=== PATIENT | female | born 1930 | race Caucasian/White ===

== ENCOUNTER → 2016-05-12 | Outpatient (CLI) | payer OTHER, BC ==
[~2016-05-12] MED LIST: ZCRUNK; [UNRECOGNIZED DRUG - CODE]
--- NOTE | 2016-05-12 15:36 | DIAGNOSTIC IMAGING REPORT ---
LEG LENGTH STUDY CLINICAL HISTORY: Gait disturbance. FINDINGS: 5 radiographs of the pelvis and lower extremities from a leg length examination are presented. Correlation is made with radiographs of the knees dated 06/12/2011. The skeletal structures are osteopenic. No fracture is identified in the bony pelvis or the lower extremities. The right lower extremity measures 89.1 cm and the left lower extremity measures 91.3 cm as measured from the femoral head to the tibial plafond. Advanced arthritic change is present in the hips, left greater than right. Advanced arthritic change is also seen in the knees. Heterotopic bone is again noted lateral to the distal left femoral metaphysis. The overlying soft tissues are within normal limits. Lumbosacral spondylosis is partially imaged. A surgical clip is present in the left calf. IMPRESSION: 1. The left lower extremity measures 2.2 cm longer than the right lower extremity. 2. Osteopenia and arthritic change as above. Electronically signed by: Jeffery Syed M.D. 05/12/2016 3:34 PM Dictated Date/Time: 05/12/2016 3:31 PM
== END | disposition home or self-care (01) ==
LOC: C.RADBC 14:53
PROVIDERS: ATTEND Internal Medicine Geriatric Medicine
DX: R26.9 Unspecified abnormalities of gait and mobility (principal); M85.80 Other specified disorders of bone density and structure, unspecified site; M21.70 Unequal limb length (acquired), unspecified site

== ENCOUNTER → 2016-12-11 | Outpatient (CLI) | payer OTHER, BC ==
[2016-12-11 13:44] LABS: BASO % 0.4 %; BASO ABS # 0.02 K/uL (0-0.2); COMPLETE YES; EOS % 3.3 %; HEMATOCRIT 38.6 % (37-47); IG% 0.4 %; MEAN CELL VOLUME 100.8 fL (80-100); MEAN CORPUSCULAR HEMOGLOBIN 32.4 pg (25-34); MEAN CORPUSCULAR HGB CONC 32.1 g/dl (32-36); MONO % 11.7 %; NEUT % 42.2 %; PLATELET COUNT 283 K/uL (130-400); RED BLOOD COUNT 3.83 M/uL (4.2-5.4); WHITE BLOOD COUNT 5.48 K/uL (4.8-10.8)
[2016-12-11 14:14] LABS: ALT/SGPT 20 U/L (12-78); AST/SGOT 18 U/L (15-37); BLOOD UREA NITROGEN 30 mg/dl (7-18); BUN/CREATININE RATIO 37.5 (10-20); CARBON DIOXIDE 29 mmol/L (21-32); CHLORIDE 105 mmol/L (98-107); CHOLESTEROL 148 mg/dl (0-200); CREATININE 0.81 mg/dl (0.60-1.20); GLUCOSE 86 mg/dl (70-99); POTASSIUM 4.4 mmol/L (3.5-5.1); SODIUM 138 mmol/L (136-145)
[2016-12-11 14:25] LABS: ALB/GLOB RATIO 1.1 (0.9-2); ALKALINE PHOSPHATASE 63 U/L (45-117); CHOLESTEROL/HDL RATIO 2.3; HDL CHOLESTEROL 63 mg/dl; LDL CHOLESTEROL CALCULATED 64 mg/dl; TRIGLYCERIDES 104 mg/dl (0-150); VERY LOW DENSITY LIPOPROT CALC 21 mg/dl
[2016-12-12 08:03] LABS: ESTIMATED AVERAGE GLUCOSE 114 mg/dl; HA1C FLAG Normal (Normal)
== END | disposition home or self-care (01) ==
LOC: C.LABBC 10:31
PROVIDERS: ATTEND Internal Medicine Geriatric Medicine
DX: I10 Essential (primary) hypertension (principal); M48.00 Spinal stenosis, site unspecified; R73.9 Hyperglycemia, unspecified; I25.10 Atherosclerotic heart disease of native coronary artery without angina pectoris; E78.5 Hyperlipidemia, unspecified; E55.9 Vitamin D deficiency, unspecified

== ENCOUNTER → 2017-02-27 | Outpatient (CLI) | payer OTHER, BC ==
[~2017-02-27] MED LIST changes: +ASPI81TA28 PO; +ATOR-24 PO; +FESO4TAB PO; +NITR100C43 PO; +VITA200C5 PO
[2017-02-27 12:38] LABS: URINE APPEARANCE CLEAR (CLEAR); URINE BILIRUBIN NEG (NEG); URINE COLOR YELLOW; URINE EPITHELIAL CELL AUTO >30 /lpf (0-5); URINE NITRITE NEG (NEG); URINE SPECIFIC GRAVITY 1.023 (1.000-1.030); UROBILINOGEN NEG (NEG); ZZUR CULT IF INDIC CLEAN CATCH NO
[2017-02-27 12:42] LABS: MANUAL MICROSCOPIC REQUIRED? NO; REVIEW REQ? NO
== END | disposition home or self-care (01) ==
LOC: C.LAB 12:03
PROVIDERS: ATTEND Internal Medicine Geriatric Medicine
DX: R32 Unspecified urinary incontinence (principal)

== ENCOUNTER 2017-02-28 10:09 | Inpatient (IN) | payer OTHER, BC ==
[~2017-02-28] VITALS: Ht 167.6 cm; Wt 77.1 kg
[~2017-02-28 10:09] MED LIST changes: -ASPI81TA28 PO; -ATOR-24 PO; -FESO4TAB PO; -NITR100C43 PO; -VITA200C5 PO
[2017-02-28] MEDS ORDERED: SODIUM CHLORIDE 0.9% 500ML 500 ML IV STA ×2 (10:27→12:07)
[2017-02-28] MEDS ORDERED: ACETAMINOPHEN 500 MG TAB PO STA (10:27)
--- NOTE | 2017-02-28 10:34 | EMERGENCY ROOM VISIT NOTE ---
History Report prepared by Miguel Angel: Guilherme Madrid Under the Supervision of: Dr. Montana Blackman M.D. First contact with patient: 10:10 Chief Complaint: FALL Stated Complaint: FALL History of Present Illness The patient is an 86 year old white female with a past medical history of CABGx3 , HLD, spinal stenosis, CAD who presents to the ED after a fall that occurred last evening. Patient was using the restroom, stood up, became lightheaded, and fell forward to her knees. She notes she fell twice and hit her head both times. The patient did not use her arms to brace herself. She started Macrobid yesterday for a UTI. The patient has had two doses, both taken with food. Positive nausea and lightheadedness since the start of the medication, chronic thigh pain. Negative felling warm, palpitations, LOC, numbness, weakness, alcohol use, tobacco use, blood thinners other than aspirin. Source of History: patient Onset: last evening Position: other (global) Quality: other (fall) Timing: resolved Associated Symptoms: + nausea, No LOC, No weakness, No numbness Note: Associated symptoms: lightheadedness, chronic thigh pain, hitting head Negative: feeling warm, palpitations Review of Systems See HPI for pertinent positives and negatives. A total of ten systems were reviewed and were otherwise negative. Past Medical & Surgical Medical Problems: (1) CAD (coronary artery disease) (2) HLD (hyperlipidemia) (3) severe leukocytosis, UTI, frequent falls (4) Spinal stenosis Surgical Problems: (1) S/P CABG x 3 Family History Diabetes mellitus Heart disease Social History Smoking Status: Never Smoker Smokeless Tobacco Use: No Alcohol Use: none Marital Status: Housing Status: lives with significant other Occupation Status: retired Current/Historical Medications Scheduled Aspirin (Aspirin Ec), 81 MG PO DAILY Atorvastatin (Lipitor), 40 MG PO DAILY Fesoterodine Fumarate (Toviaz), 4.5 MG PO BID Nitrofurantoin Macrocrystal (Nitrofurantoin), 100 MG PO BID Vitamin E (Vitamin E), 1 CAP PO DAILY Allergies Coded Allergies: Ciprofloxacin (Verified Allergy, Unknown, UNKNOWN, 07/19/12) Ezetimibe (Verified Allergy, Unknown, UNKNOWN, 07/19/12) Penicillins (Verified Allergy, Unknown, 07/19/12) Simvastatin (Verified Allergy, Unknown, UNKNOWN, 07/19/12) Codeine (Verified Adverse Reaction, Mild, GI SYMPTOMS, 02/28/17) Physical Exam Vital Signs Date Time Temp Pulse Resp B/P (MAP) Pulse Ox O2 Delivery O2 Flow Rate FiO2 02/28/17 13:07 98 Room Air 02/28/17 12:49 75 16 137/53 98 Room Air 02/28/17 11:08 74 18 97/70 94 Room Air 02/28/17 10:44 75 18 142/118 93 Room Air 02/28/17 10:35 88 02/28/17 10:20 36.5 76 20 130/99 97 Room Air Physical Exam GENERAL: Awake, alert, well-appearing, NAD HENT: Normocephalic, atraumatic. EYES: Normal conjunctiva. Sclera non-icteric. NECK: Supple. No nuchal rigidity. FROM. RESPIRATORY: CTAB, no rhonchi, wheezing, crackles CARDIAC: RRR, no MRG ABDOMEN: Soft, NTND, BS+ MSK: No chest wall TTP, no LE edema. LLE is shorter than RLE, neurovascularly intact, mild hip pain without obvious deformity. NEURO: GCS 15, A&O x3, follows commands, 4/5 in LE, 5/5 in UE SKIN: No rash or jaundice noted. Medical Decision & Procedures ER Provider Diagnostic Interpretation: Radiology results as stated below per my review and radiologist interpretation: PELVIS ONE VIEW, LEFT HIP 2 VIEWS HISTORY: Left hip pain. s/p fall, L leg short COMPARISON: Leg length study 05/22/2016. FINDINGS: No acute fracture or dislocation within the pelvis or hips. Severe osteoarthritis within the left hip with lepy-mf-idom articulation. This remains unchanged. There is mild superior migration of the left femoral head due to the severe osteoarthritis. This likely accounts for the apparent left leg shortening. The bones are osteopenic. Mild osteoarthritis within the right hip. Soft tissues are unremarkable. No radiopaque foreign bodies. IMPRESSION: No acute fracture or dislocation within the pelvis or hips. No change in the severe left hip osteoarthritis. This likely accounts for the apparent left leg shortening. Electronically signed by: Ramakrishna Oswald M.D. 02/28/2017 11:28 AM Dictated Date/Time: 02/28/2017 11:[address] CT DOSE: 1451.75 mGy.cm HISTORY: s/p fall TECHNIQUE: Multiaxial CT images of the head were performed without the use of intravenous contrast. Automated exposure control was utilized for this study. A dose lowering technique was utilized adhering to the principles of ALARA. Comparison: Brain MRI 04/02/2014. Findings: The paranasal sinuses and mastoid air cells are clear. The calvarium and skull base are intact. There is no mass, hematoma, midline shift, acute infarct. White matter hypodensity is nonspecific but suggestive of microvascular ischemic change. The ventricles and sulci demonstrate mild age-related involutional changes. Impression: No acute intracranial abnormality. Atrophy and microvascular ischemic changes. Electronically signed by: Ramakrishna Oswald M.D. 02/28/2017 11:46 AM Dictated Date/Time: 02/28/2017 11:43 AM CHEST ONE VIEW PORTABLE HISTORY: Fall. Left-sided chest pain. COMPARISON: Chest 10/17/2013. FINDINGS: The heart remains mildly enlarged. There are postoperative changes. Linear density at the left midlung zone are similar to the prior study and likely represent scarring or atelectasis. The lungs are otherwise clear. Poststernotomy changes. No pleural effusions. No pneumothorax. IMPRESSION: No significant change compared to the prior study. No acute process. Electronically signed by: Ramakrishna Oswald M.D. 02/28/2017 11:29 AM Dictated Date/Time: 02/28/2017 11:[address] DOSE: HISTORY: Neck pain. s/p fall TECHNIQUE: Multiaxial CT images of the cervical spine were performed and reformatted in the sagittal and coronal plane without the use of contrast. A dose lowering technique was utilized adhering to the principles of ALARA. COMPARISON: None. FINDINGS: No fractures. No subluxation. Prevertebral soft tissues and the C1-C2 interval are intact. No pneumothorax. Mild disc space narrowing at C3-C4 and moderate to space narrowing at C5-C6 and C6-C7. The left C3-C4 facets are fused. Slight reversal of the normal lordotic curvature. IMPRESSION: No fractures within the cervical spine. Electronically signed by: Ramakrishna Oswald M.D. 02/28/2017 11:52 AM Dictated Date/Time: 02/28/2017 11:48 AM Laboratory Results 02/28/17 10:40 Red Blood Count 3.88, Mean Corpuscular Volume 100.5, Mean Corpuscular Hemoglobin 33.0, Mean Corpuscular Hemoglobin Concent 32.8, Mean Platelet Volume 10.5, Neutrophils (%) (Auto) 89.8, Lymphocytes (%) (Auto) 4.5, Monocytes (%) ( Auto) 4.9, Eosinophils (%) (Auto) 0.2, Basophils (%) (Auto) 0.2, Neutrophils # ( Auto) 19.96, Lymphocytes # (Auto) 1.00, Monocytes # (Auto) 1.10, Eosinophils # ( Auto) 0.05, Basophils # (Auto) 0.04 02/28/17 10:40 Test 02/28/17 10:40 White Blood Count 22.23 K/uL (4.8-10.8) Red Blood Count 3.88 M/uL (4.2-5.4) Hemoglobin 12.8 g/dL (12.0-16.0) Hematocrit 39.0 % (37-47) Mean Corpuscular Volume 100.5 fL (80-100) Mean Corpuscular Hemoglobin 33.0 pg (25-34) Mean Corpuscular Hemoglobin Concent 32.8 g/dl (32-36) Platelet Count 247 K/uL (130-400) Mean Platelet Volume 10.5 fL (7.4-10.4) Neutrophils (%) (Auto) 89.8 % Lymphocytes (%) (Auto) 4.5 % Monocytes (%) (Auto) 4.9 % Eosinophils (%) (Auto) 0.2 % Basophils (%) (Auto) 0.2 % Neutrophils # (Auto) 19.96 K/uL (1.4-6.5) Lymphocytes # (Auto) 1.00 K/uL (1.2-3.4) Monocytes # (Auto) 1.10 K/uL (0.11-0.59) Eosinophils # (Auto) 0.05 K/uL (0-0.5) Basophils # (Auto) 0.04 K/uL (0-0.2) RDW Standard Deviation 46.7 fL (36.4-46.3) RDW Coefficient of Variation 12.8 % (11.5-14.5) Immature Granulocyte % (Auto) 0.4 % Immature Granulocyte # (Auto) 0.08 K/uL (0.00-0.02) Erythrocyte Sedimentation Rate 34 mm/hr (0-21) Prothrombin Time 10.5 SECONDS (9.0-12.0) Prothromb Time International Ratio 1.0 (0.9-1.1) Activated Partial Thromboplast Time 28.2 SECONDS (21.0-31.0) Partial Thromboplastin Ratio 1.1 Anion Gap 6.0 mmol/L (3-11) Est Creatinine Clear Calc Drug Dose 55.5 ml/min Estimated GFR () 76.8 Estimated GFR (Non- 66.2 BUN/Creatinine Ratio 32.0 (10-20) Calcium Level 9.3 mg/dl (8.5-10.1) Total Bilirubin 1.7 mg/dl (0.2-1) Direct Bilirubin 0.3 mg/dl (0-0.2) Aspartate Amino Transf (AST/SGOT) 17 U/L (15-37) Alanine Aminotransferase (ALT/SGPT) 20 U/L (12-78) Alkaline Phosphatase 69 U/L (45-117) Troponin I < 0.015 ng/ml (0-0.045) C-Reactive Protein 2.78 mg/dl (0-0.29) Total Protein 7.7 gm/dl (6.4-8.2) Albumin 3.8 gm/dl (3.4-5.0) Lipase 132 U/L (73-393) Procalcitonin 0.11 ng/ml (0-0.5) Laboratory results reviewed by me Medications Administered Medications (Trade) Dose Ordered Sig/Jj Route Start Time Stop Time Status Last Admin Dose Admin Acetaminophen (Tylenol Tab) 1,000 mg NOW STAT PO 02/28/17 10:27 02/28/17 10:30 DC 02/28/17 11:02 1,000 MG Sodium Chloride 500 ml @ 500 mls/hr Q1H STAT IV 02/28/17 10:27 02/28/17 11:26 DC 02/28/17 11:03 500 MLS/HR Ceftriaxone Sodium (Rocephin Inj) 1 gm NOW ONCE IV 02/28/17 12:30 02/28/17 12:31 DC 02/28/17 12:30 1 GM Sodium Chloride 500 ml @ 500 mls/hr Q1H STAT IV 02/28/17 12:07 02/28/17 13:06 DC 02/28/17 12:07 500 MLS/HR ECG Indication: weakness Rate (beats per minute): 77 Rhythm: sinus rhythm Findings: 1st degree AV block, T-wave inversion (Lateral), left axis deviation , other (Prolonged KS interval, no other STS or TWI) ED Course 1019: The patient was evaluated in room B05. A complete history and physical exam was performed. 1248: Upon reexamination, the patient was feeling better. I discussed the test results and treatment plan with her. The patient will be evaluated for further management. 1253: I discussed the patient's case with Dr. Billy, [facility] Hospitalist. The patient will be evaluated for further management and care. Medical Decision The patient is an 86 year old white female with a past medical history of CABGx3 , HLD, spinal stenosis, CAD who presents to the ED after a fall that occurred last evening. Etiologies such as metabolic, infection, hypo/hyperglycemia, electrolyte abnormalities, cardiac sources, intracerebral event, toxicologic, neurologic, as well as others were entertained. Patient was seen and evaluated the bedside. Patient states that she had 2 falls in the middle of last night. Patient is unsure as to whether not she hit her head and is unsure as to whether not she had any LOC. Patient does take a baby aspirin but no other blood thinning medications. Patient is complaining of some thigh pain in her left leg is noticeably shortened however the thigh pain is chronic. Patient does not have any neuro deficits. Patient states she was recently seen yesterday which she was treated for UTI. Of note patient states that her dizziness described as lightheadedness and not vertiginous symptoms and that this was positional. Patient did have blood work that was completed along with a urinalysis, chest x-ray, CT of the head and neck, and left hip films. Patient did have a white blood cell count of 22,000. Given this and the recent treatment for UTI with the patient was suitable for outpatient treatment. EKG TWI laterally. No EKGs for comparison but does have prior CABG. Neg trop. Furthermore, given the patient's 2 episodes of falling and history of CABG in the setting of dehydration would be harris continue to hydrate her and to monitor and consider any syncope workup. Patient was told of all findings. I did speak with the admitting physician agreed to admit the patient for further follow-up and treatment. Head Trauma GCS Score: 15 Medication Reconcilliation Current Medication List: was personally reviewed by me Blood Pressure Screening Patient's blood pressure: Elevated blood pressure Monitored by Hospitalist. Consults Time Called: 1233 Consulting Physician: Dr. Billy, [facility] Hospitalist Returned Call: [phone] I discussed the patient's case with Dr. Billy [facility] Hospitalist. The patient will be evaluated for further management and care. Impression Primary Impression: UTI (urinary tract infection) Additional Impression: Fall Scribe Attestation The scribe's documentation has been prepared under my direction and personally reviewed by me in its entirety. I confirm that the note above accurately reflects all work, treatment, procedures, and medical decision making performed by me. Departure Information Dispostion Being Evaluated By Hospitalist Referrals Ankit Anthony M.D. (PCP) Patient Instructions My [facility] Problem Qualifiers Primary Impression: UTI (urinary tract infection) Urinary tract infection type: acute cystitis Hematuria presence: without hematuria Qualified Codes: N30.00 - Acute cystitis without hematuria Additional Impression: Fall Encounter type: initial encounter Qualified Codes: W19.XXXA - Unspecified fall, initial encounter
[2017-02-28 10:54] LABS: BASO % 0.2 %; BASO ABS # 0.04 K/uL (0-0.2); COMPLETE YES; EOS % 0.2 %; IG% 0.4 %; LYMPH % 4.5 %; MEAN CELL VOLUME 100.5 fL (80-100); MEAN CORPUSCULAR HGB CONC 32.8 g/dl (32-36); MEAN PLATELET VOLUME 10.5 fL (7.4-10.4); MONO % 4.9 %; NEUT % 89.8 %; PLATELET COUNT 247 K/uL (130-400); RED BLOOD COUNT 3.88 M/uL (4.2-5.4); WHITE BLOOD COUNT 22.23 K/uL (4.8-10.8)
[2017-02-28] MEDS ORDERED: VITA200C5 PO (11:06)
[2017-02-28] MEDS ORDERED: FESO4TAB PO (11:06)
[2017-02-28] MEDS ORDERED: ATOR-24 PO (11:06)
[2017-02-28] MEDS ORDERED: ASPI81TA28 PO (11:06)
[2017-02-28] MEDS ORDERED: NITR100C43 PO (11:06)
[2017-02-28 11:19] LABS: ALT/SGPT 20 U/L (12-78); AST/SGOT 17 U/L (15-37); BLOOD UREA NITROGEN 26 mg/dl (7-18); CALCIUM 9.3 mg/dl (8.5-10.1); CARBON DIOXIDE 29 mmol/L (21-32); CHLORIDE 102 mmol/L (98-107); CREATININE 0.81 mg/dl (0.60-1.20); GLUCOSE 146 mg/dl (70-99); POTASSIUM 3.5 mmol/L (3.5-5.1); SODIUM 137 mmol/L (136-145)
[2017-02-28 11:22] LABS: PARTIAL THROMBOPLASTIN RATIO 1.1; PROTHROMBIN TIME (PATIENT) 10.5 SECONDS (9.0-12.0)
[2017-02-28 11:24] LABS: ALKALINE PHOSPHATASE 69 U/L (45-117)
--- NOTE | 2017-02-28 11:29 | DIAGNOSTIC IMAGING REPORT ---
PELVIS ONE VIEW, LEFT HIP 2 VIEWS HISTORY: Left hip pain. s/p fall, L leg short COMPARISON: Leg length study 05/22/2016. FINDINGS: No acute fracture or dislocation within the pelvis or hips. Severe osteoarthritis within the left hip with oyfz-ag-hcma articulation. This remains unchanged. There is mild superior migration of the left femoral head due to the severe osteoarthritis. This likely accounts for the apparent left leg shortening. The bones are osteopenic. Mild osteoarthritis within the right hip. Soft tissues are unremarkable. No radiopaque foreign bodies. IMPRESSION: No acute fracture or dislocation within the pelvis or hips. No change in the severe left hip osteoarthritis. This likely accounts for the apparent left leg shortening. Electronically signed by: Ramakrishna Oswald M.D. 02/28/2017 11:28 AM Dictated Date/Time: 02/28/2017 11:25 AM
--- NOTE | 2017-02-28 11:31 | DIAGNOSTIC IMAGING REPORT ---
CHEST ONE VIEW PORTABLE HISTORY: Fall. Left-sided chest pain. COMPARISON: Chest 10/17/2013. FINDINGS: The heart remains mildly enlarged. There are postoperative changes. Linear density at the left midlung zone are similar to the prior study and likely represent scarring or atelectasis. The lungs are otherwise clear. Poststernotomy changes. No pleural effusions. No pneumothorax. IMPRESSION: No significant change compared to the prior study. No acute process. Electronically signed by: Ramakrishna Oswald M.D. 02/28/2017 11:29 AM Dictated Date/Time: 02/28/2017 11:28 AM
--- NOTE | 2017-02-28 11:47 | DIAGNOSTIC IMAGING REPORT ---
HEAD CT NONCONTRAST CT DOSE: 1451.75 mGy.cm HISTORY: s/p fall TECHNIQUE: Multiaxial CT images of the head were performed without the use of intravenous contrast. Automated exposure control was utilized for this study. A dose lowering technique was utilized adhering to the principles of ALARA. Comparison: Brain MRI 04/02/2014. Findings: The paranasal sinuses and mastoid air cells are clear. The calvarium and skull base are intact. There is no mass, hematoma, midline shift, acute infarct. White matter hypodensity is nonspecific but suggestive of microvascular ischemic change. The ventricles and sulci demonstrate mild age-related involutional changes. Impression: No acute intracranial abnormality. Atrophy and microvascular ischemic changes. Electronically signed by: Ramakrishna Oswald M.D. 02/28/2017 11:46 AM Dictated Date/Time: 02/28/2017 11:43 AM
--- NOTE | 2017-02-28 11:53 | DIAGNOSTIC IMAGING REPORT ---
CERVICAL SPINE CT CT DOSE: HISTORY: Neck pain. s/p fall TECHNIQUE: Multiaxial CT images of the cervical spine were performed and reformatted in the sagittal and coronal plane without the use of contrast. A dose lowering technique was utilized adhering to the principles of ALARA. COMPARISON: None. FINDINGS: No fractures. No subluxation. Prevertebral soft tissues and the C1-C2 interval are intact. No pneumothorax. Mild disc space narrowing at C3-C4 and moderate to space narrowing at C5-C6 and C6-C7. The left C3-C4 facets are fused. Slight reversal of the normal lordotic curvature. IMPRESSION: No fractures within the cervical spine. Electronically signed by: Ramakrishna Oswald M.D. 02/28/2017 11:52 AM Dictated Date/Time: 02/28/2017 11:48 AM
[2017-02-28] MEDS ORDERED: CEFTRIAXONE SOD INJ 1 GM ADDVIAL IV ONE (12:30)
[2017-02-28 13:07] VITALS: O2SAT 98; Ht 167.6 cm; Wt 77.1 kg
[2017-02-28] MEDS ORDERED: PANTOprazole SOD 40 MG TAB PO STA (13:14)
[2017-02-28] MEDS ORDERED: POLYETHYLENE (MIRALAX) 17 GM PACK PO PRN (13:15)
[2017-02-28] MEDS ORDERED: ACETAMINOPHEN 325 MG TAB PO PRN (13:15)
[2017-02-28] MEDS ORDERED: ALUMINUM/MAGNESIUM/SIMETH (MAALOX MAX) 30 ML UDC PO PRN (13:15)
[2017-02-28] MEDS ORDERED: MAGNESIUM HYDROXIDE SUSP 30 ML UDC PO PRN (13:15)
[2017-02-28] MEDS ORDERED: ZOLPIDEM TARTRATE 5 MG TAB PO PRN (13:15)
[2017-02-28] MEDS ORDERED: ONDANSETRON INJ 2 MG/ML 2 ML VIAL IV PRN (13:15)
--- NOTE | 2017-02-28 13:34 | History and Physical ---
History & Physical Date of Service Feb 28, 2017. History & Physical severe leukocytosis, UTI, frequent falls, [id number]
--- NOTE | 2017-02-28 14:34 | HISTORY & PHYSICAL EXAMINATION ---
DATE OF ADMISSION: 02/28/2017 This is level 3 inpatient admission, 35 minutes. CHIEF COMPLAINT: Generalized weakness, UTI and frequent falls. HISTORY OF PRESENT ILLNESS: An 86-year-old white female with a significant past medical history of dyslipidemia, CAD, CABG, spinal stenosis, coming to the hospital Emergency Department because of the above chief complaint. The medical information was obtained from patient herself and 2 daughters at the bedside. One of the daughter is a clinical laboratory manager. The patient has vertigos for couple months, seems getting worse. She lives with daughters and son-in-law at home, But, she has nobody taking her at because children are working. She has frequent falls here and there and hit in her body. Therefore, usually happened when she has up and walk and she was feeling dizziness and falls. Sometimes hit head, but yesterday had a fall, denied hitting head. There was mild tender and skin red from the fall yesterday in the right shoulder. Local mild tenderness. No limited range of motion. Denied feeling palpitations or chest pain before or during the fall. There was no loss of conscious during the fall yesterday. She was seen by primary care physician and was found to have UTI. Urine culture is pending. She was getting antibiotics Macrobid for the UTI. Reports some nauseations and lightheadedness after starting this medication. The patient denied fever or chills. Denied cough, sputum, shortness of breath. Denied chest pain, palpitation, lower extremity swelling. Denied nausea, vomiting, abdominal pain, diarrhea or constipation. She did report some urgency and pain when she has urination. Denied hematuria. Denied facial droop, slurry speeches or local weakness, but positive for generalized weakness. Denies skin bluish. Denies skin rashes. PAST MEDICAL HISTORY: Like I mentioned in the above include UTI, dyslipidemia, CAD, CABG. FAMILY HISTORY: Include diabetes and heart disease. SOCIAL HISTORY: Never smoked. Denied alcohol abuse disorder, denied illicit drug abuse. MEDICATIONS: Currently taking include Zocor and solifenacin. ALLERGIES: ALLERGY TO CODEINE, CIPRO, EZETIMIBE, PENICILLIN AND SIMVASTATIN. REVIEW OF SYSTEMS: Please see HPI, otherwise 14 points organ system review were negative. PHYSICAL EXAMINATION: VITAL SIGNS: Temperature is 36.5, pulse 76, respiration rate 20, blood pressure 130/99. Pulse ox 97% in room air. GENERAL: The patient is a white female, pleasant, lips are very dry. Awake, alert and orientated. No acute distress. HEENT: Conjunctivae no injection. Sclerae nonicterus. NECK: Supple, no nuchal rigidity. There was no limited range of motion. CHEST AND LUNGS: Clear to auscultations. No wheezing, rhonchi, or crackles. Rib cages bilaterally has no local tenderness. HEART: Regular rhythm S1, S2; no murmur, gallop or rubs. ABDOMEN: Soft, nontender. Bowel sound was positive. EXTREMITIES: Bilateral CVA was nontender. MUSCULOSKELETAL: Right anterior shoulder, skin mild red, there was minimal tender. No limited range of motion. No deformities. SPINE: T-spine, L-spine and T-spine has no tender. Left hip mild pain. NEUROLOGIC: Cranial nerves II-XII was intact. There was no local deficits. No slurry speeches. SKIN: No rashes. LABORATORY STUDIES: WBC 22, hemoglobin 12, platelets 247. IMAGING STUDIES: Include cervical spine has no fracture identified. Chest x-ray, no significant changes and no acute process. Head CT studies, no acute intracranial abnormalities. Hip x-ray in the left side there was no acute fracture or dislocations, but there was severe left hip osteoarthritis. EKG was done in the Emergency Room which shows sinus rhythm with first degree AV block. There were no obvious ST-T wave changes. ASSESSMENT AND PLAN: An 86-year-old white female with the conditions see below: 1. Urinary tract infection, failed outpatient treatment, may need to rule out pyelo. 2. Severe leukocytosis. Will need to check lactase to rule out sepsis. Currently, no obvious tachycardia or mental status changes. Blood pressure is stable. 3. Frequent falls and dizziness. Need to rule out arrhythmia and orthostatic hypotension. 4. Vertigo is getting worse recently. 5. History of coronary artery disease, coronary artery bypass grafting and dyslipidemia. 6. Left hip severe arthritis. 7. Significant frequent fall, possible deconditioning. PLAN: We will keep patient as admission because of severe leukocytosis and UTI, need to rule out pyelo or sepsis. Has ordered ESR, CRP, procalcitonin level and lactase level. ED started Rocephin, will continue, urine culture in PCP's office need to be followed up, blood culture was sent. We will check orthostatic hypotension and give IV fluid because of obvious dehydration and very dry lips. May consider medication for vertigo or further evaluation for the vertigo , Possibly need to do MRI, if need for further evaluation of vertigo and frequent falls. but patient has pacer , not able to do MRI Because of differential diagnosis include arrhythmia, I will put the patient in tele floor. Follow up leukocytosis. For the history of CAD, CABG, and dyslipidemia, will continue current medication. I will order PT, OT evaluation and treatment and disease case manager consultation. GI and DVT prophylaxis is ordered. Discussed with patient and 2 daughters at the bedside, updated the patient's condition and answered all the questions, patient want to be do not resuscitation. LEOLA
[2017-02-28 14:45] LABS: URINE APPEARANCE CLEAR (CLEAR); URINE BILIRUBIN NEG (NEG); URINE COLOR DK YELLOW; URINE EPITHELIAL CELL AUTO >30 /lpf (0-5); URINE NITRITE NEG (NEG); URINE SPECIFIC GRAVITY 1.021 (1.000-1.030); UROBILINOGEN NEG (NEG); ZZURINE CULT IF INDIC CATH NO
[2017-02-28 14:51] LABS: MANUAL MICROSCOPIC REQUIRED? NO; REVIEW REQ? YES
[2017-02-28 14:59] LABS: URINE MUCUS PRESENT (NONE PRSENT)
[2017-02-28 15:52] VITALS: BP 126/64; PULSE 63; TEMP 36.7; O2SAT 90
[2017-02-28 16:00] VITALS: O2SAT 92
[2017-02-28] MEDS: SODIUM CHLORIDE 0.9% 1000ML 1,000 ML IV SCH ×2 (16:09→23:49)
[2017-02-28] MEDS: ENOXAPARIN 40 MG/0.4 ML SYR SC SCH (17:57)
[2017-02-28] MEDS: MECLIZINE HCL 12.5 MG TAB PO SCH ×2 (17:58→21:25)
[2017-02-28 20:26] VITALS: BP 123/58; PULSE 72; TEMP 36.8; O2SAT 91
[2017-03-01] VITALS (10 sets, daily range): BP systolic 113–169; BP diastolic 54–81; PULSE 49–88; TEMP 36.5–37.4; O2SAT 90–96
[2017-03-01 05:29] LABS: BASO % 0.2 %; BASO ABS # 0.03 K/uL (0-0.2); COMPLETE YES; EOS % 7.7 %; HEMATOCRIT 34.4 % (37-47); IG% 0.2 %; LYMPH % 19.7 %; MEAN CELL VOLUME 101.5 fL (80-100); MEAN CORPUSCULAR HEMOGLOBIN 33.3 pg (25-34); MEAN CORPUSCULAR HGB CONC 32.8 g/dl (32-36); MEAN PLATELET VOLUME 10.3 fL (7.4-10.4); MONO % 6.2 %; PLATELET COUNT 217 K/uL (130-400); RED BLOOD COUNT 3.39 M/uL (4.2-5.4); WHITE BLOOD COUNT 12.66 K/uL (4.8-10.8)
[2017-03-01 06:04] LABS: BUN/CREATININE RATIO 25.4 (10-20); CALCIUM 8.9 mg/dl (8.5-10.1); CREATININE 0.81 mg/dl (0.60-1.20); POTASSIUM 3.4 mmol/L (3.5-5.1)
[2017-03-01 06:06] LABS: ALB/GLOB RATIO 0.9 (0.9-2)
[2017-03-01] MEDS: SODIUM CHLORIDE 0.9% 1000ML 1,000 ML IV SCH (08:57)
[2017-03-01] MEDS: ASPIRIN 81 MG ECTAB PO SCH (08:58)
[2017-03-01] MEDS: MECLIZINE HCL 12.5 MG TAB PO SCH ×3 (08:58→21:22)
[2017-03-01] MEDS: ATORVASTATIN 40 MG TAB PO SCH (08:58)
[2017-03-01] MEDS: TOCOPHERYL, DL-ALPHA 100 INTERUNIT CAP PO SCH (08:58)
[2017-03-01] MEDS: PANTOprazole SOD 40 MG TAB PO SCH (09:04)
[2017-03-01] MEDS ORDERED: LOPERAMIDE HCL 2 MG CAP PO PRN (11:00)
[2017-03-01] MEDS ORDERED: CEFTRIAXONE SOD INJ 2,000 MG in DEXTROSE 5% 50ML 50 ML IV SCH (12:00)
[2017-03-01] MEDS: CEFTRIAXONE SOD INJ 1,000 MG in DEXTROSE 5% 50ML 50 ML IV SCH (12:18)
[2017-03-01] MEDS: LACTOBACILLUS ACIDOPHILUS (FLORANEX) TAB PO SCH ×2 (12:18→17:07)
--- NOTE | 2017-03-01 12:54 | Medical Student: [facility] ---
Med Student Progress Note Date of Service Mar 01, 2017. Subjective Pt evaluation today including: conversation w/ patient, physical exam, chart review, lab review, review of studies, review of inpatient medication list Voiding: no voiding problems 86 year old female with history of dyslipidemia, CAD, CABg and questionable vertigo presenting by request of primary care physician after presenting for repeated falls and being found to have a UTI. On arrival, patient's WBC was 22, she had signs of dehydration on exam and possible 1st degree AV node block on EKG though difficult to appreciate due to artifact. She described her falls as a dizziness that was different from vertigo symptoms and felt more like a lightheadedness. She had one episode where she recalls LOC, this was an unwitnessed event. CT head and chest x-ray were unremarkable. Review of Systems Constitutional: No fever, No chills, No weakness Respiratory: No cough, No shortness of breath Cardiac: No chest pain, No edema, No palpitations Abdomen: No pain, No nausea, No vomiting, No diarrhea Female : No dysuria, No urinary frequency, No hematuria, No incontinence Skin: No rash Objective Vital Signs Date Time Temp Pulse Resp B/P (MAP) Pulse Ox O2 Delivery O2 Flow Rate FiO2 03/01/17 12:01 90 Room Air 03/01/17 11:07 36.9 53 18 144/63 (90) 96 Room Air 03/01/17 08:02 36.8 54 16 135/59 (84) 90 03/01/17 08:00 90 Room Air 03/01/17 05:09 37.4 76 18 127/64 (85) 90 Room Air 79 127/68 (87) 85 113/65 (81) 03/01/17 04:00 Room Air 03/01/17 00:22 36.8 66 18 127/54 (78) 92 Room Air 03/01/17 00:00 Room Air 02/28/17 20:26 36.8 72 20 123/58 (79) 91 Room Air 02/28/17 20:18 Room Air 02/28/17 16:00 92 Room Air 02/28/17 15:52 36.7 63 20 126/64 (84) 90 Room Air 02/28/17 14:37 67 16 123/57 94 Room Air 02/28/17 13:46 74 16 109/44 94 Room Air 02/28/17 13:07 98 Room Air 02/28/17 12:49 75 16 137/53 98 Room Air Physical Exam General Appearance: WD/WN, no apparent distress Eyes: bilateral eyes normal inspection ENT: hearing grossly normal, pharynx normal Neck: no JVD Respiratory/Chest: chest non-tender, lungs clear, normal breath sounds, no respiratory distress, no accessory muscle use Cardiovascular: regular rate, rhythm, no edema, no gallop, no JVD, + systolic murmur (2/6 LINDA heard at RUSB) Abdomen: normal bowel sounds, non tender, soft, no organomegaly, no pulsatile mass Extremities: normal range of motion, non-tender, normal inspection, no pedal edema, no calf tenderness Neurologic/Psychiatric: alert, normal mood/affect, oriented x 3 (oriented to person, place, but not time) Skin: no rash Laboratory Results Last 24 Hours Test 02/28/17 13:47 02/28/17 15:30 03/01/17 05:18 Urine Color DK YELLOW Urine Appearance CLEAR Urine pH 5.0 Urine Specific [place] 1.021 Urine Protein NEG Urine Glucose (UA) NEG Urine Ketones 1+ Urine Occult Blood NEG Urine Nitrite NEG Urine Bilirubin NEG Urine Urobilinogen NEG Urine Leukocyte Esterase NEG Urine WBC (Auto) 1-5 /hpf Urine RBC (Auto) 0-4 /hpf Urine Hyaline Casts (Auto) 0 /lpf Urine Epithelial Cells (Auto) >30 /lpf Urine Bacteria (Auto) NEG Urine Renal Epithelial Cells /lpf Urine Mucus PRESENT Lactic Acid Level 1.2 mmol/L White Blood Count 12.66 K/uL Red Blood Count 3.39 M/uL Hemoglobin 11.3 g/dL Hematocrit 34.4 % Mean Corpuscular Volume 101.5 fL Mean Corpuscular Hemoglobin 33.3 pg Mean Corpuscular Hemoglobin Concent 32.8 g/dl Platelet Count 217 K/uL Mean Platelet Volume 10.3 fL Neutrophils (%) (Auto) 66.0 % Lymphocytes (%) (Auto) 19.7 % Monocytes (%) (Auto) 6.2 % Eosinophils (%) (Auto) 7.7 % Basophils (%) (Auto) 0.2 % Neutrophils # (Auto) 8.35 K/uL Lymphocytes # (Auto) 2.50 K/uL Monocytes # (Auto) 0.78 K/uL Eosinophils # (Auto) 0.97 K/uL Basophils # (Auto) 0.03 K/uL RDW Standard Deviation 47.0 fL RDW Coefficient of Variation 12.9 % Immature Granulocyte % (Auto) 0.2 % Immature Granulocyte # (Auto) 0.03 K/uL Sodium Level 136 mmol/L Potassium Level 3.4 mmol/L Chloride Level 104 mmol/L Carbon Dioxide Level 25 mmol/L Anion Gap 7.0 mmol/L Blood Urea Nitrogen 21 mg/dl Creatinine 0.81 mg/dl Est Creatinine Clear Calc Drug Dose 55.5 ml/min Estimated GFR () 76.8 Estimated GFR (Non- 66.2 BUN/Creatinine Ratio 25.4 Random Glucose 95 mg/dl Calcium Level 8.9 mg/dl Magnesium Level 2.0 mg/dl Total Bilirubin 1.5 mg/dl Direct Bilirubin 0.3 mg/dl Aspartate Amino Transf (AST/SGOT) 19 U/L Alanine Aminotransferase (ALT/SGPT) 18 U/L Alkaline Phosphatase 52 U/L Total Protein 6.5 gm/dl Albumin 3.1 gm/dl Globulin 3.4 gm/dl Albumin/Globulin Ratio 0.9 Medications Current Inpatient Medications Medications (Trade) Dose Ordered Sig/Jj Route Start Time Stop Time Status Last Admin Dose Admin Enoxaparin Sodium (Lovenox Inj) 40 mg Q24H SC 02/28/17 18:00 03/30/17 17:59 02/28/17 17:57 40 MG Acetaminophen (Tylenol Tab) 650 mg Q4H PRN PO 02/28/17 13:15 03/30/17 13:14 Al Hydrox/Mg Hydrox/Simethicone (Maalox Max Susp) 15 ml Q4H PRN PO 02/28/17 13:15 03/30/17 13:14 Magnesium Hydroxide (Milk Of Magnesia Susp) 30 ml Q12H PRN PO 02/28/17 13:15 03/30/17 13:14 Zolpidem Tartrate (Ambien Tab) 5 mg HSZ PRN PO 02/28/17 13:15 03/30/17 13:14 Ondansetron HCl (Zofran Inj) 4 mg Q6H PRN IV 02/28/17 13:15 03/30/17 13:14 Polyethylene (Miralax Powder Packet) 17 gm DAILY PRN PO 02/28/17 13:15 03/30/17 13:14 Pantoprazole Sodium (Protonix Tab) 40 mg QAM PO 03/01/17 09:00 03/31/17 08:59 03/01/17 09:04 40 MG Aspirin (Ecotrin Tab) 81 mg DAILY PO 03/01/17 09:00 03/31/17 08:59 03/01/17 08:58 81 MG Atorvastatin Calcium (Lipitor Tab) 40 mg DAILY PO 03/01/17 09:00 03/31/17 08:59 03/01/17 08:58 40 MG Miscellaneous Information (Order Awaiting Action) 1 ea QS N/A 02/28/17 16:00 03/30/17 15:59 sd-[id number]-[id number] Acetate (Vitamin E Cap) 200 interunit DAILY PO 03/01/17 09:00 03/31/17 08:59 03/01/17 08:58 200 INTERUNIT Meclizine HCl (Antivert Tab) 12.5 mg TID PO 02/28/17 14:00 03/30/17 13:59 03/01/17 08:58 12.5 MG Lactobacillus Acidophilus (Floranex Tab) 4 tab TIDM PO 03/01/17 12:00 03/31/17 11:59 03/01/17 12:18 4 TAB Loperamide HCl (Imodium Cap) 2 mg TID PRN PO 03/01/17 11:00 03/31/17 10:59 Ceftriaxone Sodium 1000 mg/ Dextrose 60 ml @ 100 mls/hr Q24H IV 03/01/17 11:00 03/11/17 10:59 03/01/17 12:18 100 MLS/HR Assessment and Plan Problems Fall UTI (urinary tract infection) CAD (coronary artery disease) HLD (hyperlipidemia) Spinal stenosis Assessment and Plan: Assessment: 86 year old female presenting with presyncopal and syncopal episodes and a UTI diagnosed by PCP. No known cause for the syncopal episodes, no dysrhythmia seen on EKG. Orthostatics have been normal. Plan: 1. Falls: Appear to by presyncopal. Could be due to orthostasis not seen in hospital with dehydration being a factor. Recommend echo to rule out cardiac abnormalities. Recommend repeat EKG. 2. Dehydration: Improved on IVF. Discontinue IVF. 3. UTI: Continue Rocephin. WBC has decreased from 22 to 12. Afebrile. Mild right flank pain. Low suspicion of pyelonephritis due to lack of fever, abdominal symptoms, severity of flank pain and general well appearance. 4. DVT prophylaxis: Continue Lovenox. 5. Diarrhea: Give Loperamide and Probiotic. Disposition: Patient will be discharged home likely tomorrow after r/o of cardiac involvement as stated above and one more day of IV abx. Continued [facility] stay due to: multiple IV medications needed Discharge planning: home
--- NOTE | 2017-03-01 13:59 | Progress Note ---
Subjective Date of Service: Mar 01, 2017. Subjective Pt evaluation today including: conversation w/ patient, conversation w/ family (daughter), physical exam, lab review, review of inpatient medication list Pain: denies pain PO Intake: adequate Voiding: no voiding problems reviewed labs, WBC down to 12 from 22 urine culture with no real growth, blood cultures no growth patient feeling well, had a loose stool but otherwise okay no pain, no dyspnea, no chest pain, no nausea no fevers described her "vertigo" as a light headed feeling in the night that goes away if she waits to get up and ambulate Problem List Medical Problems: (1) Fall Status: Acute (2) UTI (urinary tract infection) Status: Acute Review of Systems Abdomen: + diarrhea All Other Systems: Reviewed and Negative Medications Current Inpatient Medications Medications (Trade) Dose Ordered Sig/Jj Route Start Time Stop Time Status Last Admin Dose Admin Enoxaparin Sodium (Lovenox Inj) 40 mg Q24H SC 02/28/17 18:00 03/30/17 17:59 02/28/17 17:57 40 MG Acetaminophen (Tylenol Tab) 650 mg Q4H PRN PO 02/28/17 13:15 03/30/17 13:14 Al Hydrox/Mg Hydrox/Simethicone (Maalox Max Susp) 15 ml Q4H PRN PO 02/28/17 13:15 03/30/17 13:14 Magnesium Hydroxide (Milk Of Magnesia Susp) 30 ml Q12H PRN PO 02/28/17 13:15 03/30/17 13:14 Zolpidem Tartrate (Ambien Tab) 5 mg HSZ PRN PO 02/28/17 13:15 03/30/17 13:14 Ondansetron HCl (Zofran Inj) 4 mg Q6H PRN IV 02/28/17 13:15 03/30/17 13:14 Polyethylene (Miralax Powder Packet) 17 gm DAILY PRN PO 02/28/17 13:15 03/30/17 13:14 Pantoprazole Sodium (Protonix Tab) 40 mg QAM PO 03/01/17 09:00 03/31/17 08:59 03/01/17 09:04 40 MG Aspirin (Ecotrin Tab) 81 mg DAILY PO 03/01/17 09:00 03/31/17 08:59 03/01/17 08:58 81 MG Atorvastatin Calcium (Lipitor Tab) 40 mg DAILY PO 03/01/17 09:00 03/31/17 08:59 03/01/17 08:58 40 MG Miscellaneous Information (Order Awaiting Action) 1 ea QS N/A 02/28/17 16:00 03/30/17 15:59 ds-Uulka-Zwwmsmrkvi Acetate (Vitamin E Cap) 200 interunit DAILY PO 03/01/17 09:00 03/31/17 08:59 03/01/17 08:58 200 INTERUNIT Meclizine HCl (Antivert Tab) 12.5 mg TID PO 02/28/17 14:00 03/30/17 13:59 03/01/17 08:58 12.5 MG Lactobacillus Acidophilus (Floranex Tab) 4 tab TIDM PO 03/01/17 12:00 03/31/17 11:59 03/01/17 12:18 4 TAB Loperamide HCl (Imodium Cap) 2 mg TID PRN PO 03/01/17 11:00 03/31/17 10:59 Ceftriaxone Sodium 1000 mg/ Dextrose 60 ml @ 100 mls/hr Q24H IV 03/01/17 11:00 03/11/17 10:59 03/01/17 12:18 100 MLS/HR Objective Vital Signs Date Time Temp Pulse Resp B/P (MAP) Pulse Ox O2 Delivery O2 Flow Rate FiO2 03/01/17 12:01 90 Room Air 03/01/17 11:07 36.9 53 18 144/63 (90) 96 Room Air 03/01/17 08:02 36.8 54 16 135/59 (84) 90 03/01/17 08:00 90 Room Air 03/01/17 05:09 37.4 76 18 127/64 (85) 90 Room Air 79 127/68 (87) 85 113/65 (81) 03/01/17 04:00 Room Air 03/01/17 00:22 36.8 66 18 127/54 (78) 92 Room Air 03/01/17 00:00 Room Air 02/28/17 20:26 36.8 72 20 123/58 (79) 91 Room Air 02/28/17 20:18 Room Air 02/28/17 16:00 92 Room Air 02/28/17 15:52 36.7 63 20 126/64 (84) 90 Room Air 02/28/17 14:37 67 16 123/57 94 Room Air 02/28/17 13:46 74 16 109/44 94 Room Air Physical Exam General Appearance: WD/WN, no apparent distress Eyes: normal inspection, EOMI, sclerae normal ENT: normal ENT inspection, hearing grossly normal, pharynx normal Neck: supple, no adenopathy, no JVD, trachea midline Respiratory/Chest: chest non-tender, lungs clear, normal breath sounds, no respiratory distress, no accessory muscle use Cardiovascular: regular rate, rhythm, no edema, no gallop, no JVD, no murmur Abdomen: normal bowel sounds, non tender, soft, no organomegaly Extremities: normal range of motion, non-tender, normal inspection, no pedal edema, no calf tenderness, pelvis stable 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, no motor/sensory deficits, alert, normal mood/affect, oriented x 3 Skin: normal color, warm/dry, no rash Lymphatic: no adenopathy Laboratory Results Last 24 Hours Test 02/28/17 13:47 02/28/17 15:30 03/01/17 05:18 Urine Color DK YELLOW Urine Appearance CLEAR Urine pH 5.0 Urine Specific [place] 1.021 Urine Protein NEG Urine Glucose (UA) NEG Urine Ketones 1+ Urine Occult Blood NEG Urine Nitrite NEG Urine Bilirubin NEG Urine Urobilinogen NEG Urine Leukocyte Esterase NEG Urine WBC (Auto) 1-5 /hpf Urine RBC (Auto) 0-4 /hpf Urine Hyaline Casts (Auto) 0 /lpf Urine Epithelial Cells (Auto) >30 /lpf Urine Bacteria (Auto) NEG Urine Renal Epithelial Cells /lpf Urine Mucus PRESENT Lactic Acid Level 1.2 mmol/L White Blood Count 12.66 K/uL Red Blood Count 3.39 M/uL Hemoglobin 11.3 g/dL Hematocrit 34.4 % Mean Corpuscular Volume 101.5 fL Mean Corpuscular Hemoglobin 33.3 pg Mean Corpuscular Hemoglobin Concent 32.8 g/dl Platelet Count 217 K/uL Mean Platelet Volume 10.3 fL Neutrophils (%) (Auto) 66.0 % Lymphocytes (%) (Auto) 19.7 % Monocytes (%) (Auto) 6.2 % Eosinophils (%) (Auto) 7.7 % Basophils (%) (Auto) 0.2 % Neutrophils # (Auto) 8.35 K/uL Lymphocytes # (Auto) 2.50 K/uL Monocytes # (Auto) 0.78 K/uL Eosinophils # (Auto) 0.97 K/uL Basophils # (Auto) 0.03 K/uL RDW Standard Deviation 47.0 fL RDW Coefficient of Variation 12.9 % Immature Granulocyte % (Auto) 0.2 % Immature Granulocyte # (Auto) 0.03 K/uL Sodium Level 136 mmol/L Potassium Level 3.4 mmol/L Chloride Level 104 mmol/L Carbon Dioxide Level 25 mmol/L Anion Gap 7.0 mmol/L Blood Urea Nitrogen 21 mg/dl Creatinine 0.81 mg/dl Est Creatinine Clear Calc Drug Dose 55.5 ml/min Estimated GFR () 76.8 Estimated GFR (Non- 66.2 BUN/Creatinine Ratio 25.4 Random Glucose 95 mg/dl Calcium Level 8.9 mg/dl Magnesium Level 2.0 mg/dl Total Bilirubin 1.5 mg/dl Direct Bilirubin 0.3 mg/dl Aspartate Amino Transf (AST/SGOT) 19 U/L Alanine Aminotransferase (ALT/SGPT) 18 U/L Alkaline Phosphatase 52 U/L Total Protein 6.5 gm/dl Albumin 3.1 gm/dl Globulin 3.4 gm/dl Albumin/Globulin Ratio 0.9 Assessment and Plan 86 yo female who presented with fevers and possible UTI, right flank pain, weakness and light headedness - UTI POA, no sepsis: patient feeling better with IV fluids and Rocephin urinating a lot, will stop fluids afebrile, vitals stable, WBC from 22k to 12k on abx no growth on culture thus far doubt pyelonephritis, no flank pain, no real systemic symptoms treat for 7-10 days, convert to PO tomorrow - Loose stools: one BM today, typically she is regular or even constipated could be from abx check culture, C diff, add Lactobacillus and can use Imodium PRN - Dehydration: resolved, stop IV fluids, drinking well today - Light headedness: resolved today, described like orthostatic changes when she is at home normal orthostatic vitals today - DVT prophylaxis: Lovenox DNR plan: convert to PO antibiotics tomorrow, PT/OT evaluations, possibly home tomorrow Continued [facility] stay due to: multiple IV medications needed Discharge planning: home
[2017-03-01] MEDS: ENOXAPARIN 40 MG/0.4 ML SYR SC SCH (19:34)
[2017-03-01 22:10] LABS: URINE APPEARANCE CLEAR (CLEAR); URINE BILIRUBIN NEG (NEG); URINE COLOR YELLOW; URINE EPITHELIAL CELL AUTO 20-30 /lpf (0-5); URINE NITRITE NEG (NEG); URINE PH 5.5 (4.5-7.5); URINE SPECIFIC GRAVITY 1.012 (1.000-1.030); UROBILINOGEN NEG (NEG); ZZUR CULT IF INDIC CLEAN CATCH NO
[2017-03-01 22:13] LABS: MANUAL MICROSCOPIC REQUIRED? NO; REVIEW REQ? NO
[2017-03-02 00:18] VITALS: BP 168/74; PULSE 52; TEMP 36.4; O2SAT 92
[2017-03-02 03:56] VITALS: BP 161/66; PULSE 48; TEMP 36.5; O2SAT 93
[2017-03-02 07:20] VITALS: BP 176/74; PULSE 52; TEMP 36.9; O2SAT 93
[2017-03-02] MEDS: TOCOPHERYL, DL-ALPHA 100 INTERUNIT CAP PO SCH (07:44)
[2017-03-02] MEDS: MECLIZINE HCL 12.5 MG TAB PO SCH ×2 (07:44→13:42)
[2017-03-02] MEDS: ASPIRIN 81 MG ECTAB PO SCH (07:44)
[2017-03-02] MEDS: ATORVASTATIN 40 MG TAB PO SCH (07:44)
[2017-03-02] MEDS: LACTOBACILLUS ACIDOPHILUS (FLORANEX) TAB PO SCH ×2 (07:44→11:42)
[2017-03-02] MEDS: PANTOprazole SOD 40 MG TAB PO SCH (07:44)
[2017-03-02 08:30] LABS: BASO % 0.5 %; BASO ABS # 0.04 K/uL (0-0.2); COMPLETE YES; EOS % 15.7 %; HEMATOCRIT 38.5 % (37-47); IG% 0.1 %; LYMPH % 29.6 %; LYMPH ABS # 2.32 K/uL (1.2-3.4); MEAN CORPUSCULAR HEMOGLOBIN 33.3 pg (25-34); MEAN PLATELET VOLUME 10.5 fL (7.4-10.4); MONO % 10.3 %; NEUT % 43.8 %; PLATELET COUNT 243 K/uL (130-400); RED BLOOD COUNT 3.81 M/uL (4.2-5.4); WHITE BLOOD COUNT 7.85 K/uL (4.8-10.8)
[2017-03-02 08:50] LABS: BUN/CREATININE RATIO 25.1 (10-20); CALCIUM 9.5 mg/dl (8.5-10.1); CREATININE 0.81 mg/dl (0.60-1.20); POTASSIUM 3.8 mmol/L (3.5-5.1)
[2017-03-02] MEDS ORDERED: CEFTRIAXONE SOD INJ 1,000 MG in DEXTROSE 5% 50ML 50 ML IV SCH (09:00)
[2017-03-02] MEDS ORDERED: LCTX PO (09:57)
[2017-03-02] MEDS ORDERED: ANT25 PO (09:57)
[2017-03-02] MEDS ORDERED: CEPH500C PO (09:57)
--- NOTE | 2017-03-02 10:07 | Discharge Instructions ---
Discharge Instructions Date of Service Mar 02, 2017. Admission Reason for Admission: Severe Leukocytosis, Uti, Frequent Falls Discharge Discharge Diagnosis / Problem: UTI, no sepsis, dehydration, ambulatory dysfunction Discharge Goals Goal(s): Improve function, Increase independence Activity Recommendations Activity Level: Assistance Required Therapies: Physical Therapy, Occupational Therapy Lifting Limitations: none Exercise/Sports Limitations: as tolerated Shower/Bathe: no limitations . Additional Information Patient informed of condition: Yes Advance Directives: Yes DNR: Yes Level of Care: Acute Rehab Communicable Disease: No Prognosis: Stable Oxygen at (LPM): no Brennan Catheter: No Instructions / Follow-Up Instructions / Follow-Up Medications: - KEFLEX: complete 10 more doses for treatment of UTI, no growth on culture so unclear as to what bacteria caused the infection - MECLIZINE: take as needed for dizziness up to three times a day - LACTOBACILLUS: probiotic to help prevent any further diarrhea UTI without sepsis: on presentation, had a leukocytosis of 22k, right flank pain , increased urinary frequency and she was dehydrated responded well to fluids and Rocephin, WBC down to 8k, afebrile, vitals stable no signs of pyelonephritis treat for 7 days total, convert to Keflex Dehydration: resolved with IV fluids, eating and drinking well Loose stools: only one episode, could not get C diff or stool culture because she was unable to provide a sample, doubt any serious etiology since symptoms resolved Light headedness: ongoing issue, described as light headed, trouble gaining balance, mostly with positional changes, her orthostatic vitals were normal OT recommended rehab and patient agreed FOLLOW UP - physician at [facility] this week - Dr. Anthony one week after d/c from [facility] Current Hospital Diet Patient's current hospital diet: AHA Diet (Heart Healthy) Discharge Diet Recommended Diet: AHA Diet (Heart Healthy) Pending Studies Studies pending at discharge: no Physician Orders On Transfer POLST Discussion: Not Applicable Laboratory Results Hemoglobin A1c Test 12/11/16 10:46 Range/Units Estimated Average Glucose 114 mg/dl Hemoglobin A1c 5.6 4.5-5.6 % Lipid Panel Test 12/11/16 10:46 Range/Units Triglycerides Level 104 0-150 mg/dl Cholesterol Level 148 0-200 mg/dl HDL Cholesterol 63 mg/dl Cholesterol/HDL Ratio 2.3 LDL Cholesterol, Calculated 64 mg/dl Medical Emergencies . Who to Call and When: Medical Emergencies: If at any time you feel your situation is an emergency, please call 911 immediately. . Non-Emergent Contact Non-Emergency issues call your: Primary Care Provider Call Non-Emergent contact if: you have any medication questions . . "Provider Documentation" section prepared by Sandip Singer. . Core Measure Problem Core Measures: None [place] Drug Monitoring Program Search Results: no issues identified
[2017-03-02 10:22] VITALS: BP 176/74; PULSE 52; TEMP 36.9; O2SAT 93
[2017-03-02] MEDS: CEFTRIAXONE SOD INJ 1,000 MG in DEXTROSE 5% 50ML 50 ML IV SCH (11:00)
--- NOTE | 2017-03-02 14:42 | Discharge Summary ---
Discharge Summary Date of Service Mar 02, 2017. Discharge Summary Admission Date: Feb 28, 2017 at 13:20 Discharge Date: Mar 02, 2017 Discharge Disposition: Rehab Principal Diagnosis: UTI Problems/Secondary Diagnoses: Dizziness, light headedness Bradycardia Procedures: none Consultations: none Medication Reconciliation New Medications: Cephalexin Monohydrate (Keflex) 500 Mg Cap 1 CAP PO BID for 5 Days, #10 CAP Lactobacillus Acidophilus (Floranex) 1 Tab Tab 4 TAB PO TIDM for 5 Days, #60 TAB Meclizine HCl (Meclizine HCl) 25 Mg Tab 12.5 MG PO TID PRN for Dizziness or Vertigo, #30 TAB 2 Refills Continued Medications: Aspirin (Aspirin Ec) 81 Mg Tab 81 MG PO DAILY Atorvastatin (Lipitor) 40 Mg Tab 40 MG PO DAILY, TAB Fesoterodine Fumarate (Toviaz) 4 Mg Tab 4.5 MG PO BID, TAB 3 Refills Vitamin E (Vitamin E) 200 Unit Cap 1 CAP PO DAILY Discontinued Medications: Nitrofurantoin Macrocrystal (Nitrofurantoin) 100 Mg Cap 100 MG PO BID Discharge Exam Patient reports feeling much better, her dizziness/light headed symptoms improved, nearly gone. OT recommended rehab, she and her daughter agree with this plan. Reviewed telemetry, sinus rhythm or sinus bradycardia with occasional PAC's, HR mostly in the 50-60's. Did drop to high 30's once while she was sleeping. Also , there was a very brief 5 beat run of SVT, not atrial fibrillation, that occurred overnight. Reviewed the rest of tele monitoring, no sustained episodes of SVT or atrial fibrillation. discussed with patient and her daughters, explained that a brief 5 beat run of SVT would not explain her symptoms. Also, there would not be any medication to add since her resting HR is in the 50's majority of the time. suggested they talk with PCP about getting a 30 day event recorder, they agreed with this plan. she felt ready to go to rehab, eating well, no further loose stools after single episode yesterday morning Review of Systems: Constitutional: + weakness, No fever, No chills, No sweats, No weight loss, No fatigue, No problem reported Eyes: No worsening of vision, No eye pain, No redness, No discharge, No diplopia, No problem reported ENT: No hearing loss, No unusual epistaxis, No nasal symptoms, No sore throat, No tinnitus, No dental problems, No trouble swallowing, No problem reported Respiratory: No cough, No sputum, No wheezing, No shortness of breath, No dyspnea on exertion, No dyspnea at rest, No hemoptysis, No problem reported Cardiovascular: No chest pain, No orthopnea, No PND, No edema, No claudication, No palpitations, No problem reported Abdomen: No pain, No nausea, No vomiting, No diarrhea, No constipation, No GI bleeding, No problem reported Musculoskeletal: No joint pain, No muscle pain, No swelling, No calf pain, No problem reported Genitourinary - Female: No dysuria, No urinary frequency, No urinary urgency , No urinary incontinence, No urinary retention, No hematuria Neurologic: + weakness, + balance problems, No memory loss, No paralysis, No numbness/tingling, No vertigo, No problem reported Psychiatric: No depression symptoms, No anhedonism, No anxiety, No insomnia , No substance abuse, No problem reported Endocrine: No fatigue, No excessive thirst, No excessive urination, No problem reported Hematologic / Lymphatic: No abnormal bleeding/bruising, No clotting problems , No swollen lymph nodes, No night sweats, No problem reported Integumentary: No rash, No itch, No new/changing skin lesions, No color change, No bleeding, No problem reported Physical Exam: General Appearance: WD/WN, no apparent distress Eyes: normal inspection, EOMI, sclerae normal ENT: normal ENT inspection, hearing grossly normal, pharynx normal Neck: supple, no adenopathy, no JVD, trachea midline Respiratory/Chest: chest non-tender, lungs clear, normal breath sounds, no respiratory distress, no accessory muscle use Cardiovascular: no edema, no gallop, no JVD, normal peripheral pulses, + bradycardia, + systolic murmur (very soft) Abdomen / GI: normal bowel sounds, non tender, soft, no organomegaly Extremities: normal inspection, no calf tenderness, normal capillary refill , no pedal edema, normal range of motion, pelvis stable 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, no motor/sensory deficits , alert, normal mood/affect, normal reflexes, oriented x 3 Skin: normal color, warm/dry, no rash Lymphatic: no adenopathy Hospital Course 86 yo female who presented with fevers and possible UTI, right flank pain, weakness and light headedness - UTI POA, no sepsis: patient feeling better with IV fluids and Rocephin urinating a lot yesterday, stopped fluids afebrile, vitals stable, WBC from 22k to 12k and today is 8k no growth on urine or blood cultures doubt pyelonephritis, no flank pain, no real systemic symptoms treat for 7 days total, convert to Keflex 500mg PO BID x 5 more days then stop - Loose stools: one BM that was loose yesterday, typically she is regular or even constipated could be from abx no further episodes, will give probiotics while on antibiotics - Dehydration: resolved, stop IV fluids, drinking well yesterday and today - Light headedness: resolved today, described like orthostatic changes when she is at home normal orthostatic vitals no true syncope described on telemetry, she is mostly sinus or sinus ruben with PAC's one very brief 5 beat run of SVT while sleeping, no other episodes discussed with patient and her daughters about possible 30 day event recorder , will talk with Dr. Anthony reviewed prior records, had an echo in 2014 that showed normal EF, mild aortic sclerosis but no stenosis - DVT prophylaxis: Lovenox DNR plan: d/c to [facility] today Total Time Spent: Greater than 30 minutes This includes examination of the patient, discharge planning, medication reconciliation, and communication with other providers. Discharge Instructions Please refer to the electronic Patient Visit Report (Discharge Instructions) for additional information. Follow-Up Dr. Anthony in one week physician at [facility] Additional Copies To Ankit Anthony M.D.; [facility]
== END 2017-03-02 13:48 | DRG 690 ==
LOC: EDBD 10:09 → C.EDB 10:10 → C.MED 13:20 → ENRESERV 14:31
PROVIDERS: ADMIT Hospitalist; ATTEND Internal Medicine
DX: N39.0 Urinary tract infection, site not specified (principal); E78.5 Hyperlipidemia, unspecified; I25.10 Atherosclerotic heart disease of native coronary artery without angina pectoris; D72.829 Elevated white blood cell count, unspecified; R29.6 Repeated falls; R42 Dizziness and giddiness; Z95.1 Presence of aortocoronary bypass graft; M16.12 Unilateral primary osteoarthritis, left hip; Z82.49 Family history of ischemic heart disease and other diseases of the circulatory system; Z83.3 Family history of diabetes mellitus; E86.0 Dehydration; Z66 Do not resuscitate; R00.1 Bradycardia, unspecified; Z79.82 Long term (current) use of aspirin

== ENCOUNTER 2017-04-09 19:09 | Inpatient (IN) | payer OTHER, BC ==
[~2017-04-09] VITALS: Ht 167.6 cm; Wt 76.4 kg
[~2017-04-09 19:09] MED LIST changes: +ANT25 PO; +ASPI81TA28 PO; +ATOR-24 PO; +FESO4TAB PO; +LCTX PO; +VITA200C5 PO; -ZCRUNK; -[UNRECOGNIZED DRUG - CODE]
--- NOTE | 2017-04-09 19:23 | EMERGENCY ROOM VISIT NOTE ---
History Report prepared by Miguel Angel: Deidra Zaldivar Under the Supervision of: Dr. Saran Romero M.D. First contact with patient: 19:14 Chief Complaint: ALTERED MENTAL STATUS Stated Complaint: AMS History of Present Illness The patient is a 86 year old female who presents to the Emergency Room with complaints of a worsening altered mental status. She was brought to the ED via BLS. Nursing reports the patient was recently discharged from the hospital to [facility] on Macrobid after being treated for a UTI. She was sent home from [facility] approximately 1 week ago. Since she has been home, family reports she hasn't been "acting like herself". Her daughter found her to be especially confused this evening and called EMS. The patient was incontinent of urine in the field. She denies any abdominal pain but complains of some upper back pain. 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 A total of 10 systems reviewed and were otherwise negative. Past Medical & Surgical Medical Problems: (1) CAD (coronary artery disease) (2) Encephalopathy acute (3) HLD (hyperlipidemia) (4) severe leukocytosis, UTI, frequent falls (5) Spinal stenosis Surgical Problems: (1) S/P CABG x 3 Family History Diabetes mellitus Heart disease Social History Smoking Status: Never Smoker Alcohol Use: none Drug Use: none Marital Status: Housing Status: lives with family Occupation Status: retired Current/Historical Medications Scheduled Aspirin (Aspirin Ec), 81 MG PO DAILY Cholecalciferol (Vitamin D3), 2,000 INTER.UNIT PO BID Fesoterodine Fumarate (Toviaz), 4.5 MG PO BID Allergies Coded Allergies: Ciprofloxacin (Verified Allergy, Unknown, UNKNOWN, 04/09/17) Ezetimibe (Verified Allergy, Unknown, UNKNOWN, 04/09/17) Penicillins (Verified Allergy, Unknown, 04/09/17) Simvastatin (Verified Allergy, Unknown, UNKNOWN, 04/09/17) Codeine (Verified Adverse Reaction, Mild, GI SYMPTOMS, 04/09/17) Physical Exam Vital Signs Date Time Temp Pulse Resp B/P (MAP) Pulse Ox O2 Delivery O2 Flow Rate FiO2 04/09/17 20:53 79 04/09/17 20:49 84 18 130/58 94 Room Air 04/09/17 19:14 36.7 79 20 165/95 92 Room Air Physical Exam GENERAL: Patient is a healthy-appearing well-nourished 86 year old female HEAD: Normocephalic atraumatic EYES: Ocular movements intact pupils equal and react to light OROPHARYNX mucous membranes are moist no exudates present no erythema or edema present NECK: Supple no nuchal rigidity CHEST: Good equal expansion LUNGS: Clear and equal to auscultation CARDIAC: Normal S1 and S2 ABDOMEN: Soft nontender no guarding BACK: No CVA tenderness EXTREMITIES: No pain upon palpation normal muscle strength in all groups no clubbing cyanosis or edema NEURO: Patient is following commands and answering questions appropriately. She is confused to time. Alert and oriented x3 Cranial Nerves 2-12 grossly intact Medical Decision & Procedures ER Provider Diagnostic Interpretation: Radiology results as stated below per my review and radiologist interpretation: CT OF THE HEAD WITHOUT CONTRAST CLINICAL HISTORY: Altered mental status. COMPARISON STUDY: MRI of the brain April 02, [address] February 28, 2017. CT DOSE: 614.27 mGy.cm TECHNIQUE: Helical axial images of the head were obtained without IV contrast. Automated exposure control was utilized for the study. A dose lowering technique was utilized adhering to the principles of ALARA. FINDINGS: No acute intracranial hemorrhage, midline shift or mass effect is present. Ventricular dilatation is unchanged and likely due to atrophy. The basilar cisterns are patent. There are no extra axial collections. Extensive white matter hypodensity suggests small vessel disease. There is bilateral basal ganglia calcification. There are no findings to suggest acute dural sinus thrombosis or acute territorial infarct. There are no significant calvarial abnormalities. IMPRESSION: No acute intracranial findings. No significant change since previous exams. Electronically signed by: Michael Saeed M.D. 04/09/2017 8:10 PM CHEST ONE VIEW PORTABLE CLINICAL HISTORY: Shortness of breath. COMPARISON STUDY: Chest radiograph February 28, 2017. FINDINGS: There are median sternotomy wires and clips from bypass grafting. Moderate cardiomegaly is unchanged. No evidence for pulmonary edema. No consolidation is evident. No pneumothorax or pleural effusion is noted. Linear left midlung opacity is suggestive of atelectasis or scarring. The appearance of the chest is unchanged. IMPRESSION: No acute cardiopulmonary findings. No change since previous exam. Electronically signed by: Michael Saeed M.D. 04/09/2017 8:25 PM Laboratory Results 04/09/17 15:20 Red Blood Count 3.98, Mean Corpuscular Volume 99.7, Mean Corpuscular Hemoglobin 33.7, Mean Corpuscular Hemoglobin Concent 33.8, Mean Platelet Volume 11.0, Neutrophils (%) (Auto) 85.1, Lymphocytes (%) (Auto) 9.6, Monocytes (%) (Auto) 4.4, Eosinophils (%) (Auto) 0.4, Basophils (%) (Auto) 0.1, Neutrophils # (Auto) 15.14, Lymphocytes # (Auto) 1.70, Monocytes # (Auto) 0.78, Eosinophils # (Auto) 0.08, Basophils # (Auto) 0.02 04/09/17 15:20 Test 04/09/17 15:20 04/09/17 15:30 04/09/17 19:20 04/09/17 19:34 White Blood Count 17.79 K/uL (4.8-10.8) Red Blood Count 3.98 M/uL (4.2-5.4) Hemoglobin 13.4 g/dL (12.0-16.0) Hematocrit 39.7 % (37-47) Mean Corpuscular Volume 99.7 fL (80-100) Mean Corpuscular Hemoglobin 33.7 pg (25-34) Mean Corpuscular Hemoglobin Concent 33.8 g/dl (32-36) Platelet Count 249 K/uL (130-400) Mean Platelet Volume 11.0 fL (7.4-10.4) Neutrophils (%) (Auto) 85.1 % Lymphocytes (%) (Auto) 9.6 % Monocytes (%) (Auto) 4.4 % Eosinophils (%) (Auto) 0.4 % Basophils (%) (Auto) 0.1 % Neutrophils # (Auto) 15.14 K/uL (1.4-6.5) Lymphocytes # (Auto) 1.70 K/uL (1.2-3.4) Monocytes # (Auto) 0.78 K/uL (0.11-0.59) Eosinophils # (Auto) 0.08 K/uL (0-0.5) Basophils # (Auto) 0.02 K/uL (0-0.2) RDW Standard Deviation 46.6 fL (36.4-46.3) RDW Coefficient of Variation 12.7 % (11.5-14.5) Immature Granulocyte % (Auto) 0.4 % Immature Granulocyte # (Auto) 0.07 K/uL (0.00-0.02) Anion Gap 7.0 mmol/L (3-11) Est Creatinine Clear Calc Drug Dose 52.7 ml/min Estimated GFR () 75.6 Estimated GFR (Non- 65.3 BUN/Creatinine Ratio 27.9 (10-20) Calcium Level 9.7 mg/dl (8.5-10.1) Total Bilirubin 1.2 mg/dl (0.2-1) Direct Bilirubin 0.3 mg/dl (0-0.2) Aspartate Amino Transf (AST/SGOT) 25 U/L (15-37) Alanine Aminotransferase (ALT/SGPT) 25 U/L (12-78) Alkaline Phosphatase 67 U/L (45-117) Total Creatine Kinase 62 U/L (26-192) Creatine Kinase MB 1.0 ng/ml (0.5-3.6) Creatine Kinase MB Ratio 1.6 (0-3.0) Troponin I < 0.015 ng/ml (0-0.045) Pro-B-Type Natriuretic Peptide 732 pg/ml (0-1800) Total Protein 7.8 gm/dl (6.4-8.2) Albumin 4.1 gm/dl (3.4-5.0) Thyroid Stimulating Hormone (TSH) 1.090 uIu/ml (0.300-4.500) Influenza Type A (RT-PCR) Neg for Influ A (NEG) Influenza Type A Antigen Neg for Influ A (NEG) Influenza Type B Antigen Neg for Influ B (NEG) Influenza Type B (RT-PCR) Neg for Influ B (NEG) Urine Color YELLOW Urine Appearance CLEAR (CLEAR) Urine pH 7.0 (4.5-7.5) Urine Specific [place] 1.010 (1.000-1.030) Urine Protein NEG (NEG) Urine Glucose (UA) NEG (NEG) Urine Ketones NEG (NEG) Urine Occult Blood NEG (NEG) Urine Nitrite NEG (NEG) Urine Bilirubin NEG (NEG) Urine Urobilinogen NEG (NEG) Urine Leukocyte Esterase NEG (NEG) Bedside Glucose 97 mg/dl (70-90) Labs reviewed by ED physician. Medications Administered Medications (Trade) Dose Ordered Sig/Jj Route Start Time Stop Time Status Last Admin Dose Admin Albuterol Sulfate (Ventolin 0.5% 2.5MG/0.5ML Neb) 2.5 mg NOW STAT INH 04/09/17 19:24 04/09/17 19:28 DC 04/09/17 19:44 2.5 MG Albuterol Sulfate (Ventolin 0.5% 2.5MG/0.5ML Neb) 2.5 mg NOW STAT INH 04/09/17 20:43 04/09/17 20:44 DC 04/09/17 20:49 2.5 MG Methylprednisolone Sodium Succinate (Solu-Medrol IV) 60 mg NOW STAT IV 04/09/17 20:43 04/09/17 20:44 DC 04/09/17 20:49 60 MG ECG Indication: altered mental status Rate (beats per minute): 70 Rhythm: sinus rhythm Findings: 1st degree AV block, no acute ischemic change, no ectopy ED Course 1914: Past medical records reviewed. The patient was evaluated in room B6. A complete history and physical examination was performed. 1923: Albuterol Sulfate 2.5 mg INH. 2014: I reevaluated the patient. She is resting comfortably. I discussed my recommendation she remain in the hospital for further evaluation and management and she and her family verbalized complete understanding and agreement. 2042: Solu-Medrol 60 mg IV, Aluterol Sulfate 2.5 mg INH. 2044: I discussed the patients case with Dr. Cadena, [facility] Hospitalist. The patient will be further evaluated. Medical Decision Prior records/ancillary studies reviewed and summarized above. Nursing notes reviewed. The patient's history was concerning for altered mental status. Differential diagnosis: Etiologies such as metabolic, infection, hypoglycemia, electrolyte abnormalities , cardiac sources, intracerebral event, toxicologic, neurologic, as well as others were entertained. This is an 86-year-old female who presents emergency department complaining of incontinence an altered mental status. The patient is slightly hypoxic upon arrival therefore she was given breathing treatments lung with Solu-Medrol. She does have an elevation in her white blood count cell count however I do not have a clear source of infection. For this reason the patient did have blood cultures obtained. The patient has had multiple falls over the past several days at home and her family is uncomfortable with taking her home. I did discuss the case with the hospitalist service who agreed to admit the patient. Patient family were in agreement with treatment plan. Medication Reconcilliation Current Medication List: was personally reviewed by me Blood Pressure Screening Patient's blood pressure: Elevated blood pressure Blood pressure disposition: Referred to PCP Consults Time Called: 2040 Consulting Physician: Dr. Cadena [facility] Hospitalist Returned Call: 2044 I discussed the patients case with Dr. Cadena [facility] Hospitalist. The patient will be further evaluated. Impression Primary Impression: Hypoxia Additional Impressions: Altered mental status Confusion Scribe Attestation The scribe's documentation has been prepared under my direction and personally reviewed by me in its entirety. I confirm that the note above accurately reflects all work, treatment, procedures, and medical decision making performed by me. Departure Information Dispostion Still a Patient Referrals Ankit Anthony M.D. (PCP) Patient Instructions My [facility] Problem Qualifiers Additional Impressions: Altered mental status Altered mental status type: unspecified Qualified Codes: R41.82 - Altered mental status, unspecified
[2017-04-09] MEDS ORDERED: ALBUTEROL 0.5% NEB SOLN 2.5 MG/0.5 ML VIAL INH STA ×2 (19:24→20:43)
[2017-04-09 19:41] LABS: BASO % 0.1 %; BASO ABS # 0.02 K/uL (0-0.2); EOS % 0.4 %; EOS ABS # 0.08 K/uL (0-0.5); HEMATOCRIT 39.7 % (37-47); HEMOGLOBIN 13.4 g/dL (12.0-16.0); IG# 0.07 K/uL (0.00-0.02); LYMPH % 9.6 %; MEAN CELL VOLUME 99.7 fL (80-100); MEAN CORPUSCULAR HEMOGLOBIN 33.7 pg (25-34); MEAN CORPUSCULAR HGB CONC 33.8 g/dl (32-36); MONO % 4.4 %; MONO ABS # 0.78 K/uL (0.11-0.59); NEUT % 85.1 %; NEUT ABS # 15.14 K/uL (1.4-6.5); PLATELET COUNT 249 K/uL (130-400); RED CELL DISTRIBUTION WIDTH CV 12.7 % (11.5-14.5); RED CELL DISTRIBUTION WIDTH SD 46.6 fL (36.4-46.3); WHITE BLOOD COUNT 17.79 K/uL (4.8-10.8)
[2017-04-09 19:53] LABS: ALBUMIN 4.1 gm/dl (3.4-5.0); ALT/SGPT 25 U/L (12-78); AST/SGOT 25 U/L (15-37); BLOOD UREA NITROGEN 23 mg/dl (7-18); CALCIUM 9.7 mg/dl (8.5-10.1); CARBON DIOXIDE 29 mmol/L (21-32); CREATININE 0.82 mg/dl (0.60-1.20); GLUCOSE 102 mg/dl (70-99); POTASSIUM 4.3 mmol/L (3.5-5.1); SODIUM 135 mmol/L (136-145)
[2017-04-09 20:03] LABS: ALKALINE PHOSPHATASE 67 U/L (45-117); TOTAL PROTEIN 7.8 gm/dl (6.4-8.2)
[2017-04-09] MEDS ORDERED: CHOL2000 PO (20:12)
--- NOTE | 2017-04-09 20:12 | DIAGNOSTIC IMAGING REPORT ---
CT OF THE HEAD WITHOUT CONTRAST CLINICAL HISTORY: Altered mental status. COMPARISON STUDY: MRI of the brain April 02, [address] February 28, 2017. CT DOSE: 614.27 mGy.cm TECHNIQUE: Helical axial images of the head were obtained without IV contrast. Automated exposure control was utilized for the study. A dose lowering technique was utilized adhering to the principles of ALARA. FINDINGS: No acute intracranial hemorrhage, midline shift or mass effect is present. Ventricular dilatation is unchanged and likely due to atrophy. The basilar cisterns are patent. There are no extra axial collections. Extensive white matter hypodensity suggests small vessel disease. There is bilateral basal ganglia calcification. There are no findings to suggest acute dural sinus thrombosis or acute territorial infarct. There are no significant calvarial abnormalities. IMPRESSION: No acute intracranial findings. No significant change since previous exams. Electronically signed by: Michael Saeed M.D. 04/09/2017 8:10 PM Dictated Date/Time: 04/09/2017 8:02 PM
[2017-04-09 20:21] LABS: INFLUENZA B ANTIGEN Neg for Influ B (NEG)
--- NOTE | 2017-04-09 20:26 | DIAGNOSTIC IMAGING REPORT ---
CHEST ONE VIEW PORTABLE CLINICAL HISTORY: Shortness of breath. COMPARISON STUDY: Chest radiograph February 28, 2017. FINDINGS: There are median sternotomy wires and clips from bypass grafting. Moderate cardiomegaly is unchanged. No evidence for pulmonary edema. No consolidation is evident. No pneumothorax or pleural effusion is noted. Linear left midlung opacity is suggestive of atelectasis or scarring. The appearance of the chest is unchanged. IMPRESSION: No acute cardiopulmonary findings. No change since previous exam. Electronically signed by: Michael Saeed M.D. 04/09/2017 8:25 PM Dictated Date/Time: 04/09/2017 8:23 PM
[2017-04-09] MEDS ORDERED: METHYLPREDNISOLONE 125 MG VIAL IV STA (20:43)
[2017-04-09 20:56] LABS: INFLUENZA A PCR Neg for Influ A (NEG); INFLUENZA B PCR Neg for Influ B (NEG)
[2017-04-09] MEDS ORDERED: OPTIRAY 320 IV PRN (21:00)
--- NOTE | 2017-04-09 21:53 | DIAGNOSTIC IMAGING REPORT ---
CT ANGIOGRAPHY OF THE CHEST, PULMONARY EMBOLUS PROTOCOL CLINICAL HISTORY: Hypoxia. COMPARISON STUDY: Chest radiograph performed earlier today and February 28, 2017. TECHNIQUE: Following IV administration of 101 mL of [id number]-[id number], helical axial images of the chest were obtained utilizing the pulmonary embolus protocol. Maximal intensity projections and sagittal and coronal reformats were viewed on an independent 3D workstation. IV contrast was administered without complication. A dose lowering technique was utilized adhering to the principles of ALARA. CT DOSE: 270.91 mGy.cm FINDINGS: No pulmonary emboli are identified. The patient is status post median sternotomy and bypass grafting. The heart is moderately enlarged. There is extensive coronary artery calcification. There is no pericardial effusion. No enlarged thoracic lymph nodes are present. Central airways are patent. There is no consolidation to suggest pneumonia. Upper lobe opacity suggest atelectasis or scarring. Scattered groundglass and linear opacities suggest atelectasis or scarring. No pneumothorax or pleural effusion is present. No suspicious lesions are identified within the bony thorax. Upper abdomen is unremarkable. IMPRESSION: 1. No pulmonary emboli identified. 2. No acute intrathoracic findings. 3. Moderate cardiomegaly and extensive coronary artery calcification status post median sternotomy and bypass grafting. Electronically signed by: Michael Saeed M.D. 04/09/2017 9:52 PM Dictated Date/Time: 04/09/2017 9:45 PM
[2017-04-09] MEDS ORDERED: ACETAMINOPHEN 325 MG TAB PO PRN (22:45)
[2017-04-09] MEDS ORDERED: ONDANSETRON INJ 2 MG/ML 2 ML VIAL IV PRN (22:45)
[2017-04-09] MEDS ORDERED: ALUMINUM/MAGNESIUM/SIMETH (MAALOX MAX) 30 ML UDC PO PRN (22:45)
[2017-04-09] MEDS ORDERED: MAGNESIUM HYDROXIDE SUSP 30 ML UDC PO PRN (22:45)
[2017-04-09] MEDS ORDERED: POLYETHYLENE (MIRALAX) 17 GM PACK PO PRN (22:45)
--- NOTE | 2017-04-09 23:57 | History and Physical ---
History & Physical Date & Time of Service: Apr 09, 2017 at 23:56 Chief Complaint: [facility] Primary Care Physician: Ankit Anthony M.D. History of Present Illness 86 yo F h/o CAD s/p CABG (15 yrs ago) Spinal Stenosis. recently discharged from [facility] x2 wks after being admitted 02/28 -03/02 to [facility] for UTI and h/o falls. She has home for 2 wks with home health, pt/ot. According to patient's daughter, 3 days ago, patient started saying things that were "not right" and appeared more confused and progressed since then. Today, she put on her sock on top of her shoe for example. She also reports urinary frequency, urgency without hematuria/dysuria. Temp of 100. Daughter presumed cause was a recurrence of UTI and started Macrobid from previous prescription one dose night before arrival and one this morning. They subsequently called Dr. Recio office 5:30pm and later decided to call an ambulance. Patient's family also reports increased SOB on exertion last night,but denies cp, palpitation cough congestion denies NICOLE n/v, diarrhea numbness weakness, tingling. She does report runny nose. In the ED patient was reportedly hypoxic down to 89%. She was given IV Solu- medrol 60 mg, Albuterol neb treatment. Oxygenation improved. She did not require supplemental oxygen. CBC has white ct elevated of 17.79. CMP, TSH unremarkable. Flu swab negative. CXR, CT Head, CT for PE unremarkable. Blood cx' s pending Past Medical/Surgical History Medical Problems: (1) CAD (coronary artery disease) Status: Chronic (2) HLD (hyperlipidemia) Status: Chronic (3) Spinal stenosis Status: Chronic Surgical Problems: (1) S/P CABG x 3 Status: Resolved Family History Diabetes mellitus Heart disease F: MS age 71 Social History Smoking Status: Never Smoker Alcohol Use: daily 1 glass of wine Drug Use: none Marital Status: Occupational Status: retired Multi-Drug Resistant Organisms History of MDRO: No Allergies Coded Allergies: Ciprofloxacin (Verified Allergy, Unknown, UNKNOWN, 04/09/17) Ezetimibe (Verified Allergy, Unknown, UNKNOWN, 04/09/17) Penicillins (Verified Allergy, Unknown, 04/09/17) Simvastatin (Verified Allergy, Unknown, UNKNOWN, 04/09/17) Codeine (Verified Adverse Reaction, Mild, GI SYMPTOMS, 04/09/17) Home Medications Scheduled Aspirin (Aspirin Ec), 81 MG PO DAILY Cholecalciferol (Vitamin D3), 2,000 INTER.UNIT PO BID Fesoterodine Fumarate (Toviaz), 4.5 MG PO BID Review of Systems Constitutional: No fever, No weakness ENT: + nasal symptoms, No sore throat Respiratory: No cough, No shortness of breath Cardiovascular: No chest pain, No edema, No palpitations Abdomen: No pain, No nausea, No vomiting Genitourinary - Female: + urinary frequency, + urinary urgency, + urinary incontinence Neurologic: + weakness, No numbness/tingling Integumentary: No rash, No itch Physical Exam Vital Signs Date Time Temp Pulse Resp B/P (MAP) Pulse Ox O2 Delivery O2 Flow Rate FiO2 04/09/17 23:00 78 18 131/61 93 Room Air 04/09/17 20:53 79 04/09/17 20:49 84 18 130/58 94 Room Air 04/09/17 19:14 36.7 79 20 165/95 92 Room Air GENERAL: no distress, non-toxic EYE EXAM: normal conjunctiva, PERRL and EOM's grossly intact OROPHARYNX: no exudate, no erythema, lips, buccal mucosa, and tongue normal and mucous membranes are moist NECK: supple, no nuchal rigidity, no adenopathy, non-tender LUNGS: Clear to auscultation. Normal chest wall mechanics HEART: no murmurs, S1 normal and S2 normal ABDOMEN: abdomen soft, non-tender, normo-active bowel sounds, no masses, no rebound or guarding. SKIN: no rashes and no bruising LOWER EXTREMITIES: No pitting edema. NEURO EXAM: AO x1 to Person Only cranial nerves II-XII intact, normal speech, no gross weakness of arms. Diagnostics Laboratory Results Results Past 24 Hours Test 04/09/17 15:20 04/09/17 15:30 04/09/17 19:20 04/09/17 19:34 Range/Units White Blood Count 17.79 4.8-10.8 K/uL Red Blood Count 3.98 4.2-5.4 M/uL Hemoglobin 13.4 12.0-16.0 g/dL Hematocrit 39.7 37-47 % Mean Corpuscular Volume 99.7 80-100 fL Mean Corpuscular Hemoglobin 33.7 25-34 pg Mean Corpuscular Hemoglobin Concent 33.8 32-36 g/dl Platelet Count 249 130-400 K/uL Mean Platelet Volume 11.0 7.4-10.4 fL Neutrophils (%) (Auto) 85.1 % Lymphocytes (%) (Auto) 9.6 % Monocytes (%) (Auto) 4.4 % Eosinophils (%) (Auto) 0.4 % Basophils (%) (Auto) 0.1 % Neutrophils # (Auto) 15.14 1.4-6.5 K/uL Lymphocytes # (Auto) 1.70 1.2-3.4 K/uL Monocytes # (Auto) 0.78 0.11-0.59 K/uL Eosinophils # (Auto) 0.08 0-0.5 K/uL Basophils # (Auto) 0.02 0-0.2 K/uL RDW Standard Deviation 46.6 36.4-46.3 fL RDW Coefficient of Variation 12.7 11.5-14.5 % Immature Granulocyte % (Auto) 0.4 % Immature Granulocyte # (Auto) 0.07 0.00-0.02 K/uL Sodium Level 135 136-145 mmol/L Potassium Level 4.3 3.5-5.1 mmol/L Chloride Level 99 98-107 mmol/L Carbon Dioxide Level 29 21-32 mmol/L Anion Gap 7.0 3-11 mmol/L Blood Urea Nitrogen 23 7-18 mg/dl Creatinine 0.82 0.60-1.20 mg/dl Est Creatinine Clear Calc Drug Dose 52.7 ml/min Estimated GFR () 75.6 Estimated GFR (Non- 65.3 BUN/Creatinine Ratio 27.9 10-20 Random Glucose 102 70-99 mg/dl Calcium Level 9.7 8.5-10.1 mg/dl Total Bilirubin 1.2 0.2-1 mg/dl Direct Bilirubin 0.3 0-0.2 mg/dl Aspartate Amino Transf (AST/SGOT) 25 15-37 U/L Alanine Aminotransferase (ALT/SGPT) 25 12-78 U/L Alkaline Phosphatase 67 45-117 U/L Total Creatine Kinase 62 26-192 U/L Creatine Kinase MB 1.0 0.5-3.6 ng/ml Creatine Kinase MB Ratio 1.6 0-3.0 Troponin I < 0.015 0-0.045 ng/ml Pro-B-Type Natriuretic Peptide 732 0-1800 pg/ml Total Protein 7.8 6.4-8.2 gm/dl Albumin 4.1 3.4-5.0 gm/dl Thyroid Stimulating Hormone (TSH) 1.090 0.300-4.500 uIu/ml Influenza Type A (RT-PCR) Neg for Influ A NEG Influenza Type A Antigen Neg for Influ A NEG Influenza Type B Antigen Neg for Influ B NEG Influenza Type B (RT-PCR) Neg for Influ B NEG Urine Color YELLOW Urine Appearance CLEAR CLEAR Urine pH 7.0 4.5-7.5 Urine Specific [place]ison 1.010 1.000-1.030 Urine Protein NEG NEG Urine Glucose (UA) NEG NEG Urine Ketones NEG NEG Urine Occult Blood NEG NEG Urine Nitrite NEG NEG Urine Bilirubin NEG NEG Urine Urobilinogen NEG NEG Urine Leukocyte Esterase NEG NEG Bedside Glucose 97 70-90 mg/dl Microbiology Results 04/09/17 Blood Culture, Received Pending 04/09/17 Blood Culture, Received Pending Diagnostic Radiology CHEST ONE VIEW PORTABLE CLINICAL HISTORY: Shortness of breath. COMPARISON STUDY: Chest radiograph February 28, 2017. FINDINGS: There are median sternotomy wires and clips from bypass grafting. Moderate cardiomegaly is unchanged. No evidence for pulmonary edema. No consolidation is evident. No pneumothorax or pleural effusion is noted. Linear left midlung opacity is suggestive of atelectasis or scarring. The appearance of the chest is unchanged. CT OF THE HEAD WITHOUT CONTRAST CLINICAL HISTORY: Altered mental status. COMPARISON STUDY: MRI of the brain April 02, [address] February 28, 2017. CT DOSE: 614.27 mGy.cm TECHNIQUE: Helical axial images of the head were obtained without IV contrast. Automated exposure control was utilized for the study. A dose lowering technique was utilized adhering to the principles of ALARA. FINDINGS: No acute intracranial hemorrhage, midline shift or mass effect is present. Ventricular dilatation is unchanged and likely due to atrophy. The basilar cisterns are patent. There are no extra axial collections. Extensive white matter hypodensity suggests small vessel disease. There is bilateral basal ganglia calcification. There are no findings to suggest acute dural sinus thrombosis or acute territorial infarct. There are no significant calvarial abnormalities. IMPRESSION: No acute intracranial findings. No significant change since previous exams. IMPRESSION: No acute cardiopulmonary findings. No change since previous exam. CT ANGIOGRAPHY OF THE CHEST, PULMONARY EMBOLUS PROTOCOL CLINICAL HISTORY: Hypoxia. COMPARISON STUDY: Chest radiograph performed earlier today and February 28, 2017. TECHNIQUE: Following IV administration of 101 mL of Optiray-320, helical axial images of the chest were obtained utilizing the pulmonary embolus protocol. Maximal intensity projections and sagittal and coronal reformats were viewed on an independent 3D workstation. IV contrast was administered without complication. A dose lowering technique was utilized adhering to the principles of ALARA. CT DOSE: 270.91 mGy.cm FINDINGS: No pulmonary emboli are identified. The patient is status post median sternotomy and bypass grafting. The heart is moderately enlarged. There is extensive coronary artery calcification. There is no pericardial effusion. No enlarged thoracic lymph nodes are present. Central airways are patent. There is no consolidation to suggest pneumonia. Upper lobe opacity suggest atelectasis or scarring. Scattered groundglass and linear opacities suggest atelectasis or scarring. No pneumothorax or pleural effusion is present. No suspicious lesions are identified within the bony thorax. Upper abdomen is unremarkable. IMPRESSION: 1. No pulmonary emboli identified. 2. No acute intrathoracic findings. 3. Moderate cardiomegaly and extensive coronary artery calcification status post median sternotomy and bypass grafting. CXR normal EKG Sinus rhythm, 1st degree AV block Impression Assessment and Plan 86 yo F h/o CAD s/p CABG (15 yrs ago) Spinal Stenosis recently admitted for UTI with subsequent rehab at [facility], p/w Acute Encephalopathy afebrile, mildly hypoxic (89%) on arrival , with a leukocytosis negative UA, CXR, CTA, and CT Head Acute Encephalopathy possible dehydration in the setting of urinary frequency though would not explain leukocytosis source of leukocytosis unclear. no recent steroids. no obvious source of infection. Neg. CXR, Neg. UA TSH wnl, Electrolytes, LFT's, Glucose unremarkable Start IV NS 100 mls/hr Repeat CBC BMP, LFT in AM F/u Blood Cx's H/o CAD s/p CABG ASA, Atorvastatin DVT Prophylaxis Heparin SQ Disposition Admit to Med/Surg Code Status Full Resuscitation Resident Physician Supervision Note: I was present with Dr. Odell during the history and exam. I discussed the case with the resident and agree with the findings and plan as documented in the note. Any exceptions or clarifications are listed here: 86 y/o F Hx CAD, HPL - with acute change in mental status beginning approximately 3 days prior - recent admission for UTI and unsteady gait - may have persistent dysuria. The pt has luekocytosis on arrival without a temp or focus of infection. OE Disoriented, elderly female in no distress S1,2 R CTA NT, ND No CCE P: We will provide IVF overnight, monitor for fevers and recheck her CBC AM May need to consider an MRI brain if there is no improvement - exam is nonfocal Blood cultures obtained - rapid flu is neg - hold antibiotics for now Documented By: Wisam Cadena Level of Care Med/Surg Resuscitation Status FULL RESUSCITATION VTE Prophylaxis VTE Risk Assessment Done? Y/N: Yes Risk Level: Moderate Given or contraindicated: Unfractionated heparin SQ Social Service Consult Receiving Home Health Note Total Time: Critical Care 30 - 74 minutes
[2017-04-10 00:29] VITALS: BP 146/61; PULSE 79; TEMP 37.1; O2SAT 92; Ht 167.6 cm; Wt 76.4 kg
[2017-04-10] MEDS: SODIUM CHLORIDE 0.9% 1000ML 1,000 ML IV SCH ×3 (04:46→23:37)
[2017-04-10] MEDS: HEPARIN SOD 5000 UNIT/0.5 ML CARP SQ SCH ×2 (05:30→18:05)
[2017-04-10 06:39] LABS: BASO % 0.1 %; BASO ABS # 0.01 K/uL (0-0.2); HEMATOCRIT 37.7 % (37-47); HEMOGLOBIN 12.6 g/dL (12.0-16.0); IG# 0.02 K/uL (0.00-0.02); LYMPH % 9.8 %; LYMPH ABS # 1.08 K/uL (1.2-3.4); MEAN CORPUSCULAR HEMOGLOBIN 33.4 pg (25-34); MEAN CORPUSCULAR HGB CONC 33.4 g/dl (32-36); MEAN PLATELET VOLUME 10.7 fL (7.4-10.4); MONO % 0.6 %; MONO ABS # 0.07 K/uL (0.11-0.59); NEUT % 89.3 %; NEUT ABS # 9.79 K/uL (1.4-6.5); PLATELET COUNT 237 K/uL (130-400); RED CELL DISTRIBUTION WIDTH SD 47.2 fL (36.4-46.3); WHITE BLOOD COUNT 10.97 K/uL (4.8-10.8)
[2017-04-10 07:18] LABS: ALBUMIN 3.4 gm/dl (3.4-5.0); CALCIUM 9.1 mg/dl (8.5-10.1); CREATININE 0.71 mg/dl (0.60-1.20); POTASSIUM 3.9 mmol/L (3.5-5.1); TOTAL PROTEIN 7.3 gm/dl (6.4-8.2)
[2017-04-10 07:29] VITALS: BP 123/60; PULSE 77; TEMP 36.4; O2SAT 95
[2017-04-10] MEDS: ATORVASTATIN 10 MG TAB PO SCH (07:52)
[2017-04-10] MEDS: ASPIRIN 81 MG ECTAB PO SCH (07:52)
[2017-04-10 08:00] VITALS: O2SAT 95
--- NOTE | 2017-04-10 13:59 | Family Medicine Progress Note ---
Progress Note Date of Service Apr 10, 2017. Subjective Pt evaluation today including: conversation w/ patient, physical exam, chart review, lab review, review of inpatient medication list Pain: No pain reported PO Intake: Tolerating PO intake Voiding: incontinence Ms. Echevarria reports she feels well today. She states she feels as though she just emerged from a fog, and states she had felt disoriented, and as though " everyone was against her." She denies chest pain, headaches, n/v, shortness of breath, fever, chills, dysuria, abdominal pain. She denies any falls whilst she was discharged home. She does report urinary frequency and incontinence, but states this has been long-standing and is not new for her. Constitutional: No fever, No chills Respiratory: No cough, No sputum, No wheezing, No shortness of breath, No dyspnea on exertion, No dyspnea at rest Cardiovascular: No chest pain, No edema, No palpitations Abdomen: No pain, No nausea, No vomiting, No diarrhea Female : + urinary frequency, + incontinence, No dysuria, No hematuria All Other Systems: Reviewed and Negative Medications Current Inpatient Medications Medications (Trade) Dose Ordered Sig/Jj Route Start Time Stop Time Status Last Admin Dose Admin Ioversol (Optiray 320) 100 ml UD PRN IV 04/09/17 21:00 04/13/17 20:59 Acetaminophen (Tylenol Tab) 650 mg Q4H PRN PO 04/09/17 22:45 05/09/17 22:44 Al Hydrox/Mg Hydrox/Simethicone (Maalox Max Susp) 15 ml Q4H PRN PO 04/09/17 22:45 05/09/17 22:44 Magnesium Hydroxide (Milk Of Magnesia Susp) 30 ml Q6H PRN PO 04/09/17 22:45 05/09/17 22:44 Polyethylene (Miralax Powder Packet) 17 gm DAILY PRN PO 04/09/17 22:45 05/09/17 22:44 Ondansetron HCl (Zofran Inj) 4 mg Q6H PRN IV 04/09/17 22:45 05/09/17 22:44 Heparin Sodium (Porcine) (Heparin Sq 5000 Unit/0.5ml) 5,000 unit Q12H SQ 04/10/17 06:00 2/5/18 05:59 04/10/17 05:30 5,000 UNIT Aspirin (Ecotrin Tab) 81 mg DAILY PO 04/10/17 09:00 05/10/17 08:59 04/10/17 07:52 81 MG Miscellaneous Information (Order Awaiting Action) 1 ea QS N/A 04/10/17 08:00 05/10/17 07:59 Sodium Chloride 1,000 ml @ 100 mls/hr Q10H IV 04/09/17 23:15 05/09/17 23:14 04/10/17 11:42 100 MLS/HR Atorvastatin Calcium (Lipitor Tab) 10 mg QAM PO 04/10/17 09:00 05/10/17 08:59 04/10/17 07:52 10 MG Objective Vital Signs Date Time Temp Pulse Resp B/P (MAP) Pulse Ox O2 Delivery O2 Flow Rate FiO2 04/10/17 08:00 95 Room Air 04/10/17 07:29 36.4 77 18 123/60 (81) 95 Room Air 04/10/17 00:29 37.1 79 16 146/61 92 Room Air 04/09/17 23:55 82 18 134/62 94 04/09/17 23:00 78 18 131/61 93 Room Air 04/09/17 20:53 79 04/09/17 20:49 84 18 130/58 94 Room Air 04/09/17 19:14 36.7 79 20 165/95 92 Room Air Physical Exam General Appearance: WD/WN, no apparent distress ENT: normal ENT inspection, hearing grossly normal, pharynx normal Respiratory/Chest: chest non-tender, lungs clear, normal breath sounds, no respiratory distress, no accessory muscle use Cardiovascular: regular rate, rhythm, no edema, no gallop, no JVD, no murmur Abdomen: normal bowel sounds, non tender, soft, no organomegaly, no pulsatile mass Extremities: normal range of motion, non-tender, normal inspection, no pedal edema, no calf tenderness 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, no motor/sensory deficits, alert, normal mood/affect, oriented x 3 Skin: normal color, warm/dry, no rash Laboratory Results Last 24 Hours Test 04/09/17 15:20 04/09/17 15:30 04/09/17 19:20 04/09/17 19:34 White Blood Count 17.79 K/uL Red Blood Count 3.98 M/uL Hemoglobin 13.4 g/dL Hematocrit 39.7 % Mean Corpuscular Volume 99.7 fL Mean Corpuscular Hemoglobin 33.7 pg Mean Corpuscular Hemoglobin Concent 33.8 g/dl Platelet Count 249 K/uL Mean Platelet Volume 11.0 fL Neutrophils (%) (Auto) 85.1 % Lymphocytes (%) (Auto) 9.6 % Monocytes (%) (Auto) 4.4 % Eosinophils (%) (Auto) 0.4 % Basophils (%) (Auto) 0.1 % Neutrophils # (Auto) 15.14 K/uL Lymphocytes # (Auto) 1.70 K/uL Monocytes # (Auto) 0.78 K/uL Eosinophils # (Auto) 0.08 K/uL Basophils # (Auto) 0.02 K/uL RDW Standard Deviation 46.6 fL RDW Coefficient of Variation 12.7 % Immature Granulocyte % (Auto) 0.4 % Immature Granulocyte # (Auto) 0.07 K/uL Sodium Level 135 mmol/L Potassium Level 4.3 mmol/L Chloride Level 99 mmol/L Carbon Dioxide Level 29 mmol/L Anion Gap 7.0 mmol/L Blood Urea Nitrogen 23 mg/dl Creatinine 0.82 mg/dl Est Creatinine Clear Calc Drug Dose 52.7 ml/min Estimated GFR () 75.6 Estimated GFR (Non- 65.3 BUN/Creatinine Ratio 27.9 Random Glucose 102 mg/dl Calcium Level 9.7 mg/dl Total Bilirubin 1.2 mg/dl Direct Bilirubin 0.3 mg/dl Aspartate Amino Transf (AST/SGOT) 25 U/L Alanine Aminotransferase (ALT/SGPT) 25 U/L Alkaline Phosphatase 67 U/L Total Creatine Kinase 62 U/L Creatine Kinase MB 1.0 ng/ml Creatine Kinase MB Ratio 1.6 Troponin I < 0.015 ng/ml Pro-B-Type Natriuretic Peptide 732 pg/ml Total Protein 7.8 gm/dl Albumin 4.1 gm/dl Thyroid Stimulating Hormone (TSH) 1.090 uIu/ml Influenza Type A (RT-PCR) Neg for Influ A Influenza Type A Antigen Neg for Influ A Influenza Type B Antigen Neg for Influ B Influenza Type B (RT-PCR) Neg for Influ B Urine Color YELLOW Urine Appearance CLEAR Urine pH 7.0 Urine Specific Nimitz 1.010 Urine Protein NEG Urine Glucose (UA) NEG Urine Ketones NEG Urine Occult Blood NEG Urine Nitrite NEG Urine Bilirubin NEG Urine Urobilinogen NEG Urine Leukocyte Esterase NEG Bedside Glucose 97 mg/dl Test 04/10/17 06:02 White Blood Count 10.97 K/uL Red Blood Count 3.77 M/uL Hemoglobin 12.6 g/dL Hematocrit 37.7 % Mean Corpuscular Volume 100.0 fL Mean Corpuscular Hemoglobin 33.4 pg Mean Corpuscular Hemoglobin Concent 33.4 g/dl Platelet Count 237 K/uL Mean Platelet Volume 10.7 fL Neutrophils (%) (Auto) 89.3 % Lymphocytes (%) (Auto) 9.8 % Monocytes (%) (Auto) 0.6 % Eosinophils (%) (Auto) 0.0 % Basophils (%) (Auto) 0.1 % Neutrophils # (Auto) 9.79 K/uL Lymphocytes # (Auto) 1.08 K/uL Monocytes # (Auto) 0.07 K/uL Eosinophils # (Auto) 0.00 K/uL Basophils # (Auto) 0.01 K/uL RDW Standard Deviation 47.2 fL RDW Coefficient of Variation 13.0 % Immature Granulocyte % (Auto) 0.2 % Immature Granulocyte # (Auto) 0.02 K/uL Sodium Level 138 mmol/L Potassium Level 3.9 mmol/L Chloride Level 105 mmol/L Carbon Dioxide Level 26 mmol/L Anion Gap 7.0 mmol/L Blood Urea Nitrogen 18 mg/dl Creatinine 0.71 mg/dl Est Creatinine Clear Calc Drug Dose 60.5 ml/min Estimated GFR () 90.0 Estimated GFR (Non- 77.7 BUN/Creatinine Ratio 25.0 Random Glucose 168 mg/dl Calcium Level 9.1 mg/dl Total Bilirubin 1.1 mg/dl Direct Bilirubin 0.2 mg/dl Aspartate Amino Transf (AST/SGOT) 16 U/L Alanine Aminotransferase (ALT/SGPT) 20 U/L Alkaline Phosphatase 57 U/L Total Protein 7.3 gm/dl Albumin 3.4 gm/dl Assessment and Plan Ms. Echevarria is a 86 year old female with a history of CAD s/p CABG (15 yrs ago), spinal stenosis recently admitted to [facility] for a UTI with subsequent rehab at [facility] who presented with altered mental status and was found to be mildly hypoxic (89%) on arrival , with leukocytosis, but negative UA, CXR, CTA, and CT Head AMS - resolved - WCC 17 yesterday, decreased to 10 today - source of leukocytosis unclear - no obvious source of infection, negative CXR , no localizing symptoms, normal physical exam - possibly secondary to UTI/dehydration and UA was falsely negative due to partial treatment with macrobid? - continue macrobid 100mg BID for 5 days - discussed w/daughter who states patient does not like to drink fluids as she is incontinent and subsequently gets dehydrated - TSH, CMP, glucose unremarkable - blood cultures pending - decrease fluids to 75 mls/hr - repeat CBC and BMP in AM CAD s/p CABG - continue aspirin and atorvastatin Code: Full DVT Prophylaxis: SQ Heparin Disposition: likely d/c tomorrow Resident Tracking Resident Involvement: Resident Care Provided Care Provided: Adult [facility] History Resident Physician Supervision Note: I was present with Dr. Osorio during the history and exam. I discussed the case with the resident and agree with the findings and plan as documented in the note. Any exceptions or clarifications are listed here. Pt resting in chair at bedside. Awake, alert and oriented x 3 and conversational about recent and remote events without difficulty. Presently without complaints of urinary discomfort, abd pain, n/v/d/c, chest pain, shortness of breath, headache. General Appearance: WD/WN, no apparent distress Eye Exam: bilateral eye PERRL, bilateral eye EOMI Respiratory: chest non-tender, lungs clear, normal breath sounds, no respiratory distress Cardiovascular: normal peripheral pulses, regular rate, rhythm, no murmur Gastrointestinal: normal bowel sounds, non tender, soft, no organomegaly Neurologic/Psychiatric: alert, normal mood/affect, oriented x 3 Assessment/Plan 86 y/o female h/o CAD s/p CABG w/ recent UTI presented with altered mental status Delirium likely 2/2 urinary tract infection - without abn UA though has been on macrobid - complete course of macrobid at present. Recheck labs in AM. Monitor for mental status and f/u BCx. Gentle hydration. CAD s/p CABG - continue ASA, atorvastatin
[2017-04-10 15:49] VITALS: BP 124/63; PULSE 58; TEMP 36.5; O2SAT 95
[2017-04-10] MEDS ORDERED: NURSING VERBAL MED ORDER ONE (20:30)
[2017-04-10] MEDS: NITROFURANTOIN MONOHYDRATE 100 MG CAP PO SCH (20:32)
[2017-04-10 23:24] VITALS: BP 155/73; PULSE 50; TEMP 36.7; O2SAT 94
[2017-04-11] MEDS: HEPARIN SOD 5000 UNIT/0.5 ML CARP SQ SCH (06:00)
[2017-04-11 06:18] LABS: BASO % 0.2 %; BASO ABS # 0.02 K/uL (0-0.2); EOS % 1.6 %; EOS ABS # 0.17 K/uL (0-0.5); HEMATOCRIT 33.7 % (37-47); HEMOGLOBIN 11.1 g/dL (12.0-16.0); IG# 0.02 K/uL (0.00-0.02); LYMPH % 33.2 %; LYMPH ABS # 3.45 K/uL (1.2-3.4); MEAN CELL VOLUME 100.6 fL (80-100); MEAN CORPUSCULAR HEMOGLOBIN 33.1 pg (25-34); MEAN CORPUSCULAR HGB CONC 32.9 g/dl (32-36); MEAN PLATELET VOLUME 10.8 fL (7.4-10.4); MONO % 8.4 %; MONO ABS # 0.87 K/uL (0.11-0.59); NEUT % 56.4 %; NEUT ABS # 5.85 K/uL (1.4-6.5); PLATELET COUNT 214 K/uL (130-400); RED CELL DISTRIBUTION WIDTH CV 13.1 % (11.5-14.5); RED CELL DISTRIBUTION WIDTH SD 47.9 fL (36.4-46.3); WHITE BLOOD COUNT 10.38 K/uL (4.8-10.8)
[2017-04-11 06:50] LABS: CALCIUM 8.4 mg/dl (8.5-10.1); CREATININE 0.65 mg/dl (0.60-1.20); POTASSIUM 3.4 mmol/L (3.5-5.1)
[2017-04-11 06:55] VITALS: BP 144/77; PULSE 51; TEMP 36.4; O2SAT 93
[2017-04-11] MEDS: ATORVASTATIN 10 MG TAB PO SCH (08:57)
[2017-04-11] MEDS: NITROFURANTOIN MONOHYDRATE 100 MG CAP PO SCH (08:57)
[2017-04-11] MEDS: ASPIRIN 81 MG ECTAB PO SCH (08:57)
[2017-04-11] MEDS ORDERED: MCRB100 PO (12:07)
--- NOTE | 2017-04-11 12:24 | Discharge Instructions ---
Discharge Instructions Date of Service Apr 11, 2017. Admission Reason for Admission: Encephalopathy Acute Discharge Discharge Diagnosis / Problem: Urinary Tract Infection Discharge Goals Goal(s): Decrease discomfort, Increase independence Activity Recommendations Activity Limitations: resume your previous activity . Instructions / Follow-Up Instructions / Follow-Up You were admitted to [facility] due to generally feeling unwell and confused. While you were here, your white count was elevated, which generally indicates an infection. We were unable, however, to find a source of infection as your physical examination, chest x-ray, urine and CT scan of your brain were all normal. It is likely then, that your symptoms were due to a urinary tract infection which had already been partially treated at home with antibiotics (resulting in a normal urine analysis here) and we recommend you take the macrobid for 5 more days to finish the course of the antibiotics. You were also treated with IV fluids and we recommend you increase your fluid intake while at home. The general rule is to try and drink 1/2 to 1 ounce of fluid for each pound you weigh, so in your case, we recommend drinking between 3 -4 liters a day. Try and drink more water than other fluids, as drinks such as tea and coffee have a weak diuretic effect, which means they can make you urinate more often and lose water. You were steady whilst walking but we do recommend you follow up with outpatient PT to help regain your strength after your hospital stays. If you have any fever, chills, nausea, vomiting, or feel weak and unsteady again , we recommend you seek medical attention. Current Hospital Diet Patient's current hospital diet: Regular Diet, AHA Diet (Heart Healthy) Discharge Diet Recommended Diet: Regular Diet, AHA Diet (Heart Healthy) Pending Studies Studies pending at discharge: no Medical Emergencies . Who to Call and When: Medical Emergencies: If at any time you feel your situation is an emergency, please call 911 immediately. . Non-Emergent Contact Non-Emergency issues call your: Primary Care Provider . . "Provider Documentation" section prepared by Adilson Osorio. . VTE Core Measure Inpt VTE Proph given/why not?: Unfractionated heparin SQ
[2017-04-11 13:37] VITALS: BP 144/77; PULSE 51; TEMP 36.4; O2SAT 93
--- NOTE | 2017-04-11 14:25 | Discharge Summary ---
Discharge Summary Date of Service Apr 11, 2017. Discharge Summary Admission Date: Apr 09, 2017 at 22:54 Discharge Date: Apr 11, 2017 Discharge Disposition: Home Principal Diagnosis: UTI Procedures: CHEST ONE VIEW PORTABLE CLINICAL HISTORY: Shortness of breath. COMPARISON STUDY: Chest radiograph February 28, 2017. FINDINGS: There are median sternotomy wires and clips from bypass grafting. Moderate cardiomegaly is unchanged. No evidence for pulmonary edema. No consolidation is evident. No pneumothorax or pleural effusion is noted. Linear left midlung opacity is suggestive of atelectasis or scarring. The appearance of the chest is unchanged. IMPRESSION: No acute cardiopulmonary findings. No change since previous exam. CT OF THE HEAD WITHOUT CONTRAST CLINICAL HISTORY: Altered mental status. COMPARISON STUDY: MRI of the brain April 02, [address] February 28, 2017. CT DOSE: 614.27 mGy.cm TECHNIQUE: Helical axial images of the head were obtained without IV contrast. Automated exposure control was utilized for the study. A dose lowering technique was utilized adhering to the principles of ALARA. FINDINGS: No acute intracranial hemorrhage, midline shift or mass effect is present. Ventricular dilatation is unchanged and likely due to atrophy. The basilar cisterns are patent. There are no extra axial collections. Extensive white matter hypodensity suggests small vessel disease. There is bilateral basal ganglia calcification. There are no findings to suggest acute dural sinus thrombosis or acute territorial infarct. There are no significant calvarial abnormalities. IMPRESSION: No acute intracranial findings. No significant change since previous exams. CT ANGIOGRAPHY OF THE CHEST, PULMONARY EMBOLUS PROTOCOL CLINICAL HISTORY: Hypoxia. COMPARISON STUDY: Chest radiograph performed earlier today and February 28, 2017. TECHNIQUE: Following IV administration of 101 mL of Optiray-320, helical axial images of the chest were obtained utilizing the pulmonary embolus protocol. Maximal intensity projections and sagittal and coronal reformats were viewed on an independent 3D workstation. IV contrast was administered without complication. A dose lowering technique was utilized adhering to the principles of ALARA. CT DOSE: 270.91 mGy.cm FINDINGS: No pulmonary emboli are identified. The patient is status post median sternotomy and bypass grafting. The heart is moderately enlarged. There is extensive coronary artery calcification. There is no pericardial effusion. No enlarged thoracic lymph nodes are present. Central airways are patent. There is no consolidation to suggest pneumonia. Upper lobe opacity suggest atelectasis or scarring. Scattered groundglass and linear opacities suggest atelectasis or scarring. No pneumothorax or pleural effusion is present. No suspicious lesions are identified within the bony thorax. Upper abdomen is unremarkable. IMPRESSION: 1. No pulmonary emboli identified. 2. No acute intrathoracic findings. 3. Moderate cardiomegaly and extensive coronary artery calcification status post median sternotomy and bypass grafting. Medication Reconciliation New Medications: Nitrofurantoin Monohyd Macrocr (Nitrofurantoin Monohydrat) 100 Mg Cap 100 MG PO BID for 5 Days, #10 CAP Continued Medications: Aspirin (Aspirin Ec) 81 Mg Tab 81 MG PO DAILY Cholecalciferol (Vitamin D3) 2,000 Unit Cap 2000 INTER.UNIT PO BID for 90 Days, CAP 3 Refills Fesoterodine Fumarate (Toviaz) 4 Mg Tab 4.5 MG PO BID, TAB 3 Refills Discharge Exam Ms. Echevarria reports she feels well. She denies chest pain, fever, chills, nausea, vomiting, or abdominal pain. She reports her urinary symptoms have been present for a number of years and that she has discussed this with both her primary care doctor and computer specialist. She has tried a number of medications and reports the best results with toviaz, but still finds her urinary incontinence debilitating. She states she feels steady on her feet, denies dizziness or lightheadedness and is agreeable to discharge. Review of Systems: Constitutional: No fever, No chills Respiratory: No cough, No sputum, No wheezing, No shortness of breath Cardiovascular: No chest pain, No edema Abdomen: No pain, No nausea, No vomiting, No diarrhea, No constipation Genitourinary - Female: + urinary frequency, + urinary incontinence Physical Exam: General Appearance: WD/WN, no apparent distress Respiratory/Chest: chest non-tender, lungs clear, normal breath sounds, no respiratory distress, no accessory muscle use Cardiovascular: regular rate, rhythm, no edema, no gallop, no JVD, no murmur , normal peripheral pulses Abdomen / GI: normal bowel sounds, non tender, soft, no organomegaly, no pulsatile mass Extremities: normal inspection, no calf tenderness, normal capillary refill , no pedal edema Neurologic/Psychiatric: alert, normal mood/affect, oriented x 3 Hospital Course Ms. Echevarria is a 86 year old female with a history of CAD s/p CABG (15 yrs ago), spinal stenosis recently admitted to [facility] for a UTI with subsequent rehab at [facility] who presented with altered mental status and was found to be mildly hypoxic (89%) on arrival. Altered Mental Status - resolved, negative CT brain - WCC 17 on admission, normal at 10.3 on discharge - source of leukocytosis unclear - no obvious source of infection, negative blood cultures, negative CXR, no localizing symptoms, normal physical exam - TSH, CMP, glucose unremarkable - possibly secondary to UTI/dehydration and UA was falsely negative due to partial treatment with macrobid? - continue macrobid 100mg BID for 5 days - discussed w/daughter who states patient does not like to drink fluids as she is incontinent and subsequently gets dehydrated - she will follow up with an urologist for management of her incontinence CAD - continue regular medication regimen - aspirin and atorvastatin Total Time Spent: Less than 30 minutes This includes examination of the patient, discharge planning, medication reconciliation, and communication with other providers. Discharge Instructions Please refer to the electronic Patient Visit Report (Discharge Instructions) for additional information. Additional Copies To Ankit Anthony M.D. Resident Tracking Resident Involvement: Resident Care Provided Care Provided: Adult Hospital Medicine History Resident Physician Supervision Note: I was present with Dr. Osorio during the history and exam. I discussed the case with the resident and agree with the findings and plan as documented in the note. Any exceptions or clarifications are listed here. Pt resting comfortably in bed. AAOx3. Reports has not been hydrating well at home 2/2 urinary incontinence and has similar admissions for this in the past. Reports no f/c, n/v, NICOLE, vision changes, CP/SOB, paliptations. 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 dehydration - without abn UA though has been on macrobid - complete course of macrobid. Strongly encourage good hydration at home CAD s/p CABG - continue ASA, atorvastatin
== END 2017-04-11 14:35 | disposition home or self-care (01) | DRG 689 ==
LOC: EDBD 19:09 → C.EDB 19:10 → C.MS2W 22:54 → ENRESERV 23:24
PROVIDERS: ADMIT Internal Medicine; ATTEND Family Medicine
DX: N39.0 Urinary tract infection, site not specified (principal); G93.40 Encephalopathy, unspecified; E86.0 Dehydration; I25.10 Atherosclerotic heart disease of native coronary artery without angina pectoris; E78.5 Hyperlipidemia, unspecified; Z79.82 Long term (current) use of aspirin; Z79.899 Other long term (current) drug therapy; Z88.0 Allergy status to penicillin; Z88.1 Allergy status to other antibiotic agents; Z95.1 Presence of aortocoronary bypass graft

== ENCOUNTER → 2017-06-07 | Outpatient (CLI) | payer OTHER, BC ==
[~2017-06-07] MED LIST changes: -ANT25 PO; -ATOR-24 PO; +CHOL2000 PO; -LCTX PO; +MCRB100 PO; -VITA200C5 PO
== END | disposition home or self-care (01) ==
LOC: C.LABOUTLO 14:30
PROVIDERS: ATTEND Internal Medicine Geriatric Medicine
DX: N39.0 Urinary tract infection, site not specified (principal)

== ENCOUNTER → 2017-07-27 | Outpatient (CLI) | payer OTHER, BC ==
[2017-07-27 09:39] LABS: BASO % 0.6 %; BASO ABS # 0.04 K/uL (0-0.2); EOS % 4.9 %; EOS ABS # 0.33 K/uL (0-0.5); HEMATOCRIT 36.5 % (37-47); HEMOGLOBIN 11.8 g/dL (12.0-16.0); IG# 0.01 K/uL (0.00-0.02); LYMPH % 44.6 %; LYMPH ABS # 3.03 K/uL (1.2-3.4); MEAN CELL VOLUME 99.5 fL (80-100); MEAN CORPUSCULAR HEMOGLOBIN 32.2 pg (25-34); MEAN CORPUSCULAR HGB CONC 32.3 g/dl (32-36); MEAN PLATELET VOLUME 10.4 fL (7.4-10.4); MONO % 12.2 %; MONO ABS # 0.83 K/uL (0.11-0.59); NEUT % 37.6 %; NEUT ABS # 2.56 K/uL (1.4-6.5); PLATELET COUNT 252 K/uL (130-400); RED CELL DISTRIBUTION WIDTH CV 13.1 % (11.5-14.5); RED CELL DISTRIBUTION WIDTH SD 47.7 fL (36.4-46.3)
[2017-07-27 10:00] LABS: ALBUMIN 3.3 gm/dl (3.4-5.0); ALT/SGPT 21 U/L (12-78); AST/SGOT 19 U/L (15-37); BLOOD UREA NITROGEN 23 mg/dl (7-18); CALCIUM 8.8 mg/dl (8.5-10.1); CARBON DIOXIDE 29 mmol/L (21-32); CREATININE 0.79 mg/dl (0.60-1.20); GLUCOSE 83 mg/dl (70-99); POTASSIUM 4.3 mmol/L (3.5-5.1); SODIUM 140 mmol/L (136-145)
[2017-07-27 10:11] LABS: ALKALINE PHOSPHATASE 64 U/L (45-117); CHOLESTEROL 124 mg/dl (0-200); LDL CHOLESTEROL CALCULATED 48 mg/dl; TOTAL PROTEIN 6.3 gm/dl (6.4-8.2)
== END | disposition home or self-care (01) ==
LOC: C.LABOUTLO 09:12
PROVIDERS: ATTEND Internal Medicine Geriatric Medicine
DX: I10 Essential (primary) hypertension (principal); R73.9 Hyperglycemia, unspecified; R15.9 Full incontinence of feces; R32 Unspecified urinary incontinence; E78.5 Hyperlipidemia, unspecified; I25.10 Atherosclerotic heart disease of native coronary artery without angina pectoris; I47.1 Supraventricular tachycardia

== ENCOUNTER → 2017-10-31 | Outpatient (CLI) | payer OTHER, BC ==
[~2017-10-31] MED LIST changes: +ACET-1256 PO; +ATOR10TA82 PO; +IBUP-1050 PO; +NITR-5 PO; +NRV5 PO; +NTRGSL/4 UT; +PRMVC PV; +PSYL48.59 PO; +SENN1TAB86 PO
== END | disposition home or self-care (01) ==
LOC: C.LABOUTLO 10:37
PROVIDERS: ATTEND Physician Assistant Medical
DX: R41.0 Disorientation, unspecified (principal)

== ENCOUNTER 2017-11-02 09:36 | Emergency (ER) | payer OTHER, BC ==
[~2017-11-02] VITALS: Ht 165.1 cm; Wt 87.0 kg
[~2017-11-02 09:36] MED LIST changes: -ACET-1256 PO; -ATOR10TA82 PO; -IBUP-1050 PO; -NITR-5 PO; -NRV5 PO; -NTRGSL/4 UT; -PRMVC PV; -PSYL48.59 PO; -SENN1TAB86 PO
[2017-11-02 09:42] VITALS: TEMP 36.5; Ht 165.1 cm; Wt 87.0 kg
--- NOTE | 2017-11-02 10:15 | DIAGNOSTIC IMAGING REPORT ---
(CHEST) THORAX WITHOUT CT DOSE: 266.54 mGy.cm HISTORY: Trauma fall, right chest pain, poss fx or contusion TECHNIQUE: Multiaxial CT images of the chest were performed without contrast. A dose lowering technique was utilized adhering to the principles of ALARA. COMPARISON: 04/09/2017 FINDINGS: Prior median sternotomy. Lungs are clear. No acute bony abnormality. Degenerative change of the thoracic spine. IMPRESSION: Chronic and postoperative change. No acute process. The above report was generated using voice recognition software. It may contain grammatical, syntax or spelling errors. Electronically signed by: Lawrence Goldsmith M.D. 11/02/2017 10:14 AM Dictated Date/Time: 11/02/2017 10:10 AM
[2017-11-02 11:37] VITALS: BP 162/75; PULSE 46; O2SAT 96
--- NOTE | 2017-11-02 13:56 | EMERGENCY ROOM VISIT NOTE ---
History Report prepared by Miguel Angel: Joanna Powell Under the Supervision of: Dr. Jeffery Mera M.D. First contact with patient: 09:38 Stated Complaint: FALL/ R SIDE PAIN, ELROFT History of Present Illness The patient is a 86 year old female who presents to the Emergency Room with complaints of an episode of a fall that occurred two hours ago. The patient states that she felt normal last night and this morning. The patient notes that she tripped and fell, but did not pass out, although she does not remember much about the episode. The patient denies hitting her head. She notes that she has not walked since the fall this morning. The patient complains of pain on her right chest that she rates as a 5/10 in severity. The patient also complains of left hip pain, although she notes that this is a chronic issue. The patient denies having a headache, head pain, dizziness, neck pain, and bruising across her chest. The patient states that right after she fell the pain was exacerbated with movement, but movement no longer increases the pain. The patient notes that she takes Aspirin and is currently taking an antibiotic for a UTI. The patient notes that she had a triple bypass. Source of History: patient Onset: Two hours ago Position: chest (right) Symptom Intensity: 5/10 severity Timing: other (episode) Modifying Factors (Worsening): movement Associated Symptoms: No headache, No neck pain Note: The patient complains of right hip pain. The patient denies bruising on her chest. Review of Systems See HPI for pertinent positives & negatives. A total of 10 systems reviewed and were otherwise negative. Past Medical & Surgical Medical Problems: (1) CAD (coronary artery disease) (2) Encephalopathy acute (3) HLD (hyperlipidemia) (4) severe leukocytosis, UTI, frequent falls (5) Spinal stenosis Surgical Problems: (1) S/P CABG x 3 Family History Diabetes mellitus Heart disease Social History Smoking Status: Never Smoker Alcohol Use: none Drug Use: none Marital Status: Housing Status: lives with family Occupation Status: retired Current/Historical Medications Scheduled Aspirin (Aspirin Ec), 81 MG PO DAILY Cholecalciferol (Vitamin D3), 2,000 INTER.UNIT PO BID Fesoterodine Fumarate (Toviaz), 4.5 MG PO BID Allergies Coded Allergies: Ciprofloxacin (Verified Allergy, Unknown, UNKNOWN, 11/02/17) Ezetimibe (Verified Allergy, Unknown, UNKNOWN, 11/02/17) Penicillins (Verified Allergy, Unknown, 11/02/17) Simvastatin (Verified Allergy, Unknown, UNKNOWN, 11/02/17) Codeine (Verified Adverse Reaction, Mild, GI SYMPTOMS, 11/02/17) Physical Exam Vital Signs Date Time Temp Pulse Resp B/P (MAP) Pulse Ox O2 Delivery O2 Flow Rate FiO2 11/02/17 11:37 46 16 162/75 96 11/02/17 11:14 46 16 162/75 96 Room Air 11/02/17 09:55 56 11/02/17 09:42 36.5 73 18 168/68 95 Room Air Physical Exam GENERAL: Patient is in no acute distress. HEENT: No acute trauma, normocephalic atraumatic, mucous membranes moist, no nasal congestion, no scleral icterus. No scalp hematoma. NECK: No stridor, no adenopathy, no meningismus, trachea is midline. Non-tender cervical spine. CHEST: Tender to the right anterior chest wall, no contusions seen. LUNGS: Clear to auscultation bilaterally, no wheeze, no rhonchi, breath sounds equal. HEART: Somewhat irregular rhythm. 2/6 systolic murmur, normal rate. ABDOMEN: Soft, nontender, bowel sounds positive, no hernias, no peritonitis. EXTREMITIES: No cyanosis or edema, full range of motion of all the joints without pain or difficulty, no signs for acute trauma. NEUROLOGIC: Oriented x 3, no acute motor or sensory deficits, no focal weakness. SKIN: No rash, no jaundice, no diaphoresis. Medical Decision & Procedures ER Provider Diagnostic Interpretation: Radiology results as stated below per my review and radiologist interpretation: (CHEST) THORAX WITHOUT CT DOSE: 266.54 mGy.cm HISTORY: Trauma fall, right chest pain, poss fx or contusion TECHNIQUE: Multiaxial CT images of the chest were performed without contrast. A dose lowering technique was utilized adhering to the principles of ALARA. COMPARISON: 04/09/2017 FINDINGS: Prior median sternotomy. Lungs are clear. No acute bony abnormality. Degenerative change of the thoracic spine. IMPRESSION: Chronic and postoperative change. No acute process. The above report was generated using voice recognition software. It may contain grammatical, syntax or spelling errors. Electronically signed by: Lawrence Goldsmith M.D. 11/02/2017 10:14 AM Dictated Date/Time: 11/02/2017 10:10 AM ECG Per My Interpretation Indication: chest pain Rate (beats per minute): 57 Rhythm: sinus bradycardia Findings: other (sinus arrhythmia, LVH present, baseline artifact) ED Course 0939: The patient was evaluated in room B04B. A complete history and physical exam was performed. 1042: Reevaluated the patient. Discussed results and discharge instructions: She verbalized understanding and agreement. The patient is ready for discharge. Medical Decision Differential diagnoses include: chest wall contusion, pulmonary contusion, rib fraction, liver injury, infection, dehydration, head or neck trauma. Patient presents to the ED after falling. She complains of right sided chest pain. On exam, there was no chest wall contusion noted. The lungs were clear. No evidence for injury to the head or neck. No evidence for acute injury to the extremities. The abdomen was soft and nontender. EKG shows a sinus rhythm, no acute ischemic change. Chest CT does not show evidence for rib fracture, pulmonary contusion or pneumothorax. The patient likely has contused the chest wall from her trip and fall. She was reassured. She is being discharged home. Medication Reconcilliation Current Medication List: was personally reviewed by me Blood Pressure Screening Patient's blood pressure: Elevated blood pressure Blood pressure disposition: Referred to PCP Impression Primary Impression: Contusion of right chest wall Additional Impression: Fall Scribe Attestation The scribe's documentation has been prepared under my direction and personally reviewed by me in its entirety. I confirm that the note above accurately reflects all work, treatment, procedures, and medical decision making performed by me. Departure Information Dispostion Home / Self-Care [facility]errals [facility] Forms HOME CARE DOCUMENTATION FORM, IMPORTANT VISIT INFORMATION Problem Qualifiers
[2017-11-03] MEDS ORDERED: IBUP-1050 PO ×2 (13:08)
[2017-11-03] MEDS ORDERED: SENN1TAB86 PO (13:08)
[2017-11-03] MEDS ORDERED: PRMVC PV (13:08)
[2017-11-03] MEDS ORDERED: ATOR10TA82 PO (13:08)
[2017-11-03] MEDS ORDERED: NTRGSL/4 UT (13:08)
[2017-11-03] MEDS ORDERED: NITR-5 PO (13:08)
[2017-11-03] MEDS ORDERED: PSYL48.59 PO (13:08)
[2017-11-03] MEDS ORDERED: ACET-1256 PO ×2 (13:08)
[2017-11-03] MEDS ORDERED: FESO4TAB PO (13:10)
== END 2017-11-02 11:40 | disposition home or self-care (01) ==
LOC: EDBD 09:36 → C.EDB 09:37
DX: S20.211A Contusion of right front wall of thorax, initial encounter (principal); W01.0XXA Fall on same level from slipping, tripping and stumbling without subsequent striking against object, initial encounter; I25.10 Atherosclerotic heart disease of native coronary artery without angina pectoris; E78.5 Hyperlipidemia, unspecified; Z87.440 Personal history of urinary (tract) infections; M48.00 Spinal stenosis, site unspecified; Z79.2 Long term (current) use of antibiotics; Z79.82 Long term (current) use of aspirin; Z79.899 Other long term (current) drug therapy; Z88.1 Allergy status to other antibiotic agents; Z88.0 Allergy status to penicillin; Z88.5 Allergy status to narcotic agent; Z88.8 Allergy status to other drugs, medicaments and biological substances

== ENCOUNTER 2017-11-03 12:32 | Inpatient (IN) | payer OTHER, BC ==
[~2017-11-03] VITALS: Ht 172.7 cm; Wt 91.5 kg
[~2017-11-03 12:32] MED LIST changes: -MCRB100 PO
[2017-11-03 12:35] VITALS: Ht 172.7 cm; Wt 91.5 kg
[2017-11-03] MEDS ORDERED: SODIUM CHLORIDE 0.9% 1000ML 500 ML IV ONE ×2 (12:42)
--- NOTE | 2017-11-03 12:52 | EMERGENCY ROOM VISIT NOTE ---
History Report prepared by Miguel Angel: Enmanuel Khan Under the Supervision of: Dr. Lakesha Garcia D.O. First contact with patient: 12:35 Stated Complaint: AMS/ [facility] History of Present Illness HPI is limited due to altered mental status. The patient is a 86 year old female who presents to the Emergency Room with complaints of constant UTI symptoms since yesterday. Nurse states the patient was diagnosed with a UTI yesterday at the ER and placed on Macrobid. Patient does not know if she has a history of UTIs. Patient states her urine color/odor has been "stronger". She adds that she is probably not drinking as much water as she should. Patient states she has back pain but denies it being any worse than usual. Patient is from [facility]. Patient denies fevers, chills, abdominal pain, nausea, and bowel symptoms. Source of History: patient, nursing staff History Limited By: AMS Onset: Yesterday Position: other (Urethra) Timing: constant Associated Symptoms: + back pain, + urinary symptoms, No fevers, No chills, No nausea, No abdominal pain Review of Systems See HPI for pertinent positives & negatives. A total of 10 systems reviewed and were otherwise negative. Past Medical & Surgical Medical Problems: (1) CAD (coronary artery disease) (2) Encephalopathy acute (3) HLD (hyperlipidemia) (4) severe leukocytosis, UTI, frequent falls (5) Spinal stenosis Surgical Problems: (1) S/P CABG x 3 Family History Diabetes mellitus Heart disease Social History Smoking Status: Never Smoker Alcohol Use: none Drug Use: none Marital Status: Housing Status: lives with family Occupation Status: retired Current/Historical Medications Scheduled Acetaminophen (Tylenol), 1,000 MG PO DAILY Aspirin (Aspirin Ec), 81 MG PO DAILY Atorvastatin (Lipitor), 10 MG PO DAILY Cholecalciferol (Vitamin D3), 2,000 INTER.UNIT PO BID Estrogens, Conjugated (Premarin), 0.5 GM PV 2XWK Fesoterodine Fumarate (Toviaz), 4 MG PO BID Ibuprofen (Advil), 600 MG PO QAM Nitrofurantoin Monohyd Macrocr (Macrobid), 100 MG PO BID Nitroglycerin (Nitrostat), 0.4 MG UT PRN Psyllium (Metamucil), 1 TSP PO DIRECTED Scheduled PRN Acetaminophen (Tylenol), 1,000 MG PO TID PRN for Pain Ibuprofen (Advil), 400 MG PO QPM PRN for Pain Sennosides-Docusate Sodium (Sennalax-S), 1 TAB PO HS PRN for Constipation Allergies Coded Allergies: Ciprofloxacin (Verified Allergy, Unknown, UNKNOWN, 11/02/17) Ezetimibe (Verified Allergy, Unknown, UNKNOWN, 11/02/17) Penicillins (Verified Allergy, Unknown, 11/02/17) Simvastatin (Verified Allergy, Unknown, UNKNOWN, 11/02/17) Codeine (Verified Adverse Reaction, Mild, GI SYMPTOMS, 11/02/17) Physical Exam Vital Signs Date Time Temp Pulse Resp B/P (MAP) Pulse Ox O2 Delivery O2 Flow Rate FiO2 11/03/17 16:58 68 11/03/17 16:41 70 18 178/77 94 Room Air 11/03/17 15:30 64 18 155/60 94 Room Air 11/03/17 14:30 65 18 172/65 94 Room Air 11/03/17 12:43 68 11/03/17 12:35 37.0 70 18 164/74 98 Room Air 11/03/17 12:35 98 Room Air Physical Exam GENERAL: alert, well appearing, well nourished, no distress, non-toxic EYE EXAM: normal conjunctiva, PERRL and EOM's grossly intact OROPHARYNX: no exudate, no erythema, lips, buccal mucosa, and tongue normal and mucous membranes are moist NECK: supple, no nuchal rigidity, no adenopathy, non-tender LUNGS: Clear to auscultation. Normal chest wall mechanics HEART: no murmurs, S1 normal and S2 normal ABDOMEN: abdomen soft, non-tender, normo-active bowel sounds, no masses, no rebound or guarding. BACK: Back is symmetrical on inspection and there is no deformity, no midline tenderness, no CVA tenderness. SKIN: no rashes and no bruising UPPER EXTREMITIES: upper extremities are grossly normal. LOWER EXTREMITIES: No pitting edema. NEURO EXAM: Patient confused to person, place, time, and event. No focal deficits. Normal speech, no gross weakness of arms, no gross weakness of legs. Medical Decision & Procedures ER Provider Diagnostic Interpretation: Radiology results have been interpreted by the radiologist and reviewed by me. HEAD WITHOUT CONTRAST (CT) CT DOSE: 1647.89 mGycm HISTORY: Mental status change change in MS TECHNIQUE: Multiaxial CT images of the head were performed without the use of intravenous contrast. A dose lowering technique was utilized adhering to the principles of ALARA. Comparison: 04/09/2017 Findings: The paranasal sinuses and mastoid air cells are clear. The calvarium and skull base are intact. The ventricles and sulci are within normal limits. There is no mass, hematoma, midline shift, or acute infarct. Moderate chronic small vessel change throughout both cerebral hemispheres. Mild age-related atrophy. Impression: Age-related change. No acute process. The above report was generated using voice recognition software. It may contain grammatical, syntax or spelling errors. Electronically signed by: Lawrence Goldsmith M.D. 11/03/2017 2:17 PM CHEST ONE VIEW PORTABLE CLINICAL HISTORY: Sepsis dyspnea COMPARISON STUDY: 04/09/2017 FINDINGS: Mild cardia megaly. Prior median sternotomy. Lungs are clear. Diaphragms are smooth. IMPRESSION: No acute process. The above report was generated using voice recognition software. It may contain grammatical, syntax or spelling errors. Electronically signed by: Lawrence Goldsmith M.D. 11/03/2017 1:20 PM Laboratory Results Test 11/03/17 12:40 11/03/17 13:13 11/03/17 13:50 Immature Granulocyte % (Auto) 0.1 % White Blood Count 12.70 K/uL (4.8-10.8) Red Blood Count 3.86 M/uL (4.2-5.4) Hemoglobin 12.7 g/dL (12.0-16.0) Hematocrit 38.9 % (37-47) Mean Corpuscular Volume 100.8 fL (80-100) Mean Corpuscular Hemoglobin 32.9 pg (25-34) Mean Corpuscular Hemoglobin Concent 32.6 g/dl (32-36) Platelet Count 246 K/uL (130-400) Mean Platelet Volume 10.5 fL (7.4-10.4) Neutrophils (%) (Auto) 72.3 % Lymphocytes (%) (Auto) 17.3 % Monocytes (%) (Auto) 8.7 % Eosinophils (%) (Auto) 1.4 % Basophils (%) (Auto) 0.2 % Neutrophils # (Auto) 9.18 K/uL (1.4-6.5) Lymphocytes # (Auto) 2.20 K/uL (1.2-3.4) Monocytes # (Auto) 1.11 K/uL (0.11-0.59) Eosinophils # (Auto) 0.18 K/uL (0-0.5) Basophils # (Auto) 0.02 K/uL (0-0.2) Immature Granulocyte # (Auto) 0.01 K/uL (0.00-0.02) Prothrombin Time 10.0 SECONDS (9.0-12.0) Prothromb Time International Ratio 1.0 (0.9-1.1) Activated Partial Thromboplast Time 26.8 SECONDS (21.0-31.0) Partial Thromboplastin Ratio 1.0 Magnesium Level 2.3 mg/dl (1.8-2.4) Total Bilirubin 1.2 mg/dl (0.2-1) Aspartate Amino Transf (AST/SGOT) 25 U/L (15-37) Alanine Aminotransferase (ALT/SGPT) 23 U/L (12-78) Alkaline Phosphatase 59 U/L (45-117) Troponin I < 0.015 ng/ml (0-0.045) Total Protein 7.7 gm/dl (6.4-8.2) Albumin 4.0 gm/dl (3.4-5.0) Globulin 3.7 gm/dl (2.5-4.0) Albumin/Globulin Ratio 1.1 (0.9-2) Thyroid Stimulating Hormone (TSH) 1.370 uIu/ml (0.300-4.500) Bedside Lactic Acid Venous 0.94 mmol/L (0.90-1.70) Urine Color YELLOW Urine Appearance CLEAR (CLEAR) Urine pH 5.0 (4.5-7.5) Urine Specific [place] 1.019 (1.000-1.030) Urine Protein NEG (NEG) Urine Glucose (UA) NEG (NEG) Urine Ketones NEG (NEG) Urine Occult Blood NEG (NEG) Urine Nitrite NEG (NEG) Urine Bilirubin NEG (NEG) Urine Urobilinogen NEG (NEG) Urine Leukocyte Esterase NEG (NEG) Urine WBC (Auto) 0 /hpf (0-5) Urine RBC (Auto) 0-4 /hpf (0-4) Urine Hyaline Casts (Auto) 1-5 /lpf (0-5) Urine Epithelial Cells (Auto) 0-5 /lpf (0-5) Urine Bacteria (Auto) NEG (NEG) Laboratory results per my review. Medications Administered Medications (Trade) Dose Ordered Sig/Jj Route Start Time Stop Time Status Last Admin Dose Admin Sodium Chloride 500 ml @ 999 mls/hr Q31M ONCE IV 11/03/17 12:42 11/03/17 13:12 DC 11/03/17 13:42 999 MLS/HR Sodium Chloride 500 ml @ 999 mls/hr Q31M ONCE IV 11/03/17 12:42 11/03/17 13:12 DC 11/03/17 13:42 999 MLS/HR Ceftriaxone Sodium (Rocephin Inj) 1 gm NOW STAT IV 11/03/17 13:24 11/03/17 13:25 DC 11/03/17 13:37 1 GM Acetaminophen (Tylenol Tab) 650 mg Q4H PRN PO 11/03/17 17:30 12/03/17 17:29 11/04/17 01:38 650 MG Sodium Chloride 1,000 ml @ 100 mls/hr Q10H IV 11/03/17 17:30 12/03/17 17:29 11/05/17 01:19 100 MLS/HR Acetaminophen (Tylenol Tab) 1,000 mg TID PRN PO 11/03/17 17:30 12/03/17 17:29 11/04/17 16:18 1,000 MG ECG Per My Interpretation Indication: weakness Rate (beats per minute): 64 Rhythm: sinus rhythm Findings: 1st degree AV block, T-wave inversion (1 and AVL), other (Normal QRS and QTc; flattened t-waves in precordial leads) Comparison ECG Date: 11/02/17 Change: no significant change ED Course 1238: The patient was evaluated in room B10. A complete history and physical exam was performed. 1242: Sodium Chloride 500 ml @ 999 mls/hr IV and Sodium Chloride 500 ml @ 999 mls/hr IV 1324: Rocephin Inj 1gm IV 1449: I reevaluated the patient and updated her on her findings. 1515: Ioversol 125ml IV 1520: Upon reevaluation, the patient will be further evaluated. I discussed the findings and the treatment plan with the patient. She expresses agreement and understanding. I spoke with Dr. Lala of the [facility] Hospitalist Service. She will be evaluated for further management. Medical Decision Differential diagnosis: Etiologies such as metabolic, infection, hypo/hyperglycemia, electrolyte abnormalities, cardiac sources, intracerebral event, toxicologic, neurologic, as well as others were entertained. Pt here well appearing but very confused compared to her baseline. Concern for possible evolving infection given recent outpt diagnosis of UTI. UA here clean but possibly partially treated. No fever. Mild leukocytosis. VS stable throughout. Pt improved with IVF and possible component of dehydration. Pt covered with IV rocephin given prior urine cultures. No evidence of bacteremia at this time. CT performed to r/o obstructive pathology and in head to r/o neuro cause of AMS. Both reassuring. Medication Reconcilliation Current Medication List: was personally reviewed by me Blood Pressure Screening Patient's blood pressure: Elevated blood pressure Referred to hospitalist. Consults Time Called: 1500 Consulting Physician: Dr. Lala - [facility] [place] [facility] [place] Returned Call: [phone] I reviewed the patient's case with Dr. Lala. She will evaluate the patient for further management. Impression Primary Impression: Altered mental status Additional Impressions: Dehydration UTI (urinary tract infection) Scribe Attestation The scribe's documentation has been prepared under my direction and personally reviewed by me in its entirety. I confirm that the note above accurately reflects all work, treatment, procedures, and medical decision making performed by me. Departure Information Dispostion Being Evaluated By Hospitalist Referrals [place] (PCP) Forms HOME CARE DOCUMENTATION FORM, IMPORTANT VISIT INFORMATION Patient Instructions My [facility] Health Problem Qualifiers Primary Impression: Altered mental status Altered mental status type: disorientation Qualified Codes: R41.0 - Disorientation, unspecified Additional Impressions: UTI (urinary tract infection) Urinary tract infection type: acute cystitis Hematuria presence: without hematuria Qualified Codes: N30.00 - Acute cystitis without hematuria
[2017-11-03 12:58] LABS: BASO % 0.2 %; BASO ABS # 0.02 K/uL (0-0.2); EOS % 1.4 %; EOS ABS # 0.18 K/uL (0-0.5); HEMATOCRIT 38.9 % (37-47); HEMOGLOBIN 12.7 g/dL (12.0-16.0); IG# 0.01 K/uL (0.00-0.02); LYMPH % 17.3 %; MEAN CELL VOLUME 100.8 fL (80-100); MEAN CORPUSCULAR HEMOGLOBIN 32.9 pg (25-34); MEAN CORPUSCULAR HGB CONC 32.6 g/dl (32-36); MEAN PLATELET VOLUME 10.5 fL (7.4-10.4); MONO % 8.7 %; MONO ABS # 1.11 K/uL (0.11-0.59); NEUT % 72.3 %; NEUT ABS # 9.18 K/uL (1.4-6.5); PLATELET COUNT 246 K/uL (130-400); RED CELL DISTRIBUTION WIDTH CV 13.6 % (11.5-14.5); RED CELL DISTRIBUTION WIDTH SD 50.3 fL (36.4-46.3)
[2017-11-03] MEDS ORDERED: NITR-5 PO (13:08)
[2017-11-03] MEDS ORDERED: SENN1TAB86 PO (13:08)
[2017-11-03] MEDS ORDERED: PRMVC PV (13:08)
[2017-11-03] MEDS ORDERED: PSYL48.59 PO (13:08)
[2017-11-03] MEDS ORDERED: ATOR10TA82 PO (13:08)
[2017-11-03] MEDS ORDERED: NTRGSL/4 UT (13:08)
[2017-11-03] MEDS ORDERED: ACET-1256 PO ×2 (13:08)
[2017-11-03] MEDS ORDERED: IBUP-1050 PO ×2 (13:08)
[2017-11-03] MEDS ORDERED: FESO4TAB PO (13:10)
[2017-11-03 13:15] LABS: PTT PATIENT 26.8 SECONDS (21.0-31.0)
--- NOTE | 2017-11-03 13:21 | DIAGNOSTIC IMAGING REPORT ---
CHEST ONE VIEW PORTABLE CLINICAL HISTORY: Sepsis dyspnea COMPARISON STUDY: 04/09/2017 FINDINGS: Mild cardia megaly. Prior median sternotomy. Lungs are clear. Diaphragms are smooth. IMPRESSION: No acute process. The above report was generated using voice recognition software. It may contain grammatical, syntax or spelling errors. Electronically signed by: Lawrence Goldsmith M.D. 11/03/2017 1:20 PM Dictated Date/Time: 11/03/2017 1:18 PM
[2017-11-03] MEDS ORDERED: CEFTRIAXONE SOD INJ 1 GM ADDVIAL IV STA (13:24)
[2017-11-03 13:27] LABS: ALKALINE PHOSPHATASE 59 U/L (45-117); ALT/SGPT 23 U/L (12-78); AST/SGOT 25 U/L (15-37); BLOOD UREA NITROGEN 28 mg/dl (7-18); CALCIUM 9.4 mg/dl (8.5-10.1); CARBON DIOXIDE 30 mmol/L (21-32); CREATININE 0.87 mg/dl (0.60-1.20); GLUCOSE 94 mg/dl (70-99); POTASSIUM 3.9 mmol/L (3.5-5.1); SODIUM 138 mmol/L (136-145); TOTAL PROTEIN 7.7 gm/dl (6.4-8.2)
--- NOTE | 2017-11-03 14:18 | DIAGNOSTIC IMAGING REPORT ---
HEAD WITHOUT CONTRAST (CT) CT DOSE: 1647.89 mGycm HISTORY: Mental status change change in MS TECHNIQUE: Multiaxial CT images of the head were performed without the use of intravenous contrast. A dose lowering technique was utilized adhering to the principles of ALARA. Comparison: 04/09/2017 Findings: The paranasal sinuses and mastoid air cells are clear. The calvarium and skull base are intact. The ventricles and sulci are within normal limits. There is no mass, hematoma, midline shift, or acute infarct. Moderate chronic small vessel change throughout both cerebral hemispheres. Mild age-related atrophy. Impression: Age-related change. No acute process. The above report was generated using voice recognition software. It may contain grammatical, syntax or spelling errors. Electronically signed by: Lawrence Goldsmith M.D. 11/03/2017 2:17 PM Dictated Date/Time: 11/03/2017 2:14 PM
[2017-11-03] MEDS ORDERED: OPTIRAY 320 IV PRN (15:15)
--- NOTE | 2017-11-03 16:05 | DIAGNOSTIC IMAGING REPORT ---
ABDOMEN AND PELVIS CT WITH IV CONTRAST CT DOSE: 536.40 mGy.cm HISTORY: Acute urinary tract infection with lower abdominal pain. recent UTI TECHNIQUE: Multiaxial CT images of the abdomen and pelvis were performed following the use of intravenous contrast. A dose lowering technique was utilized adhering to the principles of ALARA. COMPARISON STUDY: CT chest 11/02/2017. FINDINGS: Subsegmental groundglass and linear consolidative opacities about the lung bases have progressed from comparison suggesting atelectasis. Mild bibasilar bronchial wall thickening. No pneumatosis or pneumoperitoneum. Prior median sternotomy. Imaged inferior cardiac chambers are enlarged. Coronary arterial calcifications noted. Cholelithiasis with mild gallbladder distention. No CT evidence of acute cholecystitis. No intrahepatic or extrahepatic biliary ductal dilation identified. Liver appears unremarkable. No focal hepatic mass lesions. The spleen, pancreas and adrenal glands are unremarkable. 3.1 cm cyst of the interpolar right kidney. No ureteral calculi or obstructive uropathy. Ureters and bladder are unremarkable. Pessary is noted within the vagina. Prior hysterectomy. No adnexal mass lesion. Moderate atherosclerosis of the aorta without aneurysm. IVC appears unremarkable. Patent portal vein. There are no pathologically enlarged lymph nodes identified. Small sliding-type hiatal hernia. No bowel obstruction or focal bowel wall thickening. Colonic diverticulosis without diverticulitis. Terminal ileum appears unremarkable. The appendix is not definitively seen. No secondary signs of acute appendicitis. No ascites or mesenteric inflammatory change. Diastases recti with tiny fat filled periumbilical hernia. The breast parenchyma and soft tissues appear unremarkable. Moderate atrophy of the gluteal and paraspinal musculature. Demineralized appearance of the bones. Multilevel facet arthropathy. 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 Multilevel spondylitic spurring with severe intervertebral disc space narrowing at L5-S1. Multilevel facet arthrosis. IMPRESSION: 1. No acute intra-abdominal or intrapelvic abnormality identified. 2. Cholelithiasis without CT evidence of acute cholecystitis. 3. Colonic diverticulosis without diverticulitis. 4. No bowel obstruction or focal bowel wall thickening. 5. Additional findings as above. Electronically signed by: Johnathan Schultz M.D. 11/03/2017 4:04 PM Dictated Date/Time: 11/03/2017 3:53 PM
[2017-11-03] MEDS ORDERED: DOCUSATE SODIUM/SENNA 50/8.6MG TAB PO PRN (17:30)
[2017-11-03] MEDS ORDERED: ACETAMINOPHEN 325 MG TAB PO PRN (17:30)
[2017-11-03] MEDS ORDERED: POLYETHYLENE (MIRALAX) 17 GM PACK PO PRN (17:30)
[2017-11-03 19:10] VITALS: BP 176/74; PULSE 76; TEMP 37.1; O2SAT 92
[2017-11-03] MEDS: SODIUM CHLORIDE 0.9% 1000ML 1,000 ML IV SCH (19:33)
--- NOTE | 2017-11-03 19:42 | History and Physical ---
History & Physical Date & Time of Service: Nov 03, 2017 at 18:21 Chief Complaint: [facility]/ [facility] Primary Care Physician: Chavo History of Present Illness Source: patient, family Patient is an 86 yo F resident of [facility] who presents to the ED today with altered mental status. Daughter is present in the room with the patient. Patient had been in the ED yesterday after a fall for thoracic pain which she states has resolved. At that visit she and ED staff report she was perfectly lucid. She reports that after returning to [facility] from the ED yesterday, she was very tired and did not even recall eating dinner or breakfast today as she felt she was so tired. Of note, she has a history of recurrent UTIs and felt symptomatic 3 days ago. A culture was sent which did not strongly indicate UTI, however she was treated with Macrobid and has received 2 days of treatment. She also has a h/o bowel incontinence and has been taking immodium to prevent the incontinence while on macrobid. She cannot recall the last time she had a bowel movement. History is limited by mental status. Daughter states she has been having several bouts of confusion noticeable starting around October 06, and are usually associated with urinary symptoms. PMH/PSH is significant for "triple bypass" ~10 years ago, appendectomy as child , overactive bladder, bowel incontinence, osteoarthritis (essentially WCB 2/2 severe knee damage), HTN (previously treated with lisinopril and losartan but currently not treated) Past Medical/Surgical History Medical Problems: (1) Altered mental status (2) CAD (coronary artery disease) (3) Confusion (4) Contusion of right chest wall (5) Contusion of right chest wall (6) Encephalopathy acute (7) Fall (8) Fall (9) Fall (10) HLD (hyperlipidemia) (11) Hypoxia (12) severe leukocytosis, UTI, frequent falls (13) Spinal stenosis (14) UTI (urinary tract infection) Surgical Problems: (1) S/P CABG x 3 Family History Diabetes mellitus Heart disease Social History Smoking Status: Never Smoker Drug Use: none Marital Status: Occupational Status: retired Allergies Coded Allergies: Ciprofloxacin (Verified Allergy, Unknown, UNKNOWN, 11/02/17) Ezetimibe (Verified Allergy, Unknown, UNKNOWN, 11/02/17) Penicillins (Verified Allergy, Unknown, 11/02/17) Simvastatin (Verified Allergy, Unknown, UNKNOWN, 11/02/17) Codeine (Verified Adverse Reaction, Mild, GI SYMPTOMS, 11/02/17) Home Medications Scheduled Acetaminophen (Tylenol), 1,000 MG PO DAILY Aspirin (Aspirin Ec), 81 MG PO DAILY Atorvastatin (Lipitor), 10 MG PO DAILY Cholecalciferol (Vitamin D3), 2,000 INTER.UNIT PO BID Estrogens, Conjugated (Premarin), 0.5 GM PV 2XWK Fesoterodine Fumarate (Toviaz), 4 MG PO BID Ibuprofen (Advil), 600 MG PO QAM Nitrofurantoin Monohyd Macrocr (Macrobid), 100 MG PO BID Nitroglycerin (Nitrostat), 0.4 MG UT PRN Psyllium (Metamucil), 1 TSP PO DIRECTED Scheduled PRN Acetaminophen (Tylenol), 1,000 MG PO TID PRN for Pain Ibuprofen (Advil), 400 MG PO QPM PRN for Pain Sennosides-Docusate Sodium (Sennalax-S), 1 TAB PO HS PRN for Constipation Review of Systems Constitutional: No fever, No chills ENT: No hearing loss, No sore throat Respiratory: No cough, No sputum, No wheezing, No shortness of breath, No dyspnea on exertion, No dyspnea at rest Cardiovascular: No chest pain Abdomen: + constipation, No pain, No nausea, No vomiting, No GI bleeding Musculoskeletal: + joint pain (chrnoic), + swelling (pedal edema) Genitourinary - Female: No dysuria, No urinary frequency, No urinary urgency Neurologic: + memory loss, No weakness, No numbness/tingling, No vertigo, No balance problems Psychiatric: No depression symptoms, No anhedonism, No anxiety Endocrine: + fatigue Integumentary: No rash, No itch, No new/changing skin lesions Physical Exam Vital Signs Date Time Temp Pulse Resp B/P (MAP) Pulse Ox O2 Delivery O2 Flow Rate FiO2 11/03/17 16:58 68 11/03/17 16:41 70 18 178/77 94 Room Air 11/03/17 15:30 64 18 155/60 94 Room Air 11/03/17 14:30 65 18 172/65 94 Room Air 11/03/17 12:43 68 11/03/17 12:35 37.0 70 18 164/74 98 Room Air 11/03/17 12:35 98 Room Air General Appearance: WD/WN, no apparent distress Head: normocephalic Eyes: PERRL, EOMI, sclerae normal ENT: normal ENT inspection, hearing grossly normal, pharynx normal Neck: no adenopathy, thyroid normal, no JVD, no carotid bruits, trachea midline Respiratory/Chest: chest non-tender, lungs clear, normal breath sounds, no respiratory distress, no accessory muscle use Cardiovascular: no murmur, normal peripheral pulses, + bradycardia Abdomen/GI: normal bowel sounds, non tender, soft Back: normal inspection, no CVA tenderness Extremities/Musculoskelatal: normal inspection, no calf tenderness, + pedal edema (1-2+ bilaterally) Neurologic/Psych: no motor/sensory deficits, alert, normal mood/affect, + disoriented (oriented to self and place, not to time) Skin: normal color, warm/dry, no rash Diagnostics Laboratory Results Results Past 24 Hours Test 11/03/17 12:40 11/03/17 13:13 11/03/17 13:50 Range/Units White Blood Count 12.70 4.8-10.8 K/uL Red Blood Count 3.86 4.2-5.4 M/uL Hemoglobin 12.7 12.0-16.0 g/dL Hematocrit 38.9 37-47 % Mean Corpuscular Volume 100.8 80-100 fL Mean Corpuscular Hemoglobin 32.9 25-34 pg Mean Corpuscular Hemoglobin Concent 32.6 32-36 g/dl Platelet Count 246 130-400 K/uL Mean Platelet Volume 10.5 7.4-10.4 fL Neutrophils (%) (Auto) 72.3 % Lymphocytes (%) (Auto) 17.3 % Monocytes (%) (Auto) 8.7 % Eosinophils (%) (Auto) 1.4 % Basophils (%) (Auto) 0.2 % Neutrophils # (Auto) 9.18 1.4-6.5 K/uL Lymphocytes # (Auto) 2.20 1.2-3.4 K/uL Monocytes # (Auto) 1.11 0.11-0.59 K/uL Eosinophils # (Auto) 0.18 0-0.5 K/uL Basophils # (Auto) 0.02 0-0.2 K/uL RDW Standard Deviation 50.3 36.4-46.3 fL RDW Coefficient of Variation 13.6 11.5-14.5 % Immature Granulocyte % (Auto) 0.1 % Immature Granulocyte # (Auto) 0.01 0.00-0.02 K/uL Prothrombin Time 10.0 9.0-12.0 SECONDS Prothromb Time International Ratio 1.0 0.9-1.1 Activated Partial Thromboplast Time 26.8 21.0-31.0 SECONDS Partial Thromboplastin Ratio 1.0 Sodium Level 138 136-145 mmol/L Potassium Level 3.9 3.5-5.1 mmol/L Chloride Level 103 98-107 mmol/L Carbon Dioxide Level 30 21-32 mmol/L Anion Gap 5.0 3-11 mmol/L Blood Urea Nitrogen 28 7-18 mg/dl Creatinine 0.87 0.60-1.20 mg/dl Est Creatinine Clear Calc Drug Dose 55.9 ml/min Estimated GFR () 70.4 Estimated GFR (Non- 60.7 BUN/Creatinine Ratio 31.8 10-20 Random Glucose 94 70-99 mg/dl Calcium Level 9.4 8.5-10.1 mg/dl Magnesium Level 2.3 1.8-2.4 mg/dl Total Bilirubin 1.2 0.2-1 mg/dl Aspartate Amino Transf (AST/SGOT) 25 15-37 U/L Alanine Aminotransferase (ALT/SGPT) 23 12-78 U/L Alkaline Phosphatase 59 45-117 U/L Troponin I < 0.015 0-0.045 ng/ml Total Protein 7.7 6.4-8.2 gm/dl Albumin 4.0 3.4-5.0 gm/dl Globulin 3.7 2.5-4.0 gm/dl Albumin/Globulin Ratio 1.1 0.9-2 Thyroid Stimulating Hormone (TSH) 1.370 0.300-4.500 uIu/ml Bedside Lactic Acid Venous 0.94 0.90-1.70 mmol/L Urine Color YELLOW Urine Appearance CLEAR CLEAR Urine pH 5.0 4.5-7.5 Urine Specific Vanderbilt 1.019 1.000-1.030 Urine Protein NEG NEG Urine Glucose (UA) NEG NEG Urine Ketones NEG NEG Urine Occult Blood NEG NEG Urine Nitrite NEG NEG Urine Bilirubin NEG NEG Urine Urobilinogen NEG NEG Urine Leukocyte Esterase NEG NEG Urine WBC (Auto) 0 0-5 /hpf Urine RBC (Auto) 0-4 0-4 /hpf Urine Hyaline Casts (Auto) 1-5 0-5 /lpf Urine Epithelial Cells (Auto) 0-5 0-5 /lpf Urine Bacteria (Auto) NEG NEG Microbiology Results 11/03/17 Blood Culture, Received Pending 11/03/17 Blood Culture, Received Pending Diagnostic Radiology CHEST ONE VIEW PORTABLE CLINICAL HISTORY: Sepsis dyspnea COMPARISON STUDY: 04/09/2017 FINDINGS: Mild cardia megaly. Prior median sternotomy. Lungs are clear. Diaphragms are smooth. IMPRESSION: No acute process. HEAD WITHOUT CONTRAST (CT) CT DOSE: 1647.89 mGycm HISTORY: Mental status change change in [place] TECHNIQUE: Multiaxial CT images of the head were performed without the use of intravenous contrast. A dose lowering technique was utilized adhering to the principles of ALARA. Comparison: 04/09/2017 Findings: The paranasal sinuses and mastoid air cells are clear. The calvarium and skull base are intact. The ventricles and sulci are within normal limits. There is no mass, hematoma, midline shift, or acute infarct. Moderate chronic small vessel change throughout both cerebral hemispheres. Mild age-related atrophy. Impression: Age-related change. No acute process. ABDOMEN AND PELVIS CT WITH IV CONTRAST CT DOSE: 536.40 mGy.cm HISTORY: Acute urinary tract infection with lower abdominal pain. recent UTI TECHNIQUE: Multiaxial CT images of the abdomen and pelvis were performed following the use of intravenous contrast. A dose lowering technique was utilized adhering to the principles of ALARA. COMPARISON STUDY: CT chest 11/02/2017. FINDINGS: Subsegmental groundglass and linear consolidative opacities about the lung bases have progressed from comparison suggesting atelectasis. Mild bibasilar bronchial wall thickening. No pneumatosis or pneumoperitoneum. Prior median sternotomy. Imaged inferior cardiac chambers are enlarged. Coronary arterial calcifications noted. Cholelithiasis with mild gallbladder distention. No CT evidence of acute cholecystitis. No intrahepatic or extrahepatic biliary ductal dilation identified. Liver appears unremarkable. No focal hepatic mass lesions. The spleen, pancreas and adrenal glands are unremarkable. 3.1 cm cyst of the interpolar right kidney. No ureteral calculi or obstructive uropathy. Ureters and bladder are unremarkable. Pessary is noted within the vagina. Prior hysterectomy. No adnexal mass lesion. Moderate atherosclerosis of the aorta without aneurysm. IVC appears unremarkable. Patent portal vein. There are no pathologically enlarged lymph nodes identified. Small sliding-type hiatal hernia. No bowel obstruction or focal bowel wall thickening. Colonic diverticulosis without diverticulitis. Terminal ileum appears unremarkable. The appendix is not definitively seen. No secondary signs of acute appendicitis. No ascites or mesenteric inflammatory change. Diastases recti with tiny fat filled periumbilical hernia. The breast parenchyma and soft tissues appear unremarkable. Moderate atrophy of the gluteal and paraspinal musculature. Demineralized appearance of the bones. Multilevel facet arthropathy. 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 Multilevel spondylitic spurring with severe intervertebral disc space narrowing at L5-S1. Multilevel facet arthrosis. IMPRESSION: 1. No acute intra-abdominal or intrapelvic abnormality identified. 2. Cholelithiasis without CT evidence of acute cholecystitis. 3. Colonic diverticulosis without diverticulitis. 4. No bowel obstruction or focal bowel wall thickening. 5. Additional findings as above. Impression Assessment and Plan 86yo F resident of [facility] with PMH significant for CVD s/p stenting 10 years ago, osteoarthritis, HTN who presents with a 24 hour history of altered mental status. Metabolic Encephalopathy - Multifactorial - r/o sepsis. Dehydration/ constipation. ?med side effect - Supportive care R/oSepsis - Elevated WBC but No fever. No obvious source of infection. -check cultures -IV rocephin. Dehydration -mIVF at 100ml/hr Constipation -miralax BID until bowel movement -will change antibiotic for presumed UTI UTI -Culture not convincing, patient treated with macrobid x 3 days -UA today not indicative of UTI in setting of macrobid -possible that macrobid in setting of dehydration did not react well with patient -Rocephin 1G daily CVD -Continue atorvastatin, ASA OA -Treat pain with tylenol HTN -Previously treated with lisinopril (led to dizziness) and losartan (was told to stop when she started using toviaz) -Continue to monitor -Consider hydralazine in setting of bradycardia -Outpatient management by PCP recommended Code: DNR DVTP: heparin Dispo: med/surg, hopeful discharge tomorrow Resuscitation Status VTE Prophylaxis Will order VTE Prophylaxis: Yes Social Service Consult Lives in Personal Care Resident Tracking Resident Involvement: Resident Care Provided Care Provided: Adult Hospital Medicine Reviewed: Pt Seen/Exam by Me History 86y/o F brought to ED from [facility] for change in mental status. She was seen in ED while she was completely coherent and was evaluated for fall. Recently also given rx of macrobid for ?UTI Constitutional: acknowledges: other (lethargic and confused - unable to give any history), denies: fever General Appearance: no apparent distress Respiratory: lungs clear, no respiratory distress Cardiovascular: regular rate, rhythm Neurologic/Psychiatric: other (lethargic and confused) Skin Characteristics: warm/dry Assessment/Plan Resident Physician Supervision Note: I independently interviewed and examined the patient and verified the suero history and physical, reviewed labs and image studies, discussed the case with the resident Dr. Amin and agree with the findings and care plan.
[2017-11-03] MEDS: POLYETHYLENE (MIRALAX) 17 GM PACK PO SCH (20:24)
[2017-11-03] MEDS: HEPARIN SOD 5000 UNIT/0.5 ML CARP SQ SCH (20:33)
[2017-11-03 22:39] VITALS: BP 159/66; PULSE 69; TEMP 37.3; O2SAT 92
[2017-11-04] MEDS: SODIUM CHLORIDE 0.9% 1000ML 1,000 ML IV SCH ×2 (06:30→16:20)
[2017-11-04 06:31] VITALS: BP 167/73; PULSE 60; TEMP 37.3; O2SAT 90
--- NOTE | 2017-11-04 06:49 | Clinical Documentation Query ---
CLINICAL DOCUMENTATION QUERY Dr. PARKS, In your clinical opinion is this patient being managed for: ( x ) Toxic /metabolic encephalopathy ( ) Not Agree ( ) Other explanation of clinical findings (No explanation is considered a No Response) ( ) Unable to determine ( ) Need to Discuss (Phone CDS or qliq) (No discussion is considered a No Response) The medical record reflects the following clinical findings, treatment, and risk factors. Clinical Indicators: 86 yo female presenting with altered mental status and suspected UTI. Per ER note, pt is normally not confused. H/P suggests altered mental status questionably related to macrobid use/dehydration/constipation. Treatment:IV fluid boluses then continuous, IV rocephin, pending blood cultures Risk Factors: age, possible UTI, dehydration, medication adverse effect Please clarify and document your clinical opinion in the progress notes and discharge summary. Terms such as "probable", "suspected", "likely", "questionable", "possible", or "still to be ruled out" are acceptable. IF IN AGREEMENT, YOU MUST DOCUMENT ABOVE DIAGNOSTIC STATEMENT IN DAILY PROGRESS NOTES AND DISCHARGE SUMMARY. This document is not part of the patient's record. Thank You, uRbi Cook, RN [phone]
[2017-11-04 07:10] LABS: HEMATOCRIT 34.5 % (37-47); HEMOGLOBIN 11.2 g/dL (12.0-16.0); MEAN CORPUSCULAR HEMOGLOBIN 32.5 pg (25-34); MEAN CORPUSCULAR HGB CONC 32.5 g/dl (32-36); MEAN PLATELET VOLUME 10.1 fL (7.4-10.4); PLATELET COUNT 219 K/uL (130-400); RED CELL DISTRIBUTION WIDTH CV 13.3 % (11.5-14.5); RED CELL DISTRIBUTION WIDTH SD 48.5 fL (36.4-46.3); WHITE BLOOD COUNT 9.38 K/uL (4.8-10.8)
[2017-11-04 07:45] LABS: CALCIUM 8.5 mg/dl (8.5-10.1); CREATININE 0.58 mg/dl (0.60-1.20); POTASSIUM 3.9 mmol/L (3.5-5.1)
[2017-11-04] MEDS: ATORVASTATIN 10 MG TAB PO SCH (08:12)
[2017-11-04] MEDS: ACETAMINOPHEN 500 MG TAB PO PRN ×2 (08:12→16:18)
[2017-11-04] MEDS: ASPIRIN 81 MG ECTAB PO SCH (08:12)
[2017-11-04] MEDS: POLYETHYLENE (MIRALAX) 17 GM PACK PO SCH ×2 (08:12→20:00)
[2017-11-04] MEDS: HEPARIN SOD 5000 UNIT/0.5 ML CARP SQ SCH ×2 (08:19→20:42)
[2017-11-04] MEDS ORDERED: SOD PHOSPHATE/SOD BIPHOSPHATE ENEMA 132 ML BTL PR STA (10:43)
[2017-11-04] MEDS ORDERED: VANCOMYCIN CONSULT ACTIVE PRN ×2 (11:30)
[2017-11-04] MEDS ORDERED: VANCOMYCIN IV 2,250 MG in SODIUM CHLORIDE 0.9% 500ML 500 ML IV ONE (12:00)
--- NOTE | 2017-11-04 12:23 | Pharmacy Progress Note ---
Pharmacy Abx Initial Consult Date of Service Nov 04, 2017. Pharmacy Dosing Scope Date of Consult: 11/04/17 Consultation requested by: Leatha Amin Pharmacy is consulted to initiate Vancomycin IV dosing therapy, order appropriate labs and adjust drug dose/frequency. Objective Height (Feet): 5 Height (Inches): 8.00 Weight (Kilograms): 91.500 Vital Signs (Past 12Hrs) Vital Signs Past 12 Hours Date Time Temp Pulse Resp B/P (MAP) Pulse Ox O2 Delivery O2 Flow Rate FiO2 11/04/17 09:41 Room Air 11/04/17 08:20 Room Air 11/04/17 06:31 37.3 60 17 167/73 (104) 90 Room Air Lab Results (24Hrs) Laboratory Tests (24 Hours) Test 11/03/17 12:40 11/04/17 06:51 White Blood Count 12.70 K/uL (4.8-10.8) H 9.38 K/uL (4.8-10.8) Red Blood Count 3.86 M/uL (4.2-5.4) L Hemoglobin 12.7 g/dL (12.0-16.0) Hematocrit 38.9 % (37-47) Mean Corpuscular Volume 100.8 fL (80-100) H Mean Corpuscular Hemoglobin 32.9 pg (25-34) Mean Corpuscular Hemoglobin Concent 32.6 g/dl (32-36) Platelet Count 246 K/uL (130-400) Mean Platelet Volume 10.5 fL (7.4-10.4) H Neutrophils (%) (Auto) 72.3 % Lymphocytes (%) (Auto) 17.3 % Monocytes (%) (Auto) 8.7 % Eosinophils (%) (Auto) 1.4 % Basophils (%) (Auto) 0.2 % Neutrophils # (Auto) 9.18 K/uL (1.4-6.5) H Lymphocytes # (Auto) 2.20 K/uL (1.2-3.4) Monocytes # (Auto) 1.11 K/uL (0.11-0.59) H Eosinophils # (Auto) 0.18 K/uL (0-0.5) Basophils # (Auto) 0.02 K/uL (0-0.2) Micro Results Date/Time Source Procedure Growth Status 11/03/17 13:11 Blood Blood Culture - Preliminary Gram Positive Cocci Resulted 11/03/17 12:40 Blood Blood Culture Pending Received Risk Factors for Resistance * Resident in a snf or extended-care facility * Of note, patient was on macrobid prior to admission. H&P reports recurrent UTIs, therefore patient may have been prescribed other antibiotics in the past 90 days but I was unable to find any upon review of available records. Assessment & Plan Assessment 86 year old female admitted with altered mental status and urinary tract infection. Patient was started on ceftriaxone IV. UA not impressive but may have been influenced by treatment with macrobid. Pharmacy was consulted to dose vancomycin IV after 04/06 BC reported gram positive cocci. Plan Vancomycin IV * Loading dose: 2250 mg (25 mg/kg) * Maintenance dose: 1250 mg IV (14 mg/kg) every 14 hours * Scr of 0.58 mg/dL with baseline ~0.8 mg/dL. Estimated vancomycin half life 9.4 -12.8 hours. * Goal trough level for possible bacteremia : 15 to 20 mcg/mL * Trough level ordered for 11/06/17 Pharmacy will continue to follow and will adjust dose/frequency as necessary. Thank you.
[2017-11-04] MEDS: CEFTRIAXONE SOD INJ 1 GM in DEXTROSE 5% ADD-VANTAGE 50ML 50 ML IV SCH (13:46)
--- NOTE | 2017-11-04 15:44 | Family Medicine Progress Note ---
Progress Note Date of Service Nov 04, 2017. 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 Constitutional: No fever, No chills Respiratory: No cough, No wheezing, No shortness of breath Cardiovascular: No chest pain Abdomen: + constipation, No pain, No nausea, No vomiting, No diarrhea Musculoskeletal: + joint pain Neurologic: + memory loss Additional Comments: ROS limited by mental status Medications Current Inpatient Medications Medications (Trade) Dose Ordered Sig/Jj Route Start Time Stop Time Status Last Admin Dose Admin Ioversol (Optiray 320) 125 ml UD PRN IV 11/03/17 15:15 11/07/17 15:14 Acetaminophen (Tylenol Tab) 650 mg Q4H PRN PO 11/03/17 17:30 12/03/17 17:29 11/04/17 01:38 650 MG Polyethylene (Miralax Powder Packet) 17 gm DAILY PRN PO 11/03/17 17:30 12/03/17 17:29 Heparin Sodium (Porcine) (Heparin Sq 5000 Unit/0.5ml) 5,000 unit Q12H SQ 11/03/17 21:00 12/03/17 17:29 11/04/17 08:19 5,000 UNIT Sodium Chloride 1,000 ml @ 100 mls/hr Q10H IV 11/03/17 17:30 12/03/17 17:29 11/04/17 06:30 100 MLS/HR Polyethylene (Miralax Powder Packet) 17 gm BID PO 11/03/17 20:00 12/03/17 19:59 11/04/17 08:12 17 GM Ceftriaxone Sodium 1 gm/ Dextrose 50 ml @ 100 mls/hr Q24H IV 11/04/17 14:00 11/12/17 14:29 11/04/17 13:46 100 MLS/HR Acetaminophen (Tylenol Tab) 1,000 mg TID PRN PO 11/03/17 17:30 12/03/17 17:29 11/04/17 08:12 1,000 MG Aspirin (Ecotrin Tab) 81 mg DAILY PO 11/04/17 08:00 12/04/17 08:59 11/04/17 08:12 81 MG Atorvastatin Calcium (Lipitor Tab) 10 mg DAILY PO 11/04/17 08:00 12/04/17 08:59 11/04/17 08:12 10 MG Senna/Docusate Sodium (Senokot S Tab) 1 tab HS PRN PO 11/03/17 17:30 12/03/17 17:29 Vancomycin HCl 1250 mg/Sodium Chloride 275 ml @ 125 mls/hr Q14H IV 11/05/17 00:00 11/18/17 11:59 Vancomycin HCl (Consult) 1 ea UD PRN N/A 11/04/17 11:30 12/04/17 11:29 Objective Vital Signs Date Time Temp Pulse Resp B/P (MAP) Pulse Ox O2 Delivery O2 Flow Rate FiO2 11/04/17 09:41 Room Air 11/04/17 08:20 Room Air 11/04/17 06:31 37.3 60 17 167/73 (104) 90 Room Air 11/04/17 00:00 Room Air 11/03/17 22:39 37.3 69 19 159/66 (97) 92 Room Air 11/03/17 19:10 37.1 76 18 176/74 92 Room Air 11/03/17 18:14 98 16 165/72 98 Room Air 11/03/17 16:58 68 11/03/17 16:41 70 18 178/77 94 Room Air Physical Exam General Appearance: WD/WN, no apparent distress Eyes: PERRL, EOMI ENT: hearing grossly normal Neck: no adenopathy Respiratory/Chest: chest non-tender, lungs clear, normal breath sounds, no respiratory distress, no accessory muscle use Cardiovascular: regular rate, rhythm, no edema, no murmur Abdomen: normal bowel sounds, non tender, soft Extremities: non-tender, no calf tenderness, + pedal edema (1-2+ bilaterally, dependent) Neurologic/Psychiatric: no motor/sensory deficits, normal mood/affect, + disoriented (x 3. Patient improved to orientation of person and hospital later in day) Skin: warm/dry, no rash Laboratory Results Last Resulted 11/04/17 06:51 Last Resulted 11/04/17 06:51 Assessment and Plan Patient is an 86yo F PMH significant for CVD s/p stenting 10 years ago, osteoarthritis, HTN who presents with a 24 hour history of altered mental status. Metabolic Encephalopathy - Multifactorial - r/o sepsis. Dehydration/ constipation. ?med side effect - Supportive care Probable Sepsis -Blood cx: 1 pos for gram pos, started on Vanc -WBC count down to normal. No fever. -check cultures -IV rocephin. Dehydration -mIVF at 100ml/hr Constipation -miralax BID until bowel movement -will change antibiotic for presumed UTI UTI -Culture not convincing, patient treated with macrobid x 3 days -UA today not indicative of UTI in setting of macrobid -possible that macrobid in setting of dehydration did not react well with patient -Rocephin 1G daily CVD -Continue atorvastatin, ASA OA/Chronic Back pain -Treat pain with tylenol HTN -Previously treated with lisinopril (led to dizziness) and losartan (was told to stop when she started using toviaz) -Continue to monitor -Consider hydralazine in setting of bradycardia -Outpatient management by PCP recommended Code: DNR DVTP: heparin Dispo: med/surg Resident Tracking Resident Involvement: Resident Care Provided Care Provided: Adult Hospital Medicine Reviewed: Pt Seen/Exam by Me History more alert today. Constitutional: denies: fever Respiratory: negative: short of breath Cardiovascular: denies chest pain General Appearance: no apparent distress Respiratory: lungs clear, no respiratory distress Cardiovascular: regular rate, rhythm Gastrointestinal: soft Neurologic/Psychiatric: alert, other (oriented x 3 but unable to remember a lot of events. ) Skin Characteristics: warm/dry Assessment/Plan Resident Physician Supervision Note: I independently interviewed and examined the patient and verified the suero history and physical, reviewed labs and image studies, discussed the case with the resident Dr. Amin and agree with the findings and care plan.
[2017-11-04 15:54] VITALS: BP 159/67; PULSE 74; TEMP 36.3; O2SAT 94
[2017-11-04] MEDS ORDERED: VANCOMYCIN TROUGH ONE (17:30)
[2017-11-04 23:18] VITALS: BP 159/72; PULSE 67; TEMP 36.4; O2SAT 91
[2017-11-05] MEDS ORDERED: VANCOMYCIN IV 1,250 MG in SODIUM CHLORIDE 0.9% 250ML 250 ML IV SCH ×2
[2017-11-05] MEDS: SODIUM CHLORIDE 0.9% 1000ML 1,000 ML IV SCH ×2 (01:19→12:01)
[2017-11-05 07:17] VITALS: BP 179/81; PULSE 68; TEMP 36.4; O2SAT 92
[2017-11-05 07:41] LABS: HEMATOCRIT 32.6 % (37-47); HEMOGLOBIN 10.7 g/dL (12.0-16.0); MEAN CORPUSCULAR HEMOGLOBIN 32.8 pg (25-34); MEAN CORPUSCULAR HGB CONC 32.8 g/dl (32-36); MEAN PLATELET VOLUME 10.3 fL (7.4-10.4); PLATELET COUNT 212 K/uL (130-400); RED CELL DISTRIBUTION WIDTH CV 13.1 % (11.5-14.5); RED CELL DISTRIBUTION WIDTH SD 47.9 fL (36.4-46.3); WHITE BLOOD COUNT 9.86 K/uL (4.8-10.8)
[2017-11-05] MEDS: ATORVASTATIN 10 MG TAB PO SCH (07:58)
[2017-11-05] MEDS: ASPIRIN 81 MG ECTAB PO SCH (07:58)
[2017-11-05] MEDS: POLYETHYLENE (MIRALAX) 17 GM PACK PO SCH ×2 (07:59→20:00)
[2017-11-05] MEDS: HEPARIN SOD 5000 UNIT/0.5 ML CARP SQ SCH ×2 (08:00→21:28)
[2017-11-05 08:07] LABS: CREATININE 0.59 mg/dl (0.60-1.20)
[2017-11-05] MEDS: CEFTRIAXONE SOD INJ 1 GM in DEXTROSE 5% ADD-VANTAGE 50ML 50 ML IV SCH (13:44)
[2017-11-05 15:26] VITALS: BP 174/77; PULSE 62; TEMP 36.4; O2SAT 93
[2017-11-05] MEDS: ACETAMINOPHEN 500 MG TAB PO PRN (16:44)
--- NOTE | 2017-11-05 19:37 | Family Medicine Progress Note ---
Progress Note Date of Service Nov 05, 2017. Subjective Pt evaluation today including: conversation w/ patient, conversation w/ family , physical exam, chart review, review of studies Pain: Denies pain PO Intake: Tolerating well Voiding: voiding difficulty Pt is pleasant, but remains disoriented. Does not appear to understand why she is in hospital. Has no complaints today. Constitutional: No fever, No chills Respiratory: No cough, No shortness of breath Cardiovascular: No chest pain Musculoskeletal: + joint pain (chronic back) Female : No dysuria All Other Systems: Reviewed and Negative Medications Current Inpatient Medications Medications (Trade) Dose Ordered Sig/Jj Route Start Time Stop Time Status Last Admin Dose Admin Ioversol (Optiray 320) 125 ml UD PRN IV 11/03/17 15:15 11/07/17 15:14 Acetaminophen (Tylenol Tab) 650 mg Q4H PRN PO 11/03/17 17:30 12/03/17 17:29 11/04/17 01:38 650 MG Polyethylene (Miralax Powder Packet) 17 gm DAILY PRN PO 11/03/17 17:30 12/03/17 17:29 Heparin Sodium (Porcine) (Heparin Sq 5000 Unit/0.5ml) 5,000 unit Q12H SQ 11/03/17 21:00 12/03/17 17:29 11/05/17 08:00 5,000 UNIT Polyethylene (Miralax Powder Packet) 17 gm BID PO 11/03/17 20:00 12/03/17 19:59 11/05/17 07:59 17 GM Ceftriaxone Sodium 1 gm/ Dextrose 50 ml @ 100 mls/hr Q24H IV 11/04/17 14:00 11/12/17 14:29 11/05/17 13:44 100 MLS/HR Acetaminophen (Tylenol Tab) 1,000 mg TID PRN PO 11/03/17 17:30 12/03/17 17:29 11/05/17 16:44 1,000 MG Aspirin (Ecotrin Tab) 81 mg DAILY PO 11/04/17 08:00 12/04/17 08:59 11/05/17 07:58 81 MG Atorvastatin Calcium (Lipitor Tab) 10 mg DAILY PO 11/04/17 08:00 12/04/17 08:59 11/05/17 07:58 10 MG Senna/Docusate Sodium (Senokot S Tab) 1 tab HS PRN PO 11/03/17 17:30 12/03/17 17:29 Objective Vital Signs Date Time Temp Pulse Resp B/P (MAP) Pulse Ox O2 Delivery O2 Flow Rate FiO2 11/05/17 15:26 36.4 62 18 174/77 (109) 93 Room Air 11/05/17 08:00 Room Air 11/05/17 07:17 36.4 68 18 179/81 (113) 92 Room Air 11/05/17 00:00 Room Air 11/04/17 23:18 36.4 67 20 159/72 (101) 91 Room Air 11/04/17 19:50 Room Air Physical Exam General Appearance: WD/WN, no apparent distress Eyes: EOMI ENT: hearing grossly normal Neck: no carotid bruits, trachea midline Respiratory/Chest: lungs clear, normal breath sounds, no respiratory distress, no accessory muscle use Cardiovascular: regular rate, rhythm, no murmur Abdomen: non tender, soft Extremities: non-tender, + pedal edema (1-2+bilat) Neurologic/Psychiatric: + disoriented (oriented to self) Skin: normal color Laboratory Results Last Resulted 11/05/17 07:06 Last Resulted 11/04/17 06:51 11/05/17 07:06 Assessment and Plan Patient is an 86yo F PMH significant for CVD s/p stenting 10 years ago, osteoarthritis, HTN who presented with a 24 hour history of altered mental status. Metabolic Encephalopathy - Multifactorial - ruled out sepsis. Dehydration/ constipation. ?med side effect - Supportive care One positive blood culture - likely contaminant -Blood cx: 1 pos for gram pos, started on Vanc. 2nd culture negative, DCd vancomycin -WBC normal. No fever. -IV rocephin. Dehydration -resolved with fluids - IVF discontinued today Constipation - resolved. -miralax BID -Recommend she continue bowel regimen on DC to prevent constipation in future UTI -Culture not convincing, patient treated with macrobid x 3 days -UA today not indicative of UTI in setting of macrobid -possible that macrobid in setting of dehydration did not react well with patient -Rocephin 1G daily CVD -Continue atorvastatin, ASA OA/Chronic Back pain -Treat pain with tylenol HTN -Previously treated with lisinopril (led to dizziness) and losartan (was told to stop when she started using toviaz) -Continue to monitor -Consider hydralazine prn in setting of bradycardia -Outpatient management by PCP recommended Code: DNR DVTP: heparin Dispo: med/surg. Patient originally cleared to return to [facility], however has had increased requirements from nursing staff. [facility] placement. Resident Tracking Resident Involvement: Resident Care Provided Care Provided: Adult Hospital Medicine Reviewed: Pt Seen/Exam by Me History continues to be more alert Constitutional: denies: fever Respiratory: negative: short of breath Cardiovascular: denies chest pain General Appearance: no apparent distress Respiratory: lungs clear, no respiratory distress Cardiovascular: regular rate, rhythm Neurologic/Psychiatric: alert, oriented x 3 Skin Characteristics: warm/dry Assessment/Plan Resident Physician Supervision Note: I independently interviewed and examined the patient and verified the suero history and physical, reviewed labs and image studies, discussed the case with the resident Dr. Amin and agree with the findings and care plan.
[2017-11-05 23:46] VITALS: BP 202/86; PULSE 77; TEMP 36.8; O2SAT 92
[2017-11-06 00:12] VITALS: BP 190/84; PULSE 69
[2017-11-06 06:37] LABS: CREATININE 0.57 mg/dl (0.60-1.20)
[2017-11-06 07:09] VITALS: BP_SYST 193; BP_SYST 199; BP_DIAS 82; BP_DIAS 91; PULSE 79; TEMP 37; O2SAT 90
[2017-11-06] MEDS: POLYETHYLENE (MIRALAX) 17 GM PACK PO SCH (07:49)
[2017-11-06 08:00] VITALS: O2SAT 90
--- NOTE | 2017-11-06 08:12 | Family Medicine Progress Note ---
Progress Note Date of Service Nov 06, 2017. Medications Current Inpatient Medications Medications (Trade) Dose Ordered Sig/Jj Route Start Time Stop Time Status Last Admin Dose Admin Ioversol (Optiray 320) 125 ml UD PRN IV 11/03/17 15:15 11/07/17 15:14 Acetaminophen (Tylenol Tab) 650 mg Q4H PRN PO 11/03/17 17:30 12/03/17 17:29 11/04/17 01:38 650 MG Polyethylene (Miralax Powder Packet) 17 gm DAILY PRN PO 11/03/17 17:30 12/03/17 17:29 Heparin Sodium (Porcine) (Heparin Sq 5000 Unit/0.5ml) 5,000 unit Q12H SQ 11/03/17 21:00 12/03/17 17:29 11/05/17 21:28 5,000 UNIT Polyethylene (Miralax Powder Packet) 17 gm BID PO 11/03/17 20:00 12/03/17 19:59 11/05/17 07:59 17 GM Ceftriaxone Sodium 1 gm/ Dextrose 50 ml @ 100 mls/hr Q24H IV 11/04/17 14:00 11/12/17 14:29 11/05/17 13:44 100 MLS/HR Acetaminophen (Tylenol Tab) 1,000 mg TID PRN PO 11/03/17 17:30 12/03/17 17:29 11/05/17 16:44 1,000 MG Aspirin (Ecotrin Tab) 81 mg DAILY PO 11/04/17 08:00 12/04/17 08:59 11/05/17 07:58 81 MG Atorvastatin Calcium (Lipitor Tab) 10 mg DAILY PO 11/04/17 08:00 12/04/17 08:59 11/05/17 07:58 10 MG Senna/Docusate Sodium (Senokot S Tab) 1 tab HS PRN PO 11/03/17 17:30 12/03/17 17:29 Objective Vital Signs Date Time Temp Pulse Resp B/P (MAP) Pulse Ox O2 Delivery O2 Flow Rate FiO2 11/06/17 08:00 90 Room Air 11/06/17 07:09 37.0 79 20 193/82 (119) 90 Room Air 199/91 (127) 11/06/17 00:12 69 190/84 (119) 11/06/17 00:00 Room Air 11/05/17 23:46 36.8 77 20 202/86 (124) 92 Room Air 11/05/17 15:26 36.4 62 18 174/77 (109) 93 Room Air Laboratory Results 11/06/17 06:08 Test 11/06/17 06:08 Est Creatinine Clear Calc Drug Dose 85.4 ml/min Estimated GFR () 98.0 Estimated GFR (Non- 84.5 Resident Tracking Resident Involvement: Resident Care Provided Care Provided: Adult Hospital Medicine (inpatient)
[2017-11-06] MEDS: ASPIRIN 81 MG ECTAB PO SCH (09:07)
[2017-11-06] MEDS: ATORVASTATIN 10 MG TAB PO SCH (09:07)
[2017-11-06] MEDS: HEPARIN SOD 5000 UNIT/0.5 ML CARP SQ SCH (09:09)
[2017-11-06] MEDS ORDERED: AMLODIPINE BESYLATE 5 MG TAB PO ONE (10:30)
[2017-11-06] MEDS ORDERED: NRV5 PO (10:59)
--- NOTE | 2017-11-06 11:27 | Discharge Instructions ---
Discharge Instructions Date of Service Nov 06, 2017. Admission Reason for Admission: Altered Mental Status; Dehydration Discharge Discharge Diagnosis / Problem: Altered mental status, metabolic encephalopathy Discharge Goals Goal(s): Improve function, Increase independence, Improve disease control Activity Recommendations Activity Level: Assistance Required . Additional Information Patient informed of condition: Yes (Though has some residual confusion.) Advance Directives: Yes DNR: Yes Level of Care: Skilled Communicable Disease: No Prognosis: Improving Brennan Catheter: Yes (Can be removed at your discretion) Instructions / Follow-Up Instructions / Follow-Up Patient was admitted for change in her mental status. This was thought to be related to combination of dehydration and constipation. Both have resolved. She remains confused at the time of her discharge, with a question of how much of this is acute versus chronic. Requiring increasing support compared to her previous baseline. Regarding her Brennan catheter, it was placed during the time of her initial evaluation. This can be removed at the discretion of the [facility] staff, as it does not appear she has a urinary tract infection present. Otherwise, her home medications remained roughly the same. She was started on amlodipine 5 mg p.o. daily. We would recommend this be titrated up to provide better control of her hypertension. Please see full discharge summary for further discussion. Current Hospital Diet Patient's current hospital diet: AHA Diet (Heart Healthy) Discharge Diet Recommended Diet: AHA Diet (Heart Healthy) Pending Studies Studies pending at discharge: no Medical Emergencies . Who to Call and When: Medical Emergencies: If at any time you feel your situation is an emergency, please call 911 immediately. . Non-Emergent Contact Non-Emergency issues call your: Primary Care Provider . Core Measure Problem Core Measures: None
[2017-11-06 11:30] VITALS: BP 199/91; PULSE 79; TEMP 37; O2SAT 90
--- NOTE | 2017-11-06 11:30 | Discharge Summary ---
Discharge Summary Date of Service Nov 06, 2017. Discharge Summary Admission Date: Nov 03, 2017 at 17:36 Discharge Date: Nov 06, 2017 Discharge Disposition: Rehab Principal Diagnosis: Metabolic encephalopathy Problems/Secondary Diagnoses: Dehydration Constipation Hypertension Procedures: Single view chest x-ray on 03 November 2017 IMPRESSION: No acute process. CT of head without contrast on 03 November 2017 Impression: Age-related change. No acute process CT of abdomen and pelvis with IV contrast on 03 November 2017 IMPRESSION: 1. No acute intra-abdominal or intrapelvic abnormality identified. 2. Cholelithiasis without CT evidence of acute cholecystitis. 3. Colonic diverticulosis without diverticulitis. 4. No bowel obstruction or focal bowel wall thickening. 5. Additional findings as above. Consultations: None Medication Reconciliation New Medications: Amlodipine Besylate (Amlodipine Besylate) 5 Mg Tab 5 MG PO QAM for 30 Days, #30 TAB 0 Refills Continued Medications: Acetaminophen (Tylenol) 500 Mg Tab 1000 MG PO DAILY Acetaminophen (Tylenol) 500 Mg Tab 1000 MG PO TID PRN for Pain Aspirin (Aspirin Ec) 81 Mg Tab 81 MG PO DAILY Atorvastatin (Lipitor) 10 Mg Tab 10 MG PO DAILY Cholecalciferol (Vitamin D3) 2,000 Unit Cap 2000 INTER.UNIT PO BID Estrogens, Conjugated (Premarin) 14 Appln/30 Gm Cr 0.5 GM PV 2XWK Fesoterodine Fumarate (Toviaz) 4 Mg Tab 4 MG PO BID Ibuprofen (Advil) 200 Mg Tab 600 MG PO QAM Ibuprofen (Advil) 200 Mg Tab 400 MG PO QPM PRN for Pain Nitroglycerin (Nitrostat) 0.4 Mg Tab 0.4 MG UT PRN Psyllium (Metamucil) 48.57 % Pow 1 TSP PO DIRECTED MIX IN 8 OZ OF BEVERAGE 1 OR 2 TIMES DAILY NEEDED FOR BOWEL MOVEMENTS Sennosides-Docusate Sodium (Sennalax-S) 1 Tab Tab 1 TAB PO HS PRN for Constipation Discontinued Medications: Nitrofurantoin Monohyd Macrocr (Macrobid) 100 Mg Cap 100 MG PO BID Discharge Exam Unable to obtain review of systems due to disorientation General Appearance: Awake, answers questions mostly with "I do not know" but does remember her daughter coming to visit her yesterday. Oriented to self only. Not oriented to birthday, location ("[place]"), or why she is here. CV: +S1S2 RRR, no murmur. Pulm: Clear to auscultation throughout. Abdomen: +BS, soft, non-tender, non-distended. Extremities: Trace bilateral pedal edema or calf tenderness. Moving all extremities naturally and easily. Neuro: Responds to commands. Hospital Course HPI at time of admission on Nov 03, 2017 at 18:21 Patient is an 86 yo F resident of [facility] who presents to the ED today with altered mental status. Daughter is present in the room with the patient. Patient had been in the ED yesterday after a fall for thoracic pain which she states has resolved. At that visit she and ED staff report she was perfectly lucid. She reports that after returning to [facility] from the ED yesterday, she was very tired and did not even recall eating dinner or breakfast today as she felt she was so tired. Of note, she has a history of recurrent UTIs and felt symptomatic 3 days ago. A culture was sent which did not strongly indicate UTI, however she was treated with Macrobid and has received 2 days of treatment. She also has a h/o bowel incontinence and has been taking immodium to prevent the incontinence while on macrobid. She cannot recall the last time she had a bowel movement. History is limited by mental status. Daughter states she has been having several bouts of confusion noticeable starting around October 06, and are usually associated with urinary symptoms. 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 PMH: Hypertension, hyperlipidemia, UTI, coronary artery disease, osteoarthritis , overactive bladder, status post three-vessel CABG, appendectomy. Metabolic encephalopathy: Likely multifactorial in source, to include dehydration and constipation. Provided supportive care. Please see further discussion below. Dehydration: As suggested by elevated BUN to creatinine ratio. Resolved with IV fluids. Constipation: Had previously been on Imodium for incontinence but no recent stools. In hospital this resolved with MiraLAX. Recommend outpatient bowel regimen going forward. Question of a UTI: Per report, had previously been on Macrobid for three days based on a questionable outpatient urine culture. Urinalysis on admission was not suggestive of UTI. Was briefly on Rocephin here but was discontinued at time of discharge. Hypertension: Per history, was previously on lisinopril (but led to dizziness) and losartan (but was told to stop and started on toviaz). Her blood pressures noted to be systolics in the 190's as an inpatient. - Started on amlodipine 5 mg daily at time of discharge. Would recommend titration as an outpatient for better hypertension control. CAD: Continue atorvastatin and aspirin. No acute changes. Osteoarthritis and chronic back pain: On Tylenol and ibuprofen as needed as an outpatient. Recommended inpatient rehabilitation at time of discharge due to increased need for nursing assistance with ADLs. Total Time Spent: Greater than 30 minutes This includes examination of the patient, discharge planning, medication reconciliation, and communication with other providers. Discharge Instructions Please refer to the electronic Patient Visit Report (Discharge Instructions) for additional information. Additional Copies To [facility]; Ankit Anthony M.D.; [facility] Resident Tracking Resident Involvement: Resident Care Provided Care Provided: Adult Hospital Medicine (inpatient) Reviewed: Pt Seen/Exam by Me History no new concerns overnight. confused off and on. Constitutional: denies: fever Respiratory: negative: short of breath Cardiovascular: denies chest pain General Appearance: no apparent distress Respiratory: lungs clear, no respiratory distress Cardiovascular: regular rate, rhythm Neurologic/Psychiatric: other (sleeping - easily arousable) Assessment/Plan Resident Physician Supervision Note: I independently interviewed and examined the patient and verified the suero history and physical, reviewed labs and image studies, discussed the case with the resident Dr. Lovelace and agree with the findings and care plan. Time spent in discharge 35 min
[2017-11-06] MEDS ORDERED: VANCOMYCIN TROUGH ONE (17:30)
[2017-11-07] MEDS ORDERED: AMLODIPINE BESYLATE 5 MG TAB PO SCH (08:00)
== END 2017-11-06 13:30 | DRG 640 ==
LOC: EDBD 12:32 → C.EDB 12:34 → C.MS4W 17:36 → ENRESERV 17:56 → C.4E 11-05 16:09
PROVIDERS: ADMIT Family Medicine; ATTEND Family Medicine
DX: E86.0 Dehydration (principal); G93.41 Metabolic encephalopathy; I25.10 Atherosclerotic heart disease of native coronary artery without angina pectoris; Z95.1 Presence of aortocoronary bypass graft; Z79.82 Long term (current) use of aspirin; Z88.1 Allergy status to other antibiotic agents; Z88.0 Allergy status to penicillin; K59.00 Constipation, unspecified; M19.90 Unspecified osteoarthritis, unspecified site; I10 Essential (primary) hypertension; Z87.440 Personal history of urinary (tract) infections; N32.81 Overactive bladder; Z66 Do not resuscitate

== ENCOUNTER → 2017-11-17 | Outpatient (CLI) | payer OTHER, BC ==
[~2017-11-17] MED LIST changes: +ACET-1256 PO; +ATOR10TA82 PO; +IBUP-1050 PO; +NRV5 PO; +NTRGSL/4 UT; +PRMVC PV; +PSYL48.59 PO; +SENN1TAB86 PO
== END | disposition home or self-care (01) ==
LOC: C.RDSM 08:07
PROVIDERS: ATTEND Orthopaedic Surgery
DX: M25.569 Pain in unspecified knee (principal); Z88.0 Allergy status to penicillin; Z88.1 Allergy status to other antibiotic agents; Z88.6 Allergy status to analgesic agent

== ENCOUNTER → 2017-11-18 | Outpatient (CLI) | payer OTHER, BC ==
--- NOTE | 2017-11-18 15:34 | DIAGNOSTIC IMAGING REPORT ---
HEAD WITHOUT CONTRAST (CT) CT DOSE: 729.78 mGycm HISTORY: Mental status change AMS TECHNIQUE: Multiaxial CT images of the head were performed without the use of intravenous contrast. A dose lowering technique was utilized adhering to the principles of ALARA. Comparison: 11/03/2017 Findings: The paranasal sinuses and mastoid air cells are clear. Unchanging mild hydrocephalus. Moderate chronic small vessel change. Atrophy of aging. No new or interval process compared to the prior study. Impression: Mild stable hydrocephalus. Moderate chronic small vessel change. Age-related change. No new finding. The above report was generated using voice recognition software. It may contain grammatical, syntax or spelling errors. Electronically signed by: Lawrence Goldsmith M.D. 11/18/2017 3:33 PM Dictated Date/Time: 11/18/2017 3:32 PM
== END | disposition home or self-care (01) ==
LOC: C.CTS 15:05
PROVIDERS: ATTEND Internal Medicine Hospice and Palliative Medicine
DX: R41.82 Altered mental status, unspecified (principal)

== ENCOUNTER 2018-09-15 21:38 | Inpatient (IN) ==
[2018-09-15] MEDS ORDERED: SODIUM CHLORIDE 0.9% 1000ML 500 ML IV ONE (22:28)
[2018-09-15] MEDS ORDERED: SODIUM CHLORIDE 0.9% 1000ML 1,000 ML IV SCH (22:30)
[2018-09-15 22:59] LABS: Basophils # (auto) 0.01 K/uL (0-0.2); Basophils % (auto) 0.1 %; Eosinophils # (auto) 0.01 K/uL (0-0.5); Eosinophils % (auto) 0.1 %; Hematocrit (blood only) 35.7 % (37-47); Hemoglobin 11.9 g/dL (12.0-16.0); Immature Granulocytes # (auto) 0.04 K/uL (0.00-0.02); Immature Granulocytes % (auto) 0.3 %; Lymphocytes # (auto) 1.64 K/uL (1.2-3.4); Lymphocytes % (auto) 10.9 %; Mean Corpuscular Hgb Conc 33.3 g/dL (32-36); Mean Corpuscular Volume 98.1 fL (80-100); Mean Platelet Volume 10.4 fL (7.4-10.4); Monocytes # (auto) 1.34 K/uL (0.11-0.59); Monocytes % (auto) 8.9 %; Neutrophils # (auto) 11.98 K/uL (1.4-6.5); Neutrophils % (auto) 79.7 %; Platelet Count 232 K/uL (130-400); RDW Coefficient of Variation 12.9 % (11.5-14.5); RDW Standard Deviation 46.5 fL (36.4-46.3); Red Blood Count 3.64 M/uL (4.2-5.4); White Blood Count 15.02 K/uL (4.8-10.8)
[2018-09-15 23:13] LABS: Appearance Urine Clear (Clear); Bilirubin Urine Negative (Negative); Blood Urine Negative (Negative); Color Urine Yellow; Epithelial Cell Urine Auto 0-5 /lpf (0-5); Glucose Urine UA Negative (Negative); Ketones Urine Negative (Negative); Leukocyte Esterase Urine Trace (Negative); Nitrite Urine Negative (Negative); Protein Urine Negative (Negative); RBC Urine Automated 0-4 /hpf (0-4); Specific Gravity Urine 1.018 (1.000-1.030); Urobilinogen Urine Negative (Negative); pH Urine 5.5 (4.5-7.5)
[2018-09-15 23:18] LABS: Albumin Level 3.4 gm/dl (3.4-5.0); BUN Creatinine Ratio 22.5 (10-20); Calcium 9.3 mg/dl (8.5-10.1); Creatinine Clr Calc Pharmacy 61.4 ml/min; Est GFR (African American) 78.6; Est GFR (Non-African American) 67.8; Potassium 4.1 mmol/L (3.5-5.1)
[2018-09-15 23:21] LABS: Bilirubin,Total 1.6 mg/dl (0.2-1); Globulin 3.4 gm/dl (2.5-4.0); Total Protein 6.8 gm/dl (6.4-8.2)
[2018-09-15 23:50] LABS: Bacteria Urine Automated 1+ (Negative)
[2018-09-15] MEDS ORDERED: cefTRIAXone SODIUM 1,000 MG in DEXTROSE 5% 50 ML IV STA (23:59)
[2018-09-16] MEDS ORDERED: ACETAMINOPHEN 500 MG TAB PO STA (00:05)
[2018-09-16] MEDS ORDERED: cefTRIAXone SODIUM 1000MG/50ML D5W ONE (00:18)
--- NOTE | 2018-09-16 00:50 | Emergency Department Note ---
Entered by Joanna Connell acting as a scribe for History of Present Illness General Chief complaint: Fall Stated complaint: FALLS, WEAKNESS, UNBLE TO AMBULATE, FEVER Time Seen by Provider: 09/15/18 22:17 Source: patient and family History of Present Illness Provider complaint: Fever Onset (ago): day(s) 1 Pain Consistency: + intermittent Quality: + other (febrile) Associated symptoms: + denies other symptoms (sore throat, abdominal pain, urinary symptoms, diarrhea) and + chest pain; no cough, no nausea/vomiting and no shortness of breath Treatments prior to arrival: none The patient is an 87 year old female who presents to the ED with complaints of an intermittent fever that started last night. Per daughter, the patient had a 102 degree fever that began last night which has been fluctuating ever since. The patient states that she cant stay awake anymore. The daughter states that the patient has also had 2 episodes of a fall tonight. The patient denies a cough, shortness of breath, sore throat, abdominal pain, urinary symptoms, vomiting and diarrhea. Home Medications Home Medications Medication Instructions Recorded Confirmed Type Toviaz 4 mg PO BID 05/14/18 09/15/18 History acetaminophen 500 mg tablet 500 mg PO Q4H PRN #90 tab 09/08/18 09/15/18 Rx amlodipine 5 mg tablet 5 mg PO DAILY #90 tab 09/08/18 09/15/18 Rx aspirin 81 mg tablet,delayed 81 mg PO DAILY #90 tab 09/08/18 09/15/18 Rx release atorvastatin 10 mg tablet 10 mg PO DAILY #90 tab 09/08/18 09/15/18 Rx cholecalciferol (vitamin D3) 2,000 2,000 unit PO BID #180 cap 09/08/18 09/15/18 Rx unit capsule diclofenac 1 % topical gel 2 gm TOP QID PRN 30 Days #100 gm 09/08/18 09/15/18 Rx guaifenesin 200 mg tablet 200 mg PO BID PRN #120 tab 09/08/18 09/15/18 Rx ibuprofen 600 mg tablet 600 mg PO QAM #90 tab 09/08/18 09/15/18 Rx loperamide 2 mg tablet 2 mg PO Q3H PRN #240 tab 09/08/18 09/15/18 Rx magnesium hydroxide 400 mg/5 mL 30 ml PO DAILY PRN #118 ml 09/08/18 09/15/18 Rx oral suspension nitroglycerin 0.4 mg sublingual 0.4 mg SL .DISSOLVE ONE TABLET 09/08/18 09/15/18 Rx tablet #100 tab nystatin 100,000 unit/gram topical 1 appln TOP BID PRN #30 gm 09/08/18 09/15/18 Rx cream turmeric 400 mg capsule 900 mg PO DAILY #90 cap 09/08/18 09/15/18 Rx pantoprazole 20 mg tablet,delayed 20 mg PO DAILY #30 tab 09/12/18 09/15/18 Rx release tramadol 50 - 100 mg PO Q6H PRN 09/15/18 09/15/18 History Allergies Allergy/AdvReac Type Severity Reaction Status Date / Time Cipro Allergy Unknown UNKNOWN Verified 11/02/17 10:30 ciprofloxacin Allergy Unknown UNKNOWN Verified 09/15/18 23:50 ezetimibe Allergy Unknown UNKNOWN Verified 09/15/18 23:50 Penicillins Allergy Unknown Unknown Verified 09/15/18 23:50 simvastatin Allergy Unknown UNKNOWN Verified 09/15/18 23:50 codeine AdvReac Mild GI SYMPTOMS Verified 09/15/18 23:50 Past Med/Surg History Medical History Carpal tunnel syndrome (Acute) Bilateral, confirmed with nerve conduction studies (2016). Has declined surgery. Chronic osteoarthritis (Chronic) Multiple joints affected. Hips have been a concern with recent corticosteroid injections. Risks associated with chronic NSAIDs previously discussed and currently managed with NSAID + APAP. Dementia (Acute) Steady decline in cognitive function. Evaluated by neurology (02/20). Declines further medication therapy. Dyslipidemia (Chronic) Secondary prevention. Currently taking moderate intensity statin (atorvastatin 10mg daily). Hyperglycemia (Acute) SVT (supraventricular tachycardia) (Acute) Vaginal wall prolapse (Acute) Vitamin D deficiency (Acute) Previously below 20 ng/mL. Now >30 on Vit D supplementation. Spinal stenosis (Chronic) MRI (07/17) severe degenerative disease, along with moderate to severe spinal stenosis. 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 No subsequent stenting. Family History Father Myocardial infarction Mother Myocardial infarction Other Family history non-contributory No significant family history Social History Preferred Language: Liberian Communication Ability: Effective Beliefs That Will Affect Care: None Current Living Situation: Senior Care Current Living Situation Comment: [place] Feels Safe at Home: Yes Smoking Status: Never smoker Hx Alcohol Use: No Hx Substance Use: No Review of Systems See HPI for pertinent positives & negatives. and A total of 10 systems reviewed and were otherwise negative Physical Exam Vital Signs Vital Signs - 24 hr 09/15/18 22:01 09/15/18 23:14 09/16/18 00:15 Temperature 38.9 C H 36.8 C Temperature Source Oral Oral Sepsis Recent Fever Within 48 Hours Yes Sepsis New/Unexplained Change in Mental Status No Sepsis Action Taken by Nursing No Action Required Pulse Rate 86 Pulse Rate [Right Finger] 79 169 H Pulse Rhythm [Right Finger] Regular Pulse Strength [Right Finger] Normal Respiratory Rate 18 16 16 Respiratory Effort / Characteristics Non-Labored Non-Labored Respiratory Depth Normal Normal Respiratory Pattern Regular Regular Blood Pressure 145/81 H Blood Pressure [Right Arm] 151/72 H 169/67 H Blood Pressure Mean 102 Blood Pressure Mean [Right Arm] 98 101 Blood Pressure Position [Right Arm] Lying Lying Pulse Oximetry 94 93 98 Oxygen Delivery Method Room Air Room Air Nasal Cannula Oxygen Flow Rate 2 CONSTITUTIONAL/VITAL SIGNS: Reviewed / noted above. GENERAL: Non-toxic in appearance. Generalized weakness. INTEGUMENTARY: Warm, dry, and [place]. HEAD: Normocephalic. EYES: without scleral icterus or trauma. ENT/OROPHARYNX: clear. Mucous membranes slightly dry. LYMPHADENOPATHY/NECK: Is supple without lymphadenopathy or meningismus. RESPIRATORY: Lungs clear and equal. CARDIOVASCULAR: Regular rate and rhythm. GI/ABDOMEN: Soft and nontender. No organomegaly or pulsatile mass. No rebound or guarding. Normal bowel sounds. EXTREMITIES: Warm and well perfused. BACK: No CVA tenderness. NEUROLOGICAL: Intact without focal deficits. PSYCHIATRIC: normal affect. MUSCULOSKELETAL: Normally developed with good muscle tone. Course 2223: Past medical records reviewed. The patient was evaluated in room B12. A complete history and physical exam was performed. 0022: I discussed the [facility]'s [facility] He will evaluate the patient for further management. Consultations Consultation #1: I discussed the patient's case with Dr. Garcia [facility] Hospitalist. He will evaluate the patient for further management. Time: 00:22 Administered Medications Discontinued Medications Acetaminophen (Tylenol) 500 mg PO NOW STA Stop: 09/16/18 00:06 Last Admin: 09/16/18 00:14 Dose: 500 mg Documented by: [id number] Ceftriaxone Sodium (Rocephin) Confirm Administered Dose 1,000 mg .ROUTE .STK-MED ONE Stop: 09/16/18 00:19 Last Admin: 09/16/18 00:27 Dose: Not Given Documented by: [id number] Sodium Chloride (Nss 1000ml) 500 mls @ 999 mls/hr IV .Q31M ONE Stop: 09/15/18 22:58 Last Admin: 09/16/18 00:27 Dose: 999 mls/hr Documented by: [id number] Sodium Chloride (Nss 1000ml) 1,000 mls @ 999 mls/hr IV .Q1H1M JOHN Stop: 09/15/18 23:30 Last Infusion: 09/16/18 00:14 Dose: 0 mls/hr Documented by: [id number] Admin: 09/15/18 22:59 Dose: 999 mls/hr Documented by: [id number] Ceftriaxone Sodium 1,000 mg/ (Dextrose) 60 mls @ 100 mls/hr IV NOW STA; Protocol Stop: 09/16/18 00:34 Last Admin: 09/16/18 00:27 Dose: 100 mls/hr Documented by: [id number] Medical Decision Making Medical Records Attestation: I reviewed the patient's medical records. Home Medications Current Medication List: was personally reviewed by me Laboratory Data Attestation: I reviewed the patient's lab results. Result diagrams: 09/15/18 22:34 09/15/18 22:34 Lab Results 09/15/18 09/15/18 09/15/18 Range/Units 22:34 22:34 22:41 WBC 15.02 H (4.8-10.8) K/uL RBC 3.64 L (4.2-5.4) M/uL Hgb 11.9 L (12.0-16.0) g/dL Hct 35.7 L (37-47) % MCV 98.1 (80-100) fL MCH 32.7 (25-34) pg MCHC 33.3 (32-36) g/dL RDW Std Deviation 46.5 H (36.4-46.3) fL RDW Coeff of Luis 12.9 (11.5-14.5) % Plt Count 232 (130-400) K/uL MPV 10.4 (7.4-10.4) fL Immature Gran % (Auto) 0.3 % Neut % (Auto) 79.7 % Lymph % (Auto) 10.9 % [place] % (Auto) 8.9 % Eos % (Auto) 0.1 % Baso % (Auto) 0.1 % Immature Gran # (Auto) 0.04 H (0.00-0.02) K/uL Neut # (Auto) 11.98 H (1.4-6.5) K/uL Lymph # (Auto) 1.64 (1.2-3.4) K/uL [place] # (Auto) 1.34 H (0.11-0.59) K/uL Eos # (Auto) 0.01 (0-0.5) K/uL Baso # (Auto) 0.01 (0-0.2) K/uL Sodium 137 (136-145) mmol/L Potassium 4.1 (3.5-5.1) mmol/L Chloride 102 (98-107) mmol/L Carbon Dioxide 29 (21-32) mmol/L Anion Gap 6.0 (3-11) BUN 18 (7-18) mg/dl Creatinine 0.79 (0.6-1.2) mg/dl Est Cr Clr Drug Dosing 61.4 ml/min Est GFR ( Amer) 78.6 Est GFR (Non-Af Amer) 67.8 BUN/Creatinine Ratio 22.5 H (10-20) Glucose 135 H (70-99) mg/dl POC Lactic Acid Raj 0.66 L (0.90-1.70) mmol/L Calcium 9.3 (8.5-10.1) mg/dl Total Bilirubin 1.6 H (0.2-1) mg/dl AST 17 (15-37) U/L ALT 22 (12-78) U/L Alkaline Phosphatase 57 (45-117) U/L Total Protein 6.8 (6.4-8.2) gm/dl Albumin 3.4 (3.4-5.0) gm/dl Globulin 3.4 (2.5-4.0) gm/dl Albumin/Globulin Ratio 1.0 (0.9-2) Urine Color Urine Appearance (Clear) Urine pH (4.5-7.5) Ur Specific [place] (1.000-1.030) Urine Protein (Negative) Urine Glucose (UA) (Negative) Urine Ketones (Negative) Urine Blood (Negative) Urine Nitrite (Negative) Urine Bilirubin (Negative) Urine Urobilinogen (Negative) Ur Leukocyte Esterase (Negative) Urine WBC (Auto) (0-5) /hpf Urine RBC (Auto) (0-4) /hpf U Hyaline Cast (Auto) (0-5) /lpf U Epithel Cells (Auto) (0-5) /lpf Urine Bacteria (Auto) (Negative) Urine Yeast 09/15/18 Range/Units 22:52 WBC (4.8-10.8) K/uL RBC (4.2-5.4) M/uL Hgb (12.0-16.0) g/dL Hct (37-47) % MCV (80-100) fL MCH (25-34) pg MCHC (32-36) g/dL RDW Std Deviation (36.4-46.3) fL RDW Coeff of Luis (11.5-14.5) % Plt Count (130-400) K/uL MPV (7.4-10.4) fL Immature Gran % (Auto) % Neut % (Auto) % Lymph % (Auto) % [place] % (Auto) % Eos % (Auto) % Baso % (Auto) % Immature Gran # (Auto) (0.00-0.02) K/uL Neut # (Auto) (1.4-6.5) K/uL Lymph # (Auto) (1.2-3.4) K/uL [place] # (Auto) (0.11-0.59) K/uL Eos # (Auto) (0-0.5) K/uL Baso # (Auto) (0-0.2) K/uL Sodium (136-145) mmol/L Potassium (3.5-5.1) mmol/L Chloride (98-107) mmol/L Carbon Dioxide (21-32) mmol/L Anion Gap (3-11) BUN (7-18) mg/dl Creatinine (0.6-1.2) mg/dl Est Cr Clr Drug Dosing ml/min Est GFR ( Amer) Est GFR (Non-Af Amer) BUN/Creatinine Ratio (10-20) Glucose (70-99) mg/dl POC Lactic Acid Raj (0.90-1.70) mmol/L Calcium (8.5-10.1) mg/dl Total Bilirubin (0.2-1) mg/dl AST (15-37) U/L ALT (12-78) U/L Alkaline Phosphatase (45-117) U/L Total Protein (6.4-8.2) gm/dl Albumin (3.4-5.0) gm/dl Globulin (2.5-4.0) gm/dl Albumin/Globulin Ratio (0.9-2) Urine Color Yellow Urine Appearance Clear (Clear) Urine pH 5.5 (4.5-7.5) Ur Specific [place] 1.018 (1.000-1.030) Urine Protein Negative (Negative) Urine Glucose (UA) Negative (Negative) Urine Ketones Negative (Negative) Urine Blood Negative (Negative) Urine Nitrite Negative (Negative) Urine Bilirubin Negative (Negative) Urine Urobilinogen Negative (Negative) Ur Leukocyte Esterase Trace H (Negative) Urine WBC (Auto) 5-10 H (0-5) /hpf Urine RBC (Auto) 0-4 (0-4) /hpf U Hyaline Cast (Auto) 5-10 H (0-5) /lpf U Epithel Cells (Auto) 0-5 (0-5) /lpf Urine Bacteria (Auto) 1+ H (Negative) Urine Yeast Not Reportable Imaging Data Attestation: I personally reviewed and interpreted this imaging study as follows: My Impression: Chest X-Ray No acute disease, no pneumonia, no pneumothorax Blood Pressure Blood Pressure Findings: Elevated blood pressure Blood Pressure Disposition: further management by hospitalist [facility] Narrative This is an 87-year-old female who presents to the ED with a chief complaint of a fever and generalized weakness. The patient states that she is felt very drowsy and tired. She fell twice tonight because of the symptoms. She has a temperature here of 38.9. She has had a fever since yesterday. The patient resides at assisted living program at [facility]. Her white blood cell count is 15,000. Chest x-ray did not show acute process. Urine suggest infection. The patient was treated with IV Rocephin. She was given some IV fluids. She was told the results. She is going to be seen by the hospitalist for further inpatient evaluation care to the UTI, falls and weakness. Impression & Plan Acute UTI, Falls, Weakness Discharge Plan Visit Data Chief Complaint: Fall Stated Complaint: FALLS, WEAKNESS, UNBLE TO AMBULATE, FEVER ED Provider: Saran Florez Discharge Problem: Acute UTI, Falls, Weakness Patient Disposition: Being Evaluated by Hospitalist Forms Stand Alone Forms: [facility] Prescriptions Prescriptions: No Action pantoprazole 20 mg tablet,delayed release (DR/EC) 20 mg PO DAILY Qty: 30 RF: 2 acetaminophen [Tylenol Extra Strength] 500 mg tablet 500 mg PO Q4H PRN (Reason: Pain) Qty: 90 RF: 0 amlodipine 5 mg tablet 5 mg PO DAILY Qty: 90 RF: 3 aspirin [Aspir-81] 81 mg tablet,delayed release (DR/EC) 81 mg PO DAILY Qty: 90 RF: 3 atorvastatin 10 mg tablet 10 mg PO DAILY Qty: 90 RF: 3 cholecalciferol (vitamin D3) [Vitamin D3] 2,000 unit capsule 2,000 unit PO BID Qty: 180 RF: 3 ibuprofen 600 mg tablet 600 mg PO QAM Qty: 90 RF: 0 loperamide 2 mg tablet 2 mg PO Q3H PRN (Reason: Diarrhea) Qty: 240 RF: 0 nitroglycerin 0.4 mg tablet, sublingual 0.4 mg SL .DISSOLVE ONE TABLET Qty: 100 RF: 0 turmeric 400 mg capsule 900 mg PO DAILY Qty: 90 RF: 3 guaifenesin 200 mg tablet 200 mg PO BID PRN (Reason: cough) Qty: 120 RF: 0 magnesium hydroxide [Milk of Magnesia] 400 mg/5 mL suspension 30 ml PO DAILY PRN (Reason: constipation) Qty: 118 RF: 3 nystatin 100,000 unit/gram cream 1 appln TOP BID PRN (Reason: rash) Qty: 30 RF: 0 diclofenac sodium 1 % gel 2 gm TOP QID PRN (Reason: hip pain) 30 Days Qty: 100 RF: 0 tramadol 50 mg Tablet 50 - 100 mg PO Q6H PRN (Reason: Pain) RF: 0 Toviaz 4 mg Tablet Extended Release 24 Hr 4 mg PO BID RF: 0 Referrals Referrals: Blue Chun MD [Primary Care Provider] - Discharge Problem: Falls Qualifiers: Encounter type: initial encounter Qualified Code(s): W19.XXXA - Unspecified fall, initial encounter The scribe's documentation has been prepared under my direction and personally reviewed by me in its entirety. I confirm that the note above accurately reflects all work, treatment, procedures, and medical decision making performed by me.
[2018-09-16] MEDS ORDERED: guaiFENesin 200 MG TAB PO PRN (01:53)
[2018-09-16] MEDS ORDERED: DICLOFENAC SOD 1% GEL 100 GM TUBE EXT PRN (01:53)
[2018-09-16] MEDS ORDERED: NYSTATIN CR 15 GM TUBE EXT PRN (01:53)
[2018-09-16] MEDS ORDERED: MAGNESIUM HYDROXIDE SUSP 30 ML UDC PO PRN ×2 (01:53→03:05)
[2018-09-16] MEDS ORDERED: NITROGLYCERIN SL 0.4 MG/TAB TAB SL PRN (02:00)
--- NOTE | 2018-09-16 02:04 | History & Physical Report ---
Date of Service September 16, 2018 Assessment & Plan (1) Acute UTI: Patient is a pleasant 87-year-old female past medical history ASCVD status post three-vessel CABG, OA, ALBARO, HTN, spinal stenosis, urine and bowel incontinence, dementia who presents with a 2-day history of extreme drowsiness/fatigue, ground-level falls, and a 24-hour history of fever. Acute UTI/Fever UA generally clean, however with trace leuk esterase, WBCs, and bacteria, will continue Rocephin. Urine cultures pending. Tylenol for fever. Blood cultures pending. CXR normal appearing. Falls/weakness Seems to be a chronic issue. May be worsened by acute illness. PT OT evaluations ordered Coronary artery disease Status post 3V CABG Continue home medications Hypertension/HLD Continue home medications Chronic osteoarthritis/spinal stenosis Continue Voltaren gel, pain meds Dementia Delirium precautions Per previous records, appears to be a general decline. Incontinence of bowel and bladder Continue home medications (toviaz, constipation management, prn immodium) Code: DNR Disposition: Admit to [facility] DVT prophylaxis: lovenox (2) Falls: (3) Weakness: (4) Coronary artery disease: (5) Multiple falls: (6) Chronic osteoarthritis: (7) Dementia: (8) Dyslipidemia: (9) Hypertension: (10) Spinal stenosis: (11) Incontinence: History of Present Illness Chief Complaint: Fatigue, falls, fever Primary Care Provider: Blue Chun MD Patient is a pleasant 87-year-old female past medical history ASCVD status post three-vessel CABG, OA, ALBARO, HTN, spinal stenosis, urine and bowel incontinence, dementia who presents with a 2-day history of extreme drowsiness/fatigue, ground-level falls, and a 24-hour history of fever. Patient lives at assisted living facility at [facility]. She reports feeling very fatigued, drowsy, and tired for 2 days, and 24 hours ago she started noticing a temperature of 102 which would come and go as she would take Tylenol intermittently. She also notes a few falls, stating that she feels her leg would give out on her or that she could not lift of her foot to walk and would tumble to the side or in front of her. She cannot provide specific details about these falls, but does note she did not hit her head and has no scrapes or injuries. She does note a po ssible flare of her chronic hip pain. She does report she has been eating and drinking well recently. On review of outpatient records, patient was released recently treated for bronchitis with azithromycin and guaifenesin. She does not recall being treated for this. She thought that the appointment was for her generalized weakness. She denies lightheadedness, headaches, chest pain, shortness of breath, nausea, diarrhea, dysuria, hematuria. She does know she has chronic lower extremity swelling for which she wears compression stockings. Evaluation in the ER revealed an elevated white cell count of 15, normal BMP, lactate of 0.66. Chest x-ray is negative. UA revealed trace leukocyte esterase, 5-10 WBCs, 1+ bacteria. She was febrile on arrival, but vitals were otherwise normal. Urine and blood cultures are pending. She was started on Rocephin. Allergies Allergy/AdvReac Type Severity Reaction Status Date / Time Cipro Allergy Unknown UNKNOWN Verified 11/02/17 10:30 ciprofloxacin Allergy Unknown UNKNOWN Verified 09/15/18 23:50 ezetimibe Allergy Unknown UNKNOWN Verified 09/15/18 23:50 Penicillins Allergy Unknown Unknown Verified 09/15/18 23:50 simvastatin Allergy Unknown UNKNOWN Verified 09/15/18 23:50 lisinopril Allergy Unknown Verified 09/16/18 07:23 nitrofurantoin Allergy Unknown Verified 09/16/18 07:24 [From Macrobid] codeine AdvReac Mild GI SYMPTOMS Verified 09/15/18 23:50 Home Medications Home Medications Medication Instructions Recorded Confirmed Type Toviaz 4 mg PO BID 05/14/18 09/15/18 History acetaminophen 500 mg tablet 500 mg PO Q4H PRN #90 tab 09/08/18 09/15/18 Rx amlodipine 5 mg tablet 5 mg PO DAILY #90 tab 09/08/18 09/15/18 Rx aspirin 81 mg tablet,delayed 81 mg PO DAILY #90 tab 09/08/18 09/15/18 Rx release atorvastatin 10 mg tablet 10 mg PO DAILY #90 tab 09/08/18 09/15/18 Rx cholecalciferol (vitamin D3) 2,000 2,000 unit PO BID #180 cap 09/08/18 09/15/18 Rx unit capsule diclofenac 1 % topical gel 2 gm TOP QID PRN 30 Days #100 gm 09/08/18 09/15/18 Rx guaifenesin 200 mg tablet 200 mg PO BID PRN #120 tab 09/08/18 09/15/18 Rx ibuprofen 600 mg tablet 600 mg PO QAM #90 tab 09/08/18 09/15/18 Rx loperamide 2 mg tablet 2 mg PO Q3H PRN #240 tab 09/08/18 09/15/18 Rx magnesium hydroxide 400 mg/5 mL 30 ml PO DAILY PRN #118 ml 09/08/18 09/15/18 Rx oral suspension nitroglycerin 0.4 mg sublingual 0.4 mg SL .DISSOLVE ONE TABLET 09/08/18 09/15/18 Rx tablet #100 tab nystatin 100,000 unit/gram topical 1 appln TOP BID PRN #30 gm 09/08/18 09/15/18 Rx cream turmeric 400 mg capsule 900 mg PO DAILY #90 cap 09/08/18 09/15/18 Rx pantoprazole 20 mg tablet,delayed 20 mg PO DAILY #30 tab 09/12/18 09/15/18 Rx release tramadol 50 - 100 mg PO Q6H PRN 09/15/18 09/15/18 History Past Med/Surg History Medical History Carpal tunnel syndrome (Acute) Bilateral, confirmed with nerve conduction studies (2015). Has declined surgery. Chronic osteoarthritis (Chronic) Multiple joints affected. Hips have been a concern with recent corticosteroid injections. Risks associated with chronic NSAIDs previously discussed and currently managed with NSAID + APAP. Dementia (Acute) Steady decline in cognitive function. Evaluated by neurology (02/20). Declines further medication therapy. Dyslipidemia (Chronic) Secondary prevention. Currently taking moderate intensity statin (atorvastatin 10mg daily). Hyperglycemia (Acute) SVT (supraventricular tachycardia) (Acute) Vaginal wall prolapse (Acute) Vitamin D deficiency (Acute) Previously below 20 ng/mL. Now >30 on Vit D supplementation. Spinal stenosis (Chronic) MRI (07/17) severe degenerative disease, along with moderate to severe spinal stenosis. 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 No subsequent stenting. 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 Beliefs That Will Affect Care: None Current Living Situation: Personal Care Facility Current Living Situation Comment: [place] Feels Safe at Home: Yes Safety Concerns: Feels Safe At This Time Smoking Status: Never smoker Second Hand Exposure: Yes (parents when younger) Hx Alcohol Use: Yes Alcohol type: beer and wine Hx Substance Use: No Review of Systems Review of Systems: All systems reviewed & are unremarkable except as noted in HPI & below Constitutional: + fever, + chills, + fatigue and + weakness Respiratory: no cough and no dyspnea Cardiovascular: no chest pain and no radiating jaw, neck or arm pain Gastrointestinal: no abdominal pain, no nausea and no vomiting Genitourinary: + urinary frequency (attributes to large PO intake of fluids) Musculoskeletal: + joint pain Neurologic: + unsteadiness, + falls and + generalized weakness; no dizziness and no syncope Physical Exam Constitutional: WD/WN, vitals as above + well hydrated, + obese and + frail appearing; not in distress Eyes: PERRL, conjunctivae normal, anicteric sclerae ENMT: external ear and nose normal, oropharynx normal Neck: normal visual inspection Respiratory: normal respiratory effort, lungs clear to auscultation Cardiovascular: Rate/Rhythm: regular rate and regular rhythm Extremities: + edema (2+ to shins bilaterally) Gastrointestinal (Abdomen): normal bowel sounds, soft, nontender, no hepatosplenomegaly Inspection/Auscultation: + abdomen distended Musculoskeletal: Extremities: + abnormal strength (Generalized weakness) Skin: no rashes, warm and dry Neurologic: PERRL, EOMI, accommodation nl, no face palsy, no dysarthria Psychiatric: A+Ox3, euthymic affect Results & Data Vital Signs (Past 12 Hours) Vital Signs Temp Pulse Pulse Resp BP BP Pulse Ox 09/16/18 01:34 72 16 149/46 H 97 09/16/18 00:45 37.0 C 09/16/18 00:15 36.8 C 169 H 16 169/67 H 98 06/13/19 23:14 79 16 151/72 H 93 09/15/18 22:01 38.9 C H 86 18 145/81 H 94 Laboratory Results 09/15/18 09/15/18 09/15/18 Range/Units 22:52 22:41 22:34 WBC (4.8-10.8) K/uL RBC (4.2-5.4) M/uL Hgb (12.0-16.0) g/dL Hct (37-47) % MCV (80-100) fL MCH (25-34) pg MCHC (32-36) g/dL RDW Std Deviation (36.4-46.3) fL RDW Coeff of Luis (11.5-14.5) % Plt Count (130-400) K/uL MPV (7.4-10.4) fL Immature Gran % (Auto) % Neut % (Auto) % Lymph % (Auto) % [place] % (Auto) % Eos % (Auto) % Baso % (Auto) % Immature Gran # (Auto) (0.00-0.02) K/uL Neut # (Auto) (1.4-6.5) K/uL Lymph # (Auto) (1.2-3.4) K/uL [place] # (Auto) (0.11-0.59) K/uL Eos # (Auto) (0-0.5) K/uL Baso # (Auto) (0-0.2) K/uL Sodium 137 (136-145) mmol/L Potassium 4.1 (3.5-5.1) mmol/L Chloride 102 (98-107) mmol/L Carbon Dioxide 29 (21-32) mmol/L Anion Gap 6.0 (3-11) BUN 18 (7-18) mg/dl Creatinine 0.79 (0.6-1.2) mg/dl Est Cr Clr Drug Dosing 61.4 ml/min Est GFR ( Amer) 78.6 Est GFR (Non-Af Amer) 67.8 BUN/Creatinine Ratio 22.5 H (10-20) Glucose 135 H (70-99) mg/dl POC Lactic Acid Raj 0.66 L (0.90-1.70) mmol/L Calcium 9.3 (8.5-10.1) mg/dl Total Bilirubin 1.6 H (0.2-1) mg/dl AST 17 (15-37) U/L ALT 22 (12-78) U/L Alkaline Phosphatase 57 (45-117) U/L Total Protein 6.8 (6.4-8.2) gm/dl Albumin 3.4 (3.4-5.0) gm/dl Globulin 3.4 (2.5-4.0) gm/dl Albumin/Globulin Ratio 1.0 (0.9-2) Urine Color Yellow Urine Appearance Clear (Clear) Urine pH 5.5 (4.5-7.5) Ur Specific [place] 1.018 (1.000-1.030) Urine Protein Negative (Negative) Urine Glucose (UA) Negative (Negative) Urine Ketones Negative (Negative) Urine Blood Negative (Negative) Urine Nitrite Negative (Negative) Urine Bilirubin Negative (Negative) Urine Urobilinogen Negative (Negative) Ur Leukocyte Esterase Trace H (Negative) Urine WBC (Auto) 5-10 H (0-5) /hpf Urine RBC (Auto) 0-4 (0-4) /hpf U Hyaline Cast (Auto) 5-10 H (0-5) /lpf U Epithel Cells (Auto) 0-5 (0-5) /lpf Urine Bacteria (Auto) 1+ H (Negative) Urine Yeast Not Reportable 09/15/18 Range/Units 22:34 WBC 15.02 H (4.8-10.8) K/uL RBC 3.64 L (4.2-5.4) M/uL Hgb 11.9 L (12.0-16.0) g/dL Hct 35.7 L (37-47) % MCV 98.1 (80-100) fL MCH 32.7 (25-34) pg MCHC 33.3 (32-36) g/dL RDW Std Deviation 46.5 H (36.4-46.3) fL RDW Coeff of Luis 12.9 (11.5-14.5) % Plt Count 232 (130-400) K/uL MPV 10.4 (7.4-10.4) fL Immature Gran % (Auto) 0.3 % Neut % (Auto) 79.7 % Lymph % (Auto) 10.9 % [place] % (Auto) 8.9 % Eos % (Auto) 0.1 % Baso % (Auto) 0.1 % Immature Gran # (Auto) 0.04 H (0.00-0.02) K/uL Neut # (Auto) 11.98 H (1.4-6.5) K/uL Lymph # (Auto) 1.64 (1.2-3.4) K/uL [place] # (Auto) 1.34 H (0.11-0.59) K/uL Eos # (Auto) 0.01 (0-0.5) K/uL Baso # (Auto) 0.01 (0-0.2) K/uL Sodium (136-145) mmol/L Potassium (3.5-5.1) mmol/L Chloride (98-107) mmol/L Carbon Dioxide (21-32) mmol/L Anion Gap (3-11) BUN (7-18) mg/dl Creatinine (0.6-1.2) mg/dl Est Cr Clr Drug Dosing ml/min Est GFR ( Amer) Est GFR (Non-Af Amer) BUN/Creatinine Ratio (10-20) Glucose (70-99) mg/dl POC Lactic Acid Raj (0.90-1.70) mmol/L Calcium (8.5-10.1) mg/dl Total Bilirubin (0.2-1) mg/dl AST (15-37) U/L ALT (12-78) U/L Alkaline Phosphatase (45-117) U/L Total Protein (6.4-8.2) gm/dl Albumin (3.4-5.0) gm/dl Globulin (2.5-4.0) gm/dl Albumin/Globulin Ratio (0.9-2) Urine Color Urine Appearance (Clear) Urine pH (4.5-7.5) Ur Specific [place] (1.000-1.030) Urine Protein (Negative) Urine Glucose (UA) (Negative) Urine Ketones (Negative) Urine Blood (Negative) Urine Nitrite (Negative) Urine Bilirubin (Negative) Urine Urobilinogen (Negative) Ur Leukocyte Esterase (Negative) Urine WBC (Auto) (0-5) /hpf Urine RBC (Auto) (0-4) /hpf U Hyaline Cast (Auto) (0-5) /lpf U Epithel Cells (Auto) (0-5) /lpf Urine Bacteria (Auto) (Negative) Urine Yeast Code Status & VTE Plan Code Status DNR Supervising Physician Co-Signing Physician Notes Attending addendum: I have physically seen this patient, have supervised the medical residents activities, and agree with the H&P unless as otherwise noted. Assessment and Plan: Urinary tract infection/presumptive metabolic encephalopathy- Follow urine culture and sensitivity. Follow blood cultures. Multiple antibiotic allergies. Empiric treatment with ceftriaxone 1 g IV daily. Zofran 4 mg IV every 6 hours PRN. Acetaminophen 1 g IV every 8 hours PRN mild pain or temperature. Bowel and bladder incontinence, monitor for improvement as encephalopathy improves. Remainder of orders and notations as noted. Patient is a DO NOT RESUSCITATE. PG Care Time/CCT Total # of Minutes Spent Total Time Spent with Patient: Total time spent is greater than 50% in coordination of care (as documented) at patient's floor/unit and/or counseling patient: Resident Activity Tracking Resident Involvement: Resident Care Provided Care Provided: Adult Hospital Medicine (1) Falls Encounter type: initial encounter Qualified Code(s): W19.XXXA - Unspecified fall, initial encounter
[2018-09-16] MEDS ORDERED: ALUMINUM/MAGNESIUM SUSP 30 ML UDC PO PRN (03:05)
[2018-09-16] MEDS ORDERED: POLYETHYLENE (MIRALAX) 17 GM PACK PO PRN (03:05)
[2018-09-16] MEDS ORDERED: ONDANSETRON INJ 2 MG/ML 2 ML VIAL IV PRN (03:05)
[2018-09-16] MEDS ORDERED: LOPERAMIDE HCL 2 MG CAP PO PRN (03:05)
[2018-09-16] MEDS: TRAMADOL HCL 50 MG TABLET PO PRN (04:49)
[2018-09-16 06:48] LABS: Basophils # (auto) 0.03 K/uL (0-0.2); Basophils % (auto) 0.2 %; Eosinophils # (auto) 0.07 K/uL (0-0.5); Eosinophils % (auto) 0.5 %; Immature Granulocytes # (auto) 0.03 K/uL (0.00-0.02); Immature Granulocytes % (auto) 0.2 %; Lymphocytes # (auto) 2.07 K/uL (1.2-3.4); Lymphocytes % (auto) 13.4 %; Mean Corpuscular Hgb Conc 33.3 g/dL (32-36); Mean Corpuscular Volume 98.6 fL (80-100); Mean Platelet Volume 9.8 fL (7.4-10.4); Monocytes # (auto) 1.44 K/uL (0.11-0.59); Monocytes % (auto) 9.3 %; Neutrophils # (auto) 11.83 K/uL (1.4-6.5); Neutrophils % (auto) 76.4 %; Platelet Count 228 K/uL (130-400); RDW Standard Deviation 46.7 fL (36.4-46.3); Red Blood Count 3.65 M/uL (4.2-5.4); White Blood Count 15.47 K/uL (4.8-10.8)
[2018-09-16 06:57] LABS: INR 1.1 (0.9-1.1); Prothrombin Time 10.8 Seconds (9.0-12.0)
[2018-09-16] MEDS ORDERED: MICONAZOLE NITRATE POWDER 43 GM EXT PRN (07:12)
--- NOTE | 2018-09-16 07:13 | XRay Report ---
SINGLE VIEW CHEST CLINICAL HISTORY: Fever. Weakness. FINDINGS: An AP, portable, upright chest radiograph is compared to study dated 05/14/2018 and correlate d with chest CT dated 11/02/2017. The examination is degraded by portable technique and patient rotati on. The patient is status post midline sternotomy. The heart is enlarged and there is atherosclerotic calcification of the thoracic aorta. There is mild pulmonary vascular congestion. There is bibasilar scarring/atelectasis. No airspace consolidation or large pleural effusion is identified. No pneumoth orax is seen. The skeletal structures are osteopenic. The bony thorax is grossly intact. Degenerative change is seen in the shoulders and thoracic spine. IMPRESSION: 1. Cardiomegaly with mild pulmonary vascular congestion. 2. No airspace consolidation or large pleural effusion is identified. Electronically signed by: Jeffery Syed M.D. 09/16/2018 7:12 AM
[2018-09-16 07:19] LABS: Creatinine Clr Calc Pharmacy 76.8 ml/min; Est GFR (African American) 94.1; Est GFR (Non-African American) 81.2; Potassium 3.8 mmol/L (3.5-5.1)
[2018-09-16] MEDS: ASPIRIN 81 MG ECTAB PO SCH (07:56)
[2018-09-16] MEDS: AMLODIPINE BESYLATE 5 MG TAB PO SCH (07:56)
[2018-09-16] MEDS: PANTOprazole 40 MG TAB PO SCH (07:56)
[2018-09-16] MEDS: ATORVASTATIN 10 MG TAB PO SCH (07:57)
[2018-09-16] MEDS: TOVIAZ~ORDER AWAITING ACTION SCH ×3 (07:57→23:54)
[2018-09-16] MEDS: ENOXAPARIN INJ 40 MG/0.4 ML SYR SQ SCH (08:01)
[2018-09-16] MEDS ORDERED: cefTRIAXone SODIUM 1,000 MG in DEXTROSE 5% 50 ML IV SCH (09:00)
[2018-09-16] MEDS: ACETAMINOPHEN 325 MG TAB PO PRN ×2 (14:09→23:44)
[2018-09-16] MEDS ORDERED: AZITHROMYCIN 500 MG in DEXTROSE 5% 250 ML IV STA (15:13)
[2018-09-16] MEDS ORDERED: VANCOMYCIN CONSULT ACTIVE PRN (15:13)
[2018-09-16] MEDS ORDERED: VANCOMYCIN HCL 2,000 MG in SODIUM CHLORIDE 0.9% 500 ML IV STA (15:30)
--- NOTE | 2018-09-16 15:38 | History & Physical Bridge Note ---
Date of Service September 16, 2018 History & Physical Bridge Note I have examined the patient, reviewed the History & Physical and in the interval since the performance of the History & Physical I have noted the following changes of clinical significance: patient feeling weak and confused, sleeping a lot today appetite very poor, no breakfast or lunch, c/o feeling hot and sweaty reviewed labs, WBC still high at 15k, BMP normal appreciate wound care with examining area adjacent to right labia I examined the area as best I could, there is induration and erythema, certainly a small firm area and tender, no drainage discussed with patient's daughter, she says that the patient was c/o the pain in right groin when this all started initial diagnosis was a UTI but the urine culture shows no growth at this point she does have a lot of incontinence causing irritation to the skin plan: start NSS + 20mEq K at 100cc/hr due to poor oral intake and mild sepsis like picture change from Rocephin to broad spectrum with Vanco, Cefepime and Flagyl for 48 hours ask general surgery to evaluate the possible abscess for I&D and for culture purposes place connelly to prevent incontinence and further irritation of the area
[2018-09-16] MEDS ORDERED: LIDOCAINE HCL 1% 20 ML VIAL ONE (15:43)
--- NOTE | 2018-09-16 15:45 | Pharmacy Report ---
Pharmacy Abx Dose Short Note - Date of Service September 16, 2018 - Assessment & Plan Assessment 87 year old F receiving IV Vancomycin, Cefepime (not a consult), and Flagyl (not a consult) for treatment of empiric indication, possible UTI Day # 1 of antimicrobial therapy. * Originally admitted on 09/15/18 with febrile illness and started on ceftriaxone. Antibiotics changed and broadened today. * No renal impairment noted. Most recent sCr = 0.63 mg/dL with estimated CrCl ~77 mL/min. Estimated pharmacokinetic parameters: * Ke ~0.068 * T1/2 ~10.2 hrs Plan Vancomycin * Give Vancomycin 2000mg (~20mg/kg) IV x 1 as loading dose * Initiate Vancomycin 1250mg (~13mg/kg) IV q12 as maintenance regimen * Goal trough level for UTI/empiric : 15 to 20 mcg/mL * Given age and obesity, do not want to be overly aggressive with dosing. No trough ordered at this time given empiric indication for antibiotics. If Vancomycin to be continued >48 hours, will order lab at that time. Pharmacy will continue to follow and will adjust dose/frequency as necessary. Thank you.
[2018-09-16] MEDS ORDERED: MoRPHine SULFATE 2 MG/ML CARP IV STA (16:02)
[2018-09-16] MEDS ORDERED: MoRPHine SULFATE 2 MG/ML CARP ONE (16:04)
--- NOTE | 2018-09-16 16:18 | Surgery Consultation ---
Date of Consultation September 16, 2018 Assessment & Plan (1) Abscess, perineum: I&D was performed at bedside by Dr. Chau. Wound culture was sent. Supervising Physician Co-Signing Physician Notes agree with above. I&D performed, see procedure note. Mostly phlegmon, might represent necrotic node or mass. If no improvement, then may need imaging. cultures sent. Prior to procedure, risks discussed. Wound packed, remove tomorrow, surgery will follow. History of Present Illness Attending Physician: Sandip Singer DO History of Present Illness [address] resident admitted today for fever and malaise, dx with UTI. Perineal erythema and induration was noted by wound care nurse, we were consulted for evaluation. Allergies Allergy/AdvReac Type Severity Reaction Status Date / Time Cipro Allergy Unknown UNKNOWN Verified 11/02/17 10:30 ciprofloxacin Allergy Unknown UNKNOWN Verified 09/15/18 23:50 ezetimibe Allergy Unknown UNKNOWN Verified 09/15/18 23:50 Penicillins Allergy Unknown Unknown Verified 09/15/18 23:50 simvastatin Allergy Unknown UNKNOWN Verified 09/15/18 23:50 lisinopril Allergy Unknown Verified 09/16/18 07:23 nitrofurantoin Allergy Unknown Verified 09/16/18 07:24 [From Macrobid] codeine AdvReac Mild GI SYMPTOMS Verified 09/15/18 23:50 Home Medications Home Medications Medication Instructions Recorded Confirmed Type Toviaz 4 mg PO BID 05/14/18 09/15/18 History acetaminophen 500 mg tablet 500 mg PO Q4H PRN #90 tab 09/08/18 09/15/18 Rx amlodipine 5 mg tablet 5 mg PO DAILY #90 tab 09/08/18 09/15/18 Rx aspirin 81 mg tablet,delayed 81 mg PO DAILY #90 tab 09/08/18 09/15/18 Rx release atorvastatin 10 mg tablet 10 mg PO DAILY #90 tab 09/08/18 09/15/18 Rx cholecalciferol (vitamin D3) 2,000 2,000 unit PO BID #180 cap 09/08/18 09/15/18 Rx unit capsule diclofenac 1 % topical gel 2 gm TOP QID PRN 30 Days #100 gm 09/08/18 09/15/18 Rx guaifenesin 200 mg tablet 200 mg PO BID PRN #120 tab 09/08/18 09/15/18 Rx ibuprofen 600 mg tablet 600 mg PO QAM #90 tab 09/08/18 09/15/18 Rx loperamide 2 mg tablet 2 mg PO Q3H PRN #240 tab 09/08/18 09/15/18 Rx magnesium hydroxide 400 mg/5 mL 30 ml PO DAILY PRN #118 ml 09/08/18 09/15/18 Rx oral suspension nitroglycerin 0.4 mg sublingual 0.4 mg SL .DISSOLVE ONE TABLET 09/08/18 09/15/18 Rx tablet #100 tab nystatin 100,000 unit/gram topical 1 appln TOP BID PRN #30 gm 09/08/18 09/15/18 Rx cream turmeric 400 mg capsule 900 mg PO DAILY #90 cap 09/08/18 09/15/18 Rx pantoprazole 20 mg tablet,delayed 20 mg PO DAILY #30 tab 09/12/18 09/15/18 Rx release tramadol 50 - 100 mg PO Q6H PRN 09/15/18 09/15/18 History Patient History Medical History Carpal tunnel syndrome (Acute) Bilateral, confirmed with nerve conduction studies (2015). Has declined surgery. Chronic osteoarthritis (Chronic) Multiple joints affected. Hips have been a concern with recent corticosteroid injections. Risks associated with chronic NSAIDs previously discussed and currently managed with NSAID + APAP. Dementia (Acute) Steady decline in cognitive function. Evaluated by neurology (02/20). Declines further medication therapy. Dyslipidemia (Chronic) Secondary prevention. Currently taking moderate intensity statin (atorvastatin 10mg daily). Hyperglycemia (Acute) SVT (supraventricular tachycardia) (Acute) Vaginal wall prolapse (Acute) Vitamin D deficiency (Acute) Previously below 20 ng/mL. Now >30 on Vit D supplementation. Spinal stenosis (Chronic) MRI (07/17) severe degenerative disease, along with moderate to severe spinal stenosis. 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 No subsequent stenting. 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
--- NOTE | 2018-09-16 16:42 | Procedure Note ---
Procedure Note Date of Service September 16, 2018 Note 87-year-old female with left groin abscess versus phlegmon and signs and symptoms of stomach infection. Oral consent obtained, left groin prepped and draped in standard sterile fashion. Local anesthetic injected. Elliptical incision made in the skin with a small amount of return of purulent drainage. Wound explored and there was a 8 cm x 4 cm firm area consistent with a phlegmon, or less likely a necrotic node or mass. No loculations present. No undrained fluid apparent. Wound was packed with a 4 x 4 gauze and dressings were applied. Cultures were sent. Plan to DC packing tomorrow, continue antibiotics, follow- up cultures. If no improvement in next 48 hours recommend imaging with ultrasound or CT scan. Patient tolerated procedure well. Coding
[2018-09-16] MEDS: CEFEPIME 1,000 MG in SYRINGE 0 ML IV SCH (17:36)
[2018-09-16] MEDS: NSS + 20MEQ KCL 20 MEQ/1,000 ML BAG IV SCH (17:45)
[2018-09-16] MEDS: metroNIDAZOLE 500 MG/100 ML BAG IV SCH (17:46)
[2018-09-16] MEDS ORDERED: cefTRIAXone SODIUM 2,000 MG in DEXTROSE 5% 50 ML IV SCH (21:00)
[2018-09-16] MEDS ORDERED: XYLOCAINE 1%/SOD BICARB 20 ML VIAL INFIL ONE (22:56)
[2018-09-16] MEDS ORDERED: LIDOCAINE HCL 1% 20 ML VIAL INJ ONE (23:30)
[2018-09-17] MEDS: metroNIDAZOLE 500 MG/100 ML BAG IV SCH ×3 (02:00→17:24)
[2018-09-17] MEDS: CEFEPIME 1,000 MG in SYRINGE 0 ML IV SCH ×2 (04:16→15:31)
[2018-09-17] MEDS: VANCOMYCIN HCL 1,250 MG in SODIUM CHLORIDE 0.9% 250 ML IV SCH ×2 (04:16→15:31)
[2018-09-17] MEDS: ACETAMINOPHEN 325 MG TAB PO PRN ×2 (04:56→21:24)
[2018-09-17] MEDS: NSS + 20MEQ KCL 20 MEQ/1,000 ML BAG IV SCH (05:48)
[2018-09-17] MEDS: TOVIAZ~ORDER AWAITING ACTION SCH ×2 (07:30→18:43)
[2018-09-17] MEDS: AMLODIPINE BESYLATE 5 MG TAB PO SCH (08:11)
[2018-09-17] MEDS: ENOXAPARIN INJ 40 MG/0.4 ML SYR SQ SCH (08:11)
[2018-09-17] MEDS: ASPIRIN 81 MG ECTAB PO SCH (08:11)
[2018-09-17] MEDS: PANTOprazole 40 MG TAB PO SCH (08:11)
[2018-09-17] MEDS: ATORVASTATIN 10 MG TAB PO SCH (08:11)
[2018-09-17 08:47] LABS: Basophils # (auto) 0.01 K/uL (0-0.2); Basophils % (auto) 0.1 %; Eosinophils # (auto) 0.13 K/uL (0-0.5); Hematocrit (blood only) 34.9 % (37-47); Hemoglobin 11.3 g/dL (12.0-16.0); Immature Granulocytes # (auto) 0.04 K/uL (0.00-0.02); Immature Granulocytes % (auto) 0.3 %; Lymphocytes % (auto) 16.3 %; Mean Corpuscular Hgb Conc 32.4 g/dL (32-36); Mean Platelet Volume 10.6 fL (7.4-10.4); Monocytes # (auto) 1.44 K/uL (0.11-0.59); Monocytes % (auto) 10.7 %; Neutrophils # (auto) 9.68 K/uL (1.4-6.5); Neutrophils % (auto) 71.6 %; Platelet Count 234 K/uL (130-400); RDW Standard Deviation 47.5 fL (36.4-46.3); Red Blood Count 3.49 M/uL (4.2-5.4)
[2018-09-17 08:55] LABS: Creatinine Clr Calc Pharmacy 75.6 ml/min; Est GFR (African American) 93.6; Est GFR (Non-African American) 80.8
--- NOTE | 2018-09-17 09:09 | Hospitalist Progress Note ---
Date of Service September 17, 2018 Assessment & Plan (1) Sepsis: due to abscess in perineum region on right presented with leukocytosis, confusion, lethargy and fever source control with incision and drainage of the abscess by surgery, appreciated will continue broad spectrum abx with Cefepime, Flagyl and Vanco for 48 hours and then taper according to culture results urine culture with no growth, no evidence of UTI CXR clear, no pneumonia no abdominal pain or other GI symptoms to suggest intra abdominal source no growth on blood cultures (2) Abscess, perineum: could have been due to repeated incontinence and skin irritation treated with I&D by Dr. Chau, appreciate his assistance no fever, WBC trending down to 13k, vitals stable continue Vancomycin as she is positive in the nares continue Cefepime and Flagyl, taper tomorrow afternoon (3) Falls: due to infection will get PT/OT to evaluate (4) Weakness: due to both infection/sepsis and dehydration continue NSS but decrease rates to 80cc/hr, stop after next back consult PT/OT (5) Coronary artery disease: h/o such, no chest pain or pressure reported troponin negative no ischemic changes on EKG (6) Multiple falls: see above, consult PT/OT from [facility] living, may need short term rehab (7) Chronic osteoarthritis: (8) Dementia: pleasant, cooperative (9) Dyslipidemia: continue Atorvastatin (10) Hypertension: resume Norvasc now that there is no signs of shock and BP elevated (11) Spinal stenosis: (12) Incontinence: connelly placed to prevent further irritation of perineal abscess would keep connelly until abscess adequate healed Subjective patient feeling a lot better this morning, she is more alert, she ate breakfast says the pain in her right groin is much better after drainage by surgery reviewed labs, WBC down to 13k, no fever no growth on urine, blood or wound cultures at this time will decrease fluids as she is eating better connelly in place, making dark urine, adequate amount Review of Systems Review of Systems: All systems reviewed & are unremarkable except as noted in HPI & below Constitutional: + fatigue and + weakness; no fever Respiratory: no cough and no dyspnea Cardiovascular: no chest pain Integumentary: + erythema (right groin, incised) Physical Exam Constitutional: WD/WN, vitals as above + obese Eyes: PERRL, conjunctivae normal, anicteric sclerae ENMT: external ear and nose normal, oropharynx normal Neck: trachea midline, no thyromegaly Respiratory: normal respiratory effort, lungs clear to auscultation Cardiovascular: RRR, no murmur, no edema Gastrointestinal (Abdomen): normal bowel sounds, soft, nontender, no hepatosplenomegaly Musculoskeletal: no cyanosis or clubbing, extremities motor strength 5/5 Skin: no rashes, warm and dry + erythema (right inguinal region, adjacent to labia, s/p I&D, less redness, less pain) Neurologic: patellar DTR's 2+ bilat, sensation intact and PERRL, EOMI, accommodation nl, no face palsy, no dysarthria Psychiatric: A+Ox3, euthymic affect Lymphatic: no cervical or axillary lymphadenopathy Results & Data Vital Signs (Past 12 Hours) Vital Signs Temp Pulse Resp BP BP Pulse Ox 09/17/18 07:54 37.0 C 72 20 153/91 H 96 09/17/18 05:52 36.9 C 09/17/18 04:45 37.2 C 09/17/18 01:32 37.4 C 09/16/18 23:19 37.6 C H 81 20 137/65 96 Laboratory Results Laboratory Results - last 24 hr 09/16/18 09/17/18 09/17/18 07:45 07:45 07:54 WBC 13.50 H RBC 3.49 L Hgb 11.3 L Hct 34.9 L MCV 100.0 MCH 32.4 MCHC 32.4 RDW Std Deviation 47.5 H RDW Coeff of Luis 13.0 Plt Count 234 MPV 10.6 H Immature Gran % (Auto) 0.3 Neut % (Auto) 71.6 Lymph % (Auto) 16.3 [place] % (Auto) 10.7 Eos % (Auto) 1.0 Baso % (Auto) 0.1 Immature Gran # (Auto) 0.04 H Neut # (Auto) 9.68 H Lymph # (Auto) 2.20 [place] # (Auto) 1.44 H Eos # (Auto) 0.13 Baso # (Auto) 0.01 Creatinine 0.64 Est Cr Clr Drug Dosing 75.6 Est GFR ( Amer) 93.6 Est GFR (Non-Af Amer) 80.8 Nasal Screen MRSA (PCR) Positive A Medications Administered Current Inpatient Medications Acetaminophen (Tylenol) 650 mg PO Q4H PRN PRN Reason: pain/fever Stop: 10/16/18 03:04 Last Admin: 09/17/18 04:56 Dose: 650 mg Documented by: Al Hydrox/Mg Hydrox/Simethicone (Maalox) 30 ml PO Q6H PRN PRN Reason: Dyspepsia Stop: 10/16/18 03:04 Amlodipine Besylate (Norvasc) 5 mg PO DAILY JOHN Stop: 10/16/18 08:59 Last Admin: 09/17/18 08:11 Dose: 5 mg Documented by: Aspirin (Ecotrin Ectab) 81 mg PO DAILY JOHN Stop: 10/16/18 08:59 Last Admin: 09/17/18 08:11 Dose: 81 mg Documented by: Atorvastatin Calcium (Lipitor) 10 mg PO DAILY JOHN Stop: 10/16/18 08:59 Last Admin: 09/17/18 08:11 Dose: 10 mg Documented by: Diclofenac Sodium (Voltaren 1% Top) 2 appln EXT QID PRN PRN Reason: hip pain Stop: 10/16/18 01:52 Enoxaparin Sodium (Lovenox) 40 mg SQ QAM JOHN Stop: 10/16/18 08:59 Last Admin: 09/17/18 08:11 Dose: 40 mg Documented by: Potassium Chloride/Sodium Chloride (Normal Saline W/20 Meq Kcl) 20 meq in 1,000 mls @ 100 mls/hr IV .Q10H JOHN Stop: 10/16/18 15:29 Last Admin: 09/17/18 05:48 Dose: 100 mls/hr Documented by: Cefepime HCl 1,000 mg/ Syringe 11.3 mls @ 5.5 mls/min IV Q12H JOHN; Protocol Stop: 09/18/18 15:59 Last Admin: 09/17/18 04:16 Dose: 5.5 mls/min Documented by: Metronidazole (Flagyl) 500 mg in 100 mls @ 100 mls/hr IV Q8H JOHN; Protocol Stop: 09/18/18 15:59 Last Infusion: 09/17/18 03:00 Dose: Infused Documented by: Vancomycin HCl 1,250 mg/ (Sodium Chloride) 275 mls @ 125 mls/hr IV Q12H JOHN Stop: 09/18/18 03:59 Last Infusion: 09/17/18 06:28 Dose: Infused Documented by: Loperamide HCl (Imodium) 2 mg PO Q4 PRN PRN Reason: Diarrhea Stop: 10/16/18 03:04 Magnesium Hydroxide (Milk Of Magnesia) 30 ml PO DAILY PRN PRN Reason: constipation Stop: 10/16/18 01:52 Magnesium Hydroxide (Milk Of Magnesia) 30 ml PO Q6H PRN PRN Reason: Constipation Stop: 10/16/18 03:04 Miconazole Nitrate (Desenex) 1 appln EXT PRN PRN PRN Reason: Affected Skin Folds Stop: 10/16/18 07:11 Miscellaneous (Order Awaiting Action) 1 ea N/A QS JOHN Stop: 10/16/18 07:59 Last Admin: 09/17/18 07:30 Dose: Not Given Documented by: Miscellaneous Information (Consult) 1 ea N/A UD PRN PRN Reason: Consult Stop: 10/16/18 15:12 Nitroglycerin (Nitrostat) 0.4 mg SL UD PRN PRN Reason: Chest Pain Stop: 10/16/18 01:59 Nystatin (Nystatin) 1 appln EXT BID PRN PRN Reason: rash Stop: 10/16/18 01:52 Ondansetron HCl (Zofran) 4 mg IV Q6H PRN PRN Reason: Nausea Stop: 10/16/18 03:04 Pantoprazole Sodium (Protonix) 40 mg PO DAILY JOHN Stop: 10/16/18 08:59 Last Admin: 09/17/18 08:11 Dose: 40 mg Documented by: Polyethylene Glycol (Miralax Powder Packet) 17 gm PO DAILY PRN PRN Reason: Constipation Stop: 10/16/18 03:04 Tramadol HCl (Ultram) 50 - 100 mg PO Q6H PRN PRN Reason: Pain Stop: 10/16/18 01:52 Last Admin: 09/16/18 04:49 Dose: 50 mg Documented by: PG Care Time/CCT Total # of Minutes Spent Total Time Spent with Patient: Total time spent is greater than 50% in coordination of care (as documented) at patient's floor/unit and/or counseling patient: (1) Falls Encounter type: initial encounter Qualified Code(s): W19.XXXA - Unspecified fall, initial encounter
--- NOTE | 2018-09-17 15:18 | Surgery Progress Note ---
Date of Service September 17, 2018 Assessment & Plan (1) Abscess, perineum: POD #1 bedside incision and drainage of left groin/perineal abscess, symptoms improving. Continue antibiotics, transition to oral as indicated Local wound care with dressing changes once to twice daily and as needed. Patient may soak the wound Follow-up in general surgery clinic in 2 weeks [place] from general surgery standpoint Surgery will follow Present on Admission?: Yes Subjective 87-year-old female admitted with falls and fevers status post incision and drainage of left perineal/groin abscess yesterday. Overall she feels better, no fevers, white blood cell count decreasing. The pressure and pain in her groin have improved. She is anxious to go home Physical Exam Constitutional: WD/WN, vitals as above Skin: I&D incision dressing changed. Cellulitis and induration have improved. There is still a phlegmon present. But no undrained fluid collections. Dressing replaced. Results & Data Vital Signs (Past 12 Hours) Vital Signs Temp Pulse Resp BP Pulse Ox 09/17/18 07:54 37.0 C 72 20 153/91 H 96 09/17/18 05:52 36.9 C 09/17/18 04:45 37.2 C Laboratory Results Laboratory Results - last 24 hr 09/17/18 09/17/18 07:45 07:54 WBC 13.50 H RBC 3.49 L Hgb 11.3 L Hct 34.9 L MCV 100.0 MCH 32.4 MCHC 32.4 RDW Std Deviation 47.5 H RDW Coeff of Luis 13.0 Plt Count 234 MPV 10.6 H Immature Gran % (Auto) 0.3 Neut % (Auto) 71.6 Lymph % (Auto) 16.3 [place] % (Auto) 10.7 Eos % (Auto) 1.0 Baso % (Auto) 0.1 Immature Gran # (Auto) 0.04 H Neut # (Auto) 9.68 H Lymph # (Auto) 2.20 [place] # (Auto) 1.44 H Eos # (Auto) 0.13 Baso # (Auto) 0.01 Creatinine 0.64 Est Cr Clr Drug Dosing 75.6 Est GFR ( Amer) 93.6 Est GFR (Non-Af Amer) 80.8 Diagnostic Findings Gram stain with WBCs but no organisms, cultures pending
[2018-09-17] MEDS: TRAMADOL HCL 50 MG TABLET PO PRN (22:09)
[2018-09-18] MEDS: metroNIDAZOLE 500 MG/100 ML BAG IV SCH (01:33)
[2018-09-18] MEDS: VANCOMYCIN HCL 1,250 MG in SODIUM CHLORIDE 0.9% 250 ML IV SCH ×2 (03:13→16:48)
[2018-09-18] MEDS: CEFEPIME 1,000 MG in SYRINGE 0 ML IV SCH (03:14)
[2018-09-18 07:32] LABS: Basophils # (auto) 0.03 K/uL (0-0.2); Basophils % (auto) 0.3 %; Eosinophils # (auto) 0.56 K/uL (0-0.5); Hematocrit (blood only) 33.6 % (37-47); Immature Granulocytes # (auto) 0.03 K/uL (0.00-0.02); Immature Granulocytes % (auto) 0.3 %; Lymphocytes # (auto) 2.32 K/uL (1.2-3.4); Lymphocytes % (auto) 20.7 %; Mean Corpuscular Hgb Conc 32.7 g/dL (32-36); Mean Corpuscular Volume 99.4 fL (80-100); Mean Platelet Volume 9.9 fL (7.4-10.4); Monocytes # (auto) 1.31 K/uL (0.11-0.59); Monocytes % (auto) 11.7 %; Neutrophils # (auto) 6.98 K/uL (1.4-6.5); Platelet Count 246 K/uL (130-400); RDW Coefficient of Variation 12.8 % (11.5-14.5); RDW Standard Deviation 46.5 fL (36.4-46.3); Red Blood Count 3.38 M/uL (4.2-5.4); White Blood Count 11.23 K/uL (4.8-10.8)
[2018-09-18 08:03] LABS: Creatinine Clr Calc Pharmacy 75.6 ml/min; Est GFR (African American) 93.6; Est GFR (Non-African American) 80.8
[2018-09-18] MEDS: ATORVASTATIN 10 MG TAB PO SCH (08:37)
[2018-09-18] MEDS: ENOXAPARIN INJ 40 MG/0.4 ML SYR SQ SCH (08:37)
[2018-09-18] MEDS: ASPIRIN 81 MG ECTAB PO SCH (08:37)
[2018-09-18] MEDS: AMLODIPINE BESYLATE 5 MG TAB PO SCH (08:38)
[2018-09-18] MEDS: PANTOprazole 40 MG TAB PO SCH (08:38)
[2018-09-18] MEDS: TOVIAZ 4 MG PO SCH ×2 (08:38→20:06)
[2018-09-18] MEDS: TRAMADOL HCL 50 MG TABLET PO PRN (10:04)
--- NOTE | 2018-09-18 10:19 | Surgery Progress Note ---
Date of Service September 18, 2018 Assessment & Plan (1) Abscess, perineum: POD #2 bedside incision and drainage of left groin/perineal abscess/phlegmon, symptoms improving. Cx with MRSA Continue antibiotics, transition to oral as indicated Local wound care with dressing changes once to twice daily and as needed. Patient may soak the wound wound care can change dressing tomorrow Follow-up in general surgery clinic in 2 weeks [place] to [place] from general surgery standpoint Surgery will follow Subjective 87-year-old female admitted with falls and fevers status post incision and drainage of left perineal/groin abscess Wednesday. Overall she feels better, no fevers, white blood cell count decreasing. The pressure and pain in her groin have improved. Physical Exam Constitutional: WD/WN, vitals as above Skin: + wound decreasing induration and redness, phelgmon present but softer and smaller. dressing changed. Results & Data Vital Signs (Past 12 Hours) Vital Signs Temp Pulse Resp BP Pulse Ox 09/18/18 08:24 37.0 C 74 19 151/75 H 96 09/17/18 23:42 37.2 C 73 18 128/67 94 Laboratory Results Laboratory Results - last 24 hr 09/18/18 09/18/18 07:20 07:20 WBC 11.23 H RBC 3.38 L Hgb 11.0 L Hct 33.6 L MCV 99.4 MCH 32.5 MCHC 32.7 RDW Std Deviation 46.5 H RDW Coeff of Luis 12.8 Plt Count 246 MPV 9.9 Immature Gran % (Auto) 0.3 Neut % (Auto) 62.0 Lymph % (Auto) 20.7 [place] % (Auto) 11.7 Eos % (Auto) 5.0 Baso % (Auto) 0.3 Immature Gran # (Auto) 0.03 H Neut # (Auto) 6.98 H Lymph # (Auto) 2.32 [place] # (Auto) 1.31 H Eos # (Auto) 0.56 H Baso # (Auto) 0.03 Creatinine 0.64 Est Cr Clr Drug Dosing 75.6 Est GFR ( Amer) 93.6 Est GFR (Non-Af Amer) 80.8 Diagnostic Findings culture MRSA
--- NOTE | 2018-09-18 11:47 | Hospitalist Progress Note ---
Date of Service September 18, 2018 Assessment & Plan (1) Sepsis: due to abscess in perineum region on right presented with leukocytosis, confusion, lethargy and fever source control with incision and drainage of the abscess by surgery, appreciated wound culture growing MRSA will taper to just Vancomycin for now, follow up on sensitivities urine culture with no growth, no evidence of UTI CXR clear, no pneumonia no abdominal pain or other GI symptoms to suggest intra abdominal source no growth on blood cultures (2) Abscess, perineum: could have been due to repeated incontinence and skin irritation treated with I&D by Dr. Chau, appreciate his assistance no fever, WBC trending down to 11k, vitals stable continue Vancomycin for wound culture growing MRSA keep connelly, may even continue short term on discharge to allow area to heal patient prone to incontinence (3) Falls: due to infection will get PT/OT to evaluate (4) Weakness: due to both infection/sepsis and dehydration given fluids initially, eating and drinking better PT/OT (5) Coronary artery disease: h/o such, no chest pain or pressure reported troponin negative no ischemic changes on EKG (6) Multiple falls: see above, consult PT/OT from [facility] living, may need short term rehab (7) Chronic osteoarthritis: (8) Dementia: pleasant, cooperative (9) Dyslipidemia: continue Atorvastatin (10) Hypertension: continue Norvasc (11) Spinal stenosis: (12) Incontinence: connelly placed to prevent further irritation of perineal abscess would keep connelly until abscess adequate healed Subjective patient feeling better, no fever, less pain in groin no dyspnea, no cough she is eating well reviewed labs, wound culture growing MRSA WBC down to 11k, Cr is stable discussed with Dr. Chau, appreciate his assistance Review of Systems Review of Systems: All systems reviewed & are unremarkable except as noted in HPI & below Constitutional: + fatigue and + weakness; no fever, no chills, no sweats and no body aches Respiratory: no cough and no dyspnea Cardiovascular: no chest pain and no edema Gastrointestinal: no abdominal pain, no nausea, no vomiting, no constipation and no diarrhea/loose stools Physical Exam Constitutional: WD/WN, vitals as above + obese Eyes: PERRL, conjunctivae normal, anicteric sclerae ENMT: external ear and nose normal, oropharynx normal Neck: trachea midline, no thyromegaly Respiratory: normal respiratory effort, lungs clear to auscultation Cardiovascular: RRR, no murmur, no edema Gastrointestinal (Abdomen): normal bowel sounds, soft, nontender, no hepatosplenomegaly Musculoskeletal: no cyanosis or clubbing, extremities motor strength 5/5 Skin: no rashes, warm and dry + erythema (right inguinal region, adjacent to labia, s/p I&D, less redness, less pain) Neurologic: patellar DTR's 2+ bilat, sensation intact and PERRL, EOMI, accommodation nl, no face palsy, no dysarthria Psychiatric: A+Ox3, euthymic affect Lymphatic: no cervical or axillary lymphadenopathy Results & Data Vital Signs (Past 12 Hours) Vital Signs Temp Pulse Resp BP Pulse Ox 09/18/18 08:24 37.0 C 74 19 151/75 H 96 Laboratory Results Laboratory Results - last 24 hr 09/18/18 09/18/18 07:20 07:20 WBC 11.23 H RBC 3.38 L Hgb 11.0 L Hct 33.6 L MCV 99.4 MCH 32.5 MCHC 32.7 RDW Std Deviation 46.5 H RDW Coeff of Luis 12.8 Plt Count 246 MPV 9.9 Immature Gran % (Auto) 0.3 Neut % (Auto) 62.0 Lymph % (Auto) 20.7 [place] % (Auto) 11.7 Eos % (Auto) 5.0 Baso % (Auto) 0.3 Immature Gran # (Auto) 0.03 H Neut # (Auto) 6.98 H Lymph # (Auto) 2.32 [place] # (Auto) 1.31 H Eos # (Auto) 0.56 H Baso # (Auto) 0.03 Creatinine 0.64 Est Cr Clr Drug Dosing 75.6 Est GFR ( Amer) 93.6 Est GFR (Non-Af Amer) 80.8 Medications Administered Current Inpatient Medications Acetaminophen (Tylenol) 650 mg PO Q4H PRN PRN Reason: pain/fever Stop: 10/16/18 03:04 Last Admin: 09/17/18 21:24 Dose: 650 mg Documented by: Al Hydrox/Mg Hydrox/Simethicone (Maalox) 30 ml PO Q6H PRN PRN Reason: Dyspepsia Stop: 10/16/18 03:04 Amlodipine Besylate (Norvasc) 5 mg PO DAILY [facility] Stop: 10/16/18 08:59 Last Admin: 09/18/18 08:38 Dose: 5 mg Documented by: Aspirin (Ecotrin Ectab) 81 mg PO DAILY [facility] Stop: 10/16/18 08:59 Last Admin: 09/18/18 08:37 Dose: 81 mg Documented by: Atorvastatin Calcium (Lipitor) 10 mg PO DAILY [facility] Stop: 10/16/18 08:59 Last Admin: 09/18/18 08:37 Dose: 10 mg Documented by: Diclofenac Sodium (Voltaren 1% Top) 2 appln EXT QID PRN PRN Reason: hip pain Stop: 10/16/18 01:52 Enoxaparin Sodium (Lovenox) 40 mg SQ QAM [facility] Stop: 10/16/18 08:59 Last Admin: 09/18/18 08:37 Dose: 40 mg Documented by: Vancomycin HCl 1,250 mg/ (Sodium Chloride) 275 mls @ 125 mls/hr IV Q12H [facility] Stop: 09/27/18 03:59 Last Infusion: 09/18/18 05:35 Dose: Infused Documented by: Lactobacillus Acidophilus (Floranex) 4 tab PO TIDM [facility] Stop: 10/18/18 11:59 Loperamide HCl (Imodium) 2 mg PO Q4 PRN PRN Reason: Diarrhea Stop: 10/16/18 03:04 Magnesium Hydroxide (Milk Of Magnesia) 30 ml PO DAILY PRN PRN Reason: constipation Stop: 10/16/18 01:52 Magnesium Hydroxide (Milk Of Magnesia) 30 ml PO Q6H PRN PRN Reason: Constipation Stop: 10/16/18 03:04 Miconazole Nitrate (Desenex) 1 appln EXT PRN PRN PRN Reason: Affected Skin Folds Stop: 10/16/18 07:11 Miscellaneous Information (Consult) 1 ea N/A UD PRN PRN Reason: Consult Stop: 10/16/18 15:12 Nitroglycerin (Nitrostat) 0.4 mg SL UD PRN PRN Reason: Chest Pain Stop: 10/16/18 01:59 Toviaz Er, 4mg Tab: Non-Formulary Patient's Own Med 1 ea PO BID [facility] Stop: 10/18/18 08:59 Last Admin: 09/18/18 08:38 Dose: 1 tab Documented by: Nystatin (Nystatin) 1 appln EXT BID PRN PRN Reason: rash Stop: 10/16/18 01:52 Ondansetron HCl (Zofran) 4 mg IV Q6H PRN PRN Reason: Nausea Stop: 10/16/18 03:04 Pantoprazole Sodium (Protonix) 40 mg PO DAILY JOHN Stop: 10/16/18 08:59 Last Admin: 09/18/18 08:38 Dose: 40 mg Documented by: Polyethylene Glycol (Miralax Powder Packet) 17 gm PO DAILY PRN PRN Reason: Constipation Stop: 10/16/18 03:04 Tramadol HCl (Ultram) 50 - 100 mg PO Q6H PRN PRN Reason: Pain Stop: 10/16/18 01:52 Last Admin: 09/18/18 10:04 Dose: 100 mg Documented by: PG Care Time/CCT Total # of Minutes Spent Total Time Spent with Patient: Total time spent is greater than 50% in coordination of care (as documented) at patient's floor/unit and/or counseling patient: (1) Falls Encounter type: initial encounter Qualified Code(s): W19.XXXA - Unspecified fall, initial encounter
[2018-09-18] MEDS: LACTOBACILLUS ACIDOPHILUS (FLORANEX) TAB PO SCH ×2 (12:06→16:23)
[2018-09-18] MEDS ORDERED: VANCOMYCIN TROUGH ONE (15:30)
[2018-09-18] MEDS: ACETAMINOPHEN 500 MG TAB PO SCH ×3 (16:23→23:40)
--- NOTE | 2018-09-18 17:50 | Pharmacy Report ---
Pharmacy Abx Dose Short Note - Date of Service September 18, 2018 - Assessment & Plan A/P Trough subtherapeutic 14.6mcg/mL. will increase dose 1250mg ---> 1500mg (15mg/kg) q12. Goal trough for MRSA CLAUDIA: 2 is 15-20mcg/mL. Trough ordered for 09/20 @0330. Pharmacy will continue to follow and will adjust dose/frequency as necessary. Thank you.
[2018-09-19] MEDS: VANCOMYCIN HCL 1,500 MG in SODIUM CHLORIDE 0.9% 500 ML IV SCH ×2 (03:11→16:18)
[2018-09-19] MEDS: ACETAMINOPHEN 500 MG TAB PO SCH ×6 (03:11→23:07)
[2018-09-19 07:05] LABS: Creatinine Clr Calc Pharmacy 79.3 ml/min; Est GFR (African American) 95.1; Est GFR (Non-African American) 82.1
[2018-09-19] MEDS: PANTOprazole 40 MG TAB PO SCH (08:24)
[2018-09-19] MEDS: ASPIRIN 81 MG ECTAB PO SCH (08:24)
[2018-09-19] MEDS: ATORVASTATIN 10 MG TAB PO SCH (08:24)
[2018-09-19] MEDS: IBUPROFEN 600 MG TAB PO SCH (08:24)
[2018-09-19] MEDS: LACTOBACILLUS ACIDOPHILUS (FLORANEX) TAB PO SCH ×3 (08:24→16:19)
[2018-09-19] MEDS: AMLODIPINE BESYLATE 5 MG TAB PO SCH (08:24)
[2018-09-19] MEDS: ENOXAPARIN INJ 40 MG/0.4 ML SYR SQ SCH (08:24)
[2018-09-19] MEDS: TOVIAZ 4 MG PO SCH ×2 (08:24→20:26)
--- NOTE | 2018-09-19 13:15 | Surgery Progress Note ---
Date of Service September 19, 2018 Assessment & Plan (1) Abscess, perineum: continue dressing changes will check U/S to r/o other collections or etiology seen with Dr. Chau Subjective more groin pain today Physical Exam Skin: less erythema, some induration Results & Data Vital Signs (Past 12 Hours) Vital Signs Temp Pulse Resp BP Pulse Ox 09/19/18 07:00 37.1 C 70 18 157/74 H 96
--- NOTE | 2018-09-19 14:34 | Ultrasound Report ---
US abdomen limited HISTORY: 87 years-old Female left perineum, s/p I D, MRSA, ? additional abscess acute soft tissue sw elling about the left labia and perineal region COMPARISON: CT abdomen and pelvis 11/03/2017 TECHNIQUE: Multiple real-time sonographic images of the left labia region were obtained assessing gra yscale appearance and color flow FINDINGS/IMPRESSION: Edematous subcutaneous tissues is noted within the area of clinical concern. No drainable fluid colle ction, adenopathy or soft tissue mass identified. The above report was generated using voice recognition software. It may contain grammatical, syntax o r spelling errors. Electronically signed by: Johnathan Schultz M.D. 09/19/2018 2:32 PM
--- NOTE | 2018-09-19 16:02 | XRay Report ---
XR chest 1V portable HISTORY: 87 years-old Female pulmonary edema??; dyspnea acute shortness of breath with pulmonary melvin ma COMPARISON: Chest radiograph 09/15/2018 TECHNIQUE: Portable AP view of the chest FINDINGS: Cardiac silhouette is enlarged, unchanged. 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 Pulmonary vascular congestion. No pneumothorax, large pleural effusion or overt pulmonary edema. Mild chronic interstitial coarsening is unchanged. Degenerative changes of the shoulders and spine. IMPRESSION: Cardiomegaly with pulmonary vascular congestion. The above report was generated using voice recognition software. It may contain grammatical, syntax o r spelling errors. Electronically signed by: Johnathan Schultz M.D. 09/19/2018 4:00 PM
[2018-09-19] MEDS ORDERED: risperiDONE ODT 0.5 MG SOLTAB PO STA (18:08)
[2018-09-19] MEDS: TRAMADOL HCL 50 MG TABLET PO PRN (18:24)
[2018-09-19] MEDS: FUROSEMIDE 20 MG TAB PO SCH (18:59)
--- NOTE | 2018-09-19 19:35 | Hospitalist Progress Note ---
Date of Service September 19, 2018 Assessment & Plan (1) Sepsis: due to MRSA abscess in perineum region on left s/p I & D by general surgery. continue dressing changes. continue IV antibiotics but hopefully can transition to PO abx at discharge. (2) Abscess, perineum: s/p I&D by Dr. Chau. culture w/ MRSA. remains on IV vancomycin. keep connelly. (3) Falls: suspect 2nd to sepsis. max assist of 2 per therapy notes. likely needs SNF for rehab as she usually can pivot, transfer, etc. (4) Weakness: as above (5) Coronary artery disease: no ischemic symptoms while here or EKG changes cont asa, statin (6) Chronic osteoarthritis: noted tramadol prn (7) Dementia: had mild hospital psychosis today (trying to get out of bed, etc) risperdal x 1 given for these symptoms follow (8) Dyslipidemia: continue Atorvastatin (9) Hypertension: continue Norvasc control acceptable for now (10) Spinal stenosis: (11) Incontinence: keep connelly in place until abscess healed (12) DVT prophylaxis: lovenox daily Subjective patient denies any significant complaints. mild TOM with movement. scratchy, hoarse voice noted by son. no fevers. eating fair. son at bedside - updated given - he is aware of probable need for short-term SNF rehab. Review of Systems Constitutional: no fever and no chills Respiratory: + dyspnea and + dyspnea on exertion; no cough Cardiovascular: no chest pain Gastrointestinal: no abdominal pain, no nausea and no vomiting Physical Exam Constitutional: + obese; no acute distress (although appears to get dyspneic w/ moving in bed ) ENMT: external ear and nose normal, oropharynx normal Respiratory: Auscultation: + diminished lung sounds (bases) and + rales (fine -bases); no wheezes Cardiovascular: Rate/Rhythm: regular rate and regular rhythm Heart Sounds: normal S1 and normal S2 Vessels: posterior tibial pulses present and dorsalis pedis pulses present; no JVD Extremities: + edema Gastrointestinal (Abdomen): normal bowel sounds, soft, nontender, no hepatosplenomegaly Skin: chaperoned by staff -- left perineal abscess cavity clean, minimal drainage; surrounding induration present Psychiatric: Orientation: alert, oriented to person and oriented to place; + not oriented to time Results & Data Vital Signs (Past 12 Hours) Vital Signs Temp Pulse Resp BP Pulse Ox 09/19/18 15:51 36.9 C 67 18 142/62 H 90 Laboratory Results Laboratory Results - last 24 hr 09/19/18 06:15 Creatinine 0.61 Est Cr Clr Drug Dosing 79.3 Est GFR ( Amer) 95.1 Est GFR (Non-Af Amer) 82.1 PG Care Time/CCT Total # of Minutes Spent Total Time Spent with Patient: Total time spent is greater than 50% in coordination of care (as documented) at patient's floor/unit and/or counseling patient: (1) Sepsis Sepsis type: methicillin resistant Staphylococcus aureus Qualified Code(s): A41.02 - Sepsis due to Methicillin resistant Staphylococcus aureus (2) Falls Encounter type: initial encounter Qualified Code(s): W19.XXXA - Unspecified fall, initial encounter (3) Coronary artery disease Coronary Disease-Associated Artery/Lesion type: [place] artery [place] vs. transplanted heart: [place] heart Associated angina: without angina Qualified Code(s): I25.10 - Atherosclerotic heart disease of [place] coronary artery without angina pectoris (4) Dementia Dementia type: unspecified type Dementia behavioral disturbance: with behavioral disturbance Qualified Code(s): F03.91 - Unspecified dementia with behavioral disturbance (5) Hypertension Hypertension type: essential hypertension Qualified Code(s): I10 - Essential (primary) hypertension (6) Spinal stenosis Spinal region: lumbar Neurogenic claudication status: unspecified Qualified Code(s): M48.061 - Spinal stenosis, lumbar region without neurogenic claudi cation (7) Incontinence Incontinence type: urinary Urinary Incontinence type: other incontinence Qualified Code(s): N39.498 - Other specified urinary incontinence
[2018-09-20] MEDS ORDERED: VANCOMYCIN TROUGH ONE (03:30)
[2018-09-20] MEDS: ACETAMINOPHEN 500 MG TAB PO SCH ×6 (03:52→23:36)
[2018-09-20] MEDS: VANCOMYCIN HCL 1,500 MG in SODIUM CHLORIDE 0.9% 500 ML IV SCH ×2 (03:52→16:05)
[2018-09-20 04:01] LABS: Hematocrit (blood only) 36.3 % (37-47); Mean Corpuscular Hgb Conc 33.1 g/dL (32-36); Mean Corpuscular Volume 98.1 fL (80-100); Mean Platelet Volume 9.8 fL (7.4-10.4); Platelet Count 323 K/uL (130-400); RDW Coefficient of Variation 12.5 % (11.5-14.5); RDW Standard Deviation 44.8 fL (36.4-46.3); White Blood Count 9.08 K/uL (4.8-10.8)
[2018-09-20 04:19] LABS: BUN Creatinine Ratio 22.1 (10-20); Creatinine Clr Calc Pharmacy 73.3 ml/min; Est GFR (African American) 92.7; Magnesium 2.2 mg/dl (1.8-2.4); Potassium 3.9 mmol/L (3.5-5.1)
[2018-09-20] MEDS: LACTOBACILLUS ACIDOPHILUS (FLORANEX) TAB PO SCH ×3 (07:49→17:24)
[2018-09-20] MEDS: PANTOprazole 40 MG TAB PO SCH (07:50)
[2018-09-20] MEDS: TOVIAZ 4 MG PO SCH ×2 (07:50→20:29)
[2018-09-20] MEDS: AMLODIPINE BESYLATE 5 MG TAB PO SCH (07:50)
[2018-09-20] MEDS: IBUPROFEN 600 MG TAB PO SCH (07:50)
[2018-09-20] MEDS: FUROSEMIDE 20 MG TAB PO SCH (07:50)
[2018-09-20] MEDS: ENOXAPARIN INJ 40 MG/0.4 ML SYR SQ SCH (07:50)
[2018-09-20] MEDS: ASPIRIN 81 MG ECTAB PO SCH (07:50)
[2018-09-20] MEDS: ATORVASTATIN 10 MG TAB PO SCH (07:50)
--- NOTE | 2018-09-20 09:49 | Pharmacy Report ---
Pharmacy Abx Dose Short Note - Date of Service September 20, 2018 - Assessment & Plan Assessment * 87 year old F on vancomycin for sepsis 2nd MRSA perineal abscess s/p I&D * Renal: SCr stable and at/near baseline * WBC wnl, afebrile Vancomycin * Day 5 of therapy * Goal trough 15-20 mcg/mL * Trough of 18.6 mcg/mL is therapeutic Plan * Continue vancomycin 1500 mg IV q12h * Repeat trough in ~3 days, or sooner if renal function / clinical status changes Pharmacy will continue to follow and will adjust dose/frequency as necessary. Thank you.
--- NOTE | 2018-09-20 14:54 | Surgery Progress Note ---
Date of Service September 20, 2018 Assessment & Plan (1) Abscess, perineum: U/S without additional collections continue local wound care IV to po abx d/c planning Subjective feeling better today, less discomfort Results & Data Vital Signs (Past 12 Hours) Vital Signs Temp Pulse Resp BP Pulse Ox 09/20/18 08:38 36.7 C 76 20 168/81 H 89 L
[2018-09-20] MEDS ORDERED: TRAMADOL HCL 50 MG TABLET PO PRN (18:16)
--- NOTE | 2018-09-20 20:43 | Hospitalist Progress Note ---
Date of Service September 20, 2018 Assessment & Plan (1) Sepsis: due to MRSA abscess in perineum region on left s/p I & D by general surgery. continue dressing changes. continue antibiotics but change to oral bactrim or doxy next 24 hours. (2) Abscess, perineum: s/p I&D by Dr. Chau. culture w/ MRSA. remains on IV vancomycin. keep connelly for another few days. transition to PO bactrim or doxycycline next 24hours. (3) Falls: suspect 2nd to sepsis. max assist of 2 per therapy notes. social work aware of PT/OT evals and current level of function. social work to [facility] with [facility] to see if they can meet her needs or if she will need SNF placement. (4) Weakness: as above (5) Coronary artery disease: no ischemic symptoms while here or EKG changes cont asa, statin (6) Chronic osteoarthritis: noted tramadol prn (7) Dementia: with mild, intermittent hospital psychosis resolved looked good today at baseline (8) Dyslipidemia: continue Atorvastatin (9) Hypertension: continue Norvasc control acceptable for now (10) Spinal stenosis: (11) Incontinence: keep connelly in place until abscess healed maybe another 3-4 days max (12) Acute on chronic diastolic (congestive) heart failure: patient tolerating oral lasix diuresis with stable BUN and Cr along with improved weights, improved lung exam and improved LE edema would place on lasix 20mg daily at d/c (13) DVT prophylaxis: lovenox daily possible d/c tomorrow family extensively updated at bedside today Subjective patient overall doing well denies any significant complaints - scant pain left groin breathing improved eating well family pleased w/ progress still requiring considerable assistance to stand and pivot/transfer family aware of this and they know that her personal jail has to feel accept her back at this level of function; if not then SNF will be needed Review of Systems Constitutional: no fever and no chills Respiratory: no cough and no dyspnea Cardiovascular: no chest pain Gastrointestinal: no abdominal pain and no diarrhea/loose stools Physical Exam Constitutional: + obese; no acute distress looks good ENMT: external ear and nose normal, oropharynx normal Respiratory: Auscultation: + diminished lung sounds (bases); no rales and no wheezes Cardiovascular: Rate/Rhythm: regular rate and regular rhythm Heart Sounds: normal S1 and normal S2 Vessels: posterior tibial pulses present and dorsalis pedis pulses present; no JVD Extremities: + edema (<1+) Gastrointestinal (Abdomen): normal bowel sounds, soft, nontender, no hepatosplenomegaly Psychiatric: Orientation: alert, oriented to person and oriented to place; + not oriented to time Results & Data Vital Signs (Past 12 Hours) Vital Signs Temp Pulse Resp BP Pulse Ox 09/20/18 16:38 36.8 C 63 19 145/75 H 96 PG Care Time/CCT Total # of Minutes Spent Total Time Spent with Patient: Total time spent is greater than 50% in coordination of care (as documented) at patient's floor/unit and/or counseling patient: (1) Coronary artery disease Associated angina: without angina Coronary Disease-Associated Artery/Lesion type: [place] artery [place] vs. transplanted heart: [place] heart Qualified Code(s): I25.10 - Atherosclerotic heart disease of [place] coronary artery without angina pectoris (2) Dementia Dementia behavioral disturbance: with behavioral disturbance Dementia type: unspecified type Qualified Code(s): F03.91 - Unspecified dementia with behavioral disturbance (3) Incontinence Incontinence type: urinary Urinary Incontinence type: other incontinence Qualified Code(s): N39.498 - Other specified urinary incontinence (4) Spinal stenosis Neurogenic claudication status: unspecified Spinal region: lumbar Qualified Code(s): M48.061 - Spinal stenosis, lumbar region without neurogenic claudication (5) Sepsis Sepsis type: methicillin resistant Staphylococcus aureus Qualified Code(s): A41.02 - Sepsis due to Methicillin resistant Staphylococcus aureus (6) Hypertension Hypertension type: essential hypertension Qualified Code(s): I10 - Essential (primary) hypertension (7) Falls Encounter type: initial encounter Qualified Code(s): W19.XXXA - Unspecified fall, initial encounter
[2018-09-21] MEDS: ACETAMINOPHEN 500 MG TAB PO SCH ×4 (03:06→16:13)
[2018-09-21 07:39] LABS: BUN Creatinine Ratio 25.5 (10-20); Calcium 8.6 mg/dl (8.5-10.1); Creatinine Clr Calc Pharmacy 81.4 ml/min; Est GFR (African American) 95.7; Est GFR (Non-African American) 82.5
[2018-09-21] MEDS: FUROSEMIDE 20 MG TAB PO SCH (07:55)
[2018-09-21] MEDS: LACTOBACILLUS ACIDOPHILUS (FLORANEX) TAB PO SCH ×2 (07:56→12:33)
[2018-09-21] MEDS: ASPIRIN 81 MG ECTAB PO SCH (07:56)
[2018-09-21] MEDS: PANTOprazole 40 MG TAB PO SCH (07:57)
[2018-09-21] MEDS: ENOXAPARIN INJ 40 MG/0.4 ML SYR SQ SCH (07:58)
[2018-09-21] MEDS: TOVIAZ 4 MG PO SCH (07:59)
[2018-09-21] MEDS: ATORVASTATIN 10 MG TAB PO SCH (08:00)
[2018-09-21] MEDS: AMLODIPINE BESYLATE 5 MG TAB PO SCH (08:00)
[2018-09-21] MEDS: IBUPROFEN 600 MG TAB PO SCH (08:01)
[2018-09-21] MEDS ORDERED: SULFAMETHOXAZOLE/TRIMETHOPRIM DS 800/160MG TAB PO SCH (09:00)
--- NOTE | 2018-10-01 08:47 | Discharge Summary ---
Date of Service date of admission - September date of discharge - September 21, 2018e Admission HPI Per Admitting Provider Patient is a pleasant 87-year-old female past medical history ASCVD status post three-vessel CABG, OA, HTN, spinal stenosis, urine and bowel incontinence, dementia who presents with a 2-day history of extreme drowsiness/fatigue, ground-level falls, and a 24-hour history of fever. Patient lives at assisted living facility at [facility]. She reports feeling very fatigued, drowsy, and tired for 2 days, and 24 hours ago she started noticing a temperature of 102 which would come and go as she would take Tylenol intermittently. She also notes a few falls, stating that she feels her leg would give out on her or that she could not lift of her foot to walk and would tumble to the side or in front of her. She cannot provide specific details about these falls, but does note she did not hit her head and has no scrapes or injuries. She does note a possible flare of her chronic hip pain. She does report she has been eating and drinking well recently. On review of outpatient records, patient was released recently treated for bronchitis with azithromycin and guaifenesin. She does not recall being treated for this. She thought that the appointment was for her generalized weakness. She denies lightheadedness, headaches, chest pain, shortness of breath, nausea, diarrhea, dysuria, hematuria. She does know she has chronic lower extremity swelling for which she wears compression stockings. Evaluation in the ER revealed an elevated white cell count of 15, normal BMP, lactate of 0.66. Chest x-ray is negative. UA revealed trace leukocyte esterase, 5-10 WBCs, 1+ bacteria. She was febrile on arrival, but vitals were otherwise normal. Urine and blood cultures are pending. She was started on Rocephin. 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 Mild surrounding induration. Center of abscess cavity clean. Psychiatric Orientation: alert, oriented to person and oriented to place; + not oriented to time Discharge Data Allergies Allergy/AdvReac Type Severity Reaction Status Date / Time Cipro Allergy Unknown UNKNOWN Verified 11/02/17 10:30 ciprofloxacin Allergy Unknown UNKNOWN Verified 09/15/18 23:50 ezetimibe Allergy Unknown UNKNOWN Verified 09/15/18 23:50 Penicillins Allergy Unknown Unknown Verified 09/15/18 23:50 simvastatin Allergy Unknown UNKNOWN Verified 09/15/18 23:50 lisinopril Allergy Unknown Verified 09/16/18 07:23 nitrofurantoin Allergy Unknown Verified 09/16/18 07:24 [From Macrobid] codeine AdvReac Mild GI SYMPTOMS Verified 09/15/18 23:50 Consultations general surgery - Baldomero Chau DO Procedures Performed Incision and Drainage of left groin abscess - Baldomero Chau DO Ordered Studies US abdomen limited (post Incision and drainage) - FINDINGS/IMPRESSION: Edematous subcutaneous tissues is noted within the area of clinical concern. No drainable fluid collection, adenopathy or soft tissue mass identified. Hospital Course (1) Sepsis: 2nd to MRSA abscess in groin/perineal region on left s/p I & D by general surgery (Dr Chau). Improved with I&D along with IV antibiotic therapy. Blood cultures were negative while hospitalized. Was continued on dressing changes for abscess site. Will complete a course of oral doxycycline after discharge. (2) Abscess, perineum: s/p I&D by Dr. Chau. culture with MRSA. Received IV vancomycin during the stay and was transitioned to oral doxycycline at discharge for an additional 10 days of treatment. Connelly was kept in place at discharge due to her urinary incontinence and concern it would contaminate the healing abscess/wound. Hopefully the connelly can be discontinued within 3-4 days of discharge. (3) Falls: suspect 2nd to sepsis. max assist of 2 per therapy notes during the stay. social work discussed her current functional level with [facility] and [facility] gave reassurances that they could continue to meet her needs despite her severe deconditioning. (4) Weakness: as above (5) Coronary artery disease: no ischemic symptoms while here or EKG changes to suggest such cont asa, statin (6) Chronic osteoarthritis: tramadol prn (7) Dementia: with mild, intermittent hospital psychosis resolved prior to discharge and was at baseline (8) Dyslipidemia: continue Atorvastatin (9) Hypertension: continue Norvasc control acceptable while hospitalized (10) Spinal stenosis: (11) Incontinence: keep connelly in place until abscess healed maybe another 3-4 days max post-discharge (12) Acute on chronic diastolic (congestive) heart failure: patient appeared to have volume overload while here. she was given lasix for diuresis and will d/c back to [facility] on 20mg daily of PO lasix discharge weight was 99kg ideally she should have daily weights at [facility] along with salt restriction at time of follow-up with her PCP she should have repeat BMP/magnesium levels for stability Total Time Total Time Spent Total Time Spent (In Minutes): 45 Total Time Includes: Examination of the Patient, Discharge Planning and Medication Reconciliation Discharge Plan Discharge Items Patient Disposition: [facility] Reason For Visit: FEVERS,FATIGUE,FALLS Discharge Diagnosis: left inner thigh MRSA skin abscess requiring incision & drainage by Dr Chau (general surgery) Discharge Goals: Diagnostic testing Activity: Resume your previous activity Non-emergency contact: Primary Care Provider and Surgeon Call non-emergency contact if: you have any medication questions, your symptoms worsen, your pain is not controlled, your pain is worsening, your temperature is above 100.5, your wound has increased redness, your wound has increased drainage and your wound pain has increased Follow-up/Referrals: Baldomero Chau DO, TOMAS [Physician] - 09/29/18 11:00 am (Please follow-up with Dr. Chau in General Surgery on WednesdaySeptember 29 at 11:00am. If you have any questions or need to reschedule, please call the office at [phone].) Blue Chun MD [Primary Care Provider] - 09/29/18 2:00 pm (There are no upcoming appointments with Dr. Chun. His PA, Francheska Ulloa, can see you on September 29 at 2:00pm. If you have any questions or need to reschedule, please call the office at [phone].) Diet: Heart Healthy Addtl Provider Instructions: From Wes Crowley hospitalist - 1. Recommendations from general surgery for left groin abscess site- * Daily dressing changes; can use 4x4's covered with ABD pad OR optifoam or something similar to catch any drainage from the wound. * Ok to shower, but do not soak or scrub incision. * Follow-up with Dr. Chau or his partners in the General Surgery clinic in 1-2 weeks. 2. Antibiotics for the MRSA groin abscess - * doxycycline 100mg twice a day for 10 days * take probiotic supplement daily for 10 days as well * doxycycline can cause a rash if you go out in the sun; please use sunscreen and cover up to prevent that rash * doxycycline can also cause heartburn 3. fluid retention - * take furosemide 20mg once daily every morning * in 1 week you will need to see your primary care doctor to see if you need to continue on this medication * you will also need a lab draw to check your electrolytes to see if you need potassium or magnesium supplement * your weight was 184 pounds in January 2018 at the [facility]; your weight today is 217 pounds; some of this weight gain since last fall may be fluid 4. arthritis pain, etc - * would STOP the daily motrin as this can cause fluid retention and hurt your kidneys * would take tylenol 500mg three times a day for aches and pains * ok to take tramadol 50mg every 6 hours as needed for pain, if desired 5. Please have your family doctor check a BMP and Magnesium level in 1 week. 6. Continue PT and OT at [facility]. 7. If possible please check daily weights on a standing scale at [facility]. Your weight today is 99kg (216 pounds). 8. Connelly catheter is in place at time of transfer back to [facility]. Ideally the connelly is removed in the next 2-3 days. The longer the connelly is in place the greater the chance of urinary tract infection. Follow-up - see separate section. Return to [facility] if - * you have fevers over 100.5 degrees * you have worsening redness, swelling, drainage or pain from the left groin abs cess site * you have worsening shortness of breath * you have severe diarrhea * any other concerns Prescriptions: New furosemide 20 mg Tablet 20 mg PO QAM Qty: 30 RF: 0 Continued pantoprazole 20 mg tablet,delayed release (DR/EC) 20 mg PO DAILY Qty: 30 RF: 2 amlodipine 5 mg tablet 5 mg PO DAILY Qty: 90 RF: 3 aspirin [Aspir-81] 81 mg tablet,delayed release (DR/EC) 81 mg PO DAILY Qty: 90 RF: 3 atorvastatin 10 mg tablet 10 mg PO DAILY Qty: 90 RF: 3 cholecalciferol (vitamin D3) [Vitamin D3] 2,000 unit capsule 2,000 unit PO BID Qty: 180 RF: 3 loperamide 2 mg tablet 2 mg PO Q3H PRN (Reason: Diarrhea) Qty: 240 RF: 0 nitroglycerin 0.4 mg tablet, sublingual 0.4 mg SL .DISSOLVE ONE TABLET Qty: 100 RF: 0 turmeric 400 mg capsule 900 mg PO DAILY Qty: 90 RF: 3 guaifenesin 200 mg tablet 200 mg PO BID PRN (Reason: cough) Qty: 120 RF: 0 magnesium hydroxide [Milk of Magnesia] 400 mg/5 mL suspension 30 ml PO DAILY PRN (Reason: constipation) Qty: 118 RF: 3 nystatin 100,000 unit/gram cream 1 appln TOP BID PRN (Reason: rash) Qty: 30 RF: 0 diclofenac sodium 1 % gel 2 gm TOP QID PRN (Reason: hip pain) 30 Days Qty: 100 RF: 0 Toviaz 4 mg Tablet Extended Release 24 Hr 4 mg PO BID RF: 0 Changed tramadol 50 mg Tablet 50 mg PO Q6H PRN (Reason: Pain) Qty: 30 RF: 0 acetaminophen [Tylenol Extra Strength] 500 mg tablet 500 mg PO TID Qty: 90 RF: 1 Discontinued ibuprofen 600 mg tablet 600 mg PO QAM Qty: 90 RF: 0 Stand-Alone Forms: [facility], [facility] Discharge Orders: Discharge Order (Routine); Ordered 09/21/18 Ordered By: Wes Crowley Admission Data Admit Date/Time: 09/16/18 02:00 Attending Provider: Wes Crowley Admit Provider: Mary Grace Amin Primary Care Provider: Blue Chun Other Providers: Monty Luna ; Baldomero Chau Service: Medical Other Interventions: Discharge Summary Assessment (RN) Last Done: 09/21/18 16:43 Pending Studies at Discharge: No DC Date/Time DO NOT enter until pt leaves facility: 09/21/18 17:15
== END 2018-09-21 17:15 | disposition home health service (06) | DRG 853 ==
LOC: ED 21:38 → 2W 09-16 02:00 → SUATTDRO 09-16 02:00 → 2W 09-16 02:29

== ENCOUNTER 2020-08-20 19:58 | Observation (INO) ==
[2020-08-20] MEDS ORDERED: NALOXONE HCL 0.4 MG/1 ML VIAL/CARP IV STA (20:19)
--- NOTE | 2020-08-20 20:24 | Emergency Department Note ---
History of Present Illness General Chief complaint: Unresponsive Stated complaint: UNRESPONSIVE Time Seen by Provider: 08/20/20 20:16 Source: other ([facility] staff) Mode of arrival: EMS Limitations: altered mental status History of Present Illness Provider complaint: Unresponsive Onset (ago): hour(s) Location: head Pain Consistency: + constant Quality: + other (Unresponsive) Relieved By: + none This is a 89-year-old female with a history of dementia presenting with unresponsiveness. The patient came down for dinner at 5:00 and seem to be her normal self. She normally is able to talk. She went back to her room and they later found her at approximately 730 unresponsive. She does not respond to voice or pain. No further history is available. At 9 PM I did obtain further history from the patient. She is now awake and alert. She states that she does not remember what happened. She had been complaining of left knee pain since she is fallen several days ago but otherwise had no complaints. She did take some Tylenol but no other medications for her pain. She denies any headache, chest pain, shortness of breath, fever, vomiting, abdominal pain, cough or cold symptoms or urinary symptoms. Home Medications Medication Instructions Recorded Confirmed Type loperamide 2 mg tablet 2 mg PO Q3H PRN #240 tab 11/14/18 08/20/20 Rx Wheelchair (Manual or Powered) #1 ea 04/27/19 Rx nitroglycerin 0.4 mg sublingual 0.4 mg SL .COMPLEX PRN #25 tab 09/22/19 08/20/20 Rx tablet heating pads #1 ea 05/16/20 Rx acetaminophen 325 mg capsule 650 mg PO Q6H PRN #90 cap MDD 3 06/07/20 08/20/20 Rx GRAMS/24 HOURS ibuprofen 200 mg tablet 200 mg PO Q8H PRN #90 tab 06/07/20 08/20/20 Rx furosemide 20 mg tablet 20 mg PO DAILY PRN #30 tab 06/10/20 08/20/20 Rx acetaminophen [Tylenol Extra 500 mg PO Q4H PRN MDD 3 GRAMS/24 08/20/20 08/20/20 History Strength] HOURS acetaminophen [Tylenol Extra 500 mg PO QID 08/20/20 08/20/20 History Strength] amlodipine 5 mg PO QAM 08/20/20 08/20/20 History aspirin 81 mg PO QAM 08/20/20 08/20/20 History atorvastatin 10 mg PO QAM 08/20/20 08/20/20 History cholecalciferol (vitamin D3) 2,000 unit PO BID17 08/20/20 08/20/20 History [Vitamin D3] fesoterodine [Toviaz] 4 mg PO BID17 08/20/20 08/20/20 History ibuprofen 600 mg PO QAM 08/20/20 08/20/20 History pantoprazole 20 mg PO QAM 08/20/20 08/20/20 History turmeric 0 mg PO QAM 08/20/20 08/20/20 History Allergies Allergy/AdvReac Type Severity Reaction Status Date / Time ciprofloxacin Allergy Unknown ON MED LIST Verified 08/20/20 22:03 ezetimibe Allergy Unknown ON MED LIST Verified 08/20/20 22:03 lisinopril Allergy Unknown ON MED LIST Verified 08/20/20 22:03 nitrofurantoin Allergy Unknown ON MED LIST Verified 08/20/20 22:03 [From Macrobid] Penicillins Allergy Unknown ON MED LIST Verified 08/20/20 22:03 simvastatin Allergy Unknown ON MED LIST Verified 08/20/20 22:03 codeine AdvReac Mild GI SYMPTOMS Verified 08/20/20 22:02 Past Med/Surg History Medical History Bilateral chronic knee pain Carpal tunnel syndrome CHF (congestive heart failure) Chronic osteoarthritis Multiple joints affected. Hips have been a concern with recent corticosteroid injections. Risks associated with chronic NSAIDs previously discussed and currently managed with NSAID + APAP. Coronary artery disease Dementia Steady decline in cognitive function. Evaluated by neurology (02/20). Declines further medication therapy. Dyslipidemia Hypertension Incontinence Osteopenia DEXA (02/14) demonstrated T score -1.0 in forearm. Currently treated with Vit D supplementation. Sinus arrhythmia Spinal stenosis MRI (07/17) severe degenerative disease, along with moderate to severe spinal stenosis. SVT (supraventricular tachycardia) Urinary incontinence Vaginal wall prolapse Vitamin D deficiency Surgical History History of appendectomy History of coronary artery bypass graft History of tonsillectomy History of vaginal hysterectomy Presence of pessary S/P triple vessel bypass Before 2009. No subsequent stenting. Family History Father Myocardial infarction Mother Myocardial infarction Family/Other Colon cancer Coronary heart disease Diabetes Other Family history non-contributory No significant family history Denies family history of Ovarian cancer Breast cancer Social History Smoking Status: Unknown if ever smoked Second Hand Exposure: Yes (parents when younger); Hx Alcohol Use: Yes Alcohol type: beer and wine Hx Substance Use: No Preferred Language: German Communication Ability: Effective Grainer Machine Required: No Beliefs That Will Affect Care: None marital status: Unknown Current Living Situation: Personal Care Facility Current Living Situation Comment: [facility] Feels Safe at Home: Yes Assistive Devices: Walker Review of Systems See HPI for pertinent positives & negatives. Unobtainable due to cognitive status Obtained at 9 PM: See HPI for pertinent positives and negatives. A total of 10 systems were reviewed and were otherwise negative. Physical Exam Vital Signs Vital Signs - 24 hr 08/20/20 20:03 08/20/20 20:16 08/20/20 20:25 Temperature 36.8 C Temperature Source Oral Pulse Rate 79 73 75 Pulse Rate from SpO2 Sensor 81 Respiratory Rate 19 17 16 Respiratory Effort / Characteristics Non-Labored Respiratory Depth Normal Blood Pressure 167/72 H 167/72 H Blood Pressure Mean 103 103 Blood Pressure Position Sitting Pulse Oximetry 96 96 Oxygen Delivery Method Room Air Room Air Oxygen Flow Rate Fraction of Inspired Oxygen Sepsis Recent Fever Within 48 Hours No Sepsis New/Unexplained Change in Mental Status Yes Sepsis Action Taken by Nursing No Action Required 08/20/20 20:31 08/20/20 21:01 08/20/20 21:31 Temperature Temperature Source Pulse Rate 81 70 68 Pulse Rate from SpO2 Sensor 68 Respiratory Rate 14 16 19 Respiratory Effort / Characteristics Respiratory Depth Blood Pressure 117/81 143/106 H Blood Pressure Mean 93 118 Blood Pressure Position Pulse Oximetry 96 97 Oxygen Delivery Method Nasal Cannula Nasal Cannula Oxygen Flow Rate 2 Fraction of Inspired Oxygen 2 Sepsis Recent Fever Within 48 Hours Sepsis New/Unexplained Change in Mental Status Sepsis Action Taken by Nursing 08/20/20 22:01 Temperature Temperature Source Pulse Rate 74 Pulse Rate from SpO2 Sensor Respiratory Rate 19 Respiratory Effort / Characteristics Respiratory Depth Blood Pressure 119/74 Blood Pressure Mean 89 Blood Pressure Position Pulse Oximetry 95 Oxygen Delivery Method Nasal Cannula Oxygen Flow Rate 2 Fraction of Inspired Oxygen Sepsis Recent Fever Within 48 Hours Sepsis New/Unexplained Change in Mental Status Sepsis Action Taken by Nursing The physical exam is limited due to the patient's condition. Constitutional: Vital signs reviewed. Eyes: Pupils are equal round reactive to light. Conjunctiva are noninjected. HENT: Normocephalic atraumatic. Respiratory: Clear to auscultation bilaterally. Breath sounds are equal bilaterally. Cardiovascular: Regular rate and rhythm. No murmurs, rubs or gallops. GI: Soft, nondistended and nontender. Bowel sounds are present. Musculoskeletal: No peripheral edema. Integumentary: No cyanosis. Neurological: The patient is unresponsive to voice or painful stimuli. She does appear to have some muscle resistance in all 4 extremities. Psychiatric: Unable to assess. Reexamination at 9 PM shows the patient is awake and alert. She has a normal neurologic exam except for some slight weakness in the left electrochemist compared to the right. She does lean toward the left side but states that this is chronic for her. She is unable to lift either leg but has good strength distally with dorsiflexion and plantarflexion of the ankle. Course Administered Medications Discontinued Medications Ioversol (Optiray 350 500ml) 113 ml IV ONCE ONE Stop: 08/20/20 20:26 Last Admin: 08/20/20 20:26 Dose: 113 ml Documented by: [id number] Naloxone HCl (Naloxone Hcl 0.4 Mg/1 Ml Vial/Carp) 0.4 mg IV NOW STA Stop: 08/20/20 20:20 Last Admin: 08/20/20 20:55 Dose: Not Given Documented by: [id number] Medical Decision Making Differential Diagnosis Intracranial hemorrhage, intracranial mass, CVA, metabolic derangement, hypoglycemia, overdose Medical Records Attestation: I reviewed the patient's medical records. I did perform a limited focused review of portions of the patient's old chart on the electronic medical record. The patient was seen here several days ago for a left patellar dislocation after a fall. She was reported to have not hit her head at that time. Home Medications Current Medication List: was personally reviewed by me Laboratory Data Attestation: I reviewed the patient's lab results. Result diagrams: 08/20/20 20:35 08/20/20 20:35 Lab Results 05/18/21 05/18/21 05/18/21 Range/Units 20:35 20:35 20:35 WBC (4.8-10.8) K/uL RBC (4.2-5.4) M/uL Hgb (12.0-16.0) g/dL POC Hgb (12.0-16.0) g/dl Hct (37-47) % POC Hct (37-47) % MCV (80-100) fL MCH (25-34) pg MCHC (32-36) g/dL RDW Std Deviation (36.4-46.3) fL RDW Coeff of Luis (11.5-14.5) % Plt Count (130-400) K/uL MPV (7.4-10.4) fL Immature Gran % (Auto) % Neut % (Auto) % Lymph % (Auto) % Stanton % (Auto) % Eos % (Auto) % Baso % (Auto) % Neut # (Auto) (1.4-6.5) K/uL Lymph # (Auto) (1.2-3.4) K/uL Stanton # (Auto) (0.11-0.59) K/uL Eos # (Auto) (0-0.5) K/uL Baso # (Auto) (0-0.2) K/uL Immature Gran # (Auto) (0.00-0.02) K/uL PT (9.0-12.0) Seconds INR (0.9-1.1) APTT (21.0-31.0) Seconds PTT Ratio POC Sodium (135-144) mmol/L Sodium (136-145) mmol/L POC Potassium (3.3-5.0) mmol/L Potassium (3.5-5.1) mmol/L POC Chloride (101-112) mmol/L Chloride (98-107) mmol/L Carbon Dioxide (21-32) mmol/L POC Total CO2 (24-31) mmol/L Anion Gap (3-11) POC Anion Gap (16-25) mmol/L POC BUN (7-18) mg/dl BUN (7-18) mg/dl Creatinine (0.6-1.2) mg/dl POC Creatinine (0.6-1.3) mg/dl Est Cr Clr Drug Dosing ml/min Est GFR ( Amer) ml/min Est GFR (Non-Af Amer) ml/min BUN/Creatinine Ratio (10-20) Glucose (70-99) mg/dl POC Glucose (other) (70-99) mg/dl Calcium (8.5-10.1) mg/dl POC Ioniz Calcium Guadalupe (1.12-1.32) mmol/l Magnesium (1.8-2.4) mg/dl Total Bilirubin (0.2-1) mg/dl AST (15-37) U/L ALT (12-78) U/L Alkaline Phosphatase (45-117) U/L Troponin I (0-0.045) ng/ml Total Protein (6.4-8.2) gm/dl Albumin (3.4-5.0) gm/dl Globulin (2.5-4.0) gm/dl Albumin/Globulin Ratio (0.9-2) Urine Color Urine Appearance (Clear) Urine pH (4.5-7.5) Ur Specific Eek (1.000-1.030) Urine Protein (Negative) Urine Glucose (UA) (Negative) Urine Ketones (Negative) Urine Blood (Negative) Urine Nitrite (Negative) Urine Bilirubin (Negative) Urine Urobilinogen (Negative) Ur Leukocyte Esterase (Negative) Salicylates < 1.7 L (2.8-20) mg/dl Acetaminophen 4 L (10-30) ug/ml Ethyl Alcohol mg/dL < 3.0 (0-3) mg/dl COVID-19 Eval Order SARS-CoV-2 (PCR) (Negative) Blood Type O Positive Antibody Screen NEGATIVE 08/20/20 08/20/20 08/20/20 Range/Units 20:35 20:35 20:35 WBC 8.70 (4.8-10.8) K/uL RBC 3.54 L (4.2-5.4) M/uL Hgb 11.7 L (12.0-16.0) g/dL POC Hgb (12.0-16.0) g/dl Hct 36.0 L (37-47) % POC Hct (37-47) % MCV 101.7 H (80-100) fL MCH 33.1 (25-34) pg MCHC 32.5 (32-36) g/dL RDW Std Deviation 47.4 H (36.4-46.3) fL RDW Coeff of Luis 12.7 (11.5-14.5) % Plt Count 253 (130-400) K/uL MPV 10.1 (7.4-10.4) fL Immature Gran % (Auto) 0.2 % Neut % (Auto) 49.6 % Lymph % (Auto) 32.9 % Stanton % (Auto) 12.1 % Eos % (Auto) 4.7 % Baso % (Auto) 0.5 % Neut # (Auto) 4.32 (1.4-6.5) K/uL Lymph # (Auto) 2.86 (1.2-3.4) K/uL Stanton # (Auto) 1.05 H (0.11-0.59) K/uL Eos # (Auto) 0.41 (0-0.5) K/uL Baso # (Auto) 0.04 (0-0.2) K/uL Immature Gran # (Auto) 0.02 (0.00-0.02) K/uL PT 9.9 (9.0-12.0) Seconds INR 1.0 (0.9-1.1) APTT 24.8 (21.0-31.0) Seconds PTT Ratio 0.9 POC Sodium (135-144) mmol/L Sodium 136 (136-145) mmol/L POC Potassium (3.3-5.0) mmol/L Potassium 4.4 (3.5-5.1) mmol/L POC Chloride (101-112) mmol/L Chloride 102 (98-107) mmol/L Carbon Dioxide 29 (21-32) mmol/L POC Total CO2 (24-31) mmol/L Anion Gap 5.0 (3-11) POC Anion Gap (16-25) mmol/L POC BUN (7-18) mg/dl BUN 26 H (7-18) mg/dl Creatinine 0.92 (0.6-1.2) mg/dl POC Creatinine (0.6-1.3) mg/dl Est Cr Clr Drug Dosing 52.4 ml/min Est GFR ( Amer) 64.4 ml/min Est GFR (Non-Af Amer) 55.6 ml/min BUN/Creatinine Ratio 28.3 H (10-20) Glucose 137 H (70-99) mg/dl POC Glucose (other) (70-99) mg/dl Calcium 9.0 (8.5-10.1) mg/dl POC Ioniz Calcium Guadalupe (1.12-1.32) mmol/l Magnesium 2.0 (1.8-2.4) mg/dl Total Bilirubin 0.9 (0.2-1) mg/dl AST 25 (15-37) U/L ALT 37 (12-78) U/L Alkaline Phosphatase 63 (45-117) U/L Troponin I < 0.015 (0-0.045) ng/ml Total Protein 6.7 (6.4-8.2) gm/dl Albumin 3.1 L (3.4-5.0) gm/dl Globulin 3.6 (2.5-4.0) gm/dl Albumin/Globulin Ratio 0.9 (0.9-2) Urine Color Urine Appearance (Clear) Urine pH (4.5-7.5) Ur Specific Eek (1.000-1.030) Urine Protein (Negative) Urine Glucose (UA) (Negative) Urine Ketones (Negative) Urine Blood (Negative) Urine Nitrite (Negative) Urine Bilirubin (Negative) Urine Urobilinogen (Negative) Ur Leukocyte Esterase (Negative) Salicylates (2.8-20) mg/dl Acetaminophen (10-30) ug/ml Ethyl Alcohol mg/dL (0-3) mg/dl COVID-19 Eval Order SARS-CoV-2 (PCR) (Negative) Blood Type Antibody Screen 08/20/20 08/20/20 08/20/20 Range/Units 20:39 21:25 21:25 WBC (4.8-10.8) K/uL RBC (4.2-5.4) M/uL Hgb (12.0-16.0) g/dL POC Hgb 11.9 L (12.0-16.0) g/dl Hct (37-47) % POC Hct 35 L (37-47) % MCV (80-100) fL MCH (25-34) pg MCHC (32-36) g/dL RDW Std Deviation (36.4-46.3) fL RDW Coeff of Luis (11.5-14.5) % Plt Count (130-400) K/uL MPV (7.4-10.4) fL Immature Gran % (Auto) % Neut % (Auto) % Lymph % (Auto) % Stanton % (Auto) % Eos % (Auto) % Baso % (Auto) % Neut # (Auto) (1.4-6.5) K/uL Lymph # (Auto) (1.2-3.4) K/uL Stanton # (Auto) (0.11-0.59) K/uL Eos # (Auto) (0-0.5) K/uL Baso # (Auto) (0-0.2) K/uL Immature Gran # (Auto) (0.00-0.02) K/uL PT (9.0-12.0) Seconds INR (0.9-1.1) APTT (21.0-31.0) Seconds PTT Ratio POC Sodium 136 (135-144) mmol/L Sodium (136-145) mmol/L POC Potassium 4.4 (3.3-5.0) mmol/L Potassium (3.5-5.1) mmol/L POC Chloride 99 L (101-112) mmol/L Chloride (98-107) mmol/L Carbon Dioxide (21-32) mmol/L POC Total CO2 27 (24-31) mmol/L Anion Gap (3-11) POC Anion Gap 15.0 L (16-25) mmol/L POC BUN 26 H (7-18) mg/dl BUN (7-18) mg/dl Creatinine (0.6-1.2) mg/dl POC Creatinine 1.0 (0.6-1.3) mg/dl Est Cr Clr Drug Dosing ml/min Est GFR ( Amer) ml/min Est GFR (Non-Af Amer) ml/min BUN/Creatinine Ratio (10-20) Glucose (70-99) mg/dl POC Glucose (other) 135 H (70-99) mg/dl Calcium (8.5-10.1) mg/dl POC Ioniz Calcium Guadalupe 1.24 (1.12-1.32) mmol/l Magnesium (1.8-2.4) mg/dl Total Bilirubin (0.2-1) mg/dl AST (15-37) U/L ALT (12-78) U/L Alkaline Phosphatase (45-117) U/L Troponin I (0-0.045) ng/ml Total Protein (6.4-8.2) gm/dl Albumin (3.4-5.0) gm/dl Globulin (2.5-4.0) gm/dl Albumin/Globulin Ratio (0.9-2) Urine Color Urine Appearance (Clear) Urine pH (4.5-7.5) Ur Specific Eek (1.000-1.030) Urine Protein (Negative) Urine Glucose (UA) (Negative) Urine Ketones (Negative) Urine Blood (Negative) Urine Nitrite (Negative) Urine Bilirubin (Negative) Urine Urobilinogen (Negative) Ur Leukocyte Esterase (Negative) Salicylates (2.8-20) mg/dl Acetaminophen (10-30) ug/ml Ethyl Alcohol mg/dL (0-3) mg/dl COVID-19 Eval Order Covid19 at [facility] SARS-CoV-2 (PCR) NEGATIVE (Negative) Blood Type Antibody Screen 08/20/20 Range/Units 22:50 WBC (4.8-10.8) K/uL RBC (4.2-5.4) M/uL Hgb (12.0-16.0) g/dL POC Hgb (12.0-16.0) g/dl Hct (37-47) % POC Hct (37-47) % MCV (80-100) fL MCH (25-34) pg MCHC (32-36) g/dL RDW Std Deviation (36.4-46.3) fL RDW Coeff of Luis (11.5-14.5) % Plt Count (130-400) K/uL MPV (7.4-10.4) fL Immature Gran % (Auto) % Neut % (Auto) % Lymph % (Auto) % Stanton % (Auto) % Eos % (Auto) % Baso % (Auto) % Neut # (Auto) (1.4-6.5) K/uL Lymph # (Auto) (1.2-3.4) K/uL Stanton # (Auto) (0.11-0.59) K/uL Eos # (Auto) (0-0.5) K/uL Baso # (Auto) (0-0.2) K/uL Immature Gran # (Auto) (0.00-0.02) K/uL PT (9.0-12.0) Seconds INR (0.9-1.1) APTT (21.0-31.0) Seconds PTT Ratio POC Sodium (135-144) mmol/L Sodium (136-145) mmol/L POC Potassium (3.3-5.0) mmol/L Potassium (3.5-5.1) mmol/L POC Chloride (101-112) mmol/L Chloride (98-107) mmol/L Carbon Dioxide (21-32) mmol/L POC Total CO2 (24-31) mmol/L Anion Gap (3-11) POC Anion Gap (16-25) mmol/L POC BUN (7-18) mg/dl BUN (7-18) mg/dl Creatinine (0.6-1.2) mg/dl POC Creatinine (0.6-1.3) mg/dl Est Cr Clr Drug Dosing ml/min Est GFR ( Amer) ml/min Est GFR (Non-Af Amer) ml/min BUN/Creatinine Ratio (10-20) Glucose (70-99) mg/dl POC Glucose (other) (70-99) mg/dl Calcium (8.5-10.1) mg/dl POC Ioniz Calcium Guadalupe (1.12-1.32) mmol/l Magnesium (1.8-2.4) mg/dl Total Bilirubin (0.2-1) mg/dl AST (15-37) U/L ALT (12-78) U/L Alkaline Phosphatase (45-117) U/L Troponin I (0-0.045) ng/ml Total Protein (6.4-8.2) gm/dl Albumin (3.4-5.0) gm/dl Globulin (2.5-4.0) gm/dl Albumin/Globulin Ratio (0.9-2) Urine Color Yellow Urine Appearance Slightly Cloudy (Clear) Urine pH 6.0 (4.5-7.5) Ur Specific Eek 1.010 (1.000-1.030) Urine Protein Negative (Negative) Urine Glucose (UA) Negative (Negative) Urine Ketones Negative (Negative) Urine Blood Negative (Negative) Urine Nitrite Negative (Negative) Urine Bilirubin Negative (Negative) Urine Urobilinogen Negative (Negative) Ur Leukocyte Esterase Negative (Negative) Salicylates (2.8-20) mg/dl Acetaminophen (10-30) ug/ml Ethyl Alcohol mg/dL (0-3) mg/dl COVID-19 Eval Order SARS-CoV-2 (PCR) (Negative) Blood Type Antibody Screen Imaging Data Attestation: I personally reviewed and interpreted this imaging study as follows: My Impression: Chest x-ray per my interpretation shows no acute cardiopulmonary process. Radiologist's Impression: Head CT 08/20/20 20:[address] OF THE BRAIN; CT ANGIOGRAM OF THE BRAIN; CT ANGIOGRAM OF THE NECK CLINICAL HISTORY: Unresponsive. COMPARISON STUDY: CT of the brain dated 11/18/2017. TECHNIQUE: Unenhanced axial CT scan of the brain is performed. Subsequently, following the IV administration of 110 of Optiray 350, CT angiogram of the head and neck was performed from the aortic arch to the vertex. Images are reviewed in the axial, sagittal, and coronal planes. 3-D MIPS images are created and assessed. IV contrast was administered without complication. All measurements were calculated based on NASCET criteria. A dose lowering technique was utilized adhering to the principles of ALARA. 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 There is no hemorrhage, mass effect, or evidence of acute territorial ischemia by CT criteria. There is no evidence of enhancing mass lesion on the angiogram phase images. The ventricles, sulci, and cisterns are prominent secondary to involutional change. Hydrocephalus is unchanged. Perdomo-white matter differentiation is preserved. No extra-axial fluid collection is seen. Mineralization is noted in the basal ganglia. Thoracic aorta: There is mild atherosclerotic calcification of the thoracic aorta. Visualized portions of the thoracic aorta are normal in caliber. The aortic arch demonstrates bovine variant anatomy. Right carotid arterial system: The right common carotid artery is widely patent, as are the right internal and external carotid arteries. Calcified plaque is noted in the carotid bulb. Left carotid arterial system: The left common carotid artery is widely patent, as are the left internal and external carotid arteries. Atherosclerotic plaque is noted in the carotid bulb. Vertebral arteries: The vertebral arteries are widely patent bilaterally noting a right-sided dominance. Subclavian arteries: Widely patent bilaterally. Intracranial vasculature: There is atherosclerotic calcification of the cavernous carotid and vertebral arteries The internal carotid arteries are patent at the skull base, as are the anterior and middle cerebral arteries bilaterally. The vertebrobasilar system and posterior cerebral arteries are widely patent. The right vertebral artery is dominant. There is no aneurysm, high-grade stenosis, or focal vessel cut off seen throughout the intracranial circulation. Jugular veins: Patent bilaterally. Dural sinuses: Patent. Lung apices: Midline sternotomy wires are noted. Partially visualized upper lobe lung parenchyma appears clear. Soft tissues: The visualized pharyngeal soft tissues are normal in appearance noting angiographic phase technique. The oropharyngeal airway appears widely patent. The salivary and thyroid glands are normal in appearance. No cervical lymphadenopathy is seen. Skeletal structures: The skeletal structures are osteopenic. The calvarium appears intact. The cervical spine is maintained noting multilevel spondylosis. No lytic or blastic lesion is seen. Orbits: The bony orbits are intact. Orbital contents are normal as visualized noting bilateral ocular lens implants. Sinuses and mastoids: The paranasal sinuses are clear. The mastoid air cells are well pneumatized. IMPRESSION: 1. There is no hemorrhage, mass effect, or evidence of acute territorial ischemia by CT criteria. 2. Unremarkable CT angiogram of the brain. 3. Unremarkable CT angiogram of the neck. ACT 112: Negative or not required by law. Electronically signed by: Jeffery Syed M.D. 08/20/2020 8:48 PM Head CTA 08/20/20 20:[address] OF THE BRAIN; CT ANGIOGRAM OF THE BRAIN; CT ANGIOGRAM OF THE NECK CLINICAL HISTORY: Unresponsive. COMPARISON STUDY: CT of the brain dated 11/18/2017. TECHNIQUE: Unenhanced axial CT scan of the brain is performed. Subsequently, following the IV administration of 110 of Optiray 350, CT angiogram of the head and neck was performed from the aortic arch to the vertex. Images are reviewed in the axial, sagittal, and coronal planes. 3-D MIPS images are created and assessed. IV contrast was administered without complication. All measurements were calculated based on NASCET criteria. A dose lowering technique was utilized adhering to the principles of ALARA. 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 There is no hemorrhage, mass effect, or evidence of acute territorial ischemia by CT criteria. There is no evidence of enhancing mass lesion on the angiogram phase images. The ventricles, sulci, and cisterns are prominent secondary to involutional change. Hydrocephalus is unchanged. Perdomo-white matter differentiation is preserved. No extra-axial fluid collection is seen. Mineralization is noted in the basal ganglia. Thoracic aorta: There is mild atherosclerotic calcification of the thoracic aorta. Visualized portions of the thoracic aorta are normal in caliber. The aortic arch demonstrates bovine variant anatomy. Right carotid arterial system: The right common carotid artery is widely patent, as are the right internal and external carotid arteries. Calcified plaque is noted in the carotid bulb. Left carotid arterial system: The left common carotid artery is widely patent, as are the left internal and external carotid arteries. Atherosclerotic plaque is noted in the carotid bulb. Vertebral arteries: The vertebral arteries are widely patent bilaterally noting a right-sided dominance. Subclavian arteries: Widely patent bilaterally. Intracranial vasculature: There is atherosclerotic calcification of the cavernous carotid and vertebral arteries The internal carotid arteries are patent at the skull base, as are the anterior and middle cerebral arteries bilaterally. The vertebrobasilar system and posterior cerebral arteries are widely patent. The right vertebral artery is dominant. There is no aneurysm, high-grade stenosis, or focal vessel cut off seen throughout the intracranial circulation. Jugular veins: Patent bilaterally. Dural sinuses: Patent. Lung apices: Midline sternotomy wires are noted. Partially visualized upper lobe lung parenchyma appears clear. Soft tissues: The visualized pharyngeal soft tissues are normal in appearance noting angiographic phase technique. The oropharyngeal airway appears widely patent. The salivary and thyroid glands are normal in appearance. No cervical lymphadenopathy is seen. Skeletal structures: The skeletal structures are osteopenic. The calvarium appears intact. The cervical spine is maintained noting multilevel spondylosis. No lytic or blastic lesion is seen. Orbits: The bony orbits are intact. Orbital contents are normal as visualized noting bilateral ocular lens implants. Sinuses and mastoids: The paranasal sinuses are clear. The mastoid air cells are well pneumatized. IMPRESSION: 1. There is no hemorrhage, mass effect, or evidence of acute territorial ischemia by CT criteria. 2. Unremarkable CT angiogram of the brain. 3. Unremarkable CT angiogram of the neck. ACT 112: Negative or not required by law. Electronically signed by: Jeffery Syed M.D. 08/20/2020 8:48 PM Neck CTA 08/20/20 20:[address] OF THE BRAIN; CT ANGIOGRAM OF THE BRAIN; CT ANGIOGRAM OF THE NECK CLINICAL HISTORY: Unresponsive. COMPARISON STUDY: CT of the brain dated 11/18/2017. TECHNIQUE: Unenhanced axial CT scan of the brain is performed. Subsequently, following the IV administration of 110 of Optiray 350, CT angiogram of the head and neck was performed from the aortic arch to the vertex. Images are reviewed in the axial, sagittal, and coronal planes. 3-D MIPS images are created and assessed. IV contrast was administered without complication. All measurements were calculated based on NASCET criteria. A dose lowering technique was utilized adhering to the principles of ALARA. 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 There is no hemorrhage, mass effect, or evidence of acute territorial ischemia by CT criteria. There is no evidence of enhancing mass lesion on the angiogram phase images. The ventricles, sulci, and cisterns are prominent secondary to involutional change. Hydrocephalus is unchanged. Perdomo-white matter differentiation is preserved. No extra-axial fluid collection is seen. Mineralization is noted in the basal ganglia. Thoracic aorta: There is mild atherosclerotic calcification of the thoracic aorta. Visualized portions of the thoracic aorta are normal in caliber. The aortic arch demonstrates bovine variant anatomy. Right carotid arterial system: The right common carotid artery is widely patent, as are the right internal and external carotid arteries. Calcified plaque is noted in the carotid bulb. Left carotid arterial system: The left common carotid artery is widely patent, as are the left internal and external carotid arteries. Atherosclerotic plaque is noted in the carotid bulb. Vertebral arteries: The vertebral arteries are widely patent bilaterally noting a right-sided dominance. Subclavian arteries: Widely patent bilaterally. Intracranial vasculature: There is atherosclerotic calcification of the cavernous carotid and vertebral arteries The internal carotid arteries are patent at the skull base, as are the anterior and middle cerebral arteries bilaterally. The vertebrobasilar system and posterior cerebral arteries are widely patent. The right vertebral artery is dominant. There is no aneurysm, high-grade stenosis, or focal vessel cut off seen throughout the intracranial circulation. Jugular veins: Patent bilaterally. Dural sinuses: Patent. Lung apices: Midline sternotomy wires are noted. Partially visualized upper lobe lung parenchyma appears clear. Soft tissues: The visualized pharyngeal soft tissues are normal in appearance noting angiographic phase technique. The oropharyngeal airway appears widely patent. The salivary and thyroid glands are normal in appearance. No cervical lymphadenopathy is seen. Skeletal structures: The skeletal structures are osteopenic. The calvarium appears intact. The cervical spine is maintained noting multilevel spondylosis. No lytic or blastic lesion is seen. Orbits: The bony orbits are intact. Orbital contents are normal as visualized noting bilateral ocular lens implants. Sinuses and mastoids: The paranasal sinuses are clear. The mastoid air cells are well pneumatized. IMPRESSION: 1. There is no hemorrhage, mass effect, or evidence of acute territorial ischemia by CT criteria. 2. Unremarkable CT angiogram of the brain. 3. Unremarkable CT angiogram of the neck. ACT 112: Negative or not required by law. Electronically signed by: Jeffery Syed M.D. 08/20/2020 8:48 PM ECG Data Attestation: I personally reviewed and interpreted this ECG as follows: Indication: + other (Unresponsive) Rate (beats per minute): 75 Rhythm: + normal sinus ECG Findings: + LVH and + Other (Significant motion artifact limiting interpretation.) MDM Narrative I was called emergently into the room by the nurse to evaluate this patient who is unresponsive. The nurse spoke to the [facility] staff who stated that the patient is normally verbal and they last saw her in her usual state of health at approximately 5:00 for dinner. They subsequently found her unresponsive at 7:30 PM when they went to check on her. I did evaluate the patient as noted above. No history is obtainable. She has not responding to pain or voice. IV access was established. I did place an order for continuous cardiac monitoring. The monitor showed normal sinus rhythm at a rate of 75 bpm. I did order and personally review the patient's 12-lead EKG as described above. Limited interpretation due to motion artifact. She does have LVH. I did order and personally reviewed the images of the patient's chest x-ray as described above. Per my interpretation there is no evidence of acute pneumonia. I did order a urine analysis.She does not have a UTI. I did order and review the patient's blood work as noted in the electronic medical record. Her white blood cell count is not elevated. Hemoglobin is 11.7. Electrolytes are unremarkable. Troponin is negative. I did order a CT of the head and CT angiogram of the head and neck. I did review the images myself as well as the radiology report as described above. There is no evidence of acute abnormality on angiogram or noncontrast head CT. I did reassess the patient. She is now awake and alert and back to her baseline. I did obtain full history, review of system and examination as noted above. 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 I did discuss the case with Dr. Layton of [facility] who recommended hospitalization for MRI of the brain and further work-up. I did discuss this with the patient and her daughter. A screening Covid test was negative. I did discuss the case with the hospitalist and family independence case manager. Impression & Plan Unresponsive episode, Anemia, Left-sided weakness Discharge Plan Visit Data Chief Complaint: Unresponsive Stated Complaint: UNRESPONSIVE ED Provider: Enmanuel Barnes Discharge Problem: Unresponsive episode, Anemia, Left-sided weakness Patient Disposition: Being Evaluated by Hospitalist Forms Stand Alone Forms: My [facility] Prescriptions Prescriptions: No Action loperamide 2 mg tablet 2 mg PO Q3H PRN (Reason: Diarrhea) Qty: 240 RF: 0 (DME) Wheelchair (Manual) Device See Rx Instructions .ROUTE .MEDSUPPLY Qty: 1 RF: 0 nitroglycerin 0.4 mg tablet, sublingual 0.4 mg SL .COMPLEX PRN (Reason: chest pain) Qty: 25 RF: 3 (DME) heating pads Pad See Rx Instructions .ROUTE .MEDSUPPLY Qty: 1 RF: 0 acetaminophen 325 mg capsule 650 mg PO Q6H MDD 3 GRAMS/24 HOURS PRN (Reason: pain) Qty: 90 RF: 3 ibuprofen 200 mg tablet 200 mg PO Q8H PRN (Reason: pain) Qty: 90 RF: 3 furosemide 20 mg tablet 20 mg PO DAILY PRN (Reason: weight gain) Qty: 30 RF: 0 acetaminophen [Tylenol Extra Strength] 500 mg Tablet 500 mg PO QID RF: 0 acetaminophen [Tylenol Extra Strength] 500 mg Tablet 500 mg PO Q4H MDD 3 GRAMS/24 HOURS PRN (Reason: Pain) RF: 0 ibuprofen 600 mg Tablet 600 mg PO QAM RF: 0 Toviaz 4 mg Tablet Extended Release 24 Hr 4 mg PO BID17 RF: 0 turmeric 400 mg Capsule 0 mg PO QAM RF: 0 atorvastatin 10 mg tablet 10 mg PO QAM RF: 0 amlodipine 5 mg tablet 5 mg PO QAM RF: 0 aspirin 81 mg tablet,delayed release (DR/EC) 81 mg PO QAM RF: 0 pantoprazole 20 mg tablet,delayed release (DR/EC) 20 mg PO QAM RF: 0 cholecalciferol (vitamin D3) [Vitamin D3] 2,000 unit capsule 2,000 unit PO BID17 RF: 0 Referrals Referrals: Link Tubbs DO [Primary Care Provider] -
[2020-08-20] MEDS ORDERED: OPTIRAY 350 500ml IV ONE (20:25)
[2020-08-20 20:46] LABS: Basophils # (auto) 0.04 K/uL (0-0.2); Basophils % (auto) 0.5 %; Eosinophils # (auto) 0.41 K/uL (0-0.5); Eosinophils % (auto) 4.7 %; Hemoglobin 11.7 g/dL (12.0-16.0); Immature Granulocytes # (auto) 0.02 K/uL (0.00-0.02); Immature Granulocytes % (auto) 0.2 %; Lymphocytes # (auto) 2.86 K/uL (1.2-3.4); Lymphocytes % (auto) 32.9 %; Mean Corpuscular Hemoglobin 33.1 pg (25-34); Mean Corpuscular Hgb Conc 32.5 g/dL (32-36); Mean Corpuscular Volume 101.7 fL (80-100); Mean Platelet Volume 10.1 fL (7.4-10.4); Monocytes # (auto) 1.05 K/uL (0.11-0.59); Monocytes % (auto) 12.1 %; Neutrophils # (auto) 4.32 K/uL (1.4-6.5); Neutrophils % (auto) 49.6 %; Platelet Count 253 K/uL (130-400); RDW Coefficient of Variation 12.7 % (11.5-14.5); RDW Standard Deviation 47.4 fL (36.4-46.3); Red Blood Count 3.54 M/uL (4.2-5.4)
--- NOTE | 2020-08-20 20:49 | CT Scan Report ---
UNENHANCED CT OF THE BRAIN; CT ANGIOGRAM OF THE BRAIN; CT ANGIOGRAM OF THE NECK CLINICAL HISTORY: Unresponsive. COMPARISON STUDY: CT of the brain dated 11/18/2017. TECHNIQUE: Unenhanced axial CT scan of the brain is performed. Subsequently, following the IV adminis tration of 110 of Optiray 350, CT angiogram of the head and neck was performed from the aortic arch t o the vertex. Images are reviewed in the axial, sagittal, and coronal planes. 3-D MIPS images are cre ated and assessed. IV contrast was administered without complication. All measurements were calculate d based on NASCET criteria. A dose lowering technique was utilized adhering to the principles of ALA RA. CT DOSE: 1307.95 mGy.cm FINDINGS: Brain parenchyma: There is age-related involutional change noting advanced subcortical and periventri cular microangiopathic disease. There is no hemorrhage, mass effect, or evidence of acute territorial ischemia by CT criteria. There is no evidence of enhancing mass lesion on the angiogram phase images . The ventricles, sulci, and cisterns are prominent secondary to involutional change. Hydrocephalus i s unchanged. Perdomo-white matter differentiation is preserved. No extra-axial fluid collection is seen. Mineralization is noted in the basal ganglia. Thoracic aorta: There is mild atherosclerotic calcification of the thoracic aorta. Visualized portion s of the thoracic aorta are normal in caliber. The aortic arch demonstrates bovine variant anatomy. Right carotid arterial system: The right common carotid artery is widely patent, as are the right int ernal and external carotid arteries. Calcified plaque is noted in the carotid bulb. Left carotid arterial system: The left common carotid artery is widely patent, as are the left environmental engineering intern al and external carotid arteries. Atherosclerotic plaque is noted in the carotid bulb. Vertebral arteries: The vertebral arteries are widely patent bilaterally noting a right-sided dominan ce. Subclavian arteries: Widely patent bilaterally. Intracranial vasculature: There is atherosclerotic calcification of the cavernous carotid and vertebr al arteries The internal carotid arteries are patent at the skull base, as are the anterior and middl e cerebral arteries bilaterally. The vertebrobasilar system and posterior cerebral arteries are widel y patent. The right vertebral artery is dominant. There is no aneurysm, high-grade stenosis, or focal vessel cut off seen throughout the intracranial circulation. Jugular veins: Patent bilaterally. Dural sinuses: Patent. Lung apices: Midline sternotomy wires are noted. Partially visualized upper lobe lung parenchyma appe ars clear. Soft tissues: The visualized pharyngeal soft tissues are normal in appearance noting angiographic pha se technique. The oropharyngeal airway appears widely patent. The salivary and thyroid glands are nor mal in appearance. No cervical lymphadenopathy is seen. Skeletal structures: The skeletal structures are osteopenic. The calvarium appears intact. The cervic al spine is maintained noting multilevel spondylosis. No lytic or blastic lesion is seen. Orbits: The bony orbits are intact. Orbital contents are normal as visualized noting bilateral ocular lens implants. Sinuses and mastoids: The paranasal sinuses are clear. The mastoid air cells are well pneumatized. IMPRESSION: 1. There is no hemorrhage, mass effect, or evidence of acute territorial ischemia by CT criteria. 2. Unremarkable CT angiogram of the brain. 3. Unremarkable CT angiogram of the neck. ACT 112: Negative or not required by law. Electronically signed by: Jeffery Syed M.D. 08/20/2020 8:48 PM
[2020-08-20 20:53] LABS: iSTAT Hemoglobin 11.9 g/dl (12.0-16.0); iSTAT Ionized Calcium 1.24 mmol/l (1.12-1.32); iSTAT Potassium 4.4 mmol/L (3.3-5.0)
[2020-08-20 20:56] LABS: Partial Thromboplastin Ratio 0.9; Partial Thromboplastin Time 24.8 Seconds (21.0-31.0); Prothrombin Time 9.9 Seconds (9.0-12.0)
[2020-08-20 21:05] LABS: Alanine Aminotransferase 37 U/L (12-78); Albumin Level 3.1 gm/dl (3.4-5.0); Aspartate Aminotransferase 25 U/L (15-37); BUN Creatinine Ratio 28.3 (10-20); Blood Urea Nitrogen 26 mg/dl (7-18); Carbon Dioxide 29 mmol/L (21-32); Chloride 102 mmol/L (98-107); Creatinine Clr Calc Pharmacy 52.4 ml/min; Est GFR (African American) 64.4 ml/min; Est GFR (Non-African American) 55.6 ml/min; Glucose 137 mg/dl (70-99); Potassium 4.4 mmol/L (3.5-5.1); Sodium 136 mmol/L (136-145)
[2020-08-20 21:06] LABS: Acetaminophen 4 ug/ml (10-30); Salicylate < 1.7 mg/dl (2.8-20)
[2020-08-20 21:09] LABS: Albumin Globulin Ratio 0.9 (0.9-2); Alkaline Phosphatase 63 U/L (45-117); Bilirubin,Total 0.9 mg/dl (0.2-1); Globulin 3.6 gm/dl (2.5-4.0); Total Protein 6.7 gm/dl (6.4-8.2); Troponin I < 0.015 ng/ml (0-0.045)
--- NOTE | 2020-08-20 22:36 | History & Physical Report ---
Date of Service August 20, 2020 Assessment & Plan (1) Unresponsiveness: Patient with episode of unresponsiveness. Denies symptoms preceding or following the event. She has no recollection of the event. Ddx to include seizure, stroke, arrhythmia, medication effects -Admit to medical with telemetry -Check MRI brain -Neuro checks q 4 hours Present on Admission?: Yes (2) Acute knee pain: Patient's main complaint is her acute on chronic pain. She is very upset by her current pain and decreased functional status. She states that she feels somewhat depressed because of her chronic pain -Will schedule Tylenol 1000mg po TID -Topical Voltaren PRN -Oxycodone 2.5mg po q 4 hours PRN -May consider starting medication such as Cymbalta to help with pain, depressive symptoms -Palliative care consultation to assist with symptom management -PT/OT evaluation Present on Admission?: Yes (3) Hypertension: Chronic -Continue Amlodipine 5mg po daily -Continue to monitor Present on Admission?: Yes (4) Coronary artery disease: Chronic. Patient denies chest pain -Continue ASA -Continue Atorvastatin Present on Admission?: Yes (5) Dementia: Patient with progressive functional and cognitive decline. She does not wish to take medications for this -Frequent orientation -Delirium prevention strategies -Management of chronic pain and possible depression as above Present on Admission?: Yes (6) Dyslipidemia: Chronic -Continue Atorvastatin Present on Admission?: Yes History of Present Illness Chief Complaint: unresponsiveness Primary Care Provider: DO Reynaldo Mondragonahmet Echevarria is an 89yo C female with history of HTN, HLP, CAD and CHF presenting from [facility] with episode of unresponsiveness. Patient recalls having dinner around 17:00 - 17:30, she was in her usual state of health. Around 19:00 she was found by nursing parked in her wheelchair outside the memory unit - unresponsive. She was transferred to [facility] as a Code Stroke. Imaging unremarkable. Patient has since woken up and is in her usual state of health. She denies chest pain, palpitations, SOB, cough, fever, chills, nausea, vomiting, diarrhea, incontinence. No additional complaints. Patient has a considerable amount of chronic orthopedic pain - hips and knees bilaterally. She recently had a fall on 08/17/20 and has since been in a wheelchair. She moves the wheelchair with her feet and hands and reports some increase in ankle pain. Patient states that she has been thinking a lot about her pain. She is upset by the fact that she has pain daily and that nothing she does improves the pain. She is upset that she does not have anything stronger than Tylenol to take for the pain. She states that this evening she was thinking a lot about her pain and that her thoughts became almost overwhelming and she felt like she was "in a very dark place" - thinking that she was going to be in pain forever and have limited function. She denies taking any medications or thoughts of hurting herself or ending her life. She reports trying topical agents with minimal effect as well as joint injections in the past. Allergies Allergy/AdvReac Type Severity Reaction Status Date / Time ciprofloxacin Allergy Unknown ON MED LIST Verified 08/20/20 22:03 ezetimibe Allergy Unknown ON MED LIST Verified 08/20/20 22:03 lisinopril Allergy Unknown ON MED LIST Verified 08/20/20 22:03 nitrofurantoin Allergy Unknown ON MED LIST Verified 08/20/20 22:03 [From Macrobid] Penicillins Allergy Unknown ON MED LIST Verified 08/20/20 22:03 simvastatin Allergy Unknown ON MED LIST Verified 08/20/20 22:03 codeine AdvReac Mild GI SYMPTOMS Verified 08/20/20 22:02 Home Medications Medication Instructions Recorded Confirmed Type loperamide 2 mg tablet 2 mg PO Q3H PRN #240 tab 11/14/18 08/20/20 Rx Wheelchair (Manual or Powered) #1 ea 04/27/19 Rx nitroglycerin 0.4 mg sublingual 0.4 mg SL .COMPLEX PRN #25 tab 09/22/19 08/20/20 Rx tablet heating pads #1 ea 05/16/20 Rx acetaminophen 325 mg capsule 650 mg PO Q6H PRN #90 cap MDD 3 06/07/20 08/20/20 Rx GRAMS/24 HOURS ibuprofen 200 mg tablet 200 mg PO Q8H PRN #90 tab 06/07/20 08/20/20 Rx furosemide 20 mg tablet 20 mg PO DAILY PRN #30 tab 06/10/20 08/20/20 Rx acetaminophen [Tylenol Extra 500 mg PO Q4H PRN MDD 3 GRAMS/24 08/20/20 08/20/20 History Strength] HOURS acetaminophen [Tylenol Extra 500 mg PO QID 08/20/20 08/20/20 History Strength] amlodipine 5 mg PO QAM 08/20/20 08/20/20 History aspirin 81 mg PO QAM 08/20/20 08/20/20 History atorvastatin 10 mg PO QAM 08/20/20 08/20/20 History cholecalciferol (vitamin D3) 2,000 unit PO BID17 08/20/20 08/20/20 History [Vitamin D3] fesoterodine [Toviaz] 4 mg PO BID17 08/20/20 08/20/20 History ibuprofen 600 mg PO QAM 08/20/20 08/20/20 History pantoprazole 20 mg PO QAM 08/20/20 08/20/20 History turmeric 0 mg PO QAM 08/20/20 08/20/20 History Past Med/Surg History Medical History Bilateral chronic knee pain Carpal tunnel syndrome CHF (congestive heart failure) Chronic osteoarthritis Multiple joints affected. Hips have been a concern with recent corticosteroid injections. Risks associated with chronic NSAIDs previously discussed and currently managed with NSAID + APAP. Coronary artery disease Dementia Steady decline in cognitive function. Evaluated by neurology (02/20). Declines further medication therapy. Dyslipidemia Hypertension Incontinence Osteopenia DEXA (02/14) demonstrated T score -1.0 in forearm. Currently treated with Vit D supplementation. Sinus arrhythmia Spinal stenosis MRI (07/17) severe degenerative disease, along with moderate to severe spinal stenosis. SVT (supraventricular tachycardia) Urinary incontinence Vaginal wall prolapse Vitamin D deficiency Surgical History History of appendectomy History of coronary artery bypass graft History of tonsillectomy History of vaginal hysterectomy Presence of pessary S/P triple vessel bypass Before 2009. No subsequent stenting. Family History Father Myocardial infarction Mother Myocardial infarction Family/Other Colon cancer Coronary heart disease Diabetes Other Family history non-contributory No significant family history Denies family history of Ovarian cancer Breast cancer Social History Smoking Status: Unknown if ever smoked Second Hand Exposure: Yes (parents when younger); Hx Alcohol Use: Yes Alcohol type: beer and wine Hx Substance Use: No Preferred Language: Belarusian Communication Ability: Effective Biomedical [employer] Aide Required: No Beliefs That Will Affect Care: None marital status: Unknown Current Living Situation: Personal Care Facility Current Living Situation Comment: [facility] Feels Safe at Home: Yes Assistive Devices: Walker Review of Systems Review of Systems: All systems reviewed & are unremarkable except as noted in HPI & below Physical Exam Physical Exam: General: patient resting comfortably, NAD, non-toxic in appearance, AA&O x 3 Skin: warm, dry, intact, no rashes or lesions HEENT: NC/AT, PERRL, EOMI, anicteric sclera, conjunctiva without injection, external ear normal to inspection and nontender, nares patent, moist mucus membranes, dentition intact, no oropharyngeal lesions, neck supple, trachea midline, no LAD, no thyromegaly, no JVD Heart: +S1/S2, regular with ectopy, distant heart sounds, no m/r/g Lungs: equal air entry bilaterally, no rales/rhonchi/wheezes Abd: +BS, soft, NT/ND, no masses/organomegaly/ascites Ext: warm, 2+ pulses in UE/LE bilaterally, no clubbing/cyanosis or edema Neuro: nonfocal, patient AA&O x 3, speech intact, no facial droop, moving all extremities on command with equal strength 5/5 Patient repeatedly mentions her pain Results & Data Results & Data ([facility]) Vital Signs (Past 12 Hours) Vital Signs Temp Pulse Resp BP Pulse Ox 08/20/20 21:01 70 16 117/81 96 08/20/20 20:31 81 14 08/20/20 20:25 36.8 C 75 16 167/72 H 96 08/20/20 20:16 73 17 08/20/20 20:03 79 19 167/72 H 96 Laboratory Results Laboratory Results WBC 8.70 K/uL (4.8-10.8) 08/20/20 20:35 RBC 3.54 M/uL (4.2-5.4) L 08/20/20 20:35 Hgb 11.7 g/dL (12.0-16.0) L 08/20/20 20:35 POC Hgb 11.9 g/dl (12.0-16.0) L 08/20/20 20:39 Hct 36.0 % (37-47) L 08/20/20 20:35 POC Hct 35 % (37-47) L 08/20/20 20:39 MCV 101.7 fL (80-100) H 08/20/20 20:35 MCH 33.1 pg (25-34) 08/20/20 20:35 MCHC 32.5 g/dL (32-36) 08/20/20 20:35 RDW Std Deviation 47.4 fL (36.4-46.3) H 08/20/20 20:35 RDW Coeff of Luis 12.7 % (11.5-14.5) 08/20/20 20:35 Plt Count 253 K/uL (130-400) 08/20/20 20:35 MPV 10.1 fL (7.4-10.4) 08/20/20 20:35 Immature Gran % (Auto) 0.2 % 08/20/20 20:35 Neut % (Auto) 49.6 % 08/20/20 20:35 Lymph % (Auto) 32.9 % 08/20/20 20:35 Nash % (Auto) 12.1 % 08/20/20 20:35 Eos % (Auto) 4.7 % 08/20/20 20:35 Baso % (Auto) 0.5 % 08/20/20 20:35 Neut # (Auto) 4.32 K/uL (1.4-6.5) 08/20/20 20:35 Lymph # (Auto) 2.86 K/uL (1.2-3.4) 08/20/20 20:35 Nash # (Auto) 1.05 K/uL (0.11-0.59) H 08/20/20 20:35 Eos # (Auto) 0.41 K/uL (0-0.5) 08/20/20 20:35 Baso # (Auto) 0.04 K/uL (0-0.2) 08/20/20 20:35 Immature Gran # (Auto) 0.02 K/uL (0.00-0.02) 08/20/20 20:35 PT 9.9 Seconds (9.0-12.0) 08/20/20 20:35 INR 1.0 (0.9-1.1) 08/20/20 20:35 APTT 24.8 Seconds (21.0-31.0) 08/20/20 20:35 PTT Ratio 0.9 08/20/20 20:35 POC Sodium 136 mmol/L (135-144) 08/20/20 20:39 Sodium 136 mmol/L (136-145) 08/20/20 20:35 POC Potassium 4.4 mmol/L (3.3-5.0) 08/20/20 20:39 Potassium 4.4 mmol/L (3.5-5.1) 08/20/20 20:35 POC Chloride 99 mmol/L (101-112) L 08/20/20 20:39 Chloride 102 mmol/L (98-107) 08/20/20 20:35 Carbon Dioxide 29 mmol/L (21-32) 08/20/20 20:35 POC Total CO2 27 mmol/L (24-31) 08/20/20 20:39 Anion Gap 5.0 (3-11) 08/20/20 20:35 POC Anion Gap 15.0 mmol/L (16-25) L 08/20/20 20:39 POC BUN 26 mg/dl (7-18) H 08/20/20 20:39 BUN 26 mg/dl (7-18) H 08/20/20 20:35 Creatinine 0.92 mg/dl (0.6-1.2) 08/20/20 20:35 POC Creatinine 1.0 mg/dl (0.6-1.3) 08/20/20 20:39 Est Cr Clr Drug Dosing 52.4 ml/min 08/20/20 20:35 Est GFR ( Amer) 64.4 ml/min 08/20/20 20:35 Est GFR (Non-Af Amer) 55.6 ml/min 08/20/20 20:35 BUN/Creatinine Ratio 28.3 (10-20) H 08/20/20 20:35 Glucose 137 mg/dl (70-99) H 08/20/20 20:35 POC Glucose (other) 135 mg/dl (70-99) H 08/20/20 20:39 Calcium 9.0 mg/dl (8.5-10.1) 08/20/20 20:35 POC Ioniz Calcium Gu[place]upe 1.24 mmol/l (1.12-1.32) 08/20/20 20:39 Magnesium 2.0 mg/dl (1.8-2.4) 08/20/20 20:35 Total Bilirubin 0.9 mg/dl (0.2-1) 08/20/20 20:35 AST 25 U/L (15-37) 08/20/20 20:35 ALT 37 U/L (12-78) 08/20/20 20:35 Alkaline Phosphatase 63 U/L (45-117) 08/20/20 20:35 Troponin I < 0.015 ng/ml (0-0.045) 08/20/20 20:35 Total Protein 6.7 gm/dl (6.4-8.2) 08/20/20 20:35 Albumin 3.1 gm/dl (3.4-5.0) L 08/20/20 20:35 Globulin 3.6 gm/dl (2.5-4.0) 08/20/20 20:35 Albumin/Globulin Ratio 0.9 (0.9-2) 08/20/20 20:35 Salicylates < 1.7 mg/dl (2.8-20) L 08/20/20 20:35 Acetaminophen 4 ug/ml (10-30) L 08/20/20 20:35 Ethyl Alcohol mg/dL < 3.0 mg/dl (0-3) 08/20/20 20:35 COVID-19 Eval Order Covid19 at [facility] 08/20/20 21:25 SARS-CoV-2 (PCR) NEGATIVE (Negative) 08/20/20 21:25 Blood Type O Positive 08/20/20 20:35 Antibody Screen NEGATIVE 08/20/20 20:[address] 08/20/20 20:[address] OF THE BRAIN; CT ANGIOGRAM OF THE BRAIN; CT ANGIOGRAM OF THE NECK CLINICAL HISTORY: Unresponsive. COMPARISON STUDY: CT of the brain dated 11/18/2017. TECHNIQUE: Unenhanced axial CT scan of the brain is performed. Subsequently, following the IV administration of 110 of Optiray 350, CT angiogram of the head and neck was performed from the aortic arch to the vertex. Images are reviewed in the axial, sagittal, and coronal planes. 3-D MIPS images are created and assessed. IV contrast was administered without complication. All measurements were calculated based on NASCET criteria. A dose lowering technique was utilized adhering to the principles of ALARA. 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 There is no hemorrhage, mass effect, or evidence of acute territorial ischemia by CT criteria. There is no evidence of enhancing mass lesion on the angiogram phase images. The ventricles, sulci, and cisterns are prominent secondary to involutional change. Hydrocephalus is unchanged. Perdomo-white matter differentiation is preserved. No extra-axial fluid collection is seen. Mineralization is noted in the basal ganglia. Thoracic aorta: There is mild atherosclerotic calcification of the thoracic aorta. Visualized portions of the thoracic aorta are normal in caliber. The aortic arch demonstrates bovine variant anatomy. Right carotid arterial system: The right common carotid artery is widely patent, as are the right internal and external carotid arteries. Calcified plaque is noted in the carotid bulb. Left carotid arterial system: The left common carotid artery is widely patent, as are the left internal and external carotid arteries. Atherosclerotic plaque is noted in the carotid bulb. Vertebral arteries: The vertebral arteries are widely patent bilaterally noting a right-sided dominance. Subclavian arteries: Widely patent bilaterally. Intracranial vasculature: There is atherosclerotic calcification of the cavernous carotid and vertebral arteries The internal carotid arteries are patent at the skull base, as are the anterior and middle cerebral arteries bilaterally. The vertebrobasilar system and posterior cerebral arteries are widely patent. The right vertebral artery is dominant. There is no aneurysm, high-grade stenosis, or focal vessel cut off seen throughout the intracranial circulation. Jugular veins: Patent bilaterally. Dural sinuses: Patent. Lung apices: Midline sternotomy wires are noted. Partially visualized upper lobe lung parenchyma appears clear. Soft tissues: The visualized pharyngeal soft tissues are normal in appearance noting angiographic phase technique. The oropharyngeal airway appears widely patent. The salivary and thyroid glands are normal in appearance. No cervical lymphadenopathy is seen. Skeletal structures: The skeletal structures are osteopenic. The calvarium appears intact. The cervical spine is maintained noting multilevel spondylosis. No lytic or blastic lesion is seen. Orbits: The bony orbits are intact. Orbital contents are normal as visualized noting bilateral ocular lens implants. Sinuses and mastoids: The paranasal sinuses are clear. The mastoid air cells are well pneumatized. IMPRESSION: 1. There is no hemorrhage, mass effect, or evidence of acute territorial ischemia by CT criteria. 2. Unremarkable CT angiogram of the brain. 3. Unremarkable CT angiogram of the neck. ACT 112: Negative or not required by law. Electronically signed by: Jeffery Syed M.D. 08/20/2020 8:48 PM Head CTA 08/20/20 20:[address] OF THE BRAIN; CT ANGIOGRAM OF THE BRAIN; CT ANGIOGRAM OF THE NECK CLINICAL HISTORY: Unresponsive. COMPARISON STUDY: CT of the brain dated 11/18/2017. TECHNIQUE: Unenhanced axial CT scan of the brain is performed. Subsequently, following the IV administration of 110 of Optiray 350, CT angiogram of the head and neck was performed from the aortic arch to the vertex. Images are reviewed in the axial, sagittal, and coronal planes. 3-D MIPS images are created and assessed. IV contrast was administered without complication. All measurements were calculated based on NASCET criteria. A dose lowering technique was utilized adhering to the principles of ALARA. 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 There is no hemorrhage, mass effect, or evidence of acute territorial ischemia by CT criteria. There is no evidence of enhancing mass lesion on the angiogram phase images. The ventricles, sulci, and cisterns are prominent secondary to involutional change. Hydrocephalus is unchanged. Perdomo-white matter differentiation is preserved. No extra-axial fluid collection is seen. Mineralization is noted in the basal ganglia. Thoracic aorta: There is mild atherosclerotic calcification of the thoracic aorta. Visualized portions of the thoracic aorta are normal in caliber. The aortic arch demonstrates bovine variant anatomy. Right carotid arterial system: The right common carotid artery is widely patent, as are the right internal and external carotid arteries. Calcified plaque is noted in the carotid bulb. Left carotid arterial system: The left common carotid artery is widely patent, as are the left internal and external carotid arteries. Atherosclerotic plaque is noted in the carotid bulb. Vertebral arteries: The vertebral arteries are widely patent bilaterally noting a right-sided dominance. Subclavian arteries: Widely patent bilaterally. Intracranial vasculature: There is atherosclerotic calcification of the cavernous carotid and vertebral arteries The internal carotid arteries are patent at the skull base, as are the anterior and middle cerebral arteries bilaterally. The vertebrobasilar system and posterior cerebral arteries are widely patent. The right vertebral artery is dominant. There is no aneurysm, high-grade stenosis, or focal vessel cut off seen throughout the intracranial circulation. Jugular veins: Patent bilaterally. Dural sinuses: Patent. Lung apices: Midline sternotomy wires are noted. Partially visualized upper lobe lung parenchyma appears clear. Soft tissues: The visualized pharyngeal soft tissues are normal in appearance noting angiographic phase technique. The oropharyngeal airway appears widely patent. The salivary and thyroid glands are normal in appearance. No cervical lymphadenopathy is seen. Skeletal structures: The skeletal structures are osteopenic. The calvarium appears intact. The cervical spine is maintained noting multilevel spondylosis. No lytic or blastic lesion is seen. Orbits: The bony orbits are intact. Orbital contents are normal as visualized noting bilateral ocular lens implants. Sinuses and mastoids: The paranasal sinuses are clear. The mastoid air cells are well pneumatized. IMPRESSION: 1. There is no hemorrhage, mass effect, or evidence of acute territorial ischemia by CT criteria. 2. Unremarkable CT angiogram of the brain. 3. Unremarkable CT angiogram of the neck. ACT 112: Negative or not required by law. Electronically signed by: Jeffery Syed M.D. 08/20/2020 8:48 PM Neck CTA 08/20/20 20:[address] OF THE BRAIN; CT ANGIOGRAM OF THE BRAIN; CT ANGIOGRAM OF THE NECK CLINICAL HISTORY: Unresponsive. COMPARISON STUDY: CT of the brain dated 11/18/2017. TECHNIQUE: Unenhanced axial CT scan of the brain is performed. Subsequently, following the IV administration of 110 of Optiray 350, CT angiogram of the head and neck was performed from the aortic arch to the vertex. Images are reviewed in the axial, sagittal, and coronal planes. 3-D MIPS images are created and assessed. IV contrast was administered without complication. All measurements were calculated based on NASCET criteria. A dose lowering technique was utilized adhering to the principles of ALARA. 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 There is no hemorrhage, mass effect, or evidence of acute territorial ischemia by CT criteria. There is no evidence of enhancing mass lesion on the angiogram phase images. The ventricles, sulci, and cisterns are prominent secondary to involutional change. Hydrocephalus is unchanged. Perdomo-white matter differentiation is preserved. No extra-axial fluid collection is seen. Mineralization is noted in the basal ganglia. Thoracic aorta: There is mild atherosclerotic calcification of the thoracic aorta. Visualized portions of the thoracic aorta are normal in caliber. The aortic arch demonstrates bovine variant anatomy. Right carotid arterial system: The right common carotid artery is widely patent, as are the right internal and external carotid arteries. Calcified plaque is noted in the carotid bulb. Left carotid arterial system: The left common carotid artery is widely patent, as are the left internal and external carotid arteries. Atherosclerotic plaque is noted in the carotid bulb. Vertebral arteries: The vertebral arteries are widely patent bilaterally noting a right-sided dominance. Subclavian arteries: Widely patent bilaterally. Intracranial vasculature: There is atherosclerotic calcification of the cavernous carotid and vertebral arteries The internal carotid arteries are patent at the skull base, as are the anterior and middle cerebral arteries bilaterally. The vertebrobasilar system and posterior cerebral arteries are widely patent. The right vertebral artery is dominant. There is no aneurysm, high-grade stenosis, or focal vessel cut off seen throughout the intracranial circulation. Jugular veins: Patent bilaterally. Dural sinuses: Patent. Lung apices: Midline sternotomy wires are noted. Partially visualized upper lobe lung parenchyma appears clear. Soft tissues: The visualized pharyngeal soft tissues are normal in appearance noting angiographic phase technique. The oropharyngeal airway appears widely patent. The salivary and thyroid glands are normal in appearance. No cervical lymphadenopathy is seen. Skeletal structures: The skeletal structures are osteopenic. The calvarium appears intact. The cervical spine is maintained noting multilevel spondylosis. No lytic or blastic lesion is seen. Orbits: The bony orbits are intact. Orbital contents are normal as visualized noting bilateral ocular lens implants. Sinuses and mastoids: The paranasal sinuses are clear. The mastoid air cells are well pneumatized. IMPRESSION: 1. There is no hemorrhage, mass effect, or evidence of acute territorial ischemia by CT criteria. 2. Unremarkable CT angiogram of the brain. 3. Unremarkable CT angiogram of the neck. ACT 112: Negative or not required by law. Electronically signed by: Jeffery Syed M.D. 08/20/2020 8:48 PM ECG Additional Comments: SR at 75 wtih 1st degree AV block, PO=200, FEO=076, SYj=751, PG Care Time/CCT Total # of Minutes Spent Total Time Spent with Patient: Total time spent is greater than 50% in coordination of care (as documented) at patient's floor/unit and/or counseling patient: Coding Level of Care Code 64317 Initial Inpt Care Lvl 3 Diagnoses Unresponsiveness R41.89 Acute knee pain M25.561 Laterality: right Hypertension I10 Hypertension type: essential hypertension Coronary artery disease I25.10 Coronary Disease-Associated Artery/Lesion type: [place] artery [place] vs. transplanted heart: [place] heart Associated angina: without angina Dementia F03.91 Dementia type: unspecified type Dementia behavioral disturbance: with behavioral disturbance Dyslipidemia E78.5 (1) Hypertension Hypertension type: essential hypertension Qualified Code(s): I10 - Essential (primary) hypertension (2) Coronary artery disease Coronary Disease-Associated Artery/Lesion type: [place] artery [place] vs. transplanted heart: [place] heart Associated angina: without angina Qualified Code(s): I25.10 - Atherosclerotic heart disease of [place] coronary artery without angina pectoris (3) Dementia Dementia type: unspecified type Dementia behavioral disturbance: with behavioral disturbance Qualified Code(s): F03.91 - Unspecified dementia with behavioral disturbance (4) Acute knee pain Laterality: right Qualified Code(s): M25.561 - Pain in right knee
[2020-08-20 23:17] LABS: Appearance Urine Slightly Cloudy (Clear); Bilirubin Urine Negative (Negative); Blood Urine Negative (Negative); Color Urine Yellow; Glucose Urine UA Negative (Negative); Ketones Urine Negative (Negative); Leukocyte Esterase Urine Negative (Negative); Nitrite Urine Negative (Negative); Protein Urine Negative (Negative); Urobilinogen Urine Negative (Negative)
[2020-08-20 23:50] LABS: Amphetamines+Metham, Urine Neg (Neg); Barbiturates, Urine Neg (Neg); Benzodiazepine, Urine Neg (Neg); Cocaine, Urine Neg (Neg); MDMA (Ecstacy), Urine Neg (Neg); Methadone, Urine Neg (Neg); Opiate, Urine Neg (Neg); Phencyclidine, Urine Neg (Neg)
[2020-08-21] MEDS ORDERED: oxyCODONE IR HOME PACK PO SCH
[2020-08-21] MEDS ORDERED: ONDANSETRON INJ 2 MG/ML 2 ML VIAL IV PRN (02:29)
[2020-08-21] MEDS ORDERED: oxyCODONE HCL IR 5 MG TAB (IMMEDIATE RELEASE) PO PRN (02:29)
[2020-08-21 07:37] LABS: Basophils # (auto) 0.02 K/uL (0-0.2); Basophils % (auto) 0.2 %; Hematocrit (blood only) 37.5 % (37-47); Hemoglobin 12.3 g/dL (12.0-16.0); Immature Granulocytes # (auto) 0.03 K/uL (0.00-0.02); Immature Granulocytes % (auto) 0.3 %; Lymphocytes # (auto) 2.19 K/uL (1.2-3.4); Lymphocytes % (auto) 21.6 %; Mean Corpuscular Hgb Conc 32.8 g/dL (32-36); Mean Corpuscular Volume 100.5 fL (80-100); Mean Platelet Volume 10.5 fL (7.4-10.4); Monocytes % (auto) 10.8 %; Neutrophils # (auto) 6.51 K/uL (1.4-6.5); Neutrophils % (auto) 64.1 %; Platelet Count 281 K/uL (130-400); RDW Coefficient of Variation 12.6 % (11.5-14.5); RDW Standard Deviation 46.9 fL (36.4-46.3); Red Blood Count 3.73 M/uL (4.2-5.4); White Blood Count 10.15 K/uL (4.8-10.8)
[2020-08-21 08:13] LABS: BUN Creatinine Ratio 31.9 (10-20); Calcium 9.3 mg/dl (8.5-10.1); Creatinine Clr Calc Pharmacy 76.8 ml/min; Est GFR (African American) 93.3 ml/min; Est GFR (Non-African American) 80.5 ml/min; Potassium 3.9 mmol/L (3.5-5.1)
[2020-08-21] MEDS: ACETAMINOPHEN 500 MG TAB PO SCH ×2 (08:14→14:27)
[2020-08-21] MEDS: DICLOFENAC SOD 1% GEL 100 GM TUBE EXT SCH ×2 (08:14→14:27)
[2020-08-21 08:21] LABS: Thyroid Stimulating Hormone 1.69 uIu/ml (0.300-4.500)
[2020-08-21 08:29] LABS: Folate (Folic Acid) 13.3 ng/ml (>5.38)
[2020-08-21] MEDS ORDERED: IBUPROFEN 600 MG TAB PO SCH (09:00)
[2020-08-21] MEDS ORDERED: ASPIRIN 81 MG ECTAB PO SCH (09:00)
[2020-08-21] MEDS ORDERED: ATORVASTATIN 10 MG TAB PO SCH (09:00)
[2020-08-21] MEDS ORDERED: amLODIPine BESYLATE 5 MG TAB PO SCH (09:00)
[2020-08-21] MEDS ORDERED: PANTOprazole 40 MG TAB PO SCH (09:00)
--- NOTE | 2020-08-21 10:38 | XRay Report ---
XR chest 1V portable CLINICAL HISTORY: unrsponsive eval for pna COMPARISON STUDY: September 19, 2018 FINDINGS: No definite pneumothorax seen however evaluation is limited because left lung apex is partially obscu red by patient's chin.. No pleural effusion on the right. Partial blunting of the left costophrenic angle might represent sma ll left pleural effusion. Diffuse prominence of pulmonary interstitium is seen. Possibly atelectasis at the left base. Cardiomediastinal silhouette is prominent. Evaluation is limited due to rotation. Aorta is calcified. Pulmonary vasculature is indistinct.. Osseous structures: Diffuse osteopenia. Possibly degenerative changes of the spine. Midline sternotomy wires are seen. IMPRESSION: 1. Possible small left pleural effusion. 2. Diffuse prominence of pulmonary interstitium is again seen in might represent interstitial fibros is or pulmonary edema. 3. Small atelectasis at the left base. ACT 112: Negative or not required by law. The above report was generated using voice recognition software. It may contain grammatical, syntax o r spelling errors. Electronically signed by: Susy Jose DO 08/21/2020 10:37 AM
--- NOTE | 2020-08-21 10:56 | Palliative Care Consultation ---
Date of Consultation August 21, 2020 Assessment & Plan (1) Bilateral chronic knee pain: With osteoarthritis. Would continue tylenol and topical diclofenac gel. Though she has been tolerating ibuprofen, I would be concerned about routine use, particularly if her pain is not controlled. I do think that her dementia is contributing to her uncontrolled pain as she is vague about the description of pain and confabulates when asked about the pain in detail. I would consider low dose opioid as needed for further analgesia. While this can affect her mental status and she has had recent episode of unresponsiveness, she was not on an opioid and is in a monitored situation. Would trial oxycodone while she is here to see if it provides relief and monitor for side effects. (2) Palliative care encounter: She is DNR/DNI. Dr. Tubbs's most recent note indicates that he had reviewed POLST form with her though I don't see a copy of POLST in her chart. I called her daughter, Selin Starr, to discuss pain management and clarify POLST questions but there was no answer. Palliative care will follow. (3) Anemia: Anemia type: unspecified type Qualified Code(s): D64.9 - Anemia, unspecified (4) Coronary artery disease: Associated angina: without angina Coronary Disease-Associated Artery/Lesion type: [place] artery [place] vs. transplanted heart: [place] heart Qualified Code(s): I25.10 - Atherosclerotic heart disease of [place] coronary artery without angina pectoris (5) Spinal stenosis: Neurogenic claudication status: unspecified Spinal region: lumbar Qualified Code(s): M48.061 - Spinal stenosis, lumbar region without neurogenic claudication (6) Unresponsive episode: History of Present Illness Reason for Consultation: pain management Requesting Physician: Dr. Weaver Attending Physician: Kennedy Ramos History of Present Illness 89 yo lady who resides at [facility]. She was apparently found unresponsive in her wheelchair at [facility] last evening and has been admitted for further evaluation. She is awake, alert and able to answer questions though she does have some baseline dementia. Initial head CT was negative and she is going for an MRI of brain this morning. She has been complaining of uncontrolled pain and we have been consulted to assist with pain management. She complains of a "stiffness" mostly in her knees. She describes that the pain is worse when she is on her feet "like I am now" however she is seated in the chair. She notes that there is an achy component to the pain but predominant quality is the stiffness. It is constant with no particular exacerbating or relieving factors. She has been taking routine tylenol and ibuprofen as well as topical diclofenac gel. She does not feel that any of these are helping her pain. Allergies Allergy/AdvReac Type Severity Reaction Status Date / Time ciprofloxacin Allergy Unknown ON MED LIST Verified 08/20/20 22:03 ezetimibe Allergy Unknown ON MED LIST Verified 08/20/20 22:03 lisinopril Allergy Unknown ON MED LIST Verified 08/20/20 22:03 nitrofurantoin Allergy Unknown ON MED LIST Verified 08/20/20 22:03 [From Macrobid] Penicillins Allergy Unknown ON MED LIST Verified 08/20/20 22:03 simvastatin Allergy Unknown ON MED LIST Verified 08/20/20 22:03 codeine AdvReac Mild GI SYMPTOMS Verified 08/20/20 22:02 Home Medications Medication Instructions Recorded Confirmed Type loperamide 2 mg tablet 2 mg PO Q3H PRN #240 tab 11/14/18 08/20/20 Rx Wheelchair (Manual or Powered) #1 ea 04/27/19 Rx nitroglycerin 0.4 mg sublingual 0.4 mg SL .COMPLEX PRN #25 tab 09/22/19 08/20/20 Rx tablet heating pads #1 ea 05/16/20 Rx acetaminophen 325 mg capsule 650 mg PO Q6H PRN #90 cap MDD 3 06/07/20 08/20/20 Rx GRAMS/24 HOURS ibuprofen 200 mg tablet 200 mg PO Q8H PRN #90 tab 06/07/20 08/20/20 Rx furosemide 20 mg tablet 20 mg PO DAILY PRN #30 tab 06/10/20 08/20/20 Rx acetaminophen [Tylenol Extra 500 mg PO Q4H PRN MDD 3 /08/20/20 08/20/20 History Strength] HOURS acetaminophen [Tylenol Extra 500 mg PO QID 08/20/20 08/20/20 History Strength] amlodipine 5 mg PO QAM 08/20/20 08/20/20 History aspirin 81 mg PO QAM 08/20/20 08/20/20 History atorvastatin 10 mg PO QAM 08/20/20 08/20/20 History cholecalciferol (vitamin D3) 2,000 unit PO BID17 08/20/20 08/20/20 History [Vitamin D3] fesoterodine [Toviaz] 4 mg PO BID17 08/20/20 08/20/20 History ibuprofen 600 mg PO QAM 08/20/20 08/20/20 History pantoprazole 20 mg PO QAM 08/20/20 08/20/20 History turmeric 0 mg PO QAM 08/20/20 08/20/20 History Patient History Medical History Bilateral chronic knee pain Carpal tunnel syndrome CHF (congestive heart failure) Chronic osteoarthritis Multiple joints affected. Hips have been a concern with recent corticosteroid injections. Risks associated with chronic NSAIDs previously discussed and currently managed with NSAID + APAP. Coronary artery disease Dementia Steady decline in cognitive function. Evaluated by neurology (02/20). Declines further medication therapy. Dyslipidemia Hypertension Incontinence Osteopenia DEXA (02/14) demonstrated T score -1.0 in forearm. Currently treated with Vit D supplementation. Sinus arrhythmia Spinal stenosis MRI (07/17) severe degenerative disease, along with moderate to severe spinal stenosis. SVT (supraventricular tachycardia) Urinary incontinence Vaginal wall prolapse Vitamin D deficiency Surgical History History of appendectomy History of coronary artery bypass graft History of tonsillectomy History of vaginal hysterectomy Presence of pessary S/P triple vessel bypass Before 2009. No subsequent stenting. Family History Father Myocardial infarction Mother Myocardial infarction Family/Other Colon cancer Coronary heart disease Diabetes Other Family history non-contributory No significant family history Denies family history of Ovarian cancer Breast cancer Social History Smoking Status: Unknown if ever smoked Second Hand Exposure: No; Hx Alcohol Use: No Hx Substance Use: No Preferred Language: Hebrew Communication Ability: Effective Anesthetist Required: No Beliefs That Will Affect Care: None marital status: Current Living Situation: Intermediate Current Living Situation Comment: [place] Feels Safe at Home: Yes Assistive Devices: Walker and Wheelchair Review of Systems Review of Systems: Mann[place] Choice Symptom Assessment Scale Pain 2/3 Dyspnea 0/3 Nausea 0/3 Anorexia 1/3 Anxiety 1/3 Drowsiness 0/3 Palliative Performance Score 40% Physical Exam Constitutional: no acute distress ENMT: Mouth: oral mucous membranes not dry Respiratory: normal respiratory effort; no labored breathing chronic O2 use Cardiovascular: Extremities: + edema Gastrointestinal (Abdomen): Inspection/Auscultation: abdomen not distended Musculoskeletal: osteoarthritic knee deformities Neurologic: awake and + confused (mild, confabulating) Results & Data ([facility]) Vital Signs (Past 12 Hours) Vital Signs Temp Pulse Pulse Resp BP BP Pulse Ox 08/21/20 08:49 68 08/21/20 07:15 97.9 F 59 L 18 156/75 H 99 08/21/20 03:01 97.9 F 67 17 188/65 H 97 08/21/20 01:51 64 16 143/82 H 94 08/21/20 00:38 61 16 104/49 L 96 PG Care Time/CCT Total # of Minutes Spent Total Time Spent with Patient: Total time spent is greater than 50% in coordination of care (as documented) at patient's floor/unit and/or counseling patient: Coding Level of Care Code 81079 Inpt Consult Level 3 Diagnoses Bilateral chronic knee pain M25.561; M25.562; G89.29 Palliative care encounter Z51.5 Anemia D64.9 Anemia type: unspecified type Coronary artery disease I25.10 Associated angina: without angina Coronary Disease-Associated Artery/Lesion type: [place] artery [place] vs. transplanted heart: [place] heart Spinal stenosis M48.061 Neurogenic claudication status: unspecified Spinal region: lumbar Unresponsive episode R41.89
[2020-08-21] MEDS ORDERED: GADOBUTROL 65ML VIAL IV ONE (12:34)
--- NOTE | 2020-08-21 12:49 | Electrocardiogram Report ---
Test Reason : Blood Pressure : / mmHG Vent. Rate : 075 BPM Atrial Rate : 075 BPM P-R Int : 228 ms QRS Dur : 118 ms QT Int : 394 ms P-R-T Axes : 080 -17 043 degrees QTc Int : 439 ms Poor data quality, interpretation may be adversely affected probably Sinus rhythm with 1st degree A-V block with Premature supraventricular complexes Left ventricular hypertrophy with QRS widening Nonspecific ST and T wave abnormality Abnormal ECG When compared with ECG of 15-SEP-2018 21:51, Premature ventricular complexes are no longer Present Premature supraventricular complexes are now Present Questionable change in QRS duration Confirmed by Arben Shane ([id number]) on 08/21/2020 12:48:59 PM [facility] Confirmed By:Robinson Shane
--- NOTE | 2020-08-21 13:31 | Magnetic Resonance Report ---
Brain MRI WITH AND WITHOUT CONTRAST HISTORY: Dementia. Weakness. unresponsiveness TECHNIQUE: Multiplanar multisequence MRI of the brain was performed both before and after the intrave nous administration of contrast. COMPARISON STUDY: Head CT 08/20/2020. There is no mass, hematoma FINDINGS: No areas of restricted diffusion to suggest acute infarction. The midline structures are in tact. There is no mass, hematoma, midline shift. There is moderate ventriculomegaly. This favors cent ral volume loss given the patient's age. Normal pressure hydrocephalus is considered less likely but not entirely excluded. Extensive periventricular white matter T2 hyperintensity is nonspecific but fa vors advanced microvascular ischemic change. A demyelinating disease or Lyme's disease would also be considered in the differential diagnosis. Paranasal sinuses and mastoid air cells are clear. Evidence for prior bilateral lens replacement. The major vascular flow-voids at the skull base are well-maint ained. No abnormal intra or extra-axial fluid collections. IMPRESSION: 1. No acute infarct. 2. There is moderate ventriculomegaly. This favors central volume loss given the patient's age. Barbara l pressure hydrocephalus is considered less likely but not entirely excluded. 3. Extensive periventricular white matter T2 hyperintensity is nonspecific but favors advanced microv ascular ischemic change. A demyelinating disease or Lyme's disease would also be considered in the di fferential diagnosis. ACT 112: Negative or not required by law. Electronically signed by: Ramakrishna Oswald M.D. 08/21/2020 1:30 PM
[2020-08-21] MEDS ORDERED: oxyCODONE IR HOME PACK PO ONE (16:27)
--- NOTE | 2020-08-22 10:21 | Discharge Summary ---
Date of Service August 21, 2020 Admission HPI Per Admitting Provider Ana Laura Echevarria is an 89yo C female with history of HTN, HLP, CAD and CHF presenting from [facility] with episode of unresponsiveness. Patient recalls having dinner around 17:00 - 17:30, she was in her usual state of health. Around 19:00 she was found by nursing parked in her wheelchair outside the memory unit - unresponsive. She was transferred to [facility] as a Code Stroke. Imaging unremarkable. Patient has since woken up and is in her usual state of health. She denies chest pain, palpitations, SOB, cough, fever, chills, nausea, vomiting, diarrhea, incontinence. No additional complaints. Patient has a considerable amount of chronic orthopedic pain - hips and knees bilaterally. She recently had a fall on 08/17/20 and has since been in a wheelchair. She moves the wheelchair with her feet and hands and reports some increase in ankle pain. Patient states that she has been thinking a lot about her pain. She is upset by the fact that she has pain daily and that nothing she does improves the pain. She is upset that she does not have anything stronger than Tylenol to take for the pain. She states that this evening she was thinking a lot about her pain and that her thoughts became almost overwhelming and she felt like she was "in a very dark place" - thinking that she was going to be in pain forever and have limited function. She denies taking any medications or thoughts of hurting herself or ending her life. She reports trying topical agents with minimal effect as well as joint injections in the past. Principal Diagnosis unresponsiveness Discharge Exam General: patient resting comfortably, NAD, non-toxic in appearance, AA&O x 3 Skin: warm, dry, intact, no rashes or lesions HEENT: NC/AT, PERRL, EOMI, anicteric sclera, conjunctiva without injection, external ear normal to inspection and nontender, nares patent, moist mucus membranes, dentition intact, no oropharyngeal lesions, neck supple, trachea midline, no LAD, no thyromegaly, no JVD Heart: +S1/S2, regular with ectopy, distant heart sounds, no m/r/g Lungs: equal air entry bilaterally, no rales/rhonchi/wheezes Abd: +BS, soft, NT/ND, no masses/organomegaly/ascites Ext: warm, 2+ pulses in UE/LE bilaterally, no clubbing/cyanosis or edema Neuro: nonfocal, patient AA&O x 3, speech intact, no facial droop, moving all extremities on command with equal strength 5/5 Patient repeatedly mentions her pain Discharge Data Allergies Allergy/AdvReac Type Severity Reaction Status Date / Time ciprofloxacin Allergy Unknown ON MED LIST Verified 08/20/20 22:03 ezetimibe Allergy Unknown ON MED LIST Verified 08/20/20 22:03 lisinopril Allergy Unknown ON MED LIST Verified 08/20/20 22:03 nitrofurantoin Allergy Unknown ON MED LIST Verified 08/20/20 22:03 [From Macrobid] Penicillins Allergy Unknown ON MED LIST Verified 08/20/20 22:03 simvastatin Allergy Unknown ON MED LIST Verified 08/20/20 22:03 codeine AdvReac Mild GI SYMPTOMS Verified 08/20/20 22:02 Consultations 08/20/20 21:54 ED Decision to Admit Stat 08/21/20 02:29 Consult Palliative Care Routine Ordered Studies 08/20/20 20:16 CT angio head w con Stat CT angio neck with con Stat CT head/brain wo con Stat 08/21/20 02:29 MR brain wo/w con Routine Hospital Course (1) Unresponsiveness: Patient with episode of unresponsiveness. Denies symptoms preceding or following the event. She has no recollection of the event. Ddx to include seizure, stroke, arrhythmia, medication effects -Admit to medical with telemetry -MRI brain was negative. -CTA of neck showed no significant occlusions. -Had discussion with daughter, does not wan aggressive measures. No further cardiac workup. Agreeable to discharge. (2) Acute knee pain: Patient's main complaint is her acute on chronic pain. She is very upset by her current pain and decreased functional status. She states that she feels somewhat depressed because of her chronic pain -Will schedule Tylenol 1000mg po TID -Topical Voltaren PRN -Oxycodone 2.5mg po q 4 hours PRN -May consider starting medication such as Cymbalta to help with pain, depressive symptoms -Palliative care consultation to assist with symptom management (3) Hypertension: Chronic -Continue Amlodipine 5mg po daily -Continue to monitor (4) Coronary artery disease: Chronic. Patient denies chest pain -Continue ASA -Continue Atorvastatin (5) Dementia: Patient with progressive functional and cognitive decline. She does not wish to take medications for this -Frequent orientation -Delirium prevention strategies -Management of chronic pain and possible depression as above (6) Dyslipidemia: Chronic -Continue Atorvastatin (7) Chronic diastolic (congestive) heart failure: Patient has history of THIS DIAGNOSIS. no in acute failure. will continue home regimen as needed. Total Time Total Time Spent Total Time Spent (In Minutes): 32 Total Time Includes: Examination of the Patient, Discharge Planning and Medication Reconciliation Discharge Plan Discharge Items Patient Disposition: Personal Long-Term Reason For Visit: UNRESPONSIVENESS Discharge Diagnosis: UNRESPONSIVENESS Activity: Resume your previous activity Non-emergency contact: Primary Care Provider Call non-emergency contact if: you have any medication questions Follow-up/Referrals: Link Tubbs DO [Primary Care Provider] - Diet: Heart Healthy Addtl Attending Provider Instructions: You have been hospitalized for an acute medical problem. During your stay at [facility], we have made an effort to correct the problem that brought you to the hospital while keeping you as comfortable as possible. Medications were used to bring your condition under control and your discharge instructions will include directions for any medications you should take after leaving the hospital. Please make sure you see your Primary Care Provider as part of your follow up plan. Pending Studies at Discharge: No Stand-Alone Forms: My [facility] [employer] Media, Smoking Cessation Skilled Items Patient informed of condition?: No DNR: No Discharge Level of Care: Other Communicable Disease: No Discharge Prognosis: Stable Lines: None Urinary Catheter: No Medications and DC Order Prescriptions: New oxycodone 5 mg Tablet 2.5 mg PO Q4H PRN (Reason: SEVERE PAIN) Qty: 15 RF: 0 duloxetine [Cymbalta] 30 mg capsule,delayed release(DR/EC) 30 mg PO DAILY Qty: 30 RF: 0 Continued loperamide 2 mg tablet 2 mg PO Q3H PRN (Reason: Diarrhea) Qty: 240 RF: 0 (DME) Wheelchair (Manual) Device See Rx Instructions .ROUTE .MEDSUPPLY Qty: 1 RF: 0 nitroglycerin 0.4 mg tablet, sublingual 0.4 mg SL .COMPLEX PRN (Reason: chest pain) Qty: 25 RF: 3 (DME) heating pads Pad See Rx Instructions .ROUTE .MEDSUPPLY Qty: 1 RF: 0 acetaminophen 325 mg capsule 650 mg PO Q6H MDD 3 GRAMS/24 HOURS PRN (Reason: pain) Qty: 90 RF: 3 ibuprofen 200 mg tablet 200 mg PO Q8H PRN (Reason: pain) Qty: 90 RF: 3 furosemide 20 mg tablet 20 mg PO DAILY PRN (Reason: weight gain) Qty: 30 RF: 0 acetaminophen [Tylenol Extra Strength] 500 mg Tablet 500 mg PO QID RF: 0 acetaminophen [Tylenol Extra Strength] 500 mg Tablet 500 mg PO Q4H MDD 3 GRAMS/24 HOURS PRN (Reason: Pain) RF: 0 ibuprofen 600 mg Tablet 600 mg PO QAM RF: 0 Toviaz 4 mg Tablet Extended Release 24 Hr 4 mg PO BID17 RF: 0 turmeric 400 mg Capsule 0 mg PO QAM RF: 0 atorvastatin 10 mg tablet 10 mg PO QAM RF: 0 amlodipine 5 mg tablet 5 mg PO QAM RF: 0 aspirin 81 mg tablet,delayed release (DR/EC) 81 mg PO QAM RF: 0 pantoprazole 20 mg tablet,delayed release (DR/EC) 20 mg PO QAM RF: 0 cholecalciferol (vitamin D3) [Vitamin D3] 2,000 unit capsule 2,000 unit PO BID17 RF: 0 Discharge Orders: Discharge Order (Routine); Ordered 08/21/20 Ordered By: Kennedy Ramos Admission Data Admit Date/Time: 08/20/20 22:33 Attending Provider: Kennedy Ramos Admit Provider: Comfort Weaver Primary Care Provider: Link Tubbs Other Providers: Comfort Weaver ; Lakesha Donaldson Other Interventions: Discharge Summary Assessment (RN) Last Done: 08/21/20 16:56 Coding Level of Care Code D/C Day Management >30 mins Diagnoses Unresponsiveness R41.89 Acute knee pain M25.561 Laterality: right Hypertension I10 Hypertension type: essential hypertension Coronary artery disease I25.10 Associated angina: without angina Coronary Disease-Associated Artery/Lesion type: [place] artery [place] vs. transplanted heart: [place] heart Dementia F03.91 Dementia behavioral disturbance: with behavioral disturbance Dementia type: unspecified type Dyslipidemia E78.5 Chronic diastolic (congestive) heart failure I50.32 Time Spent (min) 32
== END 2020-08-21 17:39 | disposition home or self-care (01) ==
LOC: ED 19:58 → SUATTDRO 22:33 → INTOOBSV 22:33 → 2N 22:33

== ENCOUNTER 2020-10-04 11:08 | Observation (INO) ==
[2020-10-04 11:51] LABS: Basophils # (auto) 0.02 K/uL (0-0.2); Basophils % (auto) 0.2 %; Eosinophils # (auto) 0.21 K/uL (0-0.5); Eosinophils % (auto) 2.5 %; Hematocrit (blood only) 39.8 % (37-47); Hemoglobin 12.7 g/dL (12.0-16.0); Immature Granulocytes # (auto) 0.02 K/uL (0.00-0.02); Immature Granulocytes % (auto) 0.2 %; Lymphocytes # (auto) 2.35 K/uL (1.2-3.4); Lymphocytes % (auto) 28.1 %; Mean Corpuscular Hemoglobin 32.6 pg (25-34); Mean Corpuscular Hgb Conc 31.9 g/dL (32-36); Mean Corpuscular Volume 102.3 fL (80-100); Mean Platelet Volume 10.2 fL (7.4-10.4); Monocytes # (auto) 0.97 K/uL (0.11-0.59); Monocytes % (auto) 11.6 %; Neutrophils % (auto) 57.4 %; Platelet Count 361 K/uL (130-400); RDW Coefficient of Variation 13.5 % (11.5-14.5); RDW Standard Deviation 50.5 fL (36.4-46.3); Red Blood Count 3.89 M/uL (4.2-5.4); White Blood Count 8.37 K/uL (4.8-10.8)
[2020-10-04 12:01] LABS: Partial Thromboplastin Ratio 0.9; Partial Thromboplastin Time 24.4 Seconds (21.0-31.0); Prothrombin Time 10.1 Seconds (9.0-12.0)
--- NOTE | 2020-10-04 12:01 | XRay Report ---
XR chest 1V portable CLINICAL HISTORY: weakness COMPARISON STUDY: Chest radiograph August 20, 2020. FINDINGS: There are median sternotomy wires and mediastinal surgical clips. Cardiomegaly is unchanged . There is no evidence for pulmonary edema. There is no consolidation. No pneumothorax or pleural eff usion is noted. IMPRESSION: No acute cardiopulmonary findings. ACT 112: Negative or not required by law. Electronically signed by: Michael Saeed M.D. 10/04/2020 12:00 PM
[2020-10-04 12:27] LABS: Alanine Aminotransferase 21 U/L (12-78); Albumin Level 3.6 gm/dl (3.4-5.0); Aspartate Aminotransferase 13 U/L (15-37); BUN Creatinine Ratio 26.8 (10-20); Blood Urea Nitrogen 18 mg/dl (7-18); Calcium 9.2 mg/dl (8.5-10.1); Carbon Dioxide 31 mmol/L (21-32); Chloride 103 mmol/L (98-107); Creatinine Clr Calc Pharmacy 65.5 ml/min; Est GFR (African American) 91.4 ml/min; Est GFR (Non-African American) 78.9 ml/min; Glucose 116 mg/dl (70-99); Magnesium 2.1 mg/dl (1.8-2.4); Potassium 3.9 mmol/L (3.5-5.1); Sodium 136 mmol/L (136-145)
--- NOTE | 2020-10-04 12:30 | CT Scan Report ---
CT head/brain wo con CLINICAL HISTORY: Acute change in mental status COMPARISON STUDY: 08/20/2020, TECHNIQUE: Axial CT of the brain is performed from the vertex to the skull base. IV contrast was not administered for this examination. A dose lowering technique was utilized adhering to the principles of ALARA. CT DOSE: 729.78 mGycm FINDINGS: No intra or extra-axial mass lesions are visualized. There is no CT evidence of acute cortical infarc tion. There is no evidence of midline shift. There is no acute hemorrhage. No calvarial fractures ar e visualized. There are patchy white matter hypodensities likely on a small vessel basis. There is stable mild ventriculomegaly. There is no evidence of acute sinusitis. Scleral calcifications are again evident. IMPRESSION: No acute intracranial findings ACT 112: Negative or not required by law. Electronically signed by: Carlos Ochoa M.D. 10/04/2020 12:29 PM
--- NOTE | 2020-10-04 12:35 | CT Scan Report ---
CT OF THE CERVICAL SPINE WITHOUT CONTRAST CLINICAL HISTORY: Falls. COMPARISON STUDY: CT of the cervical spine February 28, 2017. TECHNIQUE: Helical axial images of the cervical spine were obtained without IV contrast. Sagittal a nd coronal reconstructions were viewed. Automated exposure control was utilized for the study. A do se lowering technique was utilized adhering to the principles of ALARA. FINDINGS: Alignment of the cervical spine is anatomic. Vertebral body heights are maintained. No acut e cervical spine fracture or subluxation is present. There is no prevertebral edema. Facet joints are intact. Severe multilevel facet arthrosis is present. There is also severe multilevel disc space na rrowing and osteophytosis within the cervical spine. IMPRESSION: 1. No acute cervical spine fracture or subluxation. 2. Severe multilevel degenerative changes within the cervical spine. ACT 112: Negative or not required by law. Electronically signed by: Michael Saeed M.D. 10/04/2020 12:34 PM
[2020-10-04 12:38] LABS: Alkaline Phosphatase 76 U/L (45-117); Bilirubin,Total 0.8 mg/dl (0.2-1); Creatine Kinase 42 U/L (26-192); Globulin 3.6 gm/dl (2.5-4.0); Total Protein 7.2 gm/dl (6.4-8.2); Troponin I < 0.015 ng/ml (0-0.045)
--- NOTE | 2020-10-04 12:47 | CT Scan Report ---
CT OF THE ABDOMEN AND PELVIS WITHOUT CONTRAST CLINICAL HISTORY: Previous psoas hematoma. Falls. COMPARISON STUDY: CT of the pelvis September 17, 2020. CT of the abdomen and pelvis November 03, 2017. TECHNIQUE: Axial images of the abdomen and pelvis were obtained without IV contrast. Images were revi ewed in the axial, sagittal, and coronal planes. Automated exposure control was utilized for the syed dy. A dose lowering technique was utilized adhering to the principles of ALARA. FINDINGS: Lung bases are unremarkable. There is moderate cardiomegaly. Evaluation of the abdomen and pelvis is suboptimal on this unenhanced examination. There is a small hiatal hernia. There are gallst ones within the gallbladder without evidence for acute cholecystitis. Unenhanced images of the liver, spleen, adrenal glands and pancreas are unremarkable. Water attenuation right renal lesion is subopt imally assessed on this exam but favors a cyst. There are no urinary calculi. Pessary device is in pl tami. Colonic diverticulosis is noted without evidence for acute diverticulitis. There is no evidence for a bowel obstruction. The appendix is not visualized. There is no right lower quadrant inflammatio n. Severe osteoarthritis of the left hip is noted. Gas within the joint spaces likely degenerative in etiology. No acute fracture is identified within the visualized skeletal structures. Right iliacus a nd iliopsoas intramuscular hemorrhage shown on CT of September 17, 2020 has diminished. No new sites of he morrhage are present. IMPRESSION: 1. Decrease in intramuscular hemorrhage within the right iliacus and iliopsoas muscles since CT of 2020. 2. No acute process within the abdomen or pelvis on unenhanced exam. 3. Extensive colonic diverticulosis without evidence for acute diverticulitis. 4. Cholelithiasis. ACT 112: Negative or not required by law. Electronically signed by: Michael Saeed M.D. 10/04/2020 12:46 PM
[2020-10-04 13:05] LABS: Appearance Urine Clear (Clear); Bilirubin Urine Negative (Negative); Blood Urine Negative (Negative); Color Urine Yellow; Glucose Urine UA Negative (Negative); Ketones Urine Negative (Negative); Leukocyte Esterase Urine Negative (Negative); Nitrite Urine Negative (Negative); Protein Urine Negative (Negative); Specific Gravity Urine 1.006 (1.000-1.030); Urobilinogen Urine Negative (Negative)
--- NOTE | 2020-10-04 13:14 | Emergency Department Note ---
Impression & Plan TIA (transient ischemic attack), Dementia ED Provider Note NAME: JEISON SANCHEZ AGE: 89 SEX: F : 1930 ARRIVES VIA: Ambulance INFORMANT: Patient, ED PROVIDER(S): Ozzy English DO CHIEF COMPLAINT: Altered mental status HPI: The patient is an 89-year-old female who presented to the emergency department for an evaluation of altered mental status and strokelike symptoms. The patient has severe underlying dementia. She presented to the emergency department from her [facility]. The patient has a history of frequent falls. She was seen in our facility recently after falling and she did suffer at that time a psoas hematoma. She is been managed at the personal fci. She has had no other falls ever since the last fall that she was seen in the emergency department for. She denies having any headache. The patient states she does have some hip pain but it appears to be on the same side that she has had the hip pain on from the psoas hematoma. She denies having any nausea or vomiting. The patient states she has been compliant with all of her outpatient medications. Reportedly the patient had slurred speech. She also reportedly was weak on the left side but she states she is weak on the left side from a previous stroke. ROS: See above HPI for pertinent positives & negatives. A total of 10 systems reviewed and were otherwise negative. PAST MEDICAL HISTORY: See Below PAST SURGICAL HISTORY: See Below FAMILY HISTORY: See Below SOCIAL HISTORY: See Below HOME MEDICATIONS: See Below ALLERGIES: See Below VITALS: See Below PHYSICAL EXAMINATION: GENERAL: The patient is awake and alert. She is nonanxious appearing. EYES: The conjunctivae are clear. The pupils are round and reactive. EARS, NOSE, MOUTH AND THROAT: The nose is without any evidence of any deformity. NECK: The neck is nontender and supple. RESPIRATORY: Normal respiratory effort is noted there is no evidence of wheezing rhonchi or rales CARDIOVASCULAR: Regular rate and rhythm noted there no murmurs rubs or gallops normal S1 normal S2. GASTROINTESTINAL: The abdomen is soft. Abdomen is nontender. MUSCULOSKELETAL/EXTREMITIES: There is no evidence of gross deformity full range of motion is noted in the hips and shoulders. The patient does have pain with range of motion testing of the left hip. SKIN: Skin was warm and dry. Pedal edema was noted bilaterally. NEUROLOGIC: Patient is awake and oriented to person place and situation. She is confused on time. Strength was symmetric and the patient is able to hold each leg off the bed but for less than 5 seconds. There was no facial droop noted. MEDICAL DECISION MAKING: The patient is an 89-year-old female who presented to the emergency department for an evaluation of altered mental status. The patient may have been having strokelike symptoms this morning. She had her breakfast and appeared to be at her normal baseline. She was then evaluated by the personal fci staff and was found to have an alteration in her mental status. The patient has a history of underlying dementia. She also has a history of frequent falls. Her daughter was on the phone with her and demanded to speak with the nursing staff and the alteration of mental status was recognized. The patient was then sent to the emergency department for further evaluation. On my evaluation the patient appears to be at her baseline. Her daughter came to be with her in the emergency department and also agrees that the patient is at her baseline. I have met the patient in the past. I discussed the patient's laboratory and radiographic studies with her. She does have a history of frequent falls. She has a history of a recent fall where she suffered a hematoma to her psoas muscle. She has been complaining of chronic hip pain and I feel that this is the cause. Ultimately the patient's daughter was not comfortable with her going back to [facility] without knowing a little more whether or not this could have been from a stroke. For this reason I discussed the patient's case with the on-call [facility] hospitalist group. Triage Nursing notes reviewed. Prior medical records reviewed Vital Signs: reviewed and remarkable for no significant abnormalities Differential diagnosis: Infection, dehydration, metabolic abnormality, hypo/hyperglycemia, electrolyte disturbance, anemia, hypoxia, cardiac sources, intracerebral event, toxicologic, neurologic, as well as other pathologies. ER treatment provided: See below Diagnostics interpreted by me: ECG: EKG was obtained in the emergency department. My interpretation is sinus rhythm at 62 bpm. PVCs were noted. LVH was noted by voltage criteria. Lateral ST depressions were noted. This was compared to a tracing from September 172020. No significant changes were noted. Cardiac Monitoring: An order was placed for continuous cardiac monitoring. The monitor shows a rate of 68 bpm with sinus rhythm. Laboratory studies: As stated above and show below. Imaging studies: See below Consultation(s): 1500: I discussed this case with Dr. Lala who is on-call for the [facility] hospitalist group. Past Med/Surg History Medical History Bilateral chronic knee pain Carpal tunnel syndrome CHF (congestive heart failure) Chronic osteoarthritis Multiple joints affected. Hips have been a concern with recent corticosteroid injections. Risks associated with chronic NSAIDs previously discussed and currently managed with NSAID + APAP. Coronary artery disease Dementia Steady decline in cognitive function. Evaluated by neurology (02/20). Declines further medication therapy. Dyslipidemia Hypertension Incontinence Osteopenia DEXA (02/14) demonstrated T score -1.0 in forearm. Currently treated with Vit D supplementation. Sinus arrhythmia Spinal stenosis MRI (07/17) severe degenerative disease, along with moderate to severe spinal stenosis. SVT (supraventricular tachycardia) Unresponsive episode Urinary incontinence Vaginal wall prolapse Vitamin D deficiency Surgical History History of appendectomy History of coronary artery bypass graft History of tonsillectomy History of vaginal hysterectomy Presence of pessary S/P triple vessel bypass Before 2009. No subsequent stenting. Family History Father Myocardial infarction Mother Myocardial infarction Family/Other Colon cancer Coronary heart disease Diabetes Other Family history non-contributory No significant family history Denies family history of Ovarian cancer Breast cancer Social History Smoking Status: Never smoker Second Hand Exposure: No; Hx Alcohol Use: No Hx Substance Use: No Preferred Language: Romansh Communication Ability: Effective Equipment Validation Specialist Required: No Beliefs That Will Affect Care: None marital status: Current Living Situation: [facility] [place] [facility] [place] Safe at [place]: Yes Assistive Devices: Walker and Wheelchair Allergies Allergies Allergy/AdvReac Type Severity Reaction Status Date / Time ciprofloxacin Allergy Unknown ON MED LIST Verified 10/04/20 13:55 ezetimibe Allergy Unknown ON MED LIST Verified 10/04/20 13:55 lisinopril Allergy Unknown ON MED LIST Verified 10/04/20 13:55 nitrofurantoin Allergy Unknown ON MED LIST Verified 10/04/20 13:55 [From Macrobid] Penicillins Allergy Unknown ON MED LIST Verified 10/04/20 13:55 simvastatin Allergy Unknown ON MED LIST Verified 10/04/20 13:55 codeine AdvReac Mild GI SYMPTOMS Verified 10/04/20 13:55 Home Meds Home Medications Medication Instructions Recorded Confirmed Toviaz 4 mg PO BID17 08/20/20 10/04/20 acetaminophen [Tylenol Extra 500 mg PO QID MDD 3 GRAMS/24 HOURS 08/20/20 10/04/20 Strength] amlodipine 5 mg PO QAM 08/20/20 10/04/20 aspirin 81 mg PO QAM 08/20/20 10/04/20 atorvastatin 10 mg PO QAM 08/20/20 10/04/20 cholecalciferol (vitamin D3) 2,000 unit PO BID17 08/20/20 10/04/20 [Vitamin D3] pantoprazole 20 mg PO QAM 08/20/20 10/04/20 acetaminophen [Tylenol] 650 mg PO Q6HWA PRN 09/17/20 10/04/20 Tumeric 450mg Capsules 900 mg PO QAM 10/04/20 10/04/20 furosemide [Lasix] 20 mg PO QAM 10/04/20 10/04/20 Previous Rx's Medication Instructions Recorded loperamide 2 mg tablet 2 mg PO Q3H PRN #240 tab 11/14/18 nitroglycerin 0.4 mg sublingual 0.4 mg SL .COMPLEX PRN #25 tab 09/22/19 tablet ibuprofen 200 mg tablet 200 mg PO Q8H PRN #90 tab 06/07/20 ibuprofen 600 mg tablet 600 mg PO Q8H PRN #90 tab 09/13/20 diclofenac sodium 1 % topical gel 2 - 4 g TOPICAL QID PRN #50 g 09/26/20 Results & Data (ED) Vital Signs Vital Signs - 24 hr 10/04/20 11:00 10/04/20 11:24 10/04/20 11:43 Temperature 36.8 C Temperature Source Oral Pulse Rate 67 75 Pulse Rate [Apical] 68 Pulse Rhythm Regular Pulse Rhythm [Apical] Regular Respiratory Rate 16 16 16 Respiratory Effort / Characteristics Non-Labored Non-Labored Respiratory Depth Normal Normal Blood Pressure 169/65 H Blood Pressure [Right Arm] 169/65 H Blood Pressure Mean 99 Blood Pressure Mean [Right Arm] 99 Pulse Oximetry 94 95 95 Oxygen Delivery Method Room Air Room Air Room Air Sepsis Recent Fever Within 48 Hours No Sepsis New/Unexplained Change in Mental Status No Sepsis Action Taken by Nursing No Action Required 10/04/20 12:24 10/04/20 14:00 10/04/20 15:00 Temperature Temperature Source Pulse Rate Pulse Rate [Apical] 61 64 65 Pulse Rhythm Pulse Rhythm [Apical] Regular Respiratory Rate 16 16 16 Respiratory Effort / Characteristics Non-Labored Non-Labored Respiratory Depth Normal Normal Blood Pressure Blood Pressure [Right Arm] 154/72 H 158/59 H 162/75 H Blood Pressure Mean Blood Pressure Mean [Right Arm] 99 92 104 Pulse Oximetry 94 94 95 Oxygen Delivery Method Room Air Room Air Room Air Sepsis Recent Fever Within 48 Hours Sepsis New/Unexplained Change in Mental Status Sepsis Action Taken by Nursing 10/04/20 16:00 Temperature Temperature Source Pulse Rate Pulse Rate [Apical] 68 Pulse Rhythm Pulse Rhythm [Apical] Regular Respiratory Rate 16 Respiratory Effort / Characteristics Non-Labored Respiratory Depth Normal Blood Pressure Blood Pressure [Right Arm] 114/69 Blood Pressure Mean Blood Pressure Mean [Right Arm] 84 Pulse Oximetry 94 Oxygen Delivery Method Room Air Sepsis Recent Fever Within 48 Hours Sepsis New/Unexplained Change in Mental Status Sepsis Action Taken by Correction Medications Current Medication List: was personally reviewed by me Laboratory Data Attestation: I reviewed the patient's lab results. Result diagrams: 10/04/20 11:30 10/04/20 11:30 Lab Results 10/04/20 10/04/20 10/04/20 Range/Units 11:30 11:30 11:30 WBC 8.37 (4.8-10.8) K/uL RBC 3.89 L (4.2-5.4) M/uL Hgb 12.7 (12.0-16.0) g/dL Hct 39.8 (37-47) % MCV 102.3 H (80-100) fL MCH 32.6 (25-34) pg MCHC 31.9 L (32-36) g/dL RDW Std Deviation 50.5 H (36.4-46.3) fL RDW Coeff of Luis 13.5 (11.5-14.5) % Plt Count 361 (130-400) K/uL MPV 10.2 (7.4-10.4) fL Immature Gran % (Auto) 0.2 % Neut % (Auto) 57.4 % Lymph % (Auto) 28.1 % Nuckolls % (Auto) 11.6 % Eos % (Auto) 2.5 % Baso % (Auto) 0.2 % Neut # (Auto) 4.80 (1.4-6.5) K/uL Lymph # (Auto) 2.35 (1.2-3.4) K/uL Nuckolls # (Auto) 0.97 H (0.11-0.59) K/uL Eos # (Auto) 0.21 (0-0.5) K/uL Baso # (Auto) 0.02 (0-0.2) K/uL Immature Gran # (Auto) 0.02 (0.00-0.02) K/uL PT 10.1 (9.0-12.0) Seconds INR 1.0 (0.9-1.1) APTT 24.4 (21.0-31.0) Seconds PTT Ratio 0.9 Sodium 136 (136-145) mmol/L Potassium 3.9 (3.5-5.1) mmol/L Chloride 103 (98-107) mmol/L Carbon Dioxide 31 (21-32) mmol/L Anion Gap 2.0 L (3-11) BUN 18 (7-18) mg/dl Creatinine 0.66 (0.6-1.2) mg/dl Est Cr Clr Drug Dosing 65.5 ml/min Est GFR ( Amer) 91.4 ml/min Est GFR (Non-Af Amer) 78.9 ml/min BUN/Creatinine Ratio 26.8 H (10-20) Glucose 116 H (70-99) mg/dl Calcium 9.2 (8.5-10.1) mg/dl Magnesium 2.1 (1.8-2.4) mg/dl Total Bilirubin 0.8 (0.2-1) mg/dl AST 13 L (15-37) U/L ALT 21 (12-78) U/L Alkaline Phosphatase 76 (45-117) U/L Total Creatine Kinase 42 (26-192) U/L Troponin I < 0.015 (0-0.045) ng/ml Total Protein 7.2 (6.4-8.2) gm/dl Albumin 3.6 (3.4-5.0) gm/dl Globulin 3.6 (2.5-4.0) gm/dl Albumin/Globulin Ratio 1.0 (0.9-2) TSH 1.650 (0.300-4.500) uIu/ml Urine Color Urine Appearance (Clear) Urine pH (4.5-7.5) Ur Specific [place] (1.000-1.030) Urine Protein (Negative) Urine Glucose (UA) (Negative) Urine Ketones (Negative) Urine Blood (Negative) Urine Nitrite (Negative) Urine Bilirubin (Negative) Urine Urobilinogen (Negative) Ur Leukocyte Esterase (Negative) COVID-19 Eval Order SARS-CoV-2 (PCR) (Negative) 10/04/20 10/04/20 10/04/20 Range/Units 12:55 14:50 14:50 WBC (4.8-10.8) K/uL RBC (4.2-5.4) M/uL Hgb (12.0-16.0) g/dL Hct (37-47) % MCV (80-100) fL MCH (25-34) pg MCHC (32-36) g/dL RDW Std Deviation (36.4-46.3) fL RDW Coeff of Luis (11.5-14.5) % Plt Count (130-400) K/uL MPV (7.4-10.4) fL Immature Gran % (Auto) % Neut % (Auto) % Lymph % (Auto) % Nuckolls % (Auto) % Eos % (Auto) % Baso % (Auto) % Neut # (Auto) (1.4-6.5) K/uL Lymph # (Auto) (1.2-3.4) K/uL Nuckolls # (Auto) (0.11-0.59) K/uL Eos # (Auto) (0-0.5) K/uL Baso # (Auto) (0-0.2) K/uL Immature Gran # (Auto) (0.00-0.02) K/uL PT (9.0-12.0) Seconds INR (0.9-1.1) APTT (21.0-31.0) Seconds PTT Ratio Sodium (136-145) mmol/L Potassium (3.5-5.1) mmol/L Chloride (98-107) mmol/L Carbon Dioxide (21-32) mmol/L Anion Gap (3-11) BUN (7-18) mg/dl Creatinine (0.6-1.2) mg/dl Est Cr Clr Drug Dosing ml/min Est GFR ( Amer) ml/min Est GFR (Non-Af Amer) ml/min BUN/Creatinine Ratio (10-20) Glucose (70-99) mg/dl Calcium (8.5-10.1) mg/dl Magnesium (1.8-2.4) mg/dl Total Bilirubin (0.2-1) mg/dl AST (15-37) U/L ALT (12-78) U/L Alkaline Phosphatase (45-117) U/L Total Creatine Kinase (26-192) U/L Troponin I (0-0.045) ng/ml Total Protein (6.4-8.2) gm/dl Albumin (3.4-5.0) gm/dl Globulin (2.5-4.0) gm/dl Albumin/Globulin Ratio (0.9-2) TSH (0.300-4.500) uIu/ml Urine Color Yellow Urine Appearance Clear (Clear) Urine pH 7.0 (4.5-7.5) Ur Specific [place] 1.006 (1.000-1.030) Urine Protein Negative (Negative) Urine Glucose (UA) Negative (Negative) Urine Ketones Negative (Negative) Urine Blood Negative (Negative) Urine Nitrite Negative (Negative) Urine Bilirubin Negative (Negative) Urine Urobilinogen Negative (Negative) Ur Leukocyte Esterase Negative (Negative) COVID-19 Eval Order Covid19 at [facility] SARS-CoV-2 (PCR) NEGATIVE (Negative) Administered Medications Discontinued Medications Aspirin (Aspirin 81 Mg Ectab) 81 mg PO NOW STA Stop: 10/04/20 16:22 Last Admin: 10/04/20 16:35 Dose: 81 mg Documented by: [id number] Imaging Data Radiologist's Impression: Abdomen/Pelvis CT 10/04/20 11:43 CT OF THE ABDOMEN AND PELVIS WITHOUT CONTRAST CLINICAL HISTORY: Previous psoas hematoma. Falls. COMPARISON STUDY: CT of the pelvis September 17, 2020. CT of the abdomen and pelvis November 03, 2017. TECHNIQUE: Axial images of the abdomen and pelvis were obtained without IV contrast. Images were reviewed in the axial, sagittal, and coronal planes. Automated exposure control was utilized for the study. A dose lowering tech nique was utilized adhering to the principles of ALARA. FINDINGS: Lung bases are unremarkable. There is moderate cardiomegaly. Evaluation of the abdomen and pelvis is suboptimal on this unenhanced examination. There is a small hiatal hernia. There are gallstones within the gallbladder without evidence for acute cholecystitis. Unenhanced images of the liver, spleen, adrenal glands and pancreas are unremarkable. Water attenuation right renal lesion is suboptimally assessed on this exam but favors a cyst. There are no urinary calculi. Pessary device is in place. Colonic diverticulosis is noted without evidence for acute diverticulitis. There is no evidence for a bowel obstruction. The appendix is not visualized. There is no right lower jay drant inflammation. Severe osteoarthritis of the left hip is noted. Gas within the joint spaces likely degenerative in etiology. No acute fracture is identified within the visualized skeletal structures. Right iliacus and iliopsoas intramuscular hemorrhage shown on CT of September 17, 2020 has diminished. No new sites of hemorrhage are present. IMPRESSION: 1. Decrease in intramuscular hemorrhage within the right iliacus and iliopsoas muscles since CT of September 17, 2020. 2. No acute process within the abdomen or pelvis on unenhanced exam. 3. Extensive colonic diverticulosis without evidence for acute diverticulitis. 4. Cholelithiasis. ACT 112: Negative or not required by law. Electronically signed by: Michael Saeed M.D. 10/04/2020 12:[address] 10/04/20 11:43 CT OF THE CERVICAL SPINE WITHOUT CONTRAST CLINICAL HISTORY: Falls. COMPARISON STUDY: CT of the cervical spine February 28, 2017. TECHNIQUE: Helical axial images of the cervical spine were obtained without IV contrast. Sagittal and coronal reconstructions were viewed. Automated exposure control was utilized for the study. A dose lowering technique was utilized adhering to the principles of ALARA. FINDINGS: Alignment of the cervical spine is anatomic. Vertebral body heights are maintained. No acute cervical spine fracture or subluxation is present. There is no prevertebral edema. Facet joints are intact. Severe multilevel facet arthrosis is present. There is also severe multilevel disc space narrowing and osteophytosis within the cervical spine. IMPRESSION: 1. No acute cervical spine fracture or subluxation. 2. Severe multilevel degenerative changes within the cervical spine. ACT 112: Negative or not required by law. Electronically signed by: Michael Saeed M.D. 10/04/2020 12:34 PM Chest X-Ray 10/04/20 11:43 XR chest 1V portable CLINICAL HISTORY: weakness COMPARISON STUDY: Chest radiograph August 20, 2020. FINDINGS: There are median sternotomy wires and mediastinal surgical clips. Cardiomegaly is unchanged. There is no evidence for pulmonary edema. There is no consolidation. No pneumothorax or pleural effusion is noted. IMPRESSION: No acute cardiopulmonary findings. ACT 112: Negative or not required by law. Electronically signed by: Michael Saeed M.D. 10/04/2020 12:[address] 10/04/20 11:43 CT head/brain wo con CLINICAL HISTORY: Acute change in mental status COMPARISON STUDY: 08/20/2020, TECHNIQUE: Axial CT of the brain is performed from the vertex to the skull base. IV contrast was not administered for this examination. A dose lowering technique was utilized adhering to the principles of ALARA. CT DOSE: 729.78 mGycm FINDINGS: No intra or extra-axial mass lesions are visualized. There is no CT evidence of acute cortical infarction. There is no evidence of midline shift. There is no acute hemorrhage. No calvarial fractures are visualized. There are patchy white matter hypodensities likely on a small vessel basis. There is stable mild ventriculomegaly. There is no evidence of acute sinusitis. Scleral calcifications are again evident. IMPRESSION: No acute intracranial findings ACT 112: Negative or not required by law. Electronically signed by: Carlos Ochoa M.D. 10/04/2020 12:29 PM Discharge Plan Visit Data Chief Complaint: Neuro Symptoms/Deficit Stated Complaint: AMS, NEURO SX ED Provider: Ozzy English Discharge Problem: TIA (transient ischemic attack), Dementia Patient Disposition: Being Evaluated by Hospitalist Condition: Good Forms Stand Alone Forms: [employer] Prescriptions Prescriptions: No Action loperamide 2 mg tablet 2 mg PO Q3H PRN (Reason: Diarrhea) Qty: 240 RF: 0 nitroglycerin 0.4 mg tablet, sublingual 0.4 mg SL .COMPLEX PRN (Reason: chest pain) Qty: 25 RF: 3 ibuprofen 200 mg tablet 200 mg PO Q8H PRN (Reason: pain) Qty: 90 RF: 3 ibuprofen 600 mg tablet 600 mg PO Q8H PRN (Reason: pain) Qty: 90 RF: 3 diclofenac sodium 1 % gel 2 - 4 g TOPICAL QID PRN (Reason: Pain) Qty: 50 RF: 1 acetaminophen [Tylenol Extra Strength] 500 mg Tablet 500 mg PO QID MDD 3 GRAMS/24 HOURS RF: 0 Toviaz 4 mg Tablet Extended Release 24 Hr 4 mg PO BID17 RF: 0 atorvastatin 10 mg tablet 10 mg PO QAM RF: 0 amlodipine 5 mg tablet 5 mg PO QAM RF: 0 aspirin 81 mg tablet,delayed release (DR/EC) 81 mg PO QAM RF: 0 pantoprazole 20 mg tablet,delayed release (DR/EC) 20 mg PO QAM RF: 0 cholecalciferol (vitamin D3) [Vitamin D3] 2,000 unit capsule 2,000 unit PO BID17 RF: 0 furosemide [Lasix] 20 mg tablet 20 mg PO QAM RF: 0 Tumeric 450mg Capsules 900 mg PO QAM RF: 0 acetaminophen [Tylenol] 325 mg Tablet 650 mg PO Q6HWA PRN (Reason: FEVER/PAIN) RF: 0 Referrals Referrals: Chavo, [Primary Care Provider] - Discharge Problem: Dementia Qualifiers: Dementia type: unspecified type Dementia behavioral disturbance: without behavioral disturbance Qualified Code(s): F03.90 - Unspecified dementia without behavioral disturbance
--- NOTE | 2020-10-04 15:08 | History & Physical Report ---
Date of Service October 04, 2020 Assessment & Plan (1) Expressive aphasia: Quite possibly could be a TIA MRI of the brain just 6 or 7 weeks ago showed extensive microvascular ischemic change and atrophy She does have significant risk factors for TIA and stroke including CAD, hypertension, hyperlipidemia, age Fortunately all of her symptoms have resolved Discussed all care with daughters and patient-patient is not agreeable to a repeat MRI and I do not think this would be of high yield anyway -Admit on observation to medical floor with telemetry for arrhythmia monitoring -Restart home aspirin which was discontinued for psoas hematoma -Continue statin and check lipid panel, check hemoglobin A1c -Neurochecks -Neurology consultation -Check echocardiogram PT/OT consultations -Blood pressures are elevated here-unclear if she took her amlodipine today -Check B1 level (2) Anemia: Chronic and mild, macrocytic Check B12 in the morning Folate was normal recently (3) Bilateral chronic knee pain: Continue diclofenac, Tylenol Continue home ibuprofen (4) Chronic diastolic (congestive) heart failure: No acute issues Continue home Lasix Blood pressure control (5) Coronary artery disease: Status post CABG No acute issues Restart home aspirin as above, and continue statin (6) Dementia: Moderate in nature Supportive care (7) Dyslipidemia: Continue statin, check lipid panel (8) Hypertension: Blood pressures are elevated here Continue home amlodipine and Lasix and increase doses as needed (9) Multiple falls: With a history of multiple falls secondary to deconditioning and arthritis Now mostly wheelchair-bound PT/OT consultations (10) Osteopenia: Continue vitamin D (11) Spinal stenosis: Noted (12) Urinary incontinence: Continue Toviaz (13) DVT prophylaxis: SCDs Disposition-bring in on observation to medical floor telemetry, likely discharge back to [facility] tomorrow if doing well All care discussed with both her daughters at the bedside DNR/DNI History of Present Illness Chief Complaint: Difficulty with speech [facility] This patient is an 89-year-old female with a history of CAD s/p CABG, moderate dementia, HTN, dyslipidemia, SVT, spinal stenosis, osteoarthritis with severe bilateral knee pain, osteopenia, CAD, CHF, B12 deficiency, adult failure to thrive who presents to the ER for altered mental status and possible strokelike symptoms. She has severe dementia and resides at a personal [facility] and has a history of frequent falls. She was seen in the ER on 09/17 after a fall and had a right-sided psoas hematoma at that time. She has been having ongoing hip pain on that side. Today, she was apparently talking to her daughter on the phone and the daughter reported that the patient was stuttering and having difficulty getting her speech out. She is then spoke with the nurse at the personal [facility] who thought that the patient did not look well and sent her to the hospital. Here, the ER physician who knew her from 2 weeks ago thought she seemed about the same as at that time with her mental status. She had no difficulty with speech on arrival in the ER. She has chronic left-sided weakness due to severe arthritis in the hip and knee. Her laboratory studies were fairly normal and troponin was negative, TSH normal, urinalysis normal. The patient's 2 daughters at the bedside reports the patient is completely back to normal. The patient denies any weakness or numbness or tingling, no headache, no other focal neuro symptoms. She is wheelchair-bound due to severe arthritis in her body. Covid-[address] noncontrast of the head showed no acute intracranial findings. Chest x-ray was negative for acute issues. CT of the cervical spine showed no acute fracture or subluxation but showed severe multilevel degenerative changes. A repeat CT of the abdomen/pelvis was performed given her history of recent right psoas hematoma and this showed a decrease in the amount of hemorrhage from previous and otherwise without acute issues. EKG showed sinus rhythm with first-degree AV block with PACs, ST and T wave changes in anterior leads. Improved from previous. She was admitted to the hospital 6 weeks ago after an unresponsive episode and had a brain MRI at that time which showed extensive periventricular white matter disease favoring microvascular ischemic change and moderate ventriculomegaly favoring central volume loss but could not exclude NPH. There was no CVA. She also had CT angiograms of the head and neck at that time which did not show any significant stenoses. She will be brought in on observation for further work-up for TIA. Allergies Allergy/AdvReac Type Severity Reaction Status Date / Time ciprofloxacin Allergy Unknown ON MED LIST Verified 10/04/20 13:55 ezetimibe Allergy Unknown ON MED LIST Verified 10/04/20 13:55 lisinopril Allergy Unknown ON MED LIST Verified 10/04/20 13:55 nitrofurantoin Allergy Unknown ON MED LIST Verified 10/04/20 13:55 [From Macrobid] Penicillins Allergy Unknown ON MED LIST Verified 10/04/20 13:55 simvastatin Allergy Unknown ON MED LIST Verified 10/04/20 13:55 codeine AdvReac Mild GI SYMPTOMS Verified 10/04/20 13:55 Home Medications Medication Instructions Recorded Confirmed Type loperamide 2 mg tablet 2 mg PO Q3H PRN #240 tab 11/14/18 10/04/20 Rx nitroglycerin 0.4 mg sublingual 0.4 mg SL .COMPLEX PRN #25 tab 09/22/19 10/04/20 Rx tablet ibuprofen 200 mg tablet 200 mg PO Q8H PRN #90 tab 06/07/20 10/04/20 Rx Toviaz 4 mg PO BID17 08/20/20 10/04/20 History acetaminophen [Tylenol Extra 500 mg PO QID MDD 3 GRAMS/24 HOURS 08/20/20 10/04/20 History Strength] amlodipine 5 mg PO QAM 08/20/20 10/04/20 History aspirin 81 mg PO QAM 08/20/20 10/04/20 History atorvastatin 10 mg PO QAM 08/20/20 10/04/20 History cholecalciferol (vitamin D3) 2,000 unit PO BID17 08/20/20 10/04/20 History [Vitamin D3] pantoprazole 20 mg PO QAM 08/20/20 10/04/20 History ibuprofen 600 mg tablet 600 mg PO Q8H PRN #90 tab 09/13/20 10/04/20 Rx acetaminophen [Tylenol] 650 mg PO Q6HWA PRN 09/17/20 10/04/20 History diclofenac sodium 1 % topical gel 2 - 4 g TOPICAL QID PRN #50 g 09/26/20 10/04/20 Rx Tumeric 450mg Capsules 900 mg PO QAM 10/04/20 10/04/20 History furosemide [Lasix] 20 mg PO QAM 10/04/20 10/04/20 History Past Med/Surg History Medical History Bilateral chronic knee pain Carpal tunnel syndrome CHF (congestive heart failure) Chronic osteoarthritis Multiple joints affected. Hips have been a concern with recent corticosteroid injections. Risks associated with chronic NSAIDs previously discussed and currently managed with NSAID + APAP. Coronary artery disease Dementia Steady decline in cognitive function. Evaluated by neurology (02/20). Declines further medication therapy. Dyslipidemia Hypertension Incontinence Osteopenia DEXA (02/14) demonstrated T score -1.0 in forearm. Currently treated with Vit D supplementation. Sinus arrhythmia Spinal stenosis MRI (07/17) severe degenerative disease, along with moderate to severe spinal stenosis. SVT (supraventricular tachycardia) Unresponsive episode Urinary incontinence Vaginal wall prolapse Vitamin D deficiency Surgical History History of appendectomy History of coronary artery bypass graft History of tonsillectomy History of vaginal hysterectomy Presence of pessary S/P triple vessel bypass Before 2009. No subsequent stenting. 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 Beliefs That Will Affect Care: None marital status: Current Living Situation: Long Term Current Living Situation Comment: [facility] Other Information That Helps Us Care for You: No Feels Safe at Home: Yes Safety Concerns: Feels Safe At This Time Assistive Devices: Denture - Upper, Denture - Lower and Walker Review of Systems Review of Systems: All systems reviewed & are unremarkable except as noted in HPI & below Denies headache or lightheadedness, no fevers or chills, no chest pain or shortness of breath, no cough, no abdominal pain or nausea, no constipation or diarrhea, no urinary symptoms. Has chronic pain in her knee joints left greater than right and shoulder on the left, left hand Physical Exam Constitutional: WD/WN, vitals as above Eyes: PERRL, conjunctivae normal, anicteric sclerae EOM intact bilaterally ENMT: external ear and nose normal, oropharynx normal Neck: trachea midline, no thyromegaly Respiratory: normal respiratory effort, lungs clear to auscultation Cardiovascular: RRR, no murmur, no edema Chest (Breasts): Chest: normal inspection of chest Gastrointestinal (Abdomen): normal bowel sounds, soft, nontender, no hepatos plenomegaly Musculoskeletal: Extremities: extremities normal to inspection; no cyanosis and no clubbing Skin: no rashes, warm and dry Neurologic: deep tendon reflexes 2+ bilaterally, moves all extremities and awake; no focal motor deficits (Does have decreased strength in left lower ex tremity due to pain ) Motor/Sensory: no tremor, no pronator drift and no sensory deficit Psychiatric: Orientation: alert, oriented to person, oriented to place and cooperative; + not oriented to time Eye Contact: good eye contact Speech: normal rate/rhythm/volume of speech Affect: euthymic affect Lymphatic: no lymphedema Results & Data Results & Data ([facility]) Vital Signs (Past 12 Hours) Vital Signs Temp Pulse Pulse Resp BP BP Pulse Ox 10/04/20 14:00 64 16 158/59 H 94 10/04/20 12:24 61 16 154/72 H 94 10/04/20 11:43 75 16 95 10/04/20 11:24 68 16 169/65 H 95 10/04/20 11:00 36.8 C 67 16 169/65 H 94 Laboratory Results 10/04/20 10/04/20 10/04/20 Range/Units 14:50 14:50 12:55 WBC (4.8-10.8) K/uL RBC (4.2-5.4) M/uL Hgb (12.0-16.0) g/dL Hct (37-47) % MCV (80-100) fL MCH (25-34) pg MCHC (32-36) g/dL RDW Std Deviation (36.4-46.3) fL RDW Coeff of Luis (11.5-14.5) % Plt Count (130-400) K/uL MPV (7.4-10.4) fL Immature Gran % (Auto) % Neut % (Auto) % Lymph % (Auto) % [place] % (Auto) % Eos % (Auto) % Baso % (Auto) % Neut # (Auto) (1.4-6.5) K/uL Lymph # (Auto) (1.2-3.4) K/uL [place] # (Auto) (0.11-0.59) K/uL Eos # (Auto) (0-0.5) K/uL Baso # (Auto) (0-0.2) K/uL Immature Gran # (Auto) (0.00-0.02) K/uL PT (9.0-12.0) Seconds INR (0.9-1.1) APTT (21.0-31.0) Seconds PTT Ratio Sodium (136-145) mmol/L Potassium (3.5-5.1) mmol/L Chloride (98-107) mmol/L Carbon Dioxide (21-32) mmol/L Anion Gap (3-11) BUN (7-18) mg/dl Creatinine (0.6-1.2) mg/dl Est Cr Clr Drug Dosing ml/min Est GFR ( Amer) ml/min Est GFR (Non-Af Amer) ml/min BUN/Creatinine Ratio (10-20) Glucose (70-99) mg/dl Calcium (8.5-10.1) mg/dl Magnesium (1.8-2.4) mg/dl Total Bilirubin (0.2-1) mg/dl AST (15-37) U/L ALT (12-78) U/L Alkaline Phosphatase (45-117) U/L Total Creatine Kinase (26-192) U/L Troponin I (0-0.045) ng/ml Total Protein (6.4-8.2) gm/dl Albumin (3.4-5.0) gm/dl Globulin (2.5-4.0) gm/dl Albumin/Globulin Ratio (0.9-2) TSH (0.300-4.500) uIu/ml Urine Color Yellow Urine Appearance Clear (Clear) Urine pH 7.0 (4.5-7.5) Ur Specific [place] 1.006 (1.000-1.030) Urine Protein Negative (Negative) Urine Glucose (UA) Negative (Negative) Urine Ketones Negative (Negative) Urine Blood Negative (Negative) Urine Nitrite Negative (Negative) Urine Bilirubin Negative (Negative) Urine Urobilinogen Negative (Negative) Ur Leukocyte Esterase Negative (Negative) COVID-19 Eval Order Covid19 at [facility] SARS-CoV-2 (PCR) Pending 10/04/20 10/04/20 10/04/20 Range/Units 11:30 11:30 11:30 WBC 8.37 (4.8-10.8) K/uL RBC 3.89 L (4.2-5.4) M/uL Hgb 12.7 (12.0-16.0) g/dL Hct 39.8 (37-47) % MCV 102.3 H (80-100) fL MCH 32.6 (25-34) pg MCHC 31.9 L (32-36) g/dL RDW Std Deviation 50.5 H (36.4-46.3) fL RDW Coeff of Luis 13.5 (11.5-14.5) % Plt Count 361 (130-400) K/uL MPV 10.2 (7.4-10.4) fL Immature Gran % (Auto) 0.2 % Neut % (Auto) 57.4 % Lymph % (Auto) 28.1 % [place] % (Auto) 11.6 % Eos % (Auto) 2.5 % Baso % (Auto) 0.2 % Neut # (Auto) 4.80 (1.4-6.5) K/uL Lymph # (Auto) 2.35 (1.2-3.4) K/uL [place] # (Auto) 0.97 H (0.11-0.59) K/uL Eos # (Auto) 0.21 (0-0.5) K/uL Baso # (Auto) 0.02 (0-0.2) K/uL Immature Gran # (Auto) 0.02 (0.00-0.02) K/uL PT 10.1 (9.0-12.0) Seconds INR 1.0 (0.9-1.1) APTT 24.4 (21.0-31.0) Seconds PTT Ratio 0.9 Sodium 136 (136-145) mmol/L Potassium 3.9 (3.5-5.1) mmol/L Chloride 103 (98-107) mmol/L Carbon Dioxide 31 (21-32) mmol/L Anion Gap 2.0 L (3-11) BUN 18 (7-18) mg/dl Creatinine 0.66 (0.6-1.2) mg/dl Est Cr Clr Drug Dosing 65.5 ml/min Est GFR ( Amer) 91.4 ml/min Est GFR (Non-Af Amer) 78.9 ml/min BUN/Creatinine Ratio 26.8 H (10-20) Glucose 116 H (70-99) mg/dl Calcium 9.2 (8.5-10.1) mg/dl Magnesium 2.1 (1.8-2.4) mg/dl Total Bilirubin 0.8 (0.2-1) mg/dl AST 13 L (15-37) U/L ALT 21 (12-78) U/L Alkaline Phosphatase 76 (45-117) U/L Total Creatine Kinase 42 (26-192) U/L Troponin I < 0.015 (0-0.045) ng/ml Total Protein 7.2 (6.4-8.2) gm/dl Albumin 3.6 (3.4-5.0) gm/dl Globulin 3.6 (2.5-4.0) gm/dl Albumin/Globulin Ratio 1.0 (0.9-2) TSH 1.650 (0.300-4.500) uIu/ml Urine Color Urine Appearance (Clear) Urine pH (4.5-7.5) Ur Specific [place] (1.000-1.030) Urine Protein (Negative) Urine Glucose (UA) (Negative) Urine Ketones (Negative) Urine Blood (Negative) Urine Nitrite (Negative) Urine Bilirubin (Negative) Urine Urobilinogen (Negative) Ur Leukocyte Esterase (Negative) COVID-19 Eval Order SARS-CoV-2 (PCR) Diagnostic Findings Abdomen/Pelvis CT 10/04/20 11:43 CT OF THE ABDOMEN AND PELVIS WITHOUT CONTRAST CLINICAL HISTORY: Previous psoas hematoma. Falls. COMPARISON STUDY: CT of the pelvis September 17, 2020. CT of the abdomen and pelvis November 03, 2017. TECHNIQUE: Axial images of the abdomen and pelvis were obtained without IV contrast. Images were reviewed in the axial, sagittal, and coronal planes. Automated exposure control was utilized for the study. A dose lowering technique was utilized adhering to the principles of ALARA. FINDINGS: Lung bases are unremarkable. There is moderate cardiomegaly. Evaluation of the abdomen and pelvis is suboptimal on this unenhanced examination. There is a small hiatal hernia. There are gallstones within the gallbladder without evidence for acute cholecystitis. Unenhanced images of the liver, spleen, adrenal glands and pancreas are unremarkable. Water attenuation right renal lesion is suboptimally assessed on this exam but favors a cyst. There are no urinary calculi. Pessary device is in place. Colonic diverticulosis is noted without evidence for acute diverticulitis. There is no evidence for a bowel obstruction. The appendix is not visualized. There is no right lower quadrant inflammation. Severe osteoarthritis of the left hip is noted. Gas within the joint spaces likely degenerative in etiology. No acute fracture is identified within the visualized skeletal structures. Right iliacus and iliopsoas intramuscular hemorrhage shown on CT of September 17, 2020 has diminished. No new sites of hemorrhage are present. IMPRESSION: 1. Decrease in intramuscular hemorrhage within the right iliacus and iliopsoas muscles since CT of September 17, 2020. 2. No acute process within the abdomen or pelvis on unenhanced exam. 3. Extensive colonic diverticulosis without evidence for acute diverticulitis. 4. Cholelithiasis. ACT 112: Negative or not required by law. Electronically signed by: Michael Saeed M.D. 10/04/2020 12:[address] 10/04/20 11:43 CT OF THE CERVICAL SPINE WITHOUT CONTRAST CLINICAL HISTORY: Falls. COMPARISON STUDY: CT of the cervical spine February 28, 2017. TECHNIQUE: Helical axial images of the cervical spine were obtained without IV contrast. Sagittal and coronal reconstructions were viewed. Automated exposure control was utilized for the study. A dose lowering technique was utilized adhering to the principles of ALARA. FINDINGS: Alignment of the cervical spine is anatomic. Vertebral body heights are maintained. No acute cervical spine fracture or subluxation is present. There is no prevertebral edema. Facet joints are intact. Severe multilevel facet arthrosis is present. There is also severe multilevel disc space narrowing and osteophytosis within the cervical spine. IMPRESSION: 1. No acute cervical spine fracture or subluxation. 2. Severe multilevel degenerative changes within the cervical spine. ACT 112: Negative or not required by law. Electronically signed by: Michael Saeed M.D. 10/04/2020 12:34 PM Chest X-Ray 10/04/20 11:43 XR chest 1V portable CLINICAL HISTORY: weakness COMPARISON STUDY: Chest radiograph August 20, 2020. FINDINGS: There are median sternotomy wires and mediastinal surgical clips. Cardiomegaly is unchanged. There is no evidence for pulmonary edema. There is no consolidation. No pneumothorax or pleural effusion is noted. IMPRESSION: No acute cardiopulmonary findings. ACT 112: Negative or not required by law. Electronically signed by: Michael Saeed M.D. 10/04/2020 12:[address] 10/04/20 11:43 CT head/brain wo con CLINICAL HISTORY: Acute change in mental status COMPARISON STUDY: 08/20/2020, TECHNIQUE: Axial CT of the brain is performed from the vertex to the skull base. IV contrast was not administered for this examination. A dose lowering technique was utilized adhering to the principles of ALARA. CT DOSE: 729.78 mGycm FINDINGS: No intra or extra-axial mass lesions are visualized. There is no CT evidence of acute cortical infarction. There is no evidence of midline shift. There is no acute hemorrhage. No calvarial fractures are visualized. There are patchy white matter hypodensities likely on a small vessel basis. There is stable mild ventriculomegaly. There is no evidence of acute sinusitis. Scleral calcifications are again evident. IMPRESSION: No acute intracranial findings ACT 112: Negative or not required by law. Electronically signed by: Carlos Ochoa M.D. 10/04/2020 12:29 PM ECG Additional Comments: as per HPI Code Status & VTE Plan Code Status DNR/DNI VTE Prophylaxis Plan VTE Prophylaxis will be ordered: Yes PG Care Time/CCT Total # of Minutes Spent Total Time Spent with Patient: Total time spent is greater than 50% in coordination of care (as documented) at patient's floor/unit and/or counseling patient: Coding Level of Care Code 52801 OBS Care - Level 3 Diagnoses Expressive aphasia R47.01 Anemia D64.9 Anemia type: unspecified type Bilateral chronic knee pain M25.561; M25.562; G89.29 Chronic diastolic (congestive) heart failure I50.32 Coronary artery disease I25.10 Associated angina: without angina Coronary Disease-Associated Artery/Lesion type: [place] artery [place] vs. transplanted heart: [place] heart Dementia F03.91 Dementia behavioral disturbance: with behavioral disturbance Dementia type: unspecified type Dyslipidemia E78.5 Hypertension I10 Hypertension type: essential hypertension Multiple falls R29.6 Osteopenia M85.80 Spinal stenosis M48.061 Neurogenic claudication status: unspecified Spinal region: lumbar Urinary incontinence R32 DVT prophylaxis Z29.9 (1) Coronary artery disease Associated angina: without angina Coronary Disease-Associated Artery/Lesion type: [place] artery [place] vs. transplanted heart: mo[place]gan heart Qualified Code(s): I25.10 - Atherosclerotic heart disease of mo[place] coronary artery without angina pectoris (2) Anemia Anemia type: unspecified type Qualified Code(s): D64.9 - Anemia, unspecified (3) Dementia Dementia behavioral disturbance: with behavioral disturbance Dementia type: unspecified type Qualified Code(s): F03.91 - Unspecified dementia with behavioral disturbance (4) Spinal stenosis Neurogenic claudication status: unspecified Spinal region: lumbar Qualified Code(s): M48.061 - Spinal stenosis, lumbar region without neurogenic claudication (5) Hypertension Hypertension type: essential hypertension Qualified Code(s): I10 - Essential (primary) hypertension
[2020-10-04] MEDS ORDERED: ASPIRIN 81 MG ECTAB PO STA (16:21)
--- NOTE | 2020-10-04 17:45 | Electrocardiogram Report ---
Test Reason : Blood Pressure : / mmHG Vent. Rate : 062 BPM Atrial Rate : 062 BPM P-R Int : 234 ms QRS Dur : 124 ms QT Int : 428 ms P-R-T Axes : 050 -12 052 degrees QTc Int : 434 ms Sinus rhythm with 1st degree A-V block with Premature atrial complexes and pvc Left ventricular hypertrophy with QRS widening Abnormal ECG When compared with ECG of 17-SEP-2020 02:57, HR has decreased Confirmed by Juan C Medina ([id number]) on 10/04/2020 5:45:31 PM [facility] Confirmed By:Juan C Medina
[2020-10-04] MEDS ORDERED: NITROGLYCERIN SL 0.4 MG/TAB TAB SL PRN (18:36)
[2020-10-04] MEDS ORDERED: DICLOFENAC SOD 1% GEL 100 GM TUBE EXT PRN (18:36)
[2020-10-04] MEDS ORDERED: IBUPROFEN 600 MG TAB PO PRN (18:36)
[2020-10-04] MEDS ORDERED: ACETAMINOPHEN 325 MG TAB PO PRN (18:36)
[2020-10-04] MEDS ORDERED: ONDANSETRON INJ 2 MG/ML 2 ML VIAL IV PRN (18:36)
[2020-10-04] MEDS ORDERED: PHARMACIST DISCHARGE MED REC CONSULT PRN (18:36)
--- NOTE | 2020-10-04 19:30 | Ultrasound Report ---
BILATERAL CAROTID DOPPLER STUDY HISTORY: Transient ischemic attack. Altered mental status. Left facial droop. COMPARISON: CTA neck 08/20/2020. TECHNIQUE: Real-time, grayscale, and color Doppler sonography of the carotid arteries was performed. Imaging reviewed in the transverse and longitudinal planes. All measurements were calculated based on NASCET criteria. FINDINGS: Antegrade flow is seen in the bilateral vertebral arteries. The brachial pressures are hemodynamically similar. Mild calcified plaque within the bilateral carotid bifurcations. The peak systolic velocity within the right ICA is 76 cm/s. The right systolic ratio is 1.5. The peak systolic velocity within the left ICA is 63 cm/s. The left systolic ratio is 0.7. IMPRESSION: No hemodynamically significant stenosis seen within the carotid arteries. ACT 112: Negative or not required by law. Electronically signed by: Ramakrishna Oswald M.D. 10/04/2020 7:29 PM
[2020-10-04] MEDS: CHOLECALCIFEROL 1,000 UNITS 25 MCG TAB PO SCH (20:58)
[2020-10-04] MEDS: ACETAMINOPHEN 500 MG TAB PO SCH (20:58)
[2020-10-05 06:58] LABS: Basophils # (auto) 0.03 K/uL (0-0.2); Basophils % (auto) 0.4 %; Eosinophils # (auto) 0.23 K/uL (0-0.5); Eosinophils % (auto) 3.1 %; Hemoglobin 12.7 g/dL (12.0-16.0); Immature Granulocytes # (auto) 0.01 K/uL (0.00-0.02); Immature Granulocytes % (auto) 0.1 %; Lymphocytes # (auto) 2.37 K/uL (1.2-3.4); Lymphocytes % (auto) 32.2 %; Mean Corpuscular Hgb Conc 31.8 g/dL (32-36); Mean Corpuscular Volume 103.9 fL (80-100); Monocytes # (auto) 0.74 K/uL (0.11-0.59); Monocytes % (auto) 10.1 %; Neutrophils # (auto) 3.98 K/uL (1.4-6.5); Neutrophils % (auto) 54.1 %; Platelet Count 374 K/uL (130-400); RDW Coefficient of Variation 13.4 % (11.5-14.5); Red Blood Count 3.85 M/uL (4.2-5.4); White Blood Count 7.36 K/uL (4.8-10.8)
[2020-10-05 07:21] LABS: Estimated Average Glucose 123 mg/dl; Hemoglobin A1C 5.9 % (4.5-5.6)
[2020-10-05 07:37] LABS: BUN Creatinine Ratio 25.4 (10-20); Calcium 9.2 mg/dl (8.5-10.1); Creatinine Clr Calc Pharmacy 62.2 ml/min; Est GFR (African American) 90.5 ml/min; Est GFR (Non-African American) 78.1 ml/min
[2020-10-05] MEDS: ACETAMINOPHEN 500 MG TAB PO SCH ×2 (08:00→12:24)
[2020-10-05] MEDS: CHOLECALCIFEROL 1,000 UNITS 25 MCG TAB PO SCH (08:00)
--- NOTE | 2020-10-05 08:54 | Neurology Consultation ---
Date of Consultation October 05, 2020 Assessment & Plan (1) TIA (transient ischemic attack): (2) Hypertension: (3) Dementia: (4) Multiple falls: (5) Urinary incontinence: (6) Spinal stenosis: The patient had an episode , October 04, of altered mental status, slurred speech and left-sided weakness of a transient nature resolving within 2-3 hours. currently she has no focal neurologic findings but does have some proximal lower extremity weakness. There is no unilateral weakness or speech issues. Currently she has no delirium or encephalopathy but does have a prominent underlying dementia. The dementia is likely vascular in nature. I suspect a TIA of ischemic origin. Patient has a history of multiple falls and urinary incontinence. 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 There is extensive old white matter disease. Patient has a history of fall in mid September with right iliopsoas hemorrhage. at that time are aspirin was stopped and she remained off aspirin. Her hemorrhages improving by CT scan yesterday. Recommendations: 1. increase activity as able. She will need physical therapy and I note the bilateral lower extremity weakness. 2. Restart 81 mg aspirin tablet daily. 3. Control blood pressure as you are doing, aiming for a mean arterial pressure of 95-100. 4. Her hemoglobin A1c was 5.9 and she does not have a significant glucose issue. 5. Patient has normal lipid parameters and is not a high dose statin candidate at this time 6. if MRI would prove any possible small stroke but the patient has a difficult time with MRIs , so there is no need to obtain 1 this time. Overall, I spent a total of 70 minutes with this case including review of records, review of MRI and CT films, direct evaluation the patient bedside, and discussion of the case with the patient and RN at bedside, and Dr. Lala including differential diagnosis and treatment options. History of Present Illness Reason for Consultation: Patient is an 89-year-old, who I was asked to see the request of Dr. Lala, for neurologic consultation regarding acute altered mental status and slurred speech Requesting Physician: Dr. Lala Attending Physician: Jamilah Lala MD History of Present Illness This patient has an underlying history of dementia, with falling and urinary incontinence There may be a remote history of stroke I have no information regarding this. She has hypertension and a history of lumbar spinal stenosis. Patient was admitted August 20 for an episode of unresponsiveness of uncertain etiology. The patient was very depressed and concern about being in daily Pain. at that time CT angiography of the head and neck were unremarkable and a CT scan of the head showed no acute changes. MRI of the brain showed no acute stroke. There was extensive white matter changes and generous ventricles. Overall, the radiologist felt that this was hydrocephalus ex vacuo from the atrophy but could not exclude normal pressure hydrocephalus. She has been on 81 mg aspirin tablet daily. The patient fell September 17 and went to the emergency room. CT scans were largely unremarkable for acute changes and she had a right iliacus and iliopsoas hemorrhage. Patient was sent to the emergency room October 04 from her residence at [facility], because she was noted at 9 o'clock in the morning to have some slurred speech and confusion. There was a question of left-sided weakness. She was complaining of some left hip pain. she arrived to the emergency room October 04 at 11:00 a.m. with a temperature of 36.8, pulse 67, respiratory rate 16, blood pressure 169/65, and O2 saturation 94%. Her examination was felt to be nonfocal and her daughter told the emergency room physician that, in the ER, the patient seemed back to baseline. The patient herself has no recall of what happened yesterday were transferring from [facility] to the emergency room. CBC Chem profile were largely unremarkable TSH was. Urinalysis was unremarkable. CT of the abdomen and pelvis showed diverticulosis and the old right iliacus and iliopsoas hemorrhage noted from the fall September 18. It was improving. CT scan of the head showed some mild ventriculomegaly and degenerative changes but was otherwise unremarkable for acute changes. CT scan of the cervical spine showed degenerative changes only. Chest x-ray was unremarkable. Carotid ultrasound showed no significant stenoses. Nursing reports no issues overnight the patient herself feels back to her baseline. She has no complaint of pain or headache, dizziness, or numbness of the limbs. She believes her speech is okay. She does have some occasional low back and left hip pain but this is not significant currently. She has no neck pain. She feels that her legs are weak. Cholesterol was 111 and triglycerides 114. CBC today was unremarkable. Chem profile was remarkable for hemoglobin A1c of 5.9. Blood pressure was 162/66 and she remai Allergies Allergy/AdvReac Type Severity Reaction Status Date / Time ciprofloxacin Allergy Unknown ON MED LIST Verified 10/04/20 13:55 ezetimibe Allergy Unknown ON MED LIST Verified 10/04/20 13:55 lisinopril Allergy Unknown ON MED LIST Verified 10/04/20 13:55 nitrofurantoin Allergy Unknown ON MED LIST Verified 10/04/20 13:55 [From Macrobid] Penicillins Allergy Unknown ON MED LIST Verified 10/04/20 13:55 simvastatin Allergy Unknown ON MED LIST Verified 10/04/20 13:55 codeine AdvReac Mild GI SYMPTOMS Verified 10/04/20 13:55 Home Medications Medication Instructions Recorded Confirmed Type loperamide 2 mg tablet 2 mg PO Q3H PRN #240 tab 11/14/18 10/04/20 Rx nitroglycerin 0.4 mg sublingual 0.4 mg SL .COMPLEX PRN #25 tab 09/22/19 10/04/20 Rx tablet ibuprofen 200 mg tablet 200 mg PO Q8H PRN #90 tab 06/07/20 10/04/20 Rx Toviaz 4 mg PO BID17 08/20/20 10/04/20 History acetaminophen [Tylenol Extra 500 mg PO QID MDD 3 GRAMS/24 HOURS 08/20/20 10/04/20 History Strength] amlodipine 5 mg PO QAM 08/20/20 10/04/20 History aspirin 81 mg PO QAM 08/20/20 10/04/20 History atorvastatin 10 mg PO QAM 08/20/20 10/04/20 History cholecalciferol (vitamin D3) 2,000 unit PO BID17 08/20/20 10/04/20 History [Vitamin D3] pantoprazole 20 mg PO QAM 08/20/20 10/04/20 History ibuprofen 600 mg tablet 600 mg PO Q8H PRN #90 tab 09/13/20 10/04/20 Rx acetaminophen [Tylenol] 650 mg PO Q6HWA PRN 09/17/20 10/04/20 History diclofenac sodium 1 % topical gel 2 - 4 g TOPICAL QID PRN #50 g 09/26/20 10/04/20 Rx Tumeric 450mg Capsules 900 mg PO QAM 10/04/20 10/04/20 History furosemide [Lasix] 20 mg PO QAM 10/04/20 10/04/20 History Patient History Medical History Bilateral chronic knee pain Carpal tunnel syndrome CHF (congestive heart failure) Chronic osteoarthritis Multiple joints affected. Hips have been a concern with recent corticosteroid injections. Risks associated with chronic NSAIDs previously discussed and currently managed with NSAID + APAP. Coronary artery disease Dementia Steady decline in cognitive function. Evaluated by neurology (02/20). Declines further medication therapy. Dyslipidemia Hypertension Incontinence Osteopenia DEXA (02/14) demonstrated T score -1.0 in forearm. Currently treated with Vit D supplementation. Sinus arrhythmia Spinal stenosis MRI (07/17) severe degenerative disease, along with moderate to severe spinal stenosis. SVT (supraventricular tachycardia) Unresponsive episode Urinary incontinence Vaginal wall prolapse Vitamin D deficiency Surgical History History of appendectomy History of coronary artery bypass graft History of tonsillectomy History of vaginal hysterectomy Presence of pessary S/P triple vessel bypass Before 2009. No subsequent stenting. Family History (Updated 10/05/20 @ 08:47 by Yoni Joel MD) Father , in his 70s of heart issues Myocardial infarction Mother , in her 80s of a stroke Myocardial infarction Stroke Family/Other Colon cancer Coronary heart disease Diabetes Other Family history non-contributory No significant family history Denies family history of Ovarian cancer Breast cancer Social History Smoking Status: Never smoker Second Hand Exposure: No; Hx Alcohol Use: No Hx Substance Use: No Preferred Language: Swiss Communication Ability: Effective Brick Paving Checker Required: No Beliefs That Will Affect Care: None marital status: Current Living Situation: Long-Term Current Living Situation Comment: [facility] current occupational status: retired 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 Other Information That Helps Us Care for You: No Feels Safe at Home: Yes Safety Concerns: Feels Safe At This Time Assistive Devices: Walker Review of Systems Constitutional: no fever, no fatigue and no weakness Eyes: no diplopia, no eye pain and no worsening vision Ear, Nose, Mouth, Throat: no ear pain, no tinnitus, no hearing loss, no dizziness, no hoarseness and no dysphagia Respiratory: no cough and no dyspnea Cardiovascular: no chest pain, no palpitations and no lightheadedness Gastrointestinal: no abdominal pain, no nausea and no vomiting Genitourinary: + urinary incontinence; no dysuria and no urinary frequency Musculoskeletal: + back pain and + joint pain; no neck pain, no radicular pain and no myalgia Integumentary: no rash and no lesions Neurologic: + localized weakness and + memory loss; no gait abnormality, no generalized weakness, no tingling, no numbness, no tremor(s), no abnormal movements, no headache(s), no abnormal speech and no confusion Psychiatric: no depression, no irritability, no anxiety, no difficulty concentrating, no confusion and no hallucinations Endocrine: no fatigue and no flushing Hematologic / Lymphatic: no easy bleeding and no easy bruising Allergy / Immunological: no urticaria and no problem reported Exam (Neuro) Physical Exam: The patient is right-handed. The patient is awake, alert, and attentive. Speech is normal without any aphasia or dysarthria. She can name objects, repeat phrases, and has normal spontaneous speech. mood and affect are normal and appropriate. She was oriented to her name, the fact that she lives in [facility] in [place] and that she was almost 89. she did not know that she was in the hospital and she can give no significant details regarding her past medical history. Pupils are 3 mm bilaterally and reactive to light. Extraocular eye muscles are intact without nystagmus. Visual acuity and visual yanez seem normal grossly to confrontation. There are no deficits to sensation in the face in all 3 distributions of the fifth cranial nerve bilaterally. Corneal reflexes are positive bilaterally. Facial strength was normal bilaterally. There was a slight facial asymmetry with the left corner of the mouth slightly drooped. Hearing seems normal to whisper and finger rub bilaterally. Palate moves well without asymmetry. There is normal sternocleidomastoid and trapezius (shoulder shrug) strength bilaterally. Tongue is midline with good strength bilaterally. Neck has a full range of motion without discomfort. There are no cervical bruits bilaterally. There are no cranial or ocular bruits. Cervical, thoracic, and lumbar spine are nontender to palpation. Gait is not tested and stance sitting up in bed is poor due to decreased core strength ( not because of back pain) With outstretched arms there is no drift. There are no resting, postural, or action tremors. There is no ataxia with finger to nose testing. There is good facility in the hands. No other abnormal involuntary movements are noted. Motor strength is 5/5 diffusely in the arms bilaterally including deltoids, biceps, triceps, brachioradialis, wrist flexors and extensors, sleeve maker, and intrinsic hand muscles. Motor strength is 4-/5 diffusely in the hip flexors and quadriceps bilaterally, but closer to 5/5 distally. The limbs have good tone without rigidity or spasticity. There is no atrophy noted in the muscles. Muscle bulk is normal, there is no tenderness to palpation, no myotonia to percussion, and no fasciculations seen. Sensory examination is intact to touch and pin throughout all 4 limbs diffusely. Reflexes are 0/4 in the biceps, triceps, brachioradialis, quadriceps, and Achilles tendons bilaterally. There is no clonus bilaterally. Toes are downgoing with plantar stimulation bilaterally. Peripheral pulses are present and of normal quality distally in all 4 limbs. There is no peripheral edema noted in the limbs. Results & Data ([facility]) Vital Signs (Past 12 Hours) Vital Signs Temp Pulse Pulse Resp BP BP Pulse Ox 10/05/20 08:03 36.6 C 63 18 160/79 H 162/66 H 90 10/05/20 07:30 71 10/05/20 04:07 36.7 C 62 18 124/61 92 10/05/20 00:20 69 10/04/20 23:29 36.7 C 75 20 128/62 90 PG Care Time/CCT Total # of Minutes Spent Total Time Spent with Patient: Total time spent is greater than 50% in coordination of care (as documented) at patient's floor/unit and/or counseling patient: Coding Level of Care Code 91567 OBS Care - Level 3 Diagnoses TIA (transient ischemic attack) G45.9 Hypertension I10 Hypertension type: essential hypertension Dementia F03.90 Dementia type: unspecified type Dementia behavioral disturbance: without behavioral disturbance Multiple falls R29.6 Urinary incontinence R32 Spinal stenosis M48.061 Spinal region: lumbar Neurogenic claudication status: unspecified Time Spent (min) 70 (1) Hypertension Hypertension type: essential hypertension Qualified Code(s): I10 - Essential (primary) hypertension (2) Dementia Dementia type: unspecified type Dementia behavioral disturbance: without behavioral disturbance Qualified Code(s): F03.90 - Unspecified dementia without behavioral disturbance (3) Spinal stenosis Spinal region: lumbar Neurogenic claudication status: unspecified Qualified Code(s): M48.061 - Spinal stenosis, lumbar region without neurogenic claudication
[2020-10-05] MEDS ORDERED: amLODIPine BESYLATE 5 MG TAB PO SCH (09:00)
[2020-10-05] MEDS ORDERED: PANTOprazole 40 MG TAB PO SCH (09:00)
[2020-10-05] MEDS ORDERED: FUROSEMIDE 20 MG TAB PO SCH (09:00)
[2020-10-05] MEDS ORDERED: ATORVASTATIN 10 MG TAB PO SCH (09:00)
[2020-10-05] MEDS ORDERED: ASPIRIN 81 MG ECTAB PO SCH (12:45)
[2020-10-05] MEDS ORDERED: amLODIPine BESYLATE 5 MG TAB PO ONE (12:47)
--- NOTE | 2020-10-05 12:57 | Discharge Summary ---
Date of Service October 05, 2020 Admission HPI Per Admitting Provider This patient is an 89-year-old female with a history of CAD s/p CABG, moderate dementia, HTN, dyslipidemia, SVT, spinal stenosis, osteoarthritis with severe bilateral knee pain, osteopenia, CAD, CHF, B12 deficiency, adult failure to thrive who presents to the ER for altered mental status and possible strokelike symptoms. She has severe dementia and resides at a personal [facility] and has a history of frequent falls. She was seen in the ER on 09/17 after a fall and had a right-sided psoas hematoma at that time. She has been having ongoing hip pain on that side. Today, she was apparently talking to her daughter on the phone and the daughter reported that the patient was stuttering and having difficulty getting her speech out. She is then spoke with the nurse at the personal [facility] who thought that the patient did not look well and sent her to the hospital. Here, the ER physician who knew her from 2 weeks ago thought she seemed about the same as at that time with her mental status. She had no difficulty with speech on arrival in the ER. She has chronic left-sided weakness due to severe arthritis in the hip and knee. Her laboratory studies were fairly normal and troponin was negative, TSH normal, urinalysis normal. The patient's 2 daughters at the bedside reports the patient is completely back to normal. The patient denies any weakness or numbness or tingling, no headache, no other focal neuro symptoms. She is wheelchair-bound due to severe arthritis in her body. Covid-[address] noncontrast of the head showed no acute intracranial findings. Chest x-ray was negative for acute issues. CT of the cervical spine showed no acute fracture or subluxation but showed severe multilevel degenerative changes. A repeat CT of the abdomen/pelvis was performed given her history of recent right psoas hematoma and this showed a decrease in the amount of hemorrhage from previous and otherwise without acute issues. EKG showed sinus rhythm with first-degree AV block with PACs, ST and T wave changes in anterior leads. Improved from previous. She was admitted to the hospital 6 weeks ago after an unresponsive episode and had a brain MRI at that time which showed extensive periventricular white matter disease favoring microvascular ischemic change and moderate ventriculomegaly favoring central volume loss but could not exclude NPH. There was no CVA. She also had CT angiograms of the head and neck at that time which did not show any significant stenoses. She will be brought in on observation for further work-up for TIA. Principal Diagnosis TIA Discharge Exam Constitutional WD/WN, vitals as above Eyes EOM intact bilaterally ENMT external ear and nose normal, oropharynx normal Neck trachea midline, no thyromegaly Respiratory normal respiratory effort, lungs clear to auscultation Cardiovascular RRR, no murmur, no edema Chest (Breasts) Chest: normal inspection of chest Gastrointestinal (Abdomen) normal bowel sounds, soft, nontender, no hepatosplenomegaly Musculoskeletal Extremities: extremities normal to inspection; no cyanosis and no clubbing Skin no rashes, warm and dry Neurologic moves all extremities and awake; no focal motor deficits (Does have decreased strength in left lower extremity due to pain ) Psychiatric Orientation: alert, oriented to person, oriented to place and cooperative; + not oriented to time Eye Contact: good eye contact Speech: normal rate/rhythm/volume of speech Affect: euthymic affect Lymphatic no lymphedema Discharge Data Allergies Allergy/AdvReac Type Severity Reaction Status Date / Time ciprofloxacin Allergy Unknown ON MED LIST Verified 10/10/20 15:58 ezetimibe Allergy Unknown ON MED LIST Verified 10/10/20 15:58 lisinopril Allergy Unknown ON MED LIST Verified 10/10/20 15:58 nitrofurantoin Allergy Unknown ON MED LIST Verified 10/10/20 15:58 [From Macrobid] Penicillins Allergy Unknown ON MED LIST Verified 10/10/20 15:58 simvastatin Allergy Unknown ON MED LIST Verified 10/10/20 15:58 codeine AdvReac Mild GI SYMPTOMS Verified 10/10/20 15:58 Consultations 10/04/20 15:02 ED Decision to Admit Stat 10/04/20 18:36 Consult Neurology Routine Ordered Studies 10/04/20 11:43 CT abd pelvis wo con Stat CT cervical spine wo con Stat CT head/brain wo con Stat 10/04/20 16:21 carotid doppler Routine Hospital Course (1) TIA (transient ischemic attack): With brief period of expressive aphasia now resolved Chose not to repeat brain MRI as she could not tolerate it Appreciate neurology consultation Echocardiogram performed which was normal No arrhythmias noted on 24 hours of telemetry monitoring Carotid Dopplers without significant stenosis -Needs improved blood pressure control-increased amlodipine to 7.5 mg daily -Added on aspirin 81 mg p.o. once daily-this previously was on hold for psoas hematoma which is now improved -Lipid panel acceptable and she can remain on her current atorvastatin 10 mg daily -Vitamin B12 and B1 levels were pending at the time of discharge as recommended by neurology (2) Expressive aphasia: TIA as above (3) Hypertension: Blood pressures are elevated here Continue Lasix and increase amlodipine dose to 7.5 mg daily Follow-up with PCP (4) Prediabetes: New diagnosis of prediabetes here, hemoglobin A1c 5.9% No need for medical treatment at this time (5) Anemia: Chronic and mild, macrocytic Check B12 in the morning-pending Folate was normal recently (6) Bilateral chronic knee pain: Continue diclofenac, Tylenol Continue home ibuprofen (7) Chronic diastolic (congestive) heart failure: No acute issues Continue home Lasix Blood pressure control needs improvement as above (8) Coronary artery disease: Status post CABG No acute issues Restart home aspirin as above, and continue statin (9) Dementia: Moderate in nature Supportive care (10) Dyslipidemia: Continue statin, lipid panel acceptable as above (11) Multiple falls: With a history of multiple falls secondary to deconditioning and arthritis Now mostly wheelchair-bound PT/OT consultations appreciated-okay to return to personal [facility] (12) Osteopenia: Continue vitamin D (13) Spinal stenosis: Noted (14) Urinary incontinence: Continue Toviaz (15) DVT prophylaxis: SCDs Disposition-stable for discharge back to [facility] today All care discussed with her daughter on the phone and her other daughter at the hospital DNR/DNI Total Time Total Time Spent Total Time Spent (In Minutes): 35 minutes Total Time Includes: Examination of the Patient, Discharge Planning, Medication Reconciliation and Communication With Other Providers (Neurology) Discharge Plan Discharge Items Patient Disposition: Personal Longterm Reason For Visit: TIA Discharge Diagnosis: TIA Condition on Discharge: Good Activity: Resume your previous activity Non-emergency contact: Primary Care Provider Call non-emergency contact if: you have any medication questions and your symptoms worsen [facility] - (Follow up within 1 week) Diet: Heart Healthy Addtl Attending Provider Instructions: You had a Transient Ischemic Attack (TIA) which caused your difficulty with your speech temporarily. This is similar to a stroke but fortunately resolved before any permanent damage to the brain was done. This can be prevented in the future by restarting your baby aspirin once daily and with improved blood pressure control. Your blood pressure shave been high and your amlodipine was increased to 7.5mg daily. Risk Factors for Stroke: You can reduce your chances of stroke by working with your medical provider to adopt a healthy lifestyle. Some specific ways to lower your chance of stroke are: * If you are a smoker, now is the time to stop smoking cigarettes * If you are diabetic, improve the control of your blood sugars * Avoid excessive amounts of alcohol * Control high blood pressure * Lose weight if you are overweight * Be sure to lead an active lifestyle * Eat a healthy diet low in salt, cholesterol and fat You should know about other risk factors for stroke that you are unable to control. These include: * Age 55 years or older * Male gender * Certain racial groups: , or / * Family History of Stroke, Mini stroke or Heart Attack * Sickle Cell Disease Follow Up: It is important for you to keep your follow up appointments with your medical provider. Who to Call and When: Medical Emergencies: Call 911 immediately if you experience any of the following warning signs and symptoms of Stroke: * Sudden numbness or weakness of the face, arm or leg, especially on one side of the body * Sudden confusion, trouble speaking or understanding * Sudden trouble seeing in one or both eyes * Sudden trouble walking, dizziness, loss of balance or coordination * Sudden severe headache with no cause Do not delay calling 911 if you experience any warning signs or symptoms of a stroke. Delay in seeking medical attention may affect what treatments can be given to you. . Pending Studies at Discharge: Yes Stand-Alone Forms: My [facility] Skilled Items Patient informed of condition?: Yes DNR: Yes Discharge Level of Care: Other Communicable Disease: No Discharge Prognosis: Improving Lines: None Urinary Catheter: No Medications and DC Order Prescriptions: New aspirin 81 mg Tablet,Delayed Release (Dr/Ec) 81 mg PO QAM Qty: 30 RF: 0 Continued loperamide 2 mg tablet 2 mg PO Q3H PRN (Reason: Diarrhea) Qty: 240 RF: 0 nitroglycerin 0.4 mg tablet, sublingual 0.4 mg SL .COMPLEX PRN (Reason: chest pain) Qty: 25 RF: 3 ibuprofen 200 mg tablet 200 mg PO Q8H PRN (Reason: pain) Qty: 90 RF: 3 ibuprofen 600 mg tablet 600 mg PO Q8H PRN (Reason: pain) Qty: 90 RF: 3 acetaminophen [Tylenol Extra Strength] 500 mg Tablet 500 mg PO QID MDD 3 GRAMS/24 HOURS RF: 0 Toviaz 4 mg Tablet Extended Release 24 Hr 4 mg PO BID17 RF: 0 atorvastatin 10 mg tablet 10 mg PO QAM RF: 0 pantoprazole 20 mg tablet,delayed release (DR/EC) 20 mg PO QAM RF: 0 cholecalciferol (vitamin D3) [Vitamin D3] 2,000 unit capsule 2,000 unit PO BID17 RF: 0 furosemide [Lasix] 20 mg tablet 20 mg PO QAM RF: 0 Tumeric 450mg Capsules 900 mg PO QAM RF: 0 acetaminophen [Tylenol] 325 mg Tablet 650 mg PO Q6HWA PRN (Reason: FEVER/PAIN) RF: 0 Changed amlodipine 5 mg tablet 7.5 mg PO QAM Qty: 45 RF: 0 No Action lidocaine 4 % gel 1 applic topical TID PRN (Reason: pain) Qty: 30 RF: 1 Discharge Orders: Discharge Order (Routine); Ordered 10/05/20 Ordered By: Jamilah Lala Admission Data Admit Date/Time: 10/04/20 16:21 Attending Provider: Jamilah Lala Admit Provider: Jamilah Lala Primary Care Provider: Chavo, Other Providers: Yoni Joel Other Interventions: Discharge Summary Assessment (RN) Last Done: 10/05/20 14:17 Coding Level of Care Code 42639 OBS Care - Discharge Diagnoses TIA (transient ischemic attack) G45.9 Expressive aphasia R47.01 Hypertension I10 Hypertension type: essential hypertension Prediabetes R73.03 Anemia D64.9 Anemia type: unspecified type Bilateral chronic knee pain M25.561; M25.562; G89.29 Chronic diastolic (congestive) heart failure I50.32 Coronary artery disease I25.10 Associated angina: without angina Coronary Disease-Associated Artery/Lesion type: [place] artery [place] vs. transplanted heart: [place] heart Dementia F03.90 Dementia behavioral disturbance: without behavioral disturbance Dementia type: unspecified type Dyslipidemia E78.5 Multiple falls R29.6 Osteopenia M85.80 Spinal stenosis M48.061 Neurogenic claudication status: unspecified Spinal region: lumbar Urinary incontinence R32 DVT prophylaxis Z29.9
--- NOTE | 2020-10-05 15:53 | XCELERA ---
[id number]
[2020-10-06] MEDS ORDERED: amLODIPine BESYLATE 5 MG TAB PO SCH (09:00)
== END 2020-10-05 16:06 | disposition home or self-care (01) ==
LOC: 2N 11:08 → ED 11:08 → 2N 17:43
DX: Z66 Do not resuscitate; D53.9 Nutritional anemia, unspecified; I50.32 Chronic diastolic (congestive) heart failure; R29.702 NIHSS score 2; Z88.8 Allergy status to other drugs, medicaments and biological substances; Z79.82 Long term (current) use of aspirin; G45.9 Transient cerebral ischemic attack, unspecified; Z20.822 Contact with and (suspected) exposure to COVID-19; E78.5 Hyperlipidemia, unspecified; E53.8 Deficiency of other specified B group vitamins; R29.6 Repeated falls; Z88.5 Allergy status to narcotic agent; F03.90 Unspecified dementia, unspecified severity, without behavioral disturbance, psychotic disturbance, mood disturbance, and anxiety; Z79.899 Other long term (current) drug therapy; Z95.1 Presence of aortocoronary bypass graft; E55.9 Vitamin D deficiency, unspecified; R32 Unspecified urinary incontinence; I25.10 Atherosclerotic heart disease of native coronary artery without angina pectoris; Z88.0 Allergy status to penicillin; I11.0 Hypertensive heart disease with heart failure; I47.1 Supraventricular tachycardia

== ENCOUNTER 2021-04-27 14:49 | Inpatient (IN) ==
--- NOTE | 2021-04-27 15:07 | Emergency Department Note ---
Impression & Plan Fall, Closed left ankle fracture, Contusion of left hand, Skin tear of left hand without complication ED Provider Note Provider: Eric Salinas MD DATE OF SERVICE: 04/27/2021 CHIEF COMPLAINT: Fall, left-sided pain HISTORY OF PRESENT ILLNESS: Patient is a 89-year-old female prior past medical history including CAD, arthritis, and dementia presenting here today via ambulance from [facility]. Patient evidently had a fall yesterday. The patient unfortunately have her IV significant details on this. She does complain of some pain in her left shoulder left hand/wrist as well as in the left hip and ankle region. She denies any chest pain or shortness of breath. She denies any abdominal symptoms or nausea. She denies headache or neck pain. Called and discussed with the facility staff who report that the patient yesterday morning was transferring in the bathroom. Evidently she got her left wrist stuck between a grab bar on the wall and fell and twisted to the floor. Staff report clearly that she did not strike her head or fall or hit her head. No LOC reported. She often falls and has swelling of her legs which is chronic. They report that she has been unable to bear weight and given pain had x-rays completed yesterday evening and results today were concerning for left ankle fracture. REVIEW OF SYSTEMS: A total of 10 review of systems was obtained and negative except as stated above in the HPI. PAST MEDICAL HISTORY: As noted above MEDICATIONS: Reviewed home medication list includes aspirin 81 SOCIAL HISTORY: Resides at [facility] PHYSICAL EXAM: GENERAL: alert and oriented to person in no acute distress on stretcher, not the best historian. Head: normocephalic and atraumatic EYES: No injection, discharge or icterus. NECK: Trachea midline. Supple. ENT: Mucous membranes pink and moist. LUNGS: Airway patent. No retractions. Breath sounds clear with diminished bases HEART: Regular rate and rhythm. No chest wall tenderness ABDOMEN: Soft and non-tender, without guarding or rebound. SKIN: Acyanotic, warm, dry EXTREMITIES: Patient with 2+ bilateral lower extremity with chronic stasis changes. Some tenderness around the left ankle diffusely. No significant pain with ROM of the bilateral hips. Some contusion and slight skin tear in the posterior aspect of the left hand/wrist. Some mild tenderness to the posterior left wrist minimal in nature. NEUROLOGICAL: No focal deficits. No aphasia. No facial droop or slurred speech. Normal strength and tone in the extremities. Sensation to gross touch normal. EK bpm sinus rhythm first AV block with occasional PVCs. No acute ST segment elevation with nonspecific T wave changes across the precordium. QTc 447. CONTINUOUS CARDIAC MONITORING: was ordered and showed a heart rate of bpm in sinus rhythm first-degree AV block with occasional PVCs PROCEDURE: splint placement Indications for procedure: Left medial malleolus fracture Description of the procedure: Posterior with stirrup fiberglass splint was placed on the patient's left lower leg and ankle. Neurovascular status was intact after placement of the splint. PATIENT CONDITION AFTER PROCEDURE: good Patient's laboratory studies and imaging reviewed. Differential includes Fracture, dislocation, contusion, intra-abdominal, pneumot horax, intrathoracic, intracranial, neurologic, compartment syndrome, rhabdomyolysis, as well as other pathologies. IMPRESSION/MEDICAL DECISION MAKING: Patient presents after twisting fall yesterday reportedly with an ankle injury although no images or report available to me here. Patient with underlying dementia not the best historian but staff clearly states she did not fall or strike her head. Patient with some chronic swelling of the lower extremities. X-rays of the left shoulder, left wrist, left Alex hip, tib-fib, ankle, and foot were obtained to look for fractures. There is a small skin tear on the back of the left wrist but no other significant wounds newly appreciated. She denies any significant new numbness or weakness or difficulty breathing although she is borderline with her oxygen saturations here although there is some positioning component. Given the clear history of no acute injury to the head or neck will defer imaging of these at this time as provided by the nursing facility and discussion with the patient's daughter at bedside. Daughter was updated with the finding of the x-rays as detailed below. X-rays of the left wrist, left shoulder, left hip, left foot/ankle/tib-fib, and chest x-ray obtained. Visualization of a minimally displaced medial malleolus fracture of the left ankle was noted not other significant bony injuries. Minimally displaced oblique left medial malleolus ankle fracture per radiology report Discussed with orthopedics. Nonweightbearing discussed with orthopedics. Could consider partial weightbearing if she is able to utilize a boot but given her habitus and poor status at baseline do not feel this is going to be succes sful. We will place an Ortho-Glass splint and as such will need placement/PT/OT. Will need placement for care given she lives in personal care at this time. Discussed with daughter and patient at bedside. We will put a thumb spica on the left hand given the tenderness and bruising in this area. Chest x-ray with may be some mild pulmonary edema. Basic blood work here without significant anemia or leukocytosis. Negative COVID test. No troponin elevation. No evidence of renal dysfunction. No liver dysfunction noted. Minimal hyponatremia. Does have some chronic swelling of her lower legs which is still present but low suspicion at this time she has an acute DVT or PE. Discussed with the facility and the patient as well as nursing here in patient is likely able to form her transfers and be safe for discharge with the boot at this time to her personal shelter. The hospitalist will evaluate pending placement options for additional care while she is encumbered with limitations of her left ankle. DIAGNOSIS: Fall, left wrist contusion, left ankle fracture, skin tear hand DISPOSITION: Hospitalist will evaluate Patient was agreeable with this plan Past Med/Surg History Medical History Bilateral chronic knee pain Carpal tunnel syndrome CHF (congestive heart failure) Chronic osteoarthritis Multiple joints affected. Hips have been a concern with recent corticosteroid injections. Risks associated with chronic NSAIDs previously discussed and currently managed with NSAID + APAP. Coronary artery disease Dementia Steady decline in cognitive function. Evaluated by neurology (02/20). Declines further medication therapy. Dyslipidemia Hypertension Incontinence Osteopenia DEXA (02/14) demonstrated T score -1.0 in forearm. Currently treated with Vit D supplementation. Prediabetes Sinus arrhythmia Spinal stenosis MRI (07/17) severe degenerative disease, along with moderate to severe spinal stenosis. SVT (supraventricular tachycardia) Unresponsive episode Urinary incontinence Vaginal wall prolapse Vitamin D deficiency Surgical History History of appendectomy History of coronary artery bypass graft History of tonsillectomy History of vaginal hysterectomy Presence of pessary S/P triple vessel bypass Before 2009. No subsequent stenting. Family History Father , in his 70s of heart issues Myocardial infarction Mother , in her 80s of a stroke Myocardial infarction Stroke Family/Other Colon cancer Coronary heart disease Diabetes Other Family history non-contributory No significant family history Denies family history of Ovarian cancer Breast cancer Social History Smoking Status: Never smoker Second Hand Exposure: No; Hx Alcohol Use: No Hx Substance Use: No Preferred Language: Montserratian Communication Ability: Impaired Visual Impairment: No Limitations Earrings Fabricator Required: No Beliefs That Will Affect Care: None marital status: Current Living Situation: Retirement Current Living Situation Comment: [facility] current occupational status: retired 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 Feels Safe at Home: Yes Assistive Devices: Walker Allergies Allergies Allergy/AdvReac Type Severity Reaction Status Date / Time ciprofloxacin Allergy Unknown ON MED LIST Verified 04/27/21 17:35 ezetimibe Allergy Unknown ON MED LIST Verified 04/27/21 17:35 lisinopril Allergy Unknown ON MED LIST Verified 04/27/21 17:35 nitrofurantoin Allergy Unknown ON MED LIST Verified 04/27/21 17:35 [From Macrobid] Penicillins Allergy Unknown ON MED LIST Verified 04/27/21 17:35 simvastatin Allergy Unknown ON MED LIST Verified 04/27/21 17:35 codeine AdvReac Mild GI SYMPTOMS Verified 04/27/21 17:35 Home Meds Home Medications Medication Instructions Recorded Confirmed acetaminophen 500 mg tablet 500 mg PO QID MDD 3 GRAMS/24 HOURS 08/20/20 04/27/21 (Tylenol Extra Strength) atorvastatin 10 mg tablet (Lipitor) 10 mg PO QAM 08/20/20 04/27/21 cholecalciferol (vitamin D3) 50 2,000 unit PO BID17 08/20/20 04/27/21 mcg (2,000 unit) capsule (Vitamin D3) acetaminophen 325 mg tablet 650 mg PO Q6HWA PRN 09/17/20 04/27/21 (Tylenol) furosemide 20 mg tablet (Lasix) 20 mg PO QAM PRN 10/04/20 04/27/21 amlodipine 5 mg tablet (Norvasc) 5 mg PO QAM 10/25/20 04/27/21 aspirin 81 mg tablet,delayed 81 mg PO QAM 10/25/20 04/27/21 release (Aspirin Low Dose) nitroglycerin 0.4 mg sublingual 0.4 mg SL .COMPLEX PRN 10/25/20 04/27/21 tablet (Nitrostat) Turmeric Caps 900 mg PO DAILY 04/27/21 diclofenac sodium 1 % topical gel 2 - 4 g TOPICAL QID PRN 04/27/21 04/27/21 fesoterodine 4 mg tablet,extended 4 mg PO BID 04/27/21 04/27/21 release 24 hr (Toviaz) ibuprofen 200 mg tablet 200 mg PO Q8 PRN 04/27/21 04/27/21 lidocaine HCl 4 % topical cream 1 applic TOPICAL TID 04/27/21 04/27/21 (Aspercreme (lidocaine HCl)) tramadol 50 mg tablet 25 mg PO QAM 04/27/21 04/27/21 tramadol 50 mg tablet 25 mg PO QPM PRN 04/27/21 04/27/21 Previous Rx's Medication Instructions Recorded loperamide 2 mg tablet 2 mg PO Q3H PRN #240 tab 11/26/20 ibuprofen 600 mg tablet (IBU) 600 mg PO Q8H #90 tab 03/03/21 pantoprazole 20 mg tablet,delayed 20 mg PO QAM #90 tab 03/03/21 release (Protonix) docusate sodium 100 mg capsule 100 mg PO .COMPLEX PRN #30 cap 03/24/21 (Colace) amlodipine 2.5 mg tablet (Norvasc) 2.5 mg PO QAM #30 tab 04/07/21 Results & Data (ED) Vital Signs Vital Signs - 24 hr 04/27/21 14:55 04/27/21 17:50 Temperature 36.8 C Temperature Source Oral Pulse Rate 80 Pulse Rate [Right Finger] 86 Pulse Rhythm Regular Pulse Rhythm [Right Finger] Regular Pulse Strength Normal Pulse Strength [Right Finger] Normal Respiratory Rate 18 18 Respiratory Effort / Characteristics Non-Labored Spontaneous Non-Labored Spontaneous Respiratory Depth Normal Normal Respiratory Pattern Regular Regular Blood Pressure 128/66 Blood Pressure [Right Arm] 159/65 H Blood Pressure Mean 86 Blood Pressure Mean [Right Arm] 96 Blood Pressure Position Lying Blood Pressure Position [Right Arm] Sitting Pulse Oximetry 90 98 Oxygen Delivery Method Room Air Room Air Sepsis Recent Fever Within 48 Hours No Sepsis New/Unexplained Change in Mental Status N/A Sepsis Action Taken by Nursing No Action Required Laboratory Data Result diagrams: 04/27/21 15:49 04/27/21 15:49 Lab Results 04/27/21 04/27/21 04/27/21 Range/Units 15:49 15:49 15:49 WBC 9.06 (4.8-10.8) K/uL RBC 3.75 L (4.2-5.4) M/uL Hgb 12.4 (12.0-16.0) g/dL Hct 38.8 (37-47) % MCV 103.5 H (80-100) fL MCH 33.1 (25-34) pg MCHC 32.0 (32-36) g/dL RDW Std Deviation 51.6 H (36.4-46.3) fL RDW Coeff of Luis 13.6 (11.5-14.5) % Plt Count 287 (130-400) K/uL MPV 9.8 (7.4-10.4) fL Immature Gran % (Auto) 0.1 % Neut % (Auto) 61.3 % Lymph % (Auto) 24.9 % [place] % (Auto) 7.8 % Eos % (Auto) 5.7 % Baso % (Auto) 0.2 % Neut # (Auto) 5.54 (1.4-6.5) K/uL Lymph # (Auto) 2.26 (1.2-3.4) K/uL [place] # (Auto) 0.71 H (0.11-0.59) K/uL Eos # (Auto) 0.52 H (0-0.5) K/uL Baso # (Auto) 0.02 (0-0.2) K/uL Immature Gran # (Auto) 0.01 (0.00-0.02) K/uL PT 10.1 (9.0-12.0) Seconds INR 1.0 (0.9-1.1) Sodium 133 L (136-145) mmol/L Potassium 3.9 (3.5-5.1) mmol/L Chloride 101 (98-107) mmol/L Carbon Dioxide 25 (21-32) mmol/L Anion Gap 7 (3-11) BUN 22 (6-23) mg/dl Creatinine 0.98 (0.6-1.2) mg/dl Est Cr Clr Drug Dosing 48.3 ml/min Est GFR ( Amer) 59.3 ml/min Est GFR (Non-Af Amer) 51.1 ml/min BUN/Creatinine Ratio 22.4 H (10-20) Glucose 125 H (70-99(Fasting)) mg/dl Calcium 9.2 (8.5-10.1) mg/dl Total Bilirubin 1.0 (0.2-1.0) mg/dl AST 17 (13-39) U/L ALT 16 (7-52) U/L Alkaline Phosphatase 53 (34-104) U/L Troponin I < 0.03 (0-0.04) ng/ml Total Protein 7.1 (6.0-8.3) gm/dl Albumin 4.0 (3.4-5.0) gm/dl Globulin 3.1 (2.5-4.0) gm/dl Albumin/Globulin Ratio 1.3 (0.9-2) Urine Color Urine Appearance (Clear) Urine pH (4.5-7.5) Ur Specific Pauline (1.000-1.030) Urine Protein (Negative) Urine Glucose (UA) (Negative) Urine Ketones (Negative) Urine Blood (Negative) Urine Nitrite (Negative) Urine Bilirubin (Negative) Urine Urobilinogen (Negative) Ur Leukocyte Esterase (Negative) SARS-CoV-2, RNA, NAAT (NEGATIVE) 04/27/21 04/27/21 Range/Units 15:56 17:05 WBC (4.8-10.8) K/uL RBC (4.2-5.4) M/uL Hgb (12.0-16.0) g/dL Hct (37-47) % MCV (80-100) fL MCH (25-34) pg MCHC (32-36) g/dL RDW Std Deviation (36.4-46.3) fL RDW Coeff of Luis (11.5-14.5) % Plt Count (130-400) K/uL MPV (7.4-10.4) fL Immature Gran % (Auto) % Neut % (Auto) % Lymph % (Auto) % [place] % (Auto) % Eos % (Auto) % Baso % (Auto) % Neut # (Auto) (1.4-6.5) K/uL Lymph # (Auto) (1.2-3.4) K/uL [place] # (Auto) (0.11-0.59) K/uL Eos # (Auto) (0-0.5) K/uL Baso # (Auto) (0-0.2) K/uL Immature Gran # (Auto) (0.00-0.02) K/uL PT (9.0-12.0) Seconds INR (0.9-1.1) Sodium (136-145) mmol/L Potassium (3.5-5.1) mmol/L Chloride (98-107) mmol/L Carbon Dioxide (21-32) mmol/L Anion Gap (3-11) BUN (6-23) mg/dl Creatinine (0.6-1.2) mg/dl Est Cr Clr Drug Dosing ml/min Est GFR ( Amer) ml/min Est GFR (Non-Af Amer) ml/min BUN/Creatinine Ratio (10-20) Glucose (70-99(Fasting)) mg/dl Calcium (8.5-10.1) mg/dl Total Bilirubin (0.2-1.0) mg/dl AST (13-39) U/L ALT (7-52) U/L Alkaline Phosphatase (34-104) U/L Troponin I (0-0.04) ng/ml Total Protein (6.0-8.3) gm/dl Albumin (3.4-5.0) gm/dl Globulin (2.5-4.0) gm/dl Albumin/Globulin Ratio (0.9-2) Urine Color Yellow Urine Appearance Clear (Clear) Urine pH 5.5 (4.5-7.5) Ur Specific Pauline 1.007 (1.000-1.030) Urine Protein Negative (Negative) Urine Glucose (UA) Negative (Negative) Urine Ketones Negative (Negative) Urine Blood Negative (Negative) Urine Nitrite Negative (Negative) Urine Bilirubin Negative (Negative) Urine Urobilinogen Negative (Negative) Ur Leukocyte Esterase Negative (Negative) SARS-CoV-2, RNA, NAAT NEGATIVE (NEGATIVE) Imaging Data Radiologist's Impression: Ankle X-Ray 04/27/21 15:04 XR foot LT 2V, XR ankle LT 2V CLINICAL HISTORY: fall TECHNIQUE: 2 views of the left foot were obtained. 2 views of the left ankle we re obtained. Comparison: None available at the time of this dictation. FINDINGS: Limited evaluation due to limited views. There is lucency in the medial malleolus compatible with an acute minimally displaced fracture. The alignment is anatomic. Degenerative changes are seen. Soft tissue swelling is seen about the foot and ankle. IMPRESSION: Linear lucency at the medial malleolus is compatible with an acute minimally displaced fracture. Correlation with point tenderness is recommended. Soft tissue swelling is seen about the ankle. ACT 112: Negative or not required by law. Electronically signed by: Sandip Miller M.D. 04/27/2021 3:57 PM Chest X-Ray 04/27/21 15:04 XR chest 1V portable CLINICAL HISTORY: fall TECHNIQUE: Single frontal radiograph of the chest was obtained. Comparison: Comparison is made to chest one view 10/05/2020 FINDINGS: Stable median sternotomy wires. Cardiomegaly is noted. Prominence and cephalization of the vasculature is seen. No evidence of pleural effusion or pneumothorax. IMPRESSION: Mild pulmonary edema. ACT 112: Negative or not required by law. Electronically signed by: Sandip Miller M.D. 04/27/2021 3:58 PM Foot X-Ray 04/27/21 15:04 XR foot LT 2V, XR ankle LT 2V CLINICAL HISTORY: fall TECHNIQUE: 2 views of the left foot were obtained. 2 views of the left ankle were obtained. Comparison: None available at the time of this dictation. FINDINGS: Limited evaluation due to limited views. There is lucency in the medial malleolus compatible with an acute minimally displaced fracture. The alignment i s anatomic. Degenerative changes are seen. Soft tissue swelling is seen about the foot and ankle. IMPRESSION: Linear lucency at the medial malleolus is compatible with an acute minimally displaced fracture. Correlation with point tenderness is recommended. Soft tissue swelling is seen about the ankle. ACT 112: Negative or not required by law. Electronically signed by: Sandip Miller M.D. 04/27/2021 3:57 PM Hip/Pelvis X-Ray 04/27/21 15:04 XR hip LT 2V w pelvis CLINICAL HISTORY: fall TECHNIQUE: 2 views of the left hip and single frontal view of the pelvis were obtained. Comparison: None available at the time of this dictation. FINDINGS: There is no evidence of an acute fracture. The alignment is anatomic. Severe degenerative changes are seen in the left hip joint. No soft tissue abnormality is seen. IMPRESSION: Severe degenerative changes in the left hip joint without evidence of underlying fracture. ACT 112: Negative or not required by law. Electronically signed by: Sandip Miller M.D. 04/27/2021 4:01 PM Shoulder X-Ray 04/27/21 15:04 XR shoulder LT min 2V routine CLINICAL HISTORY: fall TECHNIQUE: 2 views of the left shoulder were obtained. Comparison: None available at the time of this dictation. FINDINGS: There is no evidence of an acute fracture. Degenerative changes are seen in the glenohumeral joint. The overlying soft tissues are unremarkable. The visualized portions of the lungs are clear. IMPRESSION: No evidence of acute osseous injury. ACT 112: Negative or not required by law. Electronically signed by: Sandip Miller M.D. 04/27/2021 4:02 PM Tibia/Fibula X-Ray 04/27/21 15:04 XR tibia fibula LT 2V CLINICAL HISTORY: fall Comparison: None available at the time of this dictation. TECHNIQUE: 2 radiographic views of the left leg were obtained. FINDINGS: Soft tissue swelling is seen. Please see CT ankle performed same day for detailed findings of the likely medial malleolus fracture. Degenerative changes are seen in the visualized knee joint. IMPRESSION: Partial visualization of likely medial malleolus fracture. Otherwise no acute abnormality. ACT 112: Negative or not required by law. Electronically signed by: Sandip Miller M.D. 04/27/2021 4:00 PM Wrist X-Ray 04/27/21 15:04 XR wrist LT min 3V routine CLINICAL HISTORY: fall TECHNIQUE: 3 views of the left wrist were obtained. Comparison: None available at the time of this dictation. FINDINGS: There is no evidence of an acute fracture. The alignment is anatomic. Joint spaces are well-preserved. No soft tissue abnormality is seen. IMPRESSION: No evidence of acute osseous injury. ACT 112: Negative or not required by law. Electronically signed by: Sandip Miller M.D. 04/27/2021 4:02 PM Discharge Plan Visit Data Chief Complaint: Ankle Pain Stated Complaint: ANKLE INJURY ED Provider: Eric Salinas Discharge Problem: Fall, Closed left ankle fracture, Contusion of left hand, Skin tear of left hand without complication Patient Disposition: Being Evaluated by Hospitalist Forms Stand Alone Forms: [facility] Prescriptions Prescriptions: No Action loperamide 2 mg tablet 2 mg PO Q3H PRN (Reason: Diarrhea) Qty: 240 RF: 0 ibuprofen [IBU] 600 mg tablet 600 mg PO Q8H Qty: 90 RF: 3 pantoprazole [Protonix] 20 mg tablet,delayed release (DR/EC) 20 mg PO QAM Qty: 90 RF: 1 docusate sodium [Colace] 100 mg capsule 100 mg PO .COMPLEX PRN (Reason: constipation) Qty: 30 RF: 3 amlodipine [Norvasc] 2.5 mg tablet 2.5 mg PO QAM Qty: 30 RF: 5 acetaminophen [Tylenol Extra Strength] 500 mg Tablet 500 mg PO QID MDD 3 GRAMS/24 HOURS RF: 0 atorvastatin [Lipitor] 10 mg tablet 10 mg PO QAM RF: 0 cholecalciferol (vitamin D3) [Vitamin D3] 2,000 unit capsule 2,000 unit PO BID17 RF: 0 furosemide [Lasix] 20 mg tablet 20 mg PO QAM PRN (Reason: Weight Gain) RF: 0 tramadol 50 mg Tablet 25 mg PO QPM PRN (Reason: Pain) RF: 0 diclofenac sodium 1 % gel 2 - 4 g TOPICAL QID PRN (Reason: Pain) RF: 0 Toviaz 4 mg tablet extended release 24 hr 4 mg PO BID RF: 0 lidocaine HCl [Aspercreme (lidocaine HCl)] 4 % Cream 1 applic TOPICAL TID RF: 0 Turmeric Caps 900 mg PO DAILY RF: 0 tramadol 50 mg tablet 25 mg PO QAM RF: 0 ibuprofen 200 mg Tablet 200 mg PO Q8 PRN (Reason: Pain) RF: 0 acetaminophen [Tylenol] 325 mg Tablet 650 mg PO Q6HWA PRN (Reason: FEVER/PAIN) RF: 0 amlodipine [Norvasc] 5 mg tablet 5 mg PO QAM RF: 0 aspirin [Aspirin Low Dose] 81 mg tablet,delayed release (DR/EC) 81 mg PO QAM RF: 0 nitroglycerin [Nitrostat] 0.4 mg tablet, sublingual 0.4 mg SL .COMPLEX PRN (Reason: chest pain) RF: 0 Referrals Referrals: [facility] [Primary Care Provider] - Discharge Problem: Fall Qualifiers: Encounter type: initial encounter Qualified Code(s): W19.XXXA - Unspecified fall, initial encounter Closed left ankle fracture Qualifiers: Encounter type: initial encounter Qualified Code(s): S82.892A - Other fracture of left lower leg, initial encounter for closed fracture Contusion of left hand Qualifiers: Encounter type: initial encounter Qualified Code(s): S60.222A - Contusion of left hand, initial encounter Skin tear of left hand without complication Qualifiers: Encounter type: initial encounter Qualified Code(s): S61.412A - Laceration without foreign body of left hand, initial encounter
--- NOTE | 2021-04-27 15:59 | XRay Report ---
XR chest 1V portable CLINICAL HISTORY: fall TECHNIQUE: Single frontal radiograph of the chest was obtained. Comparison: Comparison is made to chest one view 10/05/2020 FINDINGS: Stable median sternotomy wires. Cardiomegaly is noted. Prominence and cephalization of the vasculatur e is seen. No evidence of pleural effusion or pneumothorax. IMPRESSION: Mild pulmonary edema. ACT 112: Negative or not required by law. Electronically signed by: Sandip Miller M.D. 04/27/2021 3:58 PM
--- NOTE | 2021-04-27 15:59 | XRay Report ---
XR foot LT 2V, XR ankle LT 2V CLINICAL HISTORY: fall TECHNIQUE: 2 views of the left foot were obtained. 2 views of the left ankle were obtained. Comparison: None available at the time of this dictation. FINDINGS: Limited evaluation due to limited views. There is lucency in the medial malleolus compatible with an acute minimally displaced fracture. The alignment is anatomic. Degenerative changes are seen. Soft ti ssue swelling is seen about the foot and ankle. IMPRESSION: Linear lucency at the medial malleolus is compatible with an acute minimally displaced fracture. Tori elation with point tenderness is recommended. Soft tissue swelling is seen about the ankle. ACT 112: Negative or not required by law. Electronically signed by: Sandip Miller M.D. 04/27/2021 3:57 PM
[2021-04-27 16:00] LABS: Basophils # (auto) 0.02 K/uL (0-0.2); Basophils % (auto) 0.2 %; Eosinophils # (auto) 0.52 K/uL (0-0.5); Eosinophils % (auto) 5.7 %; Hematocrit (blood only) 38.8 % (37-47); Hemoglobin 12.4 g/dL (12.0-16.0); Immature Granulocytes # (auto) 0.01 K/uL (0.00-0.02); Immature Granulocytes % (auto) 0.1 %; Lymphocytes # (auto) 2.26 K/uL (1.2-3.4); Lymphocytes % (auto) 24.9 %; Mean Corpuscular Hemoglobin 33.1 pg (25-34); Mean Corpuscular Volume 103.5 fL (80-100); Mean Platelet Volume 9.8 fL (7.4-10.4); Monocytes # (auto) 0.71 K/uL (0.11-0.59); Monocytes % (auto) 7.8 %; Neutrophils # (auto) 5.54 K/uL (1.4-6.5); Neutrophils % (auto) 61.3 %; Platelet Count 287 K/uL (130-400); RDW Coefficient of Variation 13.6 % (11.5-14.5); RDW Standard Deviation 51.6 fL (36.4-46.3); Red Blood Count 3.75 M/uL (4.2-5.4); White Blood Count 9.06 K/uL (4.8-10.8)
--- NOTE | 2021-04-27 16:01 | XRay Report ---
XR tibia fibula LT 2V CLINICAL HISTORY: fall Comparison: None available at the time of this dictation. TECHNIQUE: 2 radiographic views of the left leg were obtained. FINDINGS: Soft tissue swelling is seen. Please see CT ankle performed same day for detailed findings of the lik elsa medial malleolus fracture. Degenerative changes are seen in the visualized knee joint. IMPRESSION: Partial visualization of likely medial malleolus fracture. Otherwise no acute abnormality. ACT 112: Negative or not required by law. Electronically signed by: Sandip Miller M.D. 04/27/2021 4:00 PM
--- NOTE | 2021-04-27 16:02 | XRay Report ---
XR hip LT 2V w pelvis CLINICAL HISTORY: fall TECHNIQUE: 2 views of the left hip and single frontal view of the pelvis were obtained. Comparison: None available at the time of this dictation. FINDINGS: There is no evidence of an acute fracture. The alignment is anatomic. Severe degenerative changes are seen in the left hip joint. No soft tissue abnormality is seen. IMPRESSION: Severe degenerative changes in the left hip joint without evidence of underlying fracture. ACT 112: Negative or not required by law. Electronically signed by: Sandip Miller M.D. 04/27/2021 4:01 PM
--- NOTE | 2021-04-27 16:03 | XRay Report ---
XR wrist LT min 3V routine CLINICAL HISTORY: fall TECHNIQUE: 3 views of the left wrist were obtained. Comparison: None available at the time of this dictation. FINDINGS: There is no evidence of an acute fracture. The alignment is anatomic. Joint spaces are well-preserved . No soft tissue abnormality is seen. IMPRESSION: No evidence of acute osseous injury. ACT 112: Negative or not required by law. Electronically signed by: Sandip Miller M.D. 04/27/2021 4:02 PM
--- NOTE | 2021-04-27 16:03 | XRay Report ---
XR shoulder LT min 2V routine CLINICAL HISTORY: fall TECHNIQUE: 2 views of the left shoulder were obtained. Comparison: None available at the time of this dictation. FINDINGS: There is no evidence of an acute fracture. Degenerative changes are seen in the glenohumeral joint. T he overlying soft tissues are unremarkable. The visualized portions of the lungs are clear. IMPRESSION: No evidence of acute osseous injury. ACT 112: Negative or not required by law. Electronically signed by: Sandip Miller M.D. 04/27/2021 4:02 PM
[2021-04-27 16:12] LABS: Prothrombin Time 10.1 Seconds (9.0-12.0)
[2021-04-27 16:25] LABS: Troponin I < 0.03 ng/ml (0-0.04)
[2021-04-27 16:31] LABS: Alanine Aminotransferase 16 U/L (7-52); Albumin Globulin Ratio 1.3 (0.9-2); Alkaline Phosphatase 53 U/L (34-104); Anion Gap 7 (3-11); Aspartate Aminotransferase 17 U/L (13-39); BUN Creatinine Ratio 22.4 (10-20); Blood Urea Nitrogen 22 mg/dl (6-23); Calcium 9.2 mg/dl (8.5-10.1); Carbon Dioxide 25 mmol/L (21-32); Chloride 101 mmol/L (98-107); Creatinine Clr Calc Pharmacy 48.3 ml/min; Est GFR (African American) 59.3 ml/min; Est GFR (Non-African American) 51.1 ml/min; Globulin 3.1 gm/dl (2.5-4.0); Glucose 125 mg/dl (70-99(Fasting)); Potassium 3.9 mmol/L (3.5-5.1); Sodium 133 mmol/L (136-145); Total Protein 7.1 gm/dl (6.0-8.3)
[2021-04-27 17:16] LABS: Appearance Urine Clear (Clear); Bilirubin Urine Negative (Negative); Blood Urine Negative (Negative); Color Urine Yellow; Glucose Urine UA Negative (Negative); Ketones Urine Negative (Negative); Leukocyte Esterase Urine Negative (Negative); Nitrite Urine Negative (Negative); Protein Urine Negative (Negative); Specific Gravity Urine 1.007 (1.000-1.030); Urobilinogen Urine Negative (Negative); pH Urine 5.5 (4.5-7.5)
--- NOTE | 2021-04-27 17:56 | History & Physical Report ---
Date of Service April 27, 2021 Assessment & Plan (1) Weakness: Plan: Progressivedaughter notes that she was two-person assist until recently, now today for person assist (it seems to be after the fall) PT/OT eval and treat, anticipate need for SNF (2) Closed left ankle fracture: Plan: Nonweightbearing, splinting, pain control (3) Contusion of left hand: Plan: Pain control, splint for comfort (4) Skin tear of left hand without complication: Plan: Local care (5) Dementia: Plan: Supportive care (6) Coronary artery disease: Plan: No notable signs or symptoms of ACS. Continue home meds (7) Hypertension: Plan: Blood pressure quite reasonable given the situation. Continue home meds and follow (8) Osteopenia: Plan: Likely contributory to ankle fracture. Outpatient bone health management (9) Chronic diastolic (congestive) heart failure: Plan: Radiographically question mild degree of decompensation, however, she has no dyspnea and overall clear lungsfollow. Continue home meds (10) TIA (transient ischemic attack): Plan: Continue home meds for baseline of cerebrovascular disease (11) DVT prophylaxis: Plan: Lovenox (12) Discharge planning issues: Plan: PT/OT eval and treat. It sounds like she was getting to where she was at the limits of what personal care could support prior to the fall, and now definitely seems to exceed what she would be able to safely have at personal care. Anticipate need for SNFfamily will discuss further, but for now preliminarily goals would be [facility] History of Present Illness Chief Complaint: Weakness Primary Care Provider: [place] Doyle Patient is a very pleasant but fairly demented 89-year-old female who had a fall at personal care yesterday. Apparently she hurt her ankle and twisted it quite noticeablyx-rays were ordered, but apparently not able to be done. That, combined with ongoing weakness/immobility (daughter notes normally she is a two- person assist, today she was a 4 person assist) led to her being brought to the ER for further evaluation. Here she is found to have medial malleolar fracture, but more importantly, is too weak to return to personal care. In discussion with one of her daughters on the phone, they have been discussing SNF options for a bit, knowing that further escalation was likely coming soon, and while she would like to talk with the family a bit moreright now [facility] in [place], or [facility] here would be their presumptive top choices. The patient herself denies any acute complaints, seems to be fairly unaware that she hurt her ankle. She is mostly making sure that her kids got home (it is snowing) but then noting that they are a handful, saying that she is relieved that they have left. Does seem relieved that they made it home, saying much of this even to her daughter on the phone. This all seems to have a sarcastically loving tone to it. In terms of her situation, she does not really seem to re call yesterday's Mauricio I ask her where she is, she remarks "we are at the end of the road but is going to get me to a better place" when asked to clarify what building we are in, she does note that we are on the first floor (which is correct) but she is not aware that were in the hospital. She does strongly endorse DNR status, although this is also confirmed by her daughter. Allergies Allergy/AdvReac Type Severity Reaction Status Date / Time ciprofloxacin Allergy Unknown ON MED LIST Verified 04/27/21 17:35 ezetimibe Allergy Unknown ON MED LIST Verified 04/27/21 17:35 lisinopril Allergy Unknown ON MED LIST Verified 04/27/21 17:35 nitrofurantoin Allergy Unknown ON MED LIST Verified 04/27/21 17:35 [From Macrobid] Penicillins Allergy Unknown ON MED LIST Verified 04/27/21 17:35 simvastatin Allergy Unknown ON MED LIST Verified 04/27/21 17:35 codeine AdvReac Mild GI SYMPTOMS Verified 04/27/21 17:35 Home Medications Medication Instructions Recorded Confirmed Type acetaminophen 500 mg tablet 500 mg PO QID MDD 3 GRAMS/24 HOURS 08/20/20 04/27/21 History (Tylenol Extra Strength) atorvastatin 10 mg tablet (Lipitor) 10 mg PO QAM 08/20/20 04/27/21 History cholecalciferol (vitamin D3) 50 2,000 unit PO BID17 08/20/20 04/27/21 History mcg (2,000 unit) capsule (Vitamin D3) acetaminophen 325 mg tablet 650 mg PO Q6HWA PRN 09/17/20 04/27/21 History (Tylenol) furosemide 20 mg tablet (Lasix) 20 mg PO QAM PRN 10/04/20 04/27/21 History amlodipine 5 mg tablet (Norvasc) 5 mg PO QAM 10/25/20 04/27/21 History aspirin 81 mg tablet,delayed 81 mg PO QAM 10/25/20 04/27/21 History release (Aspirin Low Dose) nitroglycerin 0.4 mg sublingual 0.4 mg SL .COMPLEX PRN 10/25/20 04/27/21 History tablet (Nitrostat) loperamide 2 mg tablet 2 mg PO Q3H PRN #240 tab 11/26/20 04/27/21 Rx ibuprofen 600 mg tablet (IBU) 600 mg PO Q8H #90 tab 03/03/21 04/27/21 Rx pantoprazole 20 mg tablet,delayed 20 mg PO QAM #90 tab 03/03/21 04/27/21 Rx release (Protonix) docusate sodium 100 mg capsule 100 mg PO .COMPLEX PRN #30 cap 03/24/21 04/27/21 Rx (Colace) amlodipine 2.5 mg tablet (Norvasc) 2.5 mg PO QAM #30 tab 04/07/21 04/27/21 Rx Turmeric Caps 900 mg PO DAILY 04/27/21 History diclofenac sodium 1 % topical gel 2 - 4 g TOPICAL QID PRN 04/27/21 04/27/21 History fesoterodine 4 mg tablet,extended 4 mg PO BID 04/27/21 04/27/21 History release 24 hr (Toviaz) ibuprofen 200 mg tablet 200 mg PO Q8 PRN 04/27/21 04/27/21 History lidocaine HCl 4 % topical cream 1 applic TOPICAL TID 04/27/21 04/27/21 History (Aspercreme (lidocaine HCl)) tramadol 50 mg tablet 25 mg PO QAM 04/27/21 04/27/21 History tramadol 50 mg tablet 25 mg PO QPM PRN 04/27/21 04/27/21 History Past Med/Surg History Medical History Bilateral chronic knee pain Carpal tunnel syndrome CHF (congestive heart failure) Chronic osteoarthritis Multiple joints affected. Hips have been a concern with recent corticosteroid injections. Risks associated with chronic NSAIDs previously discussed and currently managed with NSAID + APAP. Coronary artery disease Dementia Steady decline in cognitive function. Evaluated by neurology (02/20). Declines further medication therapy. Dyslipidemia Hypertension Incontinence Osteopenia DEXA (02/14) demonstrated T score -1.0 in forearm. Currently treated with Vit D supplementation. Prediabetes Sinus arrhythmia Spinal stenosis MRI (07/17) severe degenerative disease, along with moderate to severe spinal stenosis. SVT (supraventricular tachycardia) Unresponsive episode Urinary incontinence Vaginal wall prolapse Vitamin D deficiency Surgical History History of appendectomy History of coronary artery bypass graft History of tonsillectomy History of vaginal hysterectomy Presence of pessary S/P triple vessel bypass Before 2009. No subsequent stenting. Family History Father , in his 70s of heart issues Myocardial infarction Mother , in her 80s of a stroke Myocardial infarction Stroke Family/Other Colon cancer Coronary heart disease Diabetes Other Family history non-contributory No significant family history Denies family history of Ovarian cancer Breast cancer Social History Smoking Status: Never smoker Second Hand Exposure: No; Hx Alcohol Use: No Hx Substance Use: No Preferred Language: Syrian Communication Ability: Impaired Visual Impairment: No Limitations Shop Clerk Required: No Beliefs That Will Affect Care: None marital status: Current Living Situation: Senior Care Current Living Situation Comment: [facility] current occupational status: retired 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 HEENT normocephalic atraumatic mucous membranes moist. Cardio is regular no rubs murmurs or gallops. Lungs are clear to auscultation bilaterally no rales rhonchi or wheeze with good effort. Abdomen is soft nondistended nontender no masses organomegaly. Extremities are without cyanosis or clubbing, chronic venous stasis type edema with a compression stocking on her right leg. Left leg is wrapped in an Jorge Alberto wrap with a splint. Neuro shows cranial nerves II through XII be grossly intact gross motor and sensory are intact. Musculoskeletal shows her left leg to be splinted and wrapped, otherwise no gross deformities. Of note her left wrist is also in a thumb spica splint. Mental status shows her to have a very pleasant mood with a joking and sarcastic affect, she seems to be fairly disoriented as far as recent recall. Judgment and insight obviously almost impossible to assess Results & Data Results & Data ([facility]) Vital Signs (Past 12 Hours) Vital Signs Temp Pulse Resp BP Pulse Ox 04/27/21 14:55 98.2 F 80 18 128/66 90 Code Status & VTE Plan VTE Prophylaxis Plan VTE Prophylaxis will be ordered: Yes PG Care Time/CCT Total # of Minutes Spent Total Time Spent with Patient: Total time spent is greater than 50% in coordination of care (as documented) at patient's floor/unit and/or counseling patient: Coding Level of Care Code 63127 Initial Inpt Care Lvl 3 Diagnoses Weakness R53.1 Closed left ankle fracture S82.892A Encounter type: initial encounter Contusion of left hand S60.A Encounter type: initial encounter Skin tear of left hand without complication S61.412A Encounter type: initial encounter Dementia F03.90 Coronary artery disease I25.10 Coronary Disease-Associated Artery/Lesion type: [place] artery [place] vs. transplanted heart: [place] heart Associated angina: without angina Hypertension I10 Hypertension type: essential hypertension Osteopenia M85.80 Chronic diastolic (congestive) heart failure I50.32 TIA (transient ischemic attack) G45.9 DVT prophylaxis Z29.9 Discharge planning issues Z02.9 (1) Closed left ankle fracture Encounter type: initial encounter Qualified Code(s): S82.892A - Other fracture of left lower leg, initial encounter for closed fracture (2) Contusion of left hand Encounter type: initial encounter Qualified Code(s): S60.222A - Contusion of left hand, initial encounter (3) Skin tear of left hand without complication Encounter type: initial encounter Qualified Code(s): S61.412A - Laceration without foreign body of left hand, initial encounter (4) Coronary artery disease Coronary Disease-Associated Artery/Lesion type: [place] artery [place] vs. transplanted heart: [place] heart Associated angina: without angina Qualified Code(s): I25.10 - Atherosclerotic heart disease of [place] coronary artery without angina pectoris (5) Hypertension Hypertension type: essential hypertension Qualified Code(s): I10 - Essential (primary) hypertension
--- NOTE | 2021-04-27 20:33 | Electrocardiogram Report ---
Test Reason : Blood Pressure : / mmHG Vent. Rate : 080 BPM Atrial Rate : 080 BPM P-R Int : 242 ms QRS Dur : 130 ms QT Int : 388 ms P-R-T Axes : 090 009 232 degrees QTc Int : 447 ms Poor data quality, interpretation may be adversely affected Sinus rhythm with 1st degree A-V block with frequent Premature ventricular complexes Left ventricular hypertrophy with QRS widening and repolarization abnormality Right bundle branch block Abnormal ECG When compared with ECG of 25-OCT-2020 17:37, Premature ventricular complexes are now Present Premature atrial complexes are no longer Present T wave inversion now evident in Inferior leads T wave inversion more evident in Lateral leads Confirmed by Arben Shane ([id number]) on 04/27/2021 8:32:48 PM Referred By: Magdalena Yan Confirmed By:Robinson Shane
[2021-04-27] MEDS ORDERED: traMADol HCL 50 MG TABLET PO STA (21:03)
[2021-04-27] MEDS ORDERED: ONDANSETRON INJ 2 MG/ML 2 ML VIAL IV PRN (22:08)
[2021-04-27] MEDS ORDERED: ACETAMINOPHEN 325 MG TAB PO PRN (22:08)
[2021-04-27] MEDS ORDERED: NITROGLYCERIN SL 0.4 MG/TAB TAB SL PRN (22:08)
[2021-04-27] MEDS ORDERED: ACETAMINOPHEN HOME PACK 500 MG TABLET PO SCH (22:08)
[2021-04-27] MEDS ORDERED: DICLOFENAC SOD 1% GEL 100 GM TUBE EXT PRN (22:08)
[2021-04-27] MEDS ORDERED: MAGNESIUM HYDROXIDE SUSP 30 ML UDC PO PRN (22:08)
[2021-04-27] MEDS ORDERED: IBUPROFEN 200 MG TAB PO PRN (22:08)
[2021-04-27] MEDS ORDERED: DOCUSATE SODIUM 100 MG CAP PO PRN (22:08)
[2021-04-27] MEDS ORDERED: FUROSEMIDE 20 MG TAB PO PRN (22:08)
[2021-04-27] MEDS ORDERED: POLYETHYLENE (MIRALAX) 17 GM PACK PO PRN (22:08)
[2021-04-27] MEDS ORDERED: LOPERAMIDE HCL 2 MG CAP PO PRN (22:26)
[2021-04-27] MEDS: IBUPROFEN 600 MG TAB PO SCH (22:49)
[2021-04-27] MEDS: LIDOCAINE 4% CREAM 15 GM TUBE EXT SCH (22:50)
[2021-04-28] MEDS: [UNRECOGNIZED DRUG - OTHER] SCH ×4 (01:34→23:30)
[2021-04-28] MEDS: IBUPROFEN 600 MG TAB PO SCH ×3 (06:13→23:22)
[2021-04-28] MEDS ORDERED: FUROSEMIDE 20 MG TAB PO ONE (08:44)
--- NOTE | 2021-04-28 08:46 | Hospitalist Progress Note ---
Date of Service April 28, 2021 Assessment & Plan (1) Weakness: Plan: Progressive daughter notes that she was two-person assist until recently (in wheelchair baseline), now four person assist (it seems to be after the fall) PT/OT eval and treat Ortho consulted Repeat ankle xrays pending for L ankle fracture on admission Of note, patient daughter discussed prior adverse reaction with anesthesia with HR dropping to the 40s during a colonoscopy and was told not to undergo any further anesthesia at that time Patient does voice DNR status, confirmed with daughter on admission Of note, MCV noted to be elevated since last December --> B12 low at 181 (folate wnl) and will start on daily B12 injections while inpatient, transition to oral at discharge PT/OT consults pending --> anticipate need for SNF Pain control --> chronically takes tramadol 25mg QAM and this is also available prn. Continue tylenol prn. Ibuprofen scheduled for now. (2) Closed left ankle fracture: Plan: Nonweightbearing, splinting, pain control Ortho consulted -- repeat xrays, consultation pending -- to see after clinic (3) Contusion of left hand: Plan: Pain control, splint for comfort (4) Skin tear of left hand without complication: Plan: Local care (5) Dementia: Plan: Supportive care Also checked B12/TSH --> TSH wnl. B12 low as above and started supplementation. Discussed with daughter as well regarding deficiency/replacement (6) Coronary artery disease: Plan: No notable signs or symptoms of ACS. Continue home meds (7) Hypertension: Plan: BP stable, 146/65 Continue amlodipine 7.5mg daily (8) Osteopenia: Plan: Likely contributory to ankle fracture. Outpatient bone health management Will check Vit D level in AM for completeness --> currently on 2000 IU BID (9) Chronic diastolic (congestive) heart failure: Plan: Radiographically question mild degree of decompensation, however, she has no dyspnea and overall clear lungsfollow. Lasix 20mg prn weight gain --> did give dose this morning Euvolemic on examination Monitor I/O, lasix as needed (10) TIA (transient ischemic attack): Plan: Continue home meds for baseline of cerebrovascular disease (11) DVT prophylaxis: Plan: Lovenox while inpatient (12) Discharge planning issues: Plan: PT/OT eval and treat. It sounds like she was getting to where she was at the limits of what personal care could support prior to the fall, and now definitely seems to exceed what she would be able to safely have at personal care. Anticipate need for SNFfamily will discuss further, but for now preliminarily goals would be [facility] or [facility] care and did discuss with daughter. Awaiting official orthopedic evaluation Admission and Anticipated Discharge Date Admission Date: April 27, 2021 Supervising Physician Co-Signing Physician Notes MADAI Supervision Note: I did not personally see or examine the patient today, but I verified all suero points of MADAI Alford's assessment and plan with the following exceptions/additions: None Subjective patient evaluated this morning doing alright pain currently controlled pain worse to the wrist, currently in brace but comfortable discussed living situation -- she states she was from [place] but [facility] and daughter (works in lab) is close by but she is under understanding not able to return there at this time and just had repeat x-ray of her left ankle (splinted in ER) but NVI intact. She voices she does not want any invasive interventions and knows she is "on her way out" and doesn't want anything to prolong the torture. No fever, chills, chest pain, shortness of breath, abdominal pain. Ate breakfast this morning, no issue. Passing gas but no BM. No additional complaints at this time. Review of Systems Review of Systems: All systems reviewed & are unremarkable except as noted in HPI & below Physical Exam Physical Exam: General: awake, alert to self/place (not situation/time at moments) Eyes anicertic, pupils equal and reactive slightly dry mm CV: RRR, no m/r/g, trace b/l LE edema, calves non-tender (LLE no able to appreciate 2nd to split in place), cap refill < 3 seconds, toes mobile Resp: CTAB, no w/c/r, on room air GI: +BS, soft, non-tender Ext/MSK: chronic venous stasis changes RLE. LLE splinted and wrapped, can wiggle toes, NVI L wrist in thumb spica splint Neuro: no facial droop/slurred speech. CN intact grossly Psych: alert, oriented to person, not situation/time at moments, easily re- oriented Results & Data Results & Data ([facility]) Vital Signs (Past 12 Hours) Vital Signs Temp Pulse Resp BP Pulse Ox 04/28/21 07:38 37.2 C 76 16 146/65 H 91 04/27/21 23:00 37.2 C 93 H 22 163/75 H 90 04/27/21 22:15 93 04/27/21 22:08 37.2 C 93 H 22 163/75 H 90 Laboratory Results 04/28/21 04/28/21 04/28/21 Range/Units 08:53 08:53 08:53 WBC 9.35 (4.8-10.8) K/uL RBC 3.46 L (4.2-5.4) M/uL Hgb 11.4 L (12.0-16.0) g/dL Hct 35.5 L (37-47) % MCV 102.6 H (80-100) fL MCH 32.9 (25-34) pg MCHC 32.1 (32-36) g/dL RDW Std Deviation 50.7 H (36.4-46.3) fL RDW Coeff of Luis 13.5 (11.5-14.5) % Plt Count 269 (130-400) K/uL MPV 10.0 (7.4-10.4) fL Immature Gran % (Auto) % Neut % (Auto) % Lymph % (Auto) % Mcnairy % (Auto) % Eos % (Auto) % Baso % (Auto) % Neut # (Auto) (1.4-6.5) K/uL Lymph # (Auto) (1.2-3.4) K/uL Mcnairy # (Auto) (0.11-0.59) K/uL Eos # (Auto) (0-0.5) K/uL Baso # (Auto) (0-0.2) K/uL Immature Gran # (Auto) (0.00-0.02) K/uL PT (9.0-12.0) Seconds INR (0.9-1.1) Sodium (136-145) mmol/L Potassium (3.5-5.1) mmol/L Chloride (98-107) mmol/L Carbon Dioxide (21-32) mmol/L Anion Gap (3-11) BUN (6-23) mg/dl Creatinine (0.6-1.2) mg/dl Est Cr Clr Drug Dosing ml/min Est GFR ( Amer) ml/min Est GFR (Non-Af Amer) ml/min BUN/Creatinine Ratio (10-20) Glucose (70-99(Fasting)) mg/dl Calcium (8.5-10.1) mg/dl Total Bilirubin (0.2-1.0) mg/dl AST (13-39) U/L ALT (7-52) U/L Alkaline Phosphatase (34-104) U/L Troponin I (0-0.04) ng/ml Total Protein (6.0-8.3) gm/dl Albumin (3.4-5.0) gm/dl Globulin (2.5-4.0) gm/dl Albumin/Globulin Ratio (0.9-2) Vitamin B12 181 L (211-911) pg/ml Folate 12.74 (>5.38) ng/ml TSH 3.106 (0.300-4.500) uIu/ml Urine Color Urine Appearance (Clear) Urine pH (4.5-7.5) Ur Specific [place] (1.000-1.030) Urine Protein (Negative) Urine Glucose (UA) (Negative) Urine Ketones (Negative) Urine Blood (Negative) Urine Nitrite (Negative) Urine Bilirubin (Negative) Urine Urobilinogen (Negative) Ur Leukocyte Esterase (Negative) SARS-CoV-2, RNA, NAAT (NEGATIVE) 04/28/21 04/27/21 04/27/21 Range/Units 08:53 17:05 15:56 WBC (4.8-10.8) K/uL RBC (4.2-5.4) M/uL Hgb (12.0-16.0) g/dL Hct (37-47) % MCV (80-100) fL MCH (25-34) pg MCHC (32-36) g/dL RDW Std Deviation (36.4-46.3) fL RDW Coeff of Luis (11.5-14.5) % Plt Count (130-400) K/uL MPV (7.4-10.4) fL Immature Gran % (Auto) % Neut % (Auto) % Lymph % (Auto) % Mcnairy % (Auto) % Eos % (Auto) % Baso % (Auto) % Neut # (Auto) (1.4-6.5) K/uL Lymph # (Auto) (1.2-3.4) K/uL Mcnairy # (Auto) (0.11-0.59) K/uL Eos # (Auto) (0-0.5) K/uL Baso # (Auto) (0-0.2) K/uL Immature Gran # (Auto) (0.00-0.02) K/uL PT (9.0-12.0) Seconds INR (0.9-1.1) Sodium 135 L (136-145) mmol/L Potassium 3.8 (3.5-5.1) mmol/L Chloride 103 (98-107) mmol/L Carbon Dioxide 25 (21-32) mmol/L Anion Gap 7 (3-11) BUN 22 (6-23) mg/dl Creatinine 0.64 D (0.6-1.2) mg/dl Est Cr Clr Drug Dosing 71.9 ml/min Est GFR ( Amer) 91.7 ml/min Est GFR (Non-Af Amer) 79.1 ml/min BUN/Creatinine Ratio 34.4 H (10-20) Glucose 141 H (70-99(Fasting)) mg/dl Calcium 8.8 (8.5-10.1) mg/dl Total Bilirubin (0.2-1.0) mg/dl AST (13-39) U/L ALT (7-52) U/L Alkaline Phosphatase (34-104) U/L Troponin I (0-0.04) ng/ml Total Protein (6.0-8.3) gm/dl Albumin (3.4-5.0) gm/dl Globulin (2.5-4.0) gm/dl Albumin/Globulin Ratio (0.9-2) Vitamin B12 (211-911) pg/ml Folate (>5.38) ng/ml TSH (0.300-4.500) uIu/ml Urine Color Yellow Urine Appearance Clear (Clear) Urine pH 5.5 (4.5-7.5) Ur Specific [place] 1.007 (1.000-1.030) Urine Protein Negative (Negative) Urine Glucose (UA) Negative (Negative) Urine Ketones Negative (Negative) Urine Blood Negative (Negative) Urine Nitrite Negative (Negative) Urine Bilirubin Negative (Negative) Urine Urobilinogen Negative (Negative) Ur Leukocyte Esterase Negative (Negative) SARS-CoV-2, RNA, NAAT NEGATIVE (NEGATIVE) 04/27/21 04/27/21 04/27/21 Range/Units 15:49 15:49 15:49 WBC 9.06 (4.8-10.8) K/uL RBC 3.75 L (4.2-5.4) M/uL Hgb 12.4 (12.0-16.0) g/dL Hct 38.8 (37-47) % MCV 103.5 H (80-100) fL MCH 33.1 (25-34) pg MCHC 32.0 (32-36) g/dL RDW Std Deviation 51.6 H (36.4-46.3) fL RDW Coeff of Luis 13.6 (11.5-14.5) % Plt Count 287 (130-400) K/uL MPV 9.8 (7.4-10.4) fL Immature Gran % (Auto) 0.1 % Neut % (Auto) 61.3 % Lymph % (Auto) 24.9 % Mcnairy % (Auto) 7.8 % Eos % (Auto) 5.7 % Baso % (Auto) 0.2 % Neut # (Auto) 5.54 (1.4-6.5) K/uL Lymph # (Auto) 2.26 (1.2-3.4) K/uL [place]airy # (Auto) 0.71 H (0.11-0.59) K/uL Eos # (Auto) 0.52 H (0-0.5) K/uL Baso # (Auto) 0.02 (0-0.2) K/uL Immature Gran # (Auto) 0.01 (0.00-0.02) K/uL PT 10.1 (9.0-12.0) Seconds INR 1.0 (0.9-1.1) Sodium 133 L (136-145) mmol/L Potassium 3.9 (3.5-5.1) mmol/L Chloride 101 (98-107) mmol/L Carbon Dioxide 25 (21-32) mmol/L Anion Gap 7 (3-11) BUN 22 (6-23) mg/dl Creatinine 0.98 (0.6-1.2) mg/dl Est Cr Clr Drug Dosing 48.3 ml/min Est GFR ( Amer) 59.3 ml/min Est GFR (Non-Af Amer) 51.1 ml/min BUN/Creatinine Ratio 22.4 H (10-20) Glucose 125 H (70-99(Fasting)) mg/dl Calcium 9.2 (8.5-10.1) mg/dl Total Bilirubin 1.0 (0.2-1.0) mg/dl AST 17 (13-39) U/L ALT 16 (7-52) U/L Alkaline Phosphatase 53 (34-104) U/L Troponin I < 0.03 (0-0.04) ng/ml Total Protein 7.1 (6.0-8.3) gm/dl Albumin 4.0 (3.4-5.0) gm/dl Globulin 3.1 (2.5-4.0) gm/dl Albumin/Globulin Ratio 1.3 (0.9-2) Vitamin B12 (211-911) pg/ml Folate (>5.38) ng/ml TSH (0.300-4.500) uIu/ml Urine Color Urine Appearance (Clear) Urine pH (4.5-7.5) Ur Specific [place] (1.000-1.030) Urine Protein (Negative) Urine Glucose (UA) (Negative) Urine Ketones (Negative) Urine Blood (Negative) Urine Nitrite (Negative) Urine Bilirubin (Negative) Urine Urobilinogen (Negative) Ur Leukocyte Esterase (Negative) SARS-CoV-2, RNA, NAAT (NEGATIVE) Diagnostic Findings Ankle X-Ray 04/27/21 15:04 XR foot LT 2V, XR ankle LT 2V CLINICAL HISTORY: fall TECHNIQUE: 2 views of the left foot were obtained. 2 views of the left ankle were obtained. Comparison: None available at the time of this dictation. FINDINGS: Limited evaluation due to limited views. There is lucency in the medial malleolus compatible with an acute minimally displaced fracture. The alignment is anatomic. Degenerative changes are seen. Soft tissue swelling is seen about the foot and ankle. IMPRESSION: Linear lucency at the medial malleolus is compatible with an acute minimally displaced fracture. Correlation with point tenderness is recommended. Soft tissue swelling is seen about the ankle. ACT 112: Negative or not required by law. Electronically signed by: Sandip Miller M.D. 04/27/2021 3:57 PM Chest X-Ray 04/27/21 15:04 XR chest 1V portable CLINICAL HISTORY: fall TECHNIQUE: Single frontal radiograph of the chest was obtained. Comparison: Comparison is made to chest one view 10/05/2020 FINDINGS: Stable median sternotomy wires. Cardiomegaly is noted. Prominence and cephalization of the vasculature is seen. No evidence of pleural effusion or pneumothorax. IMPRESSION: Mild pulmonary edema. ACT 112: Negative or not required by law. Electronically signed by: Sandip Miller M.D. 04/27/2021 3:58 PM Foot X-Ray 04/27/21 15:04 XR foot LT 2V, XR ankle LT 2V CLINICAL HISTORY: fall TECHNIQUE: 2 views of the left foot were obtained. 2 views of the left ankle were obtained. Comparison: None available at the time of this dictation. FINDINGS: Limited evaluation due to limited views. There is lucency in the medial malleolus compatible with an acute minimally displaced fracture. The alignment is anatomic. Degenerative changes are seen. Soft tissue swelling is seen about the foot and ankle. IMPRESSION: Linear lucency at the medial malleolus is compatible with an acute minimally displaced fracture. Correlation with point tenderness is recommended. Soft tissue swelling is seen about the ankle. ACT 112: Negative or not required by law. Electronically signed by: Sandip Miller M.D. 04/27/2021 3:57 PM Hip/Pelvis X-Ray 04/27/21 15:04 XR hip LT 2V w pelvis CLINICAL HISTORY: fall TECHNIQUE: 2 views of the left hip and single frontal view of the pelvis were obtained. Comparison: None available at the time of this dictation. FINDINGS: There is no evidence of an acute fracture. The alignment is anatomic. Severe degenerative changes are seen in the left hip joint. No soft tissue abnormality is seen. IMPRESSION: Severe degenerative changes in the left hip joint without evidence of underlying fracture. ACT 112: Negative or not required by law. Electronically signed by: Sandip Miller M.D. 04/27/2021 4:01 PM Shoulder X-Ray 04/27/21 15:04 XR shoulder LT min 2V routine CLINICAL HISTORY: fall TECHNIQUE: 2 views of the left shoulder were obtained. Comparison: None available at the time of this dictation. FINDINGS: There is no evidence of an acute fracture. Degenerative changes are seen in the glenohumeral joint. The overlying soft tissues are unremarkable. The visualized portions of the lungs are clear. IMPRESSION: No evidence of acute osseous injury. ACT 112: Negative or not required by law. Electronically signed by: Sandip Miller M.D. 04/27/2021 4:02 PM Tibia/Fibula X-Ray 04/27/21 15:04 XR tibia fibula LT 2V CLINICAL HISTORY: fall Comparison: None available at the time of this dictation. TECHNIQUE: 2 radiographic views of the left leg were obtained. FINDINGS: Soft tissue swelling is seen. Please see CT ankle performed same day for detailed findings of the likely medial malleolus fracture. Degenerative changes are seen in the visualized knee joint. IMPRESSION: Partial visualization of likely medial malleolus fracture. Otherwise no acute abnormality. ACT 112: Negative or not required by law. Electronically signed by: Sandip Miller M.D. 04/27/2021 4:00 PM Wrist X-Ray 04/27/21 15:04 XR wrist LT min 3V routine CLINICAL HISTORY: fall TECHNIQUE: 3 views of the left wrist were obtained. Comparison: None available at the time of this dictation. FINDINGS: There is no evidence of an acute fracture. The alignment is anatomic. Joint spaces are well-preserved. No soft tissue abnormality is seen. IMPRESSION: No evidence of acute osseous injury. ACT 112: Negative or not required by law. Electronically signed by: Sandip Miller M.D. 04/27/2021 4:02 PM PG Care Time/CCT Total # of Minutes Spent Total Time Spent with Patient: Total time spent is greater than 50% in coordination of care (as documented) at patient's floor/unit and/or counseling patient: Coding Level of Care Code 52263 Subseq Hosp Care Lvl 3 Diagnoses Weakness R53.1 Closed left ankle fracture S82.892A Encounter type: initial encounter Contusion of left hand S60.222A Encounter type: initial encounter Skin tear of left hand without complication S61.412A Encounter type: initial encounter Dementia F03.90 Coronary artery disease I25.10 Associated angina: without angina Coronary Disease-Associated Artery/Lesion type: [place] artery [place] vs. transplanted heart: [place] heart Hypertension I10 Hypertension type: essential hypertension Osteopenia M85.80 Chronic diastolic (congestive) heart failure I50.32 TIA (transient ischemic attack) G45.9 DVT prophylaxis Z29.9 Discharge planning issues Z02.9 (1) Coronary artery disease Associated angina: without angina Coronary Disease-Associated Artery/Lesion type: [place] artery [place] vs. transplanted heart: [place] heart Qualified Code(s): I25.10 - Atherosclerotic heart disease of [place] coronary artery without angina pectoris (2) Skin tear of left hand without complication Encounter type: initial encounter Qualified Code(s): S61.412A - Laceration without foreign body of left hand, initial encounter (3) Hypertension Hypertension type: essential hypertension Qualified Code(s): I10 - Essential (primary) hypertension (4) Contusion of left hand Encounter type: initial encounter Qualified Code(s): S60.222A - Contusion of left hand, initial encounter (5) Closed left ankle fracture Encounter type: initial encounter Qualified Code(s): S82.892A - Other fracture of left lower leg, initial encounter for closed fracture
[2021-04-28] MEDS ORDERED: amLODIPine BESYLATE 5 MG TAB PO SCH ×2 (09:00)
[2021-04-28 09:07] LABS: Hematocrit (blood only) 35.5 % (37-47); Hemoglobin 11.4 g/dL (12.0-16.0); Mean Corpuscular Hemoglobin 32.9 pg (25-34); Mean Corpuscular Hgb Conc 32.1 g/dL (32-36); Mean Corpuscular Volume 102.6 fL (80-100); Platelet Count 269 K/uL (130-400); RDW Coefficient of Variation 13.5 % (11.5-14.5); RDW Standard Deviation 50.7 fL (36.4-46.3); Red Blood Count 3.46 M/uL (4.2-5.4); White Blood Count 9.35 K/uL (4.8-10.8)
[2021-04-28 09:35] LABS: Creatinine Clr Calc Pharmacy 71.9 ml/min; Est GFR (African American) 91.7 ml/min; Est GFR (Non-African American) 79.1 ml/min
[2021-04-28] MEDS: PANTOprazole 40 MG TAB PO SCH (09:56)
[2021-04-28] MEDS: CHOLECALCIFEROL 1,000 UNITS 25 MCG TAB PO SCH ×2 (09:56→18:11)
[2021-04-28] MEDS: ASPIRIN 81 MG ECTAB PO SCH (09:56)
[2021-04-28] MEDS: ATORVASTATIN 10 MG TAB PO SCH (09:56)
[2021-04-28] MEDS: traMADol HCL 50 MG TABLET PO SCH (10:01)
[2021-04-28] MEDS: LIDOCAINE 4% CREAM 15 GM TUBE EXT SCH ×3 (10:05→20:46)
[2021-04-28] MEDS: ENOXAPARIN INJ 40 MG/0.4 ML SYR SQ SCH (10:05)
[2021-04-28 10:08] LABS: Folate (Folic Acid) 12.74 ng/ml (>5.38)
[2021-04-28 10:28] LABS: BUN Creatinine Ratio 34.4 (10-20); Calcium 8.8 mg/dl (8.5-10.1); Potassium 3.8 mmol/L (3.5-5.1)
[2021-04-28] MEDS: amLODIPine BESYLATE 5 MG TAB PO SCH (10:40)
--- NOTE | 2021-04-28 10:42 | XRay Report ---
LEFT ANKLE 3 VIEWS CLINICAL HISTORY: Left ankle fracture. FINDINGS: 3 views of the left ankle are compared to study dated 04/27/2021. The examination is perform ed through a cast, obscuring fine bony detail. The skeletal structures are osteopenic. Again seen is a nondisplaced vertically oriented fracture through the base of the medial malleolus. No additional f racture is identified at the ankle joint. The ankle mortise is in anatomic alignment. There is a join t effusion, and soft tissue edema is present around the ankle. There are large dorsal and plantar kashif caneal enthesophytes. IMPRESSION: 1. Soft tissue swelling with unchanged alignment of a medial malleolar fracture as above. 2. No additional fracture is identified. Electronically signed by: Jeffery Syed M.D. 04/28/2021 10:40 AM
[2021-04-28] MEDS: CYANOCOBALAMIN 1000 MCG/ML VIAL IM SCH (15:29)
--- NOTE | 2021-04-28 17:38 | Orthopedic Consultation ---
Date of Consultation April 28, 2021 Assessment & Plan (1) Closed left ankle fracture: She has a minimally displaced left ankle medial malleolus fracture in the setting of fairly severe arthritic degeneration. She is nonambulatory, wheelchair-bound, and severely weak. She has a lot of medical problems that preclude safe anesthesia. I therefore would recommend nonoperative treatment for this injury. She and the daughter especially are very much in agreement with this plan. We will keep her in the splint for now. We will convert her to a cast when she follows up in clinic. She needs to remain nonweightbearing on this left ankle. Follow-up in orthopedics clinic 1 to 2 weeks after discharge. Please call [facility] at [phone] to make an appointment. Orthopedics will sign off for now. Please call with questions. History of Present Illness Reason for Consultation: Left ankle fracture Attending Physician: Jamilah Lala MD History of Present Illness Ms. Echevarria is an 89-year-old female with multiple medical problems and dementia who injured her left ankle. Patient really does not seem to have much recollection of the event, and she is clearly very disoriented to place and time. Vast majority of the history is obtained from the daughter who accompanies her today, as well as the medical record. Her daughter reports that she has severe weakness and is unable to stand on her own. She is largely wheelchair-bound due to this weakness. She requires 2 people to assist her to even stand up for transfers. She was standing to go to the bathroom when she slipped and injured her left ankle as she fell. Of note, the daughter reports that the patient has numerous severe medical problems. On chart review, looks like she has significant heart failure. Apparently, she has been told multiple times in the past that she is too unsafe for any type of anesthesia. She reportedly is too high risk for even a stress test. Allergies Allergy/AdvReac Type Severity Reaction Status Date / Time ciprofloxacin Allergy Unknown ON MED LIST Verified 04/27/21 17:35 ezetimibe Allergy Unknown ON MED LIST Verified 04/27/21 17:35 lisinopril Allergy Unknown ON MED LIST Verified 04/27/21 17:35 nitrofurantoin Allergy Unknown ON MED LIST Verified 04/27/21 17:35 [From Macrobid] Penicillins Allergy Unknown ON MED LIST Verified 04/27/21 17:35 simvastatin Allergy Unknown ON MED LIST Verified 04/27/21 17:35 codeine AdvReac Mild GI SYMPTOMS Verified 04/27/21 17:35 Home Medications Medication Instructions Recorded Confirmed Type acetaminophen 500 mg tablet 500 mg PO QID MDD 3 GRAMS/24 HOURS 08/20/20 04/27/21 History (Tylenol Extra Strength) atorvastatin 10 mg tablet (Lipitor) 10 mg PO QAM 08/20/20 04/27/21 History cholecalciferol (vitamin D3) 50 2,000 unit PO BID17 08/20/20 04/27/21 History mcg (2,000 unit) capsule (Vitamin D3) acetaminophen 325 mg tablet 650 mg PO Q6HWA PRN 09/17/20 04/27/21 History (Tylenol) furosemide 20 mg tablet (Lasix) 20 mg PO QAM PRN 10/04/20 04/27/21 History amlodipine 5 mg tablet (Norvasc) 5 mg PO QAM 10/25/20 04/27/21 History aspirin 81 mg tablet,delayed 81 mg PO QAM 10/25/20 04/27/21 History release (Aspirin Low Dose) nitroglycerin 0.4 mg sublingual 0.4 mg SL .COMPLEX PRN 10/25/20 04/27/21 History tablet (Nitrostat) loperamide 2 mg tablet 2 mg PO Q3H PRN #240 tab 11/26/20 04/27/21 Rx ibuprofen 600 mg tablet (IBU) 600 mg PO Q8H #90 tab 03/03/21 04/27/21 Rx pantoprazole 20 mg tablet,delayed 20 mg PO QAM #90 tab 03/03/21 04/27/21 Rx release (Protonix) docusate sodium 100 mg capsule 100 mg PO .COMPLEX PRN #30 cap 03/24/21 04/27/21 Rx (Colace) amlodipine 2.5 mg tablet (Norvasc) 2.5 mg PO QAM #30 tab 04/07/21 04/27/21 Rx Turmeric Caps 900 mg PO DAILY 04/27/21 04/27/21 History diclofenac sodium 1 % topical gel 2 - 4 g TOPICAL QID PRN 04/27/21 04/27/21 History fesoterodine 4 mg tablet,extended 4 mg PO BID 04/27/21 04/27/21 History release 24 hr (Toviaz) ibuprofen 200 mg tablet 200 mg PO Q8 PRN 04/27/21 04/27/21 History lidocaine HCl 4 % topical cream 1 applic TOPICAL TID 04/27/21 04/27/21 History (Aspercreme (lidocaine HCl)) tramadol 50 mg tablet 25 mg PO QAM 04/27/21 04/27/21 History tramadol 50 mg tablet 25 mg PO QPM PRN 04/27/21 04/27/21 History Patient History Medical History Bilateral chronic knee pain Carpal tunnel syndrome CHF (congestive heart failure) Chronic osteoarthritis Multiple joints affected. Hips have been a concern with recent corticosteroid injections. Risks associated with chronic NSAIDs previously discussed and currently managed with NSAID + APAP. Coronary artery disease Dementia Steady decline in cognitive function. Evaluated by neurology (02/20). Declines further medication therapy. Dyslipidemia Hypertension Incontinence Osteopenia DEXA (02/14) demonstrated T score -1.0 in forearm. Currently treated with Vit D supplementation. Prediabetes Sinus arrhythmia Spinal stenosis MRI (07/17) severe degenerative disease, along with moderate to severe spinal stenosis. SVT (supraventricular tachycardia) Unresponsive episode Urinary incontinence Vaginal wall prolapse Vitamin D deficiency Surgical History History of appendectomy History of coronary artery bypass graft History of tonsillectomy History of vaginal hysterectomy Presence of pessary S/P triple vessel bypass Before 2009. No subsequent stenting. Family History Father , in his 70s of heart issues Myocardial infarction Mother , in her 80s of a stroke Myocardial infarction Stroke Family/Other Colon cancer Coronary heart disease Diabetes Other Family history non-contributory No significant family history Denies family history of Ovarian cancer Breast cancer Social History Smoking Status: Never smoker Second Hand Exposure: No; Hx Alcohol Use: No Hx Substance Use: No Preferred Language: Tajik Communication Ability: Impaired Visual Impairment: No Limitations Line Installation Supervisor Required: No Beliefs That Will Affect Care: None marital status: Current Living Situation: Personal Care Facility Current Living Situation Comment: [facility] current occupational status: retired 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 Compartments are soft and compressible. Sensation is intact to light touch. Intact toe dorsiflexion and plantar flexion. No pain with passive stretch. Foot is warm well perfused. Results & Data ([facility]) Vital Signs (Past 12 Hours) Vital Signs Temp Pulse Resp BP Pulse Ox 04/28/21 15:46 36.6 C 82 16 124/59 L 90 04/28/21 07:38 37.2 C 76 16 146/65 H 91 Diagnostic Findings X-rays of the left ankle reviewed. They show a minimally displaced medial malle olus fracture. There is moderate to severe arthritic degeneration in the ankle. No evidence of fibula fracture or injury to the interosseous membrane. (1) Closed left ankle fracture Encounter type: initial encounter Qualified Code(s): S82.892A - Other fracture of left lower leg, initial encounter for closed fracture
[2021-04-28] MEDS ORDERED: traMADol HCL 50 MG TABLET PO PRN (19:02)
[2021-04-29] MEDS: IBUPROFEN 600 MG TAB PO SCH ×3 (05:48→22:02)
[2021-04-29 06:22] LABS: Basophils # (auto) 0.04 K/uL (0-0.2); Basophils % (auto) 0.4 %; Eosinophils # (auto) 0.53 K/uL (0-0.5); Eosinophils % (auto) 5.9 %; Hematocrit (blood only) 33.8 % (37-47); Hemoglobin 10.9 g/dL (12.0-16.0); Immature Granulocytes # (auto) 0.01 K/uL (0.00-0.02); Immature Granulocytes % (auto) 0.1 %; Lymphocytes # (auto) 3.01 K/uL (1.2-3.4); Lymphocytes % (auto) 33.8 %; Mean Corpuscular Hemoglobin 33.1 pg (25-34); Mean Corpuscular Hgb Conc 32.2 g/dL (32-36); Mean Corpuscular Volume 102.7 fL (80-100); Mean Platelet Volume 10.4 fL (7.4-10.4); Monocytes # (auto) 1.08 K/uL (0.11-0.59); Monocytes % (auto) 12.1 %; Neutrophils # (auto) 4.24 K/uL (1.4-6.5); Neutrophils % (auto) 47.7 %; Platelet Count 276 K/uL (130-400); RDW Coefficient of Variation 13.2 % (11.5-14.5); Red Blood Count 3.29 M/uL (4.2-5.4); White Blood Count 8.91 K/uL (4.8-10.8)
[2021-04-29 07:01] LABS: Calcium 8.9 mg/dl (8.5-10.1); Creatinine Clr Calc Pharmacy 70.8 ml/min; Est GFR (African American) 91.2 ml/min; Est GFR (Non-African American) 78.7 ml/min; Potassium 3.8 mmol/L (3.5-5.1)
--- NOTE | 2021-04-29 08:03 | Hospitalist Progress Note ---
Date of Service April 29, 2021 Assessment & Plan (1) Weakness: Plan: Progressive daughter notes that she was two-person assist until recently (in wheelchair baseline), now four person assist (it seems to be after the fall) PT/OT eval and treat Ortho consulted Repeat ankle xrays pending for L ankle fracture on admission --> Per discussion with myself/patient/daughter as well as with orthopedics and patient/daughter last evening, plans for conservative approach. Continue split and can change to cast during follow up in clinic 1-2 weeks post discharge Of note, patient daughter discussed prior adverse reaction with anesthesia with HR dropping to the 40s during a colonoscopy and was told not to undergo any further anesthesia at that time Patient does voice DNR status, confirmed with daughter on admission PT/OT consults--> rec SNF. CM looking into [facility] as unable to return to [facility] at this time) Pain control --> chronically takes tramadol 25mg QAM and this is also available prn. Continue tylenol prn. Ibuprofen scheduled for now. Pain reported as controlled B12 replacement as below CXR today Cardiomegaly. Pulmonary vascular congestion with possible mild pulmonary edema. --> Lasix x 1 now. 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 but unsure how often she was actually getting given bedbound status) (2) Closed left ankle fracture: Plan: Nonweightbearing, splinting, pain control Ortho consulted -- repeat xrays, consultation pending -- to see after clinic (3) B12 deficiency: Plan: Of note, MCV noted to be elevated since last December --> B12 low at 181 (folate wnl) and started on 1000mcg daily injections while inpatient, transition to oral at discharge Likely contributing to fall/confusion as well (4) Contusion of left hand: Plan: Pain control, splint for comfort (5) Skin tear of left hand without complication: Plan: Local care (6) Dementia: Plan: Supportive care Also checked B12/TSH --> TSH wnl. B12 low as above and started supplementation --IM while inpatient Discussed with daughter as well regarding deficiency/replacement (7) Coronary artery disease: Plan: Hx CABG x 3 in 2003. Echocardiogram 10/05/2020: Normal left ventricular size, function. Ejection fraction 55-60%. No wall motion abnormalities. Mild left ventricular hypertrophy, mild left atrial dilatation. Mild aortic stenosis with mild regurgitation. Mild mitral regurgitation and tricuspid regurgitation. Mild pulmonary hypertension, RSVP 45-50 mmHg. Chronic diastolic heart failure, treated with Lasix. --> Admin 20mg dose x 1 again today 04/29 (got 20mg 04/28) No notable signs or symptoms of ACS. Continue home meds (8) Hypertension: Plan: BP stable but elevated 171/78 currently Continue amlodipine 7.5mg daily give dose lasix today again (9) Osteopenia: Plan: Likely contributory to ankle fracture. Outpatient bone health management Will check Vit D level in AM for completeness --> currently on 2000 IU BID Low normal --> consider changing to 5000IU daily? (10) Chronic diastolic (congestive) heart failure: Plan: Radiographically question mild degree of decompensation, however, she has no dyspnea and overall clear lungsfollow. Lasix 20mg prn weight gain --> did give dose morning 04/28 and repeating dose today 04/29 Euvolemic on examination Monitor I/O, lasix as needed (11) TIA (transient ischemic attack): Plan: Continue home meds for baseline of cerebrovascular disease (12) DVT prophylaxis: Plan: Lovenox while inpatient (13) Discharge planning issues: Plan: PT/OT eval and treat. It sounds like she was getting to where she was at the limits of what personal care could support prior to the fall, and now definitely seems to exceed what she would be able to safely have at personal care. Not able to take back at [facility]. CM following -- call out to daughter to discuss guevara herman. Back-ups Edgardo Rojas/[facility] Admission and Anticipated Discharge Date Admission Date: April 27, 2021 Supervising Physician Co-Signing Physician Notes PA Supervision Note: I did not personally see or examine the patient today, but I verified all suero points of MADAI Alford's assessment and plan with the following exceptions/additions: None Subjective patient evaluated this morning doing well alert and oriented to place/location but not time/event states pain controlled with tramadol/tylenol +BM yesterday, nothing today but is currently on bedpan moving bowels. Discussed conservative management per orthopedics and she agrees this is her wish. CM looking into rehab. No sob/cp, abd pain, nausea or vomiting but did have drop in O2 overnight to 83, responded to NC and CXR this morning with some mild congestion. Ordered 20mg dose lasix x 1 as takes prn. Unable to obtain standing scale weight at this time. No fever, chills reported. Review of Systems Review of Systems: All systems reviewed & are unremarkable except as noted in HPI & below Physical Exam Physical Exam: General: awake, alert to self/place (not situation/time at moments) Eyes anicteric, pupils equal and reactive ENT:mmm CV: RRR, no m/r/g, trace b/l LE edema, calves non-tender (LLE no able to appreciate 2nd to split in place), cap refill < 3 seconds, toes mobile Resp: CTAB, no w/c/r, on room air GI: +BS, soft, non-tender : yellow darkened urine draining Ext/MSK: chronic venous stasis changes RLE. LLE splinted and wrapped, can wiggle toes, NVI L wrist in thumb spica splint Neuro: no facial droop/slurred speech. CN intact grossly Psych: alert, oriented to person, not situation/time at moments, easily re- oriented Results & Data Results & Data ([facility]) Vital Signs (Past 12 Hours) Vital Signs Temp Pulse Resp BP Pulse Ox 04/29/21 07:24 36.8 C 62 16 171/78 H 95 04/28/21 22:30 91 04/28/21 22:25 37.4 C 74 18 139/70 83 L Laboratory Results 04/29/21 04/29/21 04/29/21 Range/Units 05:30 05:30 05:30 WBC 8.91 (4.8-10.8) K/uL RBC 3.29 L (4.2-5.4) M/uL Hgb 10.9 L (12.0-16.0) g/dL Hct 33.8 L (37-47) % MCV 102.7 H (80-100) fL MCH 33.1 (25-34) pg MCHC 32.2 (32-36) g/dL RDW Std Deviation 50.0 H (36.4-46.3) fL RDW Coeff of Luis 13.2 (11.5-14.5) % Plt Count 276 (130-400) K/uL MPV 10.4 (7.4-10.4) fL Immature Gran % (Auto) 0.1 % Neut % (Auto) 47.7 % Lymph % (Auto) 33.8 % [place] % (Auto) 12.1 % Eos % (Auto) 5.9 % Baso % (Auto) 0.4 % Neut # (Auto) 4.24 (1.4-6.5) K/uL Lymph # (Auto) 3.01 (1.2-3.4) K/uL [place] # (Auto) 1.08 H (0.11-0.59) K/uL Eos # (Auto) 0.53 H (0-0.5) K/uL Baso # (Auto) 0.04 (0-0.2) K/uL Immature Gran # (Auto) 0.01 (0.00-0.02) K/uL Sodium 135 L (136-145) mmol/L Potassium 3.8 (3.5-5.1) mmol/L Chloride 101 (98-107) mmol/L Carbon Dioxide 27 (21-32) mmol/L Anion Gap 7 (3-11) BUN 26 H (6-23) mg/dl Creatinine 0.65 (0.6-1.2) mg/dl Est Cr Clr Drug Dosing 70.8 ml/min Est GFR ( Amer) 91.2 ml/min Est GFR (Non-Af Amer) 78.7 ml/min BUN/Creatinine Ratio 40.0 H (10-20) Glucose 95 (70-99(Fasting)) mg/dl Calcium 8.9 (8.5-10.1) mg/dl Vitamin B12 (211-911) pg/ml 25-OH Vitamin D Total 33.7 (30-100) ng/ml Folate (>5.38) ng/ml TSH (0.300-4.500) uIu/ml 04/28/21 04/28/21 04/28/21 Range/Units 08:53 08:53 08:53 WBC 9.35 (4.8-10.8) K/uL RBC 3.46 L (4.2-5.4) M/uL Hgb 11.4 L (12.0-16.0) g/dL Hct 35.5 L (37-47) % MCV 102.6 H (80-100) fL MCH 32.9 (25-34) pg MCHC 32.1 (32-36) g/dL RDW Std Deviation 50.7 H (36.4-46.3) fL RDW Coeff of Luis 13.5 (11.5-14.5) % Plt Count 269 (130-400) K/uL MPV 10.0 (7.4-10.4) fL Immature Gran % (Auto) % Neut % (Auto) % Lymph % (Auto) % [place] % (Auto) % Eos % (Auto) % Baso % (Auto) % Neut # (Auto) (1.4-6.5) K/uL Lymph # (Auto) (1.2-3.4) K/uL [place] # (Auto) (0.11-0.59) K/uL Eos # (Auto) (0-0.5) K/uL Baso # (Auto) (0-0.2) K/uL Immature Gran # (Auto) (0.00-0.02) K/uL Sodium (136-145) mmol/L Potassium (3.5-5.1) mmol/L Chloride (98-107) mmol/L Carbon Dioxide (21-32) mmol/L Anion Gap (3-11) BUN (6-23) mg/dl Creatinine (0.6-1.2) mg/dl Est Cr Clr Drug Dosing ml/min Est GFR ( Amer) ml/min Est GFR (Non-Af Amer) ml/min BUN/Creatinine Ratio (10-20) Glucose (70-99(Fasting)) mg/dl Calcium (8.5-10.1) mg/dl Vitamin B12 181 L (211-911) pg/ml 25-OH Vitamin D Total (30-100) ng/ml Folate 12.74 (>5.38) ng/ml TSH 3.106 (0.300-4.500) uIu/ml 04/28/21 Range/Units 08:53 WBC (4.8-10.8) K/uL RBC (4.2-5.4) M/uL Hgb (12.0-16.0) g/dL Hct (37-47) % MCV (80-100) fL MCH (25-34) pg MCHC (32-36) g/dL RDW Std Deviation (36.4-46.3) fL RDW Coeff of Luis (11.5-14.5) % Plt Count (130-400) K/uL MPV (7.4-10.4) fL Immature Gran % (Auto) % Neut % (Auto) % Lymph % (Auto) % [place] % (Auto) % Eos % (Auto) % Baso % (Auto) % Neut # (Auto) (1.4-6.5) K/uL Lymph # (Auto) (1.2-3.4) K/uL [place] # (Auto) (0.11-0.59) K/uL Eos # (Auto) (0-0.5) K/uL Baso # (Auto) (0-0.2) K/uL Immature Gran # (Auto) (0.00-0.02) K/uL Sodium 135 L (136-145) mmol/L Potassium 3.8 (3.5-5.1) mmol/L Chloride 103 (98-107) mmol/L Carbon Dioxide 25 (21-32) mmol/L Anion Gap 7 (3-11) BUN 22 (6-23) mg/dl Creatinine 0.64 D (0.6-1.2) mg/dl Est Cr Clr Drug Dosing 71.9 ml/min Est GFR ( Amer) 91.7 ml/min Est GFR (Non-Af Amer) 79.1 ml/min BUN/Creatinine Ratio 34.4 H (10-20) Glucose 141 H (70-99(Fasting)) mg/dl Calcium 8.8 (8.5-10.1) mg/dl Vitamin B12 (211-911) pg/ml 25-OH Vitamin D Total (30-100) ng/ml Folate (>5.38) ng/ml TSH (0.300-4.500) uIu/ml Diagnostic Findings Chest X-Ray 04/29/21 07:52 XR chest 1V portable CLINICAL HISTORY: Hypoxia. COMPARISON STUDY: Chest radiograph April 27, 2021. FINDINGS: There are median sternotomy wires and mediastinal surgical clips. No pneumothorax or pleural effusion is noted. Cardiomegaly is unchanged. There is pulmonary vascular congestion with possible mild pulmonary edema. No c onsolidation is identified. IMPRESSION: Cardiomegaly. Pulmonary vascular congestion with possible mild pulmonary edema. ACT 112: Negative or not required by law. Electronically signed by: Michael Saeed M.D. 04/29/2021 9:34 AM PG Care Time/CCT Total # of Minutes Spent Total Time Spent with Patient: Total time spent is greater than 50% in coordination of care (as documented) at patient's floor/unit and/or counseling patient: Coding Level of Care Code 32787 Subseq Hosp Care Lvl 2 Diagnoses Weakness R53.1 Closed left ankle fracture S82.892A Encounter type: initial encounter Contusion of left hand S60.222A Encounter type: initial encounter Skin tear of left hand without complication S61.412A Encounter type: initial encounter Dementia F03.90 Coronary artery disease I25.10 Associated angina: without angina Coronary Disease-Associated Artery/Lesion type: [place] artery [place] vs. transplanted heart: [place] heart Hypertension I10 Hypertension type: essential hypertension Osteopenia M85.80 Chronic diastolic (congestive) heart failure I50.32 TIA (transient ischemic attack) G45.9 DVT prophylaxis Z29.9 Discharge planning issues Z02.9 B12 deficiency E53.8 (1) Coronary artery disease Associated angina: without angina Coronary Disease-Associated Artery/Lesion type: [place] artery [place] vs. transplanted heart: [place] heart Qualified Code(s): I25.10 - Atherosclerotic heart disease of [place] coronary artery without angina pectoris (2) Skin tear of left hand without complication Encounter type: initial encounter Qualified Code(s): S61.412A - Laceration without foreign body of left hand, initial encounter (3) Hypertension Hypertension type: essential hypertension Qualified Code(s): I10 - Essential (primary) hypertension (4) Contusion of left hand Encounter type: initial encounter Qualified Code(s): S60.222A - Contusion of left hand, initial encounter (5) Closed left ankle fracture Encounter type: initial encounter Qualified Code(s): S82.892A - Other fracture of left lower leg, initial encounter for closed fracture
[2021-04-29] MEDS: amLODIPine BESYLATE 5 MG TAB PO SCH (09:30)
[2021-04-29] MEDS: PANTOprazole 40 MG TAB PO SCH (09:30)
[2021-04-29] MEDS: LIDOCAINE 4% CREAM 15 GM TUBE EXT SCH ×4 (09:30→21:21)
[2021-04-29] MEDS: CYANOCOBALAMIN 1000 MCG/ML VIAL IM SCH (09:30)
[2021-04-29] MEDS: ATORVASTATIN 10 MG TAB PO SCH (09:30)
[2021-04-29] MEDS: ENOXAPARIN INJ 40 MG/0.4 ML SYR SQ SCH (09:30)
[2021-04-29] MEDS: CHOLECALCIFEROL 1,000 UNITS 25 MCG TAB PO SCH ×2 (09:30→17:47)
[2021-04-29] MEDS: ASPIRIN 81 MG ECTAB PO SCH (09:30)
[2021-04-29] MEDS: [UNRECOGNIZED DRUG - OTHER] SCH ×3 (09:30→23:03)
--- NOTE | 2021-04-29 09:36 | XRay Report ---
XR chest 1V portable CLINICAL HISTORY: Hypoxia. COMPARISON STUDY: Chest radiograph April 27, 2021. FINDINGS: There are median sternotomy wires and mediastinal surgical clips. No pneumothorax or pleura l effusion is noted. Cardiomegaly is unchanged. There is pulmonary vascular congestion with possible mild pulmonary edema. No consolidation is identified. IMPRESSION: Cardiomegaly. Pulmonary vascular congestion with possible mild pulmonary edema. ACT 112: Negative or not required by law. Electronically signed by: Michael Saeed M.D. 04/29/2021 9:34 AM
[2021-04-29] MEDS: traMADol HCL 50 MG TABLET PO SCH (09:42)
[2021-04-29] MEDS ORDERED: FUROSEMIDE 40 MG TAB PO ONE (10:04)
[2021-04-29] MEDS: FUROSEMIDE 20 MG TAB PO SCH (11:13)
[2021-04-29] MEDS ORDERED: MoRPHine SULFATE 2 MG/ML CARP IV STA (23:20)
[2021-04-30] MEDS: IBUPROFEN 600 MG TAB PO SCH (06:15)
[2021-04-30 06:35] LABS: Basophils # (auto) 0.03 K/uL (0-0.2); Basophils % (auto) 0.3 %; Eosinophils # (auto) 0.15 K/uL (0-0.5); Eosinophils % (auto) 1.4 %; Hematocrit (blood only) 36.4 % (37-47); Hemoglobin 11.8 g/dL (12.0-16.0); Immature Granulocytes # (auto) 0.01 K/uL (0.00-0.02); Immature Granulocytes % (auto) 0.1 %; Lymphocytes # (auto) 2.11 K/uL (1.2-3.4); Lymphocytes % (auto) 19.5 %; Mean Corpuscular Hemoglobin 33.2 pg (25-34); Mean Corpuscular Hgb Conc 32.4 g/dL (32-36); Mean Corpuscular Volume 102.5 fL (80-100); Mean Platelet Volume 10.4 fL (7.4-10.4); Neutrophils % (auto) 66.7 %; Platelet Count 311 K/uL (130-400); RDW Coefficient of Variation 13.1 % (11.5-14.5); RDW Standard Deviation 49.2 fL (36.4-46.3); Red Blood Count 3.55 M/uL (4.2-5.4)
[2021-04-30 06:56] LABS: BUN Creatinine Ratio 32.4 (10-20); Creatinine Clr Calc Pharmacy 62.2 ml/min; Est GFR (African American) 83.2 ml/min; Est GFR (Non-African American) 71.8 ml/min; Potassium 3.8 mmol/L (3.5-5.1)
--- NOTE | 2021-04-30 09:07 | Hospitalist Progress Note ---
Date of Service April 30, 2021 Assessment & Plan Admission and Anticipated Discharge Date Admission Date: April 27, 2021 Subjective patient evaluated this morning had increased pain last night, improved today discussed tramadol and can increase 25-50mg as needed no fever, chills, chest pain, shortness of breath. overnight pulse ox with drop and will arrange for noctural oxygen at discharge. Results & Data Results & Data ([facility]) Vital Signs (Past 12 Hours) Vital Signs Temp Pulse Pulse Pulse Resp BP Pulse Ox 04/30/21 08:07 36.6 C 75 16 148/76 H 95 04/29/21 23:47 76 80 04/29/21 22:03 37.1 C 84 18 137/76 89 L Pulse Ox Pulse Ox 04/30/21 08:07 04/29/21 23:47 90 84 L 04/29/21 22:03 Laboratory Results 04/30/21 04/30/21 Range/Units 05:25 05:25 WBC 10.80 (4.8-10.8) K/uL RBC 3.55 L (4.2-5.4) M/uL Hgb 11.8 L (12.0-16.0) g/dL Hct 36.4 L (37-47) % MCV 102.5 H (80-100) fL MCH 33.2 (25-34) pg MCHC 32.4 (32-36) g/dL RDW Std Deviation 49.2 H (36.4-46.3) fL RDW Coeff of Luis 13.1 (11.5-14.5) % Plt Count 311 (130-400) K/uL MPV 10.4 (7.4-10.4) fL Immature Gran % (Auto) 0.1 % Neut % (Auto) 66.7 % Lymph % (Auto) 19.5 % [place] % (Auto) 12.0 % Eos % (Auto) 1.4 % Baso % (Auto) 0.3 % Neut # (Auto) 7.20 H (1.4-6.5) K/uL Lymph # (Auto) 2.11 (1.2-3.4) K/uL [place] # (Auto) 1.30 H (0.11-0.59) K/uL Eos # (Auto) 0.15 (0-0.5) K/uL Baso # (Auto) 0.03 (0-0.2) K/uL Immature Gran # (Auto) 0.01 (0.00-0.02) K/uL Sodium 136 (136-145) mmol/L Potassium 3.8 (3.5-5.1) mmol/L Chloride 99 (98-107) mmol/L Carbon Dioxide 30 (21-32) mmol/L Anion Gap 7 (3-11) BUN 24 H (6-23) mg/dl Creatinine 0.74 (0.6-1.2) mg/dl Est Cr Clr Drug Dosing 62.2 ml/min Est GFR ( Amer) 83.2 ml/min Est GFR (Non-Af Amer) 71.8 ml/min BUN/Creatinine Ratio 32.4 H (10-20) Glucose 119 H (70-99(Fasting)) mg/dl Calcium 9.0 (8.5-10.1) mg/dl PG Care Time/CCT Total # of Minutes Spent Total Time Spent with Patient: Total time spent is greater than 50% in coordination of care (as documented) at patient's floor/unit and/or counseling patient: Coding
[2021-04-30] MEDS: LIDOCAINE 4% CREAM 15 GM TUBE EXT SCH (09:56)
[2021-04-30] MEDS: ENOXAPARIN INJ 40 MG/0.4 ML SYR SQ SCH (10:00)
[2021-04-30] MEDS: [UNRECOGNIZED DRUG - OTHER] SCH (10:00)
[2021-04-30] MEDS: ATORVASTATIN 10 MG TAB PO SCH (10:00)
[2021-04-30] MEDS: CHOLECALCIFEROL 1,000 UNITS 25 MCG TAB PO SCH (10:00)
[2021-04-30] MEDS: amLODIPine BESYLATE 5 MG TAB PO SCH (10:00)
[2021-04-30] MEDS: FUROSEMIDE 20 MG TAB PO SCH (10:00)
[2021-04-30] MEDS: CYANOCOBALAMIN 1000 MCG/ML VIAL IM SCH (10:00)
[2021-04-30] MEDS: ASPIRIN 81 MG ECTAB PO SCH (10:00)
[2021-04-30] MEDS ORDERED: traMADol HCL 50 MG TABLET PO PRN (10:00)
[2021-04-30] MEDS: traMADol HCL 50 MG TABLET PO SCH (10:01)
[2021-04-30] MEDS: PANTOprazole 40 MG TAB PO SCH (10:01)
--- NOTE | 2021-04-30 10:09 | XRay Report ---
XR chest 1V portable CLINICAL HISTORY: f/u congestion TECHNIQUE: Single frontal radiograph of the chest was obtained. Comparison: Comparison is made to chest one view 04/29/2021 FINDINGS: No lines and tubes are seen. Cardiomegaly is noted. Prominence and cephalization of the vasculature i s seen. No evidence of pleural effusion or pneumothorax. IMPRESSION: Mild pulmonary edema. ACT 112: Negative or not required by law. Electronically signed by: Sandip Miller M.D. 04/30/2021 10:08 AM
--- NOTE | 2021-04-30 11:19 | Discharge Summary ---
Date of Service April 30, 2021 Admission HPI Per Admitting Provider Patient is a very pleasant but fairly demented 89-year-old female who had a fall at personal care yesterday. Apparently she hurt her ankle and twisted it quite noticeablyx-rays were ordered, but apparently not able to be done. That, combined with ongoing weakness/immobility (daughter notes normally she is a two- person assist, today she was a 4 person assist) led to her being brought to the ER for further evaluation. Here she is found to have medial malleolar fracture, but more importantly, is too weak to return to personal care. In discussion with one of her daughters on the phone, they have been discussing SNF options for a bit, knowing that further escalation was likely coming soon, and while she would like to talk with the family a bit moreright now [facility] [place], or [facility] [place] here would be their presumptive top choices. The patient herself denies any acute complaints, seems to be fairly unaware that she hurt her ankle. She is mostly making sure that her kids got home (it is snowing) but then noting that they are a handful, saying that she is relieved that they have left. Does seem relieved that they made it home, saying much of this even to her daughter on the phone. This all seems to have a sarcastically loving tone to it. In terms of her situation, she does not really seem to recall yesterday's Thalwhen I ask her where she is, she remarks "we are at the end of the road but is going to get me to a better place" when asked to clarify what building we are in, she does note that we are on the first floor (which is correct) but she is not aware that were in the hospital. She does strongly endorse DNR status, although this is also confirmed by her daughter. Admission Exam Per Admitting Provider In general she is awake and alert disoriented but no distress. HEENT normocephalic atraumatic mucous membranes moist. Cardio is regular no rubs murmurs or gallops. Lungs are clear to auscultation bilaterally no rales rhonchi or wheeze with good effort. Abdomen is soft nondistended nontender no masses organomegaly. Extremities are without cyanosis or clubbing, chronic venous stasis type edema with a compression stocking on her right leg. Left leg is wrapped in an Jorge Alberto wrap with a splint. Neuro shows cranial nerves II through XII be grossly intact gross motor and sensory are intact. Musculoskeletal shows her left leg to be splinted and wrapped, otherwise no gross deformities. Of note her left wrist is also in a thumb spica splint. Mental status shows her to have a very pleasant mood with a joking and sarcastic affect, she seems to be fairly disoriented as far as recent recall. Judgment and insight obviously almost impossible to assess Principal Diagnosis Left Ankle Fracture Discharge Exam General: awake, alert to self/place (not situation/time at moments) Eyes anicteric, pupils equal and reactive ENT:mmm, +JVD CV: RRR, no m/r/g, trace b/l LE edema, calves non-tender (LLE no able to appreciate 2nd to split in place), cap refill < 3 seconds, toes mobile Resp: CTAB, no w/c/r, on room air GI: +BS, soft, non-tender : yellow darkened urine draining Ext/MSK: chronic venous stasis changes RLE with trace edema. LLE splinted and wrapped, wiggles toes, NVI L wrist in thumb spica splint Neuro: no facial droop/slurred speech. CN intact grossly, decreased sensation to light touch b/l LE Psych: alert, oriented to person, not situation/time at moments, easily re- oriented Discharge Data Allergies Allergy/AdvReac Type Severity Reaction Status Date / Time ciprofloxacin Allergy Unknown ON MED LIST Verified 04/27/21 17:35 ezetimibe Allergy Unknown ON MED LIST Verified 04/27/21 17:35 lisinopril Allergy Unknown ON MED LIST Verified 04/27/21 17:35 nitrofurantoin Allergy Unknown ON MED LIST Verified 04/27/21 17:35 [From Macrobid] Penicillins Allergy Unknown ON MED LIST Verified 04/27/21 17:35 simvastatin Allergy Unknown ON MED LIST Verified 04/27/21 17:35 codeine AdvReac Mild GI SYMPTOMS Verified 04/27/21 17:35 Consultations 04/27/21 17:04 Consult Orthopedic Surgery Routine ED Decision to Admit Stat Ordered Studies Ankle X-Ray 04/27/21 15:04 XR foot LT 2V, XR ankle LT 2V CLINICAL HISTORY: fall TECHNIQUE: 2 views of the left foot were obtained. 2 views of the left ankle were obtained. Comparison: None available at the time of this dictation. FINDINGS: Limited evaluation due to limited views. There is lucency in the medial malleolus compatible with an acute minimally displaced fracture. The alignment is anatomic. Degenerative changes are seen. Soft tissue swelling is seen about the foot and ankle. IMPRESSION: Linear lucency at the medial malleolus is compatible with an acute minimally displaced fracture. Correlation with point tenderness is recommended. Soft tissue swelling is seen about the ankle. ACT 112: Negative or not required by law. Electronically signed by: Sandip Miller M.D. 04/27/2021 3:57 PM Chest X-Ray 04/27/21 15:04 XR chest 1V portable CLINICAL HISTORY: fall TECHNIQUE: Single frontal radiograph of the chest was obtained. Comparison: Comparison is made to chest one view 10/05/2020 FINDINGS: Stable median sternotomy wires. Cardiomegaly is noted. Prominence and cephalization of the vasculature is seen. No evidence of pleural effusion or pneumothorax. IMPRESSION: Mild pulmonary edema. ACT 112: Negative or not required by law. Electronically signed by: Sandip Miller M.D. 04/27/2021 3:58 PM Foot X-Ray 04/27/21 15:04 XR foot LT 2V, XR ankle LT 2V CLINICAL HISTORY: fall TECHNIQUE: 2 views of the left foot were obtained. 2 views of the left ankle were obtained. Comparison: None available at the time of this dictation. FINDINGS: Limited evaluation due to limited views. There is lucency in the medial malleolus compatible with an acute minimally displaced fracture. The alignment is anatomic. Degenerative changes are seen. Soft tissue swelling is seen about the foot and ankle. IMPRESSION: Linear lucency at the medial malleolus is compatible with an acute minimally displaced fracture. Correlation with point tenderness is recommended. Soft tissue swelling is seen about the ankle. ACT 112: Negative or not required by law. Electronically signed by: Sandip Miller M.D. 04/27/2021 3:57 PM Hip/Pelvis X-Ray 04/27/21 15:04 XR hip LT 2V w pelvis CLINICAL HISTORY: fall TECHNIQUE: 2 views of the left hip and single frontal view of the pelvis were obtained. Comparison: None available at the time of this dictation. FINDINGS: There is no evidence of an acute fracture. The alignment is anatomic. Severe degenerative changes are seen in the left hip joint. No soft tissue abnormality is seen. IMPRESSION: Severe degenerative changes in the left hip joint without evidence of underlying fracture. ACT 112: Negative or not required by law. Electronically signed by: Sandip Miller M.D. 04/27/2021 4:01 PM Shoulder X-Ray 04/27/21 15:04 XR shoulder LT min 2V routine CLINICAL HISTORY: fall TECHNIQUE: 2 views of the left shoulder were obtained. Comparison: None available at the time of this dictation. FINDINGS: There is no evidence of an acute fracture. Degenerative changes are seen in the glenohumeral joint. The overlying soft tissues are unremarkable. The visualized portions of the lungs are clear. IMPRESSION: No evidence of acute osseous injury. ACT 112: Negative or not required by law. Electronically signed by: Sandip Miller M.D. 04/27/2021 4:02 PM Tibia/Fibula X-Ray 04/27/21 15:04 XR tibia fibula LT 2V CLINICAL HISTORY: fall Comparison: None available at the time of this dictation. TECHNIQUE: 2 radiographic views of the left leg were obtained. FINDINGS: Soft tissue swelling is seen. Please see CT ankle performed same day for detailed findings of the likely medial malleolus fracture. Degenerative changes are seen in the visualized knee joint. IMPRESSION: Partial visualization of likely medial malleolus fracture. Otherwise no acute abnormality. ACT 112: Negative or not required by law. Electronically signed by: Sandip Miller M.D. 04/27/2021 4:00 PM Wrist X-Ray 04/27/21 15:04 XR wrist LT min 3V routine CLINICAL HISTORY: fall TECHNIQUE: 3 views of the left wrist were obtained. Comparison: None available at the time of this dictation. FINDINGS: There is no evidence of an acute fracture. The alignment is anatomic. Joint spaces are well-preserved. No soft tissue abnormality is seen. IMPRESSION: No evidence of acute osseous injury. ACT 112: Negative or not required by law. Electronically signed by: Sandip Miller M.D. 04/27/2021 4:02 PM Ankle X-Ray 04/28/21 08:49 LEFT ANKLE 3 VIEWS CLINICAL HISTORY: Left ankle fracture. FINDINGS: 3 views of the left ankle are compared to study dated 04/27/2021. The examination is performed through a cast, obscuring fine bony detail. The skeletal structures are osteopenic. Again seen is a nondisplaced vertically oriented fracture through the base of the medial malleolus. No additional fracture is identified at the ankle joint. The ankle mortise is in anatomic alignment. There is a joint effusion, and soft tissue edema is present around the ankle. There are large dorsal and plantar calcaneal enthesophytes. IMPRESSION: 1. Soft tissue swelling with unchanged alignment of a medial malleolar fracture as above. 2. No additional fracture is identified. Electronically signed by: Jeffery Syed M.D. 04/28/2021 10:40 AM Chest X-Ray 04/29/21 07:52 XR chest 1V portable CLINICAL HISTORY: Hypoxia. COMPARISON STUDY: Chest radiograph April 27, 2021. FINDINGS: There are median sternotomy wires and mediastinal surgical clips. No pneumothorax or pleural effusion is noted. Cardiomegaly is unchanged. There is pulmonary vascular congestion with possible mild pulmonary edema. No consolidation is identified. IMPRESSION: Cardiomegaly. Pulmonary vascular congestion with possible mild pulmonary edema. ACT 112: Negative or not required by law. Electronically signed by: Michael Saeed M.D. 04/29/2021 9:34 AM Chest X-Ray 04/30/21 09:05 XR chest 1V portable CLINICAL HISTORY: f/u congestion TECHNIQUE: Single frontal radiograph of the chest was obtained. Comparison: Comparison is made to chest one view 04/29/2021 FINDINGS: No lines and tubes are seen. Cardiomegaly is noted. Prominence and cephalization of the vasculature is seen. No evidence of pleural effusion or pneumothorax. IMPRESSION: Mild pulmonary edema. ACT 112: Negative or not required by law. Electronically signed by: Sandip Miller M.D. 04/30/2021 10:08 AM Hospital Course (1) Weakness: Progressive daughter notes that she was two-person assist until recently (in wheelchair baseline), now four person assist (it seems to be after the fall) PT/OT eval and treat Ortho consulted Repeat ankle xrays pending for L ankle fracture on admission --> Per discussion with myself/patient/daughter as well as with orthopedics and patient/daughter last evening, plans for conservative approach. Continue split and can change to cast during follow up in clinic 1-2 weeks post discharge Of note, patient daughter discussed prior adverse reaction with anesthesia with HR dropping to the 40s during a colonoscopy and was told not to undergo any further anesthesia at that time Patient does voice DNR status, confirmed with daughter on admission PT/OT consults--> rec SNF. [facility] to [facility] ([facility] at this time) --> accepted to [facility] Pain control --> chronically takes tramadol 25mg QAM and this is also available prn HS Continue tylenol prn. Ibuprofen scheduled for now. Pain reported as controlled --> did get dose of morphine overnight 04/29 but discussed with patient and agreable to use 25-50mg tramadol as needed. Did not endorse any increased pain today prior to discharge B12 replacement as below CXR w/ Cardiomegaly. Pulmonary vascular congestion with possible mild pulmonary edema. Repeat improved but still present. Did give lasix 20mg x 1 on 04/29 and repeated again prior to d/c. (takes prn weight gain [employer]CH[employer]IC[employer] but unsure how often she was actually getting given bedbound status) Continue lasix daily for this week. check BMP in 2-3 days for stability. Congestion on CXR but not symptomatic thankfully. Previously had been taking prn "weight gain" but endorsed she doesn't recall the last time she took that (also w/ dementia so not sure on accuracy, however in either case do believe she would benefit from couple days of lasix and monitoring volume status) Also, overnight pulse ox obtained --> 2L HS. can have sleep study outpt as able/wanted (2) Closed left ankle fracture: Nonweightbearing, splinting, pain control Ortho consulted -- repeat xrays, consultation pending -- to see after clinic (3) B12 deficiency: Of note, MCV noted to be elevated since last December --> B12 low at 181 (folate wnl) and started on 1000mcg daily injections while inpatient --> to continue for one week at SNF, then can decrease to once weekly, followed by PO Likely contributing to fall/confusion as well (4) Contusion of left hand: Pain control, splint for comfort (5) Skin tear of left hand without complication: Local care (6) Dementia: Supportive care Also checked B12/TSH --> TSH wnl. B12 low as above and started supplementation --IM while inpatient, continue at d/c as above, then PO following Discussed with daughter as well regarding deficiency/replacement (7) Coronary artery disease: Hx CABG x 3 in 2003. Echocardiogram 10/05/2020: Normal left ventricular size, function. Ejection fraction 55-60%. No wall motion abnormalities. Mild left ventricular hypertrophy, mild left atrial dilatation. Mild aortic stenosis with mild regurgitation. Mild mitral regurgitation and tricuspid regurgitation. Mild pulmonary hypertension, RSVP 45-50 mmHg. Chronic diastolic heart failure, treated with Lasix (had only been taking prn weight gain prior) Scheduled lasix 20mg daily x 1 week. monitoring BMP in 2-3 days outpatient No notable signs or symptoms of ACS. Continue home meds (8) Hypertension: BP stable 148/76 Continue amlodipine 7.5mg daily scheduled lasix daily as above f/u PCP (9) Osteopenia: Likely contributory to ankle fracture. Outpatient bone health management Vit D wnl, continue home 2000IU BID (10) Chronic diastolic (congestive) heart failure: Radiographically question mild degree of decompensation, however, she has no dyspnea and overall clear lungsfollow. Lasix 20mg prn weight gain --> did give dose morning 04/28 and repeating dose today 04/29, again 04/30 --> no overt failure but slightly volume up --> of note, sodium returned to normal after repeated doses of lasix, indicating volume overload state was taking prn prior and Cr stable on daily dosing, instructed to continue daily for 1 week, f/u PCP and consider continued daily dosing --> Has been wheelchair bound and not really able to get daily weights (also now w/ splint) (11) TIA (transient ischemic attack): Continued home meds for baseline of cerebrovascular disease (12) DVT prophylaxis: Lovenox while inpatient (13) Discharge planning issues: PT/OT eval and treat.--> SNF at d/c not able to return to prior [facility] arranged at d/c F/u ortho 1-2 weeks for cast/repeat imaging tramadol for pain control continue lasix 20mg daily, repeat BMP in 2-3 days to ensure stability continue B12 supplementation at discharge Total Time Total Time Spent Total Time Spent (In Minutes): 50 Discharge Plan Discharge Items Patient Disposition: [facility] Reason For Visit: FALL/WEAKNESS/ANKLE FRACTURE Discharge Diagnosis: Ankle Fracture Goals: You have been hospitalized for an acute medical problem. During your stay at [facility], we have made an effort to correct the problem that brought you to the hospital while keeping you as comfortable as possible. Medications were used to bring your condition under control and your discharge instructions will include directions for any medications you should take after leaving the hospital. Please make sure you see your Primary Care Provider as part of your follow up plan. Activity: As commented below Activity Comment: advance with therapy Weightbearing: Left non-weightbearing Non-emergency contact: Primary Care Provider and Surgeon Call non-emergency contact if: you have any medication questions, your symptoms worsen and your pain is not controlled Follow-up/Referrals: Viral Vyas M.D. [Physician] - (2 weeks) Hyacinth Avelar [Primary Care Provider] - Diet: Heart Healthy Addtl Attending Provider Instructions: You have been hospitalized and found to have a left ankle fracture. You were placed in a splint and made non-weight bearing to the left lower extremity and orthopedics was consulted. This is going to be managed conservatively and will need follow up with Dr. Vyas in 1-2 weeks after discharge in office for placement of a cast and repeat imaging. You also had a B12 level checked given the anemia which was noted to be abnormal for several months, and was low. This can contribute to neuropathy, memory and balance problems. You will continue daily injections for a week then can switch to once weekly injections for a month, then oral supplementation after. You have tramadol available for pain and can go up to 25-50mg as needed. Use tylenol and ibuprofen for non-severe pain. You should also continue lasix 20mg by mouth daily for the next week. You should have repeat BMP in the next 2-3 days to ensure kidney function remains stable. You were checked for night time oxygen and should be wearing 2L at night. You can consider outpatient follow-up sleep study. Please follow up with primary provider in the next 7-10days. Please return to the emergency department for any symptoms that are concerning for you. It has been a pleasure being a part of the medical team providing for you while you have been in the hospital. Take care! Pending Studies at Discharge: No Stand-Alone Forms: My [facility] Skilled Items Patient informed of condition?: Yes DNR: Yes Discharge Level of Care: Skilled Communicable Disease: No Discharge Prognosis: Stable Lines: None Urinary Catheter: No Medications and DC Order Prescriptions: Continued loperamide 2 mg tablet 2 mg PO Q3H PRN (Reason: Diarrhea) Qty: 240 RF: 0 ibuprofen [IBU] 600 mg tablet 600 mg PO Q8H Qty: 90 RF: 3 pantoprazole [Protonix] 20 mg tablet,delayed release (DR/EC) 20 mg PO QAM Qty: 90 RF: 1 docusate sodium [Colace] 100 mg capsule 100 mg PO .COMPLEX PRN (Reason: constipation) Qty: 30 RF: 3 amlodipine [Norvasc] 2.5 mg tablet 2.5 mg PO QAM Qty: 30 RF: 5 acetaminophen [Tylenol Extra Strength] 500 mg Tablet 500 mg PO QID MDD 3 GRAMS/24 HOURS RF: 0 atorvastatin [Lipitor] 10 mg tablet 10 mg PO QAM RF: 0 cholecalciferol (vitamin D3) [Vitamin D3] 2,000 unit capsule 2,000 unit PO BID17 RF: 0 tramadol 50 mg Tablet 25 mg PO QPM PRN (Reason: Pain) RF: 0 diclofenac sodium 1 % gel 2 - 4 g TOPICAL QID PRN (Reason: Pain) RF: 0 Toviaz 4 mg tablet extended release 24 hr 4 mg PO BID RF: 0 lidocaine HCl [Aspercreme (lidocaine HCl)] 4 % Cream 1 applic TOPICAL TID RF: 0 Turmeric Caps 900 mg PO DAILY RF: 0 tramadol 50 mg tablet 25 mg PO QAM RF: 0 ibuprofen 200 mg Tablet 200 mg PO Q8 PRN (Reason: Pain) RF: 0 acetaminophen [Tylenol] 325 mg Tablet 650 mg PO Q6HWA PRN (Reason: FEVER/PAIN) RF: 0 amlodipine [Norvasc] 5 mg tablet 5 mg PO QAM RF: 0 aspirin [Aspirin Low Dose] 81 mg tablet,delayed release (DR/EC) 81 mg PO QAM RF: 0 nitroglycerin [Nitrostat] 0.4 mg tablet, sublingual 0.4 mg SL .COMPLEX PRN (Reason: chest pain) RF: 0 Changed furosemide [Lasix] 20 mg tablet 20 mg PO QAM Qty: 0 RF: 0 Discharge Orders: Discharge Order (Routine); Ordered 01/26/22 Ordered By: Mary Grace Reich/Other Patient Handouts: First Aid: Sprains and Fractures Admission Data Admit Date/Time: 04/27/21 17:46 Attending Provider: Jamilah Lala Admit Provider: Matthew Stahl Primary Care Provider: Hyacinth Avelar Other Providers: Matthew Stahl ; Donald Saha ; Achille,Care Other Interventions: Discharge Summary Assessment (RN) Last Done: 04/30/21 11:38 Supervising Physician Co-Signing Physician Notes PA Supervision Note: I personally saw and examined the patient. I verified all suero points and agree with MADAI Alford with the following exceptions and/or additions: S-feeling well, has some pain in ankle/leg. No CP or SOB O- Vitals reviewed Gen: [AAOx3, NAD] HEENT: [anicteric sclerae, EOMI] CV: [RRR no mgr nl S1S2] Pulm: [CTAB no wcr] Abd: [+BS soft NT ND no masses or hernias] Ext: [leg in splint, can wiggle toes] Skin: [no rashes, warm/dry] Neuro: [full strength throughout] A/P-89 yo female here with fall and ankle fracture Stable for dc to rehab Coding Level of Care Code D/C DAY MANAGEMENT >30 MINS Diagnoses Weakness R53.1 Closed left ankle fracture S82.892A Encounter type: initial encounter B12 deficiency E53.8 Contusion of left hand S60.222A Encounter type: initial encounter Skin tear of left hand without complication S61.412A Encounter type: initial encounter Dementia F03.90 Coronary artery disease I25.10 Associated angina: without angina Coronary Disease-Associated Artery/Lesion type: [place] artery [place] vs. transplanted heart: [place] heart Hypertension I10 Hypertension type: essential hypertension Osteopenia M85.80 Chronic diastolic (congestive) heart failure I50.32 TIA (transient ischemic attack) G45.9 DVT prophylaxis Z29.9 Discharge planning issues Z02.9
== END 2021-04-30 13:39 | DRG 563 ==
LOC: ED 14:49 → SUATTDRO 17:46 → EDINP 17:46 → 3E 20:51